=== PATIENT | female | born 1945 | race Caucasian/White ===

== ENCOUNTER 2022-12-15 09:05 | Day surgery (SDC) | payer MEDICARE, SELFPAY ==
[2022-12-15] VITALS (11 sets, daily range): BP systolic 130–159; BP diastolic 45–85; PULSE 55–73; RESP 16–20; TEMP 36.1; O2SAT 94–100; BMI 36.1
--- NOTE | 2022-12-15 07:03 | IR_ITS ---
APPROVED REPORT Patient Location: Outpatient [facility] Helper: QING Kennedy RT (R) PROCEDURES Left heart catheterization Left ventriculogram Selective coronary angiogram INDICATION High risk abnormal Myoview, Progressive angina pectoris Informed consent was obtained prior to the procedure. COMPLICATIONS None Estimated Blood Loss: Less than 10 mls TECHNIQUE One percent lidocaine used to anesthetize the right anterior aspect of the wrist. The right radial artery was accessed via the Seldinger technique. A 6 Czech sheath was placed in the right radial artery. 150 mg magnesium sulfate, 800 mcg of nitroglycerin, 1mg Lidocaine and 5000 U Heparin were given through the arterial sheath. The papa catheter was also used to perform left heart catheterization, left ventriculogram and selective coronary angiogram. At the end of the procedure the sheath was removed good hemostasis was achieved using Traclet band, patient was transferred to the postop holding area in stable condition. ANGIOGRAPHIC RESULTS The left main artery Normal The left anterior descending artery Normal The circumflex artery Normal The right coronary artery Normal The [place] ventriculogram reveals Hyperdynamic 75% The left ventricular end-diastolic pressure Severe to critically elevated at 45 mmHg IMPRESSION Normal coronary arteries Hyperdynamic ventricle consistent with hypertensive heart disease accompanied by severe diastolic dysfunction Severe to critically elevated LVEDP also consistent with severe to critical diastolic dysfunction PLAN 1. Discontinue hydrochlorothiazide 2. Start Lasix 80 mg p.o. daily with plans to uptitrate as necessary 3. Chemistry panel this Sunday and then follow-up in cardiology clinic late morning early afternoon December 18 4. Patient will likely benefit from CardioMEMS given her severe diastolic dysfunction and severe renal dysfunction. This will be addressed as an outpatient 5. Referral to nephrology Electronically signed by : Griffin Chun MD 12/15/2022 13:14:45
[2022-12-15 09:50] LABS: Basophils # 0.1 K/mm3 (0-0.2); Basophils % 0.7 % (0.1-2.0); Eosinophils # 0.2 K/mm3 (0.0-0.4); Eosinophils % 3.7 % (0.1-12.0); Hematocrit 38.5 % (37.0-47.0); Hemoglobin 11.4 g/dL (12.2-16.2); Lymphocytes % 31.7 % (10-50); Mean Corpuscular HGB Conc 29.6 g/dL (31.8-35.4); Mean Corpuscular Hemoglobin 30.6 pg (27.0-31.2); Mean Corpuscular Volume 103.4 fl (81-99); Mean Platelet Volume 8.1 fl (7.4-10.4); Monocytes # 0.4 K/mm3 (0.1-1.0); Neutrophils # 3.6 K/mm3 (1.8-7.8); Neutrophils % 56.9 % (37.0-80.0); Platelet Count 283 K/mm3 (142-424); Red Blood Count 3.72 M/mm3 (4.20-5.40); Red Cell Distribution Width 14.3 % (11.5-17.5); White Blood Count 6.3 K/mm3 (4.8-10.8)
[2022-12-15 09:52] LABS: Chloride 106 mmol/L (98-107); Sodium 140 mmol/L (136-145)
[2022-12-15 09:55] LABS: Blood Urea Nitrogen 36 mg/dl (7-17); Calcium 8.3 mg/dl (8.4-10.2); Carbon Dioxide 27 mmol/L (22.0-30.0); Creatinine Clearance Estimated 40 mL/min (50-200); Estimated Glomerular Filt Rate 24 ml/min (>60); GFR (African American) 29 ML/MIN (>60); Glucose 83 mg/dl (74-100)
--- NOTE | 2022-12-15 15:55 | SUR.PHASEII ---
patient reports nausea is resolved
== END 2022-12-15 15:55 | disposition home or self-care (01) ==
PROVIDERS: PCP Family Medicine; Visit Provider Internal Medicine
DX: I11.9 Hypertensive heart disease without heart failure (principal); R94.31 Abnormal electrocardiogram [ECG] [EKG]; R94.39 Abnormal result of other cardiovascular function study; I25.118 Atherosclerotic heart disease of native coronary artery with other forms of angina pectoris; Z79.899 Other long term (current) drug therapy; R06.02 Shortness of breath
CPT/HCPCS: 80048; 85025; 93458; 99152; C1725; C1769; J1644; J2405; Q9967

== ENCOUNTER → 2022-12-18 09:14 | Outpatient (CLI) | payer MEDICARE, SELFPAY ==
[2022-12-18 11:00] LABS: Anion Gap 14.5 mEq/L (5-15); Blood Urea Nitrogen 45 mg/dl (7-17); Calcium 7.8 mg/dl (8.4-10.2); Carbon Dioxide 23 mmol/L (22.0-30.0); Chloride 101 mmol/L (98-107); Estimated Glomerular Filt Rate 23 ml/min (>60); GFR (African American) 28 ML/MIN (>60); Glucose 108 mg/dl (74-100); Potassium 4.5 mmoL/L (3.5-5.1); Sodium 134 mmol/L (136-145)
[2022-12-18 13:13] LABS: Iron 45 ug/dL (37-170)
[2022-12-18 13:22] LABS: Total Iron Binding Capacity 437 ug/dL (265-497)
[2022-12-18 13:49] LABS: Ferritin 8.58 ng/ml (11.1-264)
[2022-12-18 14:32] LABS: Vitamin B12 211 pg/mL (239-931)
[2022-12-18 14:34] LABS: Folate 6.64 ng/mL
== END ==
PROVIDERS: PCP Family Medicine; Visit Provider Internal Medicine
DX: I10 Essential (primary) hypertension (principal); I20.8 Other forms of angina pectoris; R71.8 Other abnormality of red blood cells; R94.31 Abnormal electrocardiogram [ECG] [EKG]; R94.39 Abnormal result of other cardiovascular function study; D75.89 Other specified diseases of blood and blood-forming organs
CPT/HCPCS: 36415; 80048; 82607; 82728; 82746; 83540; 83550

== ENCOUNTER → 2022-12-26 09:41 | Outpatient (CLI) | payer MEDICARE, SELFPAY ==
[2022-12-26 10:06] LABS: Basophils # 0.1 K/mm3 (0-0.2); Basophils % 0.7 % (0.1-2.0); Eosinophils # 0.2 K/mm3 (0.0-0.4); Eosinophils % 2.4 % (0.1-12.0); Hematocrit 37.9 % (37.0-47.0); Hemoglobin 11.7 g/dL (12.2-16.2); Lymphocytes % 23.2 % (10-50); Mean Corpuscular HGB Conc 30.9 g/dL (31.8-35.4); Mean Corpuscular Hemoglobin 30.5 pg (27.0-31.2); Mean Corpuscular Volume 98.7 fl (81-99); Mean Platelet Volume 8.7 fl (7.4-10.4); Monocytes # 0.6 K/mm3 (0.1-1.0); Monocytes % 6.9 % (1.7-9.3); Neutrophils # 5.6 K/mm3 (1.8-7.8); Neutrophils % 66.7 % (37.0-80.0); Platelet Count 300 K/mm3 (142-424); Red Blood Count 3.84 M/mm3 (4.20-5.40); Red Cell Distribution Width 14.2 % (11.5-17.5); White Blood Count 8.4 K/mm3 (4.8-10.8)
[2022-12-26 10:24] LABS: Alanine Aminotransferase 15 U/L (12-78); Alkaline Phosphatase 106 U/L (38-126); Anion Gap 12.2 mEq/L (5-15); Aspartate Amino Transferase 28 U/L (14-36); Bilirubin,Indirect 0.4 mg/dL (0.0-0.9); Bilirubin,Total 0.4 mg/dl (0.2-1.3); Bilirubin,Unconjugated 0.4 mg/dL (0.0-1.1); Blood Urea Nitrogen 61 mg/dl (7-17); Calcium 7.6 mg/dl (8.4-10.2); Carbon Dioxide 36 mmol/L (22.0-30.0); Chloride 90 mmol/L (98-107); Chol/HDL Ratio 2.4 (1-3.5); Cholesterol 166 mg/dl (140-200); Estimated Glomerular Filt Rate 18 ml/min (>60); GFR (African American) 22 ML/MIN (>60); Glucose 100 mg/dl (74-100); HDL Cholesterol 70 mg/dl (40-60); Magnesium 1.8 mg/dl (1.6-2.3); Potassium 3.2 mmoL/L (3.5-5.1); Sodium 135 mmol/L (136-145); Total Protein,Serum 6.6 g/dl (6.3-8.2); Triglycerides 173 mg/dl (30-150); VLDL Cholesterol 35 mg/dL (0-40)
[2022-12-26 10:33] LABS: NT Pro Brain Natriuretic Pep. 667 pg/mL (0-450)
[2022-12-26 10:34] LABS: Direct LDL Cholesterol 58.62 mg/dL (100-129)
[2022-12-26 10:42] LABS: Free T4 (Free Thyroxine) 0.92 ng/dl (0.78-2.19)
[2022-12-26 10:54] LABS: Thyroid Stimulating Hormone 4.76 uIU/mL (0.465-4.68)
== END ==
PROVIDERS: PCP Family Medicine; Visit Provider Internal Medicine
DX: D75.89 Other specified diseases of blood and blood-forming organs (principal); I20.8 Other forms of angina pectoris; I50.30 Unspecified diastolic (congestive) heart failure; R71.8 Other abnormality of red blood cells; R94.31 Abnormal electrocardiogram [ECG] [EKG]; R94.39 Abnormal result of other cardiovascular function study; I11.0 Hypertensive heart disease with heart failure
CPT/HCPCS: 36415; 80048; 80061; 80076; 83735; 83880; 84439; 84443; 85025

== ENCOUNTER → 2023-01-16 10:34 | Outpatient (CLI) | payer MEDICARE, SELFPAY ==
[2023-01-16 12:09] LABS: Anion Gap 16.9 mEq/L (5-15); Blood Urea Nitrogen 52 mg/dl (7-17); Carbon Dioxide 27 mmol/L (22.0-30.0); Chloride 96 mmol/L (98-107); Estimated Glomerular Filt Rate 24 ml/min (>60); GFR (African American) 29 ML/MIN (>60); Glucose 135 mg/dl (74-100); Potassium 3.9 mmoL/L (3.5-5.1); Sodium 136 mmol/L (136-145)
== END ==
PROVIDERS: PCP Family Medicine; Visit Provider Internal Medicine
DX: N18.9 Chronic kidney disease, unspecified (principal)
CPT/HCPCS: 36415; 80048

== ENCOUNTER 2025-06-23 09:49 | Outpatient (CLI) | payer MEDICARE, SELFPAY ==
--- OUTSIDE RECORDS SUMMARY | 2025-05-09 20:41 | XMS_ITS | Encounter Summary ---
Author Organization [facility] ([place], [place], [place], [place]) Address [address] [place] [address] Care Team Providers Care Machine Wood Sander Name Role Phone Deo Byrne MD Primary Care Provider [phone] Jacob Celeste MD Unavailable Reason for Visit * Reason Comments Chest Pain Shortness of Breath * Auth/Cert (Routine) Specialty Diagnoses / Procedures Referred By Contac t Referred To Contact Diagnoses Shortness of breath Sinus tachycardia Chest pain Elevated liver enzymes Positive D dimer Abnormal kidney function Hypotension, unspecified hypotension type [facility] [address] [place] [address] Phone: tel: fax: [facility] [address] [facility] [address] [place] [address] Phone: tel: fax: Referral ID Status Reason Start Date Expiration Date Visits Re quested Visits Authorized [id number] 1 1 Encounter Details Date Type Department Care Team (Late st Contact Info) Description 05/09/2025 8:41 PM EDT - 05/13/2025 4:35 PM EDT Hospital Encounter [facility] [facility] [address] [place] [address] Xiang Cordova MD [address] [place] [address] Ulises Ruelas PA-C [address] [facility] [address] [place] [address] Kurtis Conteh DO [address] [id number] Martin Snyder MD [address] [id number] Callum Blanton MD [address] [phone] Shortness of breath (Primary Dx); Sinus tachycardia; Hypotension, unspecified hypotension type; Positive D dimer; Abnormal kidney function; Elevated liver enzymes Discharge Disposition: Home or Self Care Social History Tobacco Use Types Packs/Day Years Used Date Smoking Tobacco: Never Smokeless Tobacco: Never Alcohol Use Standard Drinks/Week Comments Yes 2 (1 standard drink = 0.6 oz pur e alcohol) Utilities Answer Date Recorded In the past 12 months, has t he electric, gas, oil, or water company threatened to shut off services in your home? No 05/10/2025 Interpersonal Safety Answer Date Record ed How often does anyone, mook small family and friends, physically hurt you? Never 05/10/2025 How often does anyone, mook small family and friends, insult or talk down to you? Never 05/10/2025 How often does anyone, mook small family and friends, threaten you with harm? Never 05/10/2025 How often does anyone, mook small family and friends, scream or curse at you? Never 05/10/2025 Housing Stability Answer Date Recorded What is your living situation today? I have a [facility] place to live 05/10/[address] you li ve. Do you have problems with any of the following? None of the above 05/10/2025 Food Insecurity Answer Date Recorded Within the past 12 months, y ou worried that your food would run out before you got money to buy more. Never true 05/10/2025 Within the past 12 months, t he food you bought just didn't last and you didn't have money to get more. Never true 05/10/2025 Transportation Needs Answer Date Record ed In the past 12 months, has l ack of reliable transportation kept you from medical appointments, meetings, work or from getting things needed for daily living? No 05/10/2025 Financial Resource Strain Answer Date R ecorded How hard is it for you to pa y for the very basics like food, housing, medical care, and heating? Would you say it is: Not hard at all 05/10/2025 Employment Answer Date Recorded Do you want help finding or keeping work or a job? I do not need or want help 05/10/2025 Family and Community Support Answer Zenon e Recorded If for any reason you need h elp with day-to-day activities such as bathing, preparing meals, shopping, managing finances, etc., do you get the help you need? I don't need any help 05/10/2025 Feeling Lonely or Isolated 0 05/10 Educational Attainment Answer Date Paul rded Do you speak a language other than [place] at [facility]? No 05/10/2025 Do you want help with school or training? For example, starting or completing job training or getting a high school diploma, GED or equivalent. No 05/10/2025 Physical Activity Answer Date Recorded Number of minutes of exercise per week 0 05/10/2025 Self Management Answer Date Recorded Because of a physical, menta l, or emotional condition, do you have serious difficulty concentrating, remembering, or making decisions? (5 years or older) No 05/10/2025 Because of a physical, menta l, or emotional condition, do you have difficulty doing errands alone such as visiting a doctor's office or shopping? (15 years or older) No 05/10/2025 Substance Use Answer Date Recorded How many times in the past y ear have you used prescription drugs for non-medical reasons? Patient declines to answer 05/10/2025 How many times in the past y ear have you used illegal drugs? Never 05/10/2025 Mental Health Answer Date Recorded Calculation of above two rows 0 Comments No Sex and Gender Information Value Date Recorded Sex Assigned at Not on file Legal Sex Female 4:41 PM CDT Gender Identity Not on file Sexual Orientation Not on file documented as of this encounter Last Filed Vital Signs Vital Sign Reading Time Taken Comments Blood Pressure 121/61 05/13/2025 4:00 PM EDT Pulse 73 05/13/2025 4:00 PM EDT Temperature 36.4 C (97.5 F) 05/13/2025 4:00 PM EDT Respiratory Rate 18 05/13/2025 3:57 PM EDT Oxygen Saturation 95% 05/13/2025 4:00 PM EDT Inhaled Oxygen Concentration - - Weight 102.1 kg (225 lb) 05/09/2025 8:45 PM EDT Height 172.7 cm (5' 8 ) 05/09/2025 8:45 PM EDT Body Mass Index 34.21 05/09/2025 8:45 PM EDT documented in this encounter Discharge Summaries * Callum Blanton MD - 05/13/2025 10:26 AM EDT Images from the original note were not included. Patient Name: Elissa Kent : 1945 Date of Admission: 05/09/2025 Date of Discharge: 05/13/2025 Primary Care Physician: Deo Byrne MD Consultations: Treatment Team: Consulting Physician: Trey Cartwright MD Discharge Diagnoses: Acute e coli bacteremia Chest pain, resolved Bilateral renal cysts, new diagnosis HPI forwarded from H&P: Elissa Kent is a 79 y.o. female with a history of chronic kidney disease stage IV with GFR 15-29, GERD, hypertension, history of diastolic heart failure who presents to [facility] in [place], [place] for further evaluation and management of chest pain and shortness of breath. Patient presented to the ED with complaints of chest pain and shortness of breath for 2 days. She states over the past 2 to 3 months she has been having this intermittent recurrent chest pain that she feltlike was worse earlier this week and, returned but during examination she is not currently having chest pain. States that she was having some mild shortness of breath although daughter at bedside state that you can hear her breathing sitting on the recliner across the room. She does follow with outpatient and has been worked up with this for some point in time. ED provider did order a D-dimer, but due to kidney function was unable to complete a CTA. On my examination patient does complain of some right calf tenderness to palpation, but no pain at rest. Reportedly patient was requiring2 L oxygen supplementation on baseline nausea and requirement. Although in the room during examination I did take oxygen off patient to monitor myself during conversation patient on room air did not drop more than 93% spo2. Significant lab work showed D-dimer 1.40, proBNP 1896. Sepsis creatinine 2.48, alkaline phosphatase 161, ALT 81, AST 74. Hospital Course: Acute e coli Bacteremia -unclear source -ua normal -ct abd/pel without iv contrast 05/12/25: no acute inflammatory process. Multiple bilateral renal masses -renal us 05/12/25: renal cortical thinning increased echogenicity consistent with medical renal disease bilaterally. Multiple bilateral renal cysts -Merrem was given and changed to Rocephin. She will need a 10 day course of rocephin 2g daily last day 05/22/25 via peripheral iv set up in outpatient infusion clinic; Weekly cbc cmp; f/u with ID on Sunday Multiple bilateral renal cysts -will need to f/u with urology int he outpatient setting Chest pain, resolved Elevated d-dimer and probnp -doppler venous us b/l LE 05/11/25: no dvt -vq scan 05/11/25: low probability for PE -transthoracic echo 05/11/25: lvef 55%, moderate lvh -Cardiology saw the patient and recommended against inpatient workup; she will f/u with her bed bug exterminator in a month CKD Hypokalemia -k was replaced Obesity hypothyroidism Studies Performed: Ultrasound renal limited [[id number]] Collected: 05/12/25 1548 Order Status: Completed Updated: 05/12/25 6536 Narrative: RENAL ULTRASOUND HISTORY: Abnormal CT with renal masses PROCEDURE: Sonographic images of the kidneys were obtained in both longitudinal and transverse orientations. FINDINGS: Limited images of the liver parenchyma demonstrate normal echogenicity. The right kidney measures 11.3 x 6 x 4.2 cm. The right renal volume is 149 mL. There is increased cortical echogenicity. There is significant renal cortical thinning. There are multiple right renal cysts. The largest is in the midpole measuring 1.8 cm. No solid masses identified. Multiple smaller cysts are identified. The left kidney measures 10.8 x 6.3 x 4.2 cm. The left renal volume is 150 mL. There is mild increased echogenicity. There is moderate renal cortical thinning. There is a dominant cyst measuring 3.4 x 2.1 x 2.5 cm. This lies in the midpole. Impression: 1. Renal cortical thinning increased echogenicity consistent with medical renal disease bilaterally. 2. No hydronephrosis. 3. Multiple bilateral renal cysts as above. No solid masses are seen. Images reviewed, interpreted, dictated and electronically signed by Pio Angel MD Voice residence supervisor technology ([employer]) is used for the dictation of this note and sound-alike words might be erroneously placed despite reviewing this note for accuracy. Errors in dictation may reflect use of voice recognition software and not all errors in residence supervisor may have been detected prior to signing. US renal complete [[id number]] Order Status: Canceled CT ABDOMEN/PELVIS WITHOUT IV CONTRAST Standard Protocol [[id number]] Collected: 05/12/25524 Order Status: Completed Updated: 05/12/25535 Narrative: CT SCAN OF THE ABDOMEN AND PELVIS WITHOUT CONTRAST HISTORY: Sepsis. PROCEDURE: Axial CT images were obtained from the lung bases to the pubic symphysis without IV contrast administration. Oral contrast was given. Coronal and sagittal reformatted images were also obtained and reviewed. This study was performed with techniques to keep radiation doses as low as reasonably achievable, (ALARA). Individualized dose reduction techniques using automated exposure control or adjustment of mA and/or kV according to the patient size were employed. COMPARISON: None. FINDINGS: LOWER CHEST: The heart is normal in size. There is mild atelectasis or scarring in the lung bases. ABDOMEN/PELVIS: Liver, gallbladder and bile ducts: A less than 1 cm low-attenuation mass is seen in the right hepatic lobe that cannot be accurately characterized without contrast but may represent a small cyst. Postoperative changes are seen from cholecystectomy. No significant biliary ductal dilatation. Adrenal glands: The adrenal glands are morphologically unremarkable without suspicious lesion. Kidneys, ureters and urinary bladder: No renal stone is identified. There is no hydronephrosis. Multiple bilateral renal masses are seen which cannot be accurately characterized without contrast. Several of the masses do not appear to be simple cysts. There is no evidence of ureteral stone. No focal abnormality is seen of the urinary bladder. Spleen: The spleen is normal in size. Pancreas: The pancreas is unremarkable. 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 There is evidence of bowel obstruction. The appendix is not well visualized. Scattered diverticula are seen in the sigmoid colon. There is moderate retained stool throughout the colon. Lymph nodes: No pathologically enlarged abdominal or pelvic lymph nodes are present. Vessels: The abdominal aorta is normal in caliber. Peritoneum: No free intraperitoneal fluid or pneumoperitoneum. Pelvic viscera: Postoperative changes from hysterectomy. Body wall: No acute findings. A small umbilical hernia is seen containing fat only. Bones: No acute fracture. Postoperative changes are seen from fusion from L4 to S1. Degenerative changes are seen throughout the thoracolumbar spine. Impression: No acute inflammatory process identified. Postoperative changes in the abdomen and pelvis. Multiple bilateral renal masses which cannot be accurately characterized without contrast. These could be further evaluated with renal mass protocol CT or MRI. Images reviewed, interpreted, and dictated by Trey Bailey MD US DOPPLER VENOUS LEGS BILATERAL [[id number]] Collected: 05/11/25 1453 Order Status: Completed Updated: 05/12/25 1255 Narrative: Vascular Lower Extremities DVT Study Procedure Demographics Patient Name DONTE MONTEJO Age 79 Patient Number [id number] Gender Female Race Unknown Ethnicity Corporate ID [id number] Height 68 Date of 1945 Weight 225 Accession Number [id number] BSA 2.15 m^2 Room Number 415 BMI 34.21 kg/m^2 Referring BIPIN ZACARIAS Interpreting JUSTINA MEMBRENO DO Physician Physician Battery Tester And Repairer MEGHAN RAMIREZ RVT Procedure Type of Study: Veins: Venous Duplex, Venous Duplex Legs, Lower Extremities DVT Study, US DOPPLER VENOUS LEGS BILATERAL. Impressions Summary INDICATION: (R09.89) OTHER SPECIFIED SYMPTOMS AND SIGNS INVOLVING THE CIRCULATORY AND RESPIRATORY SYSTEM. INDICATION: Shortness of Breath (R06.02) ############################### BILATERAL: No evidence of deep venous thrombosis (DVT) or superficial venous thrombosis. ############################### Patient Status:Inpatient . Study Location:Portable. Technical Quality:Technically difficult study due to patient's positioning. Velocities are measured in cm/s ; Diameters are measured in mm Right Lower Extremities DVT Study Measurements Right 2D Measurements + + + + + !Location !Visualized !Compressibility !Thrombosis ! + + + + + !GSV Thigh !Yes !Yes !None ! + + + + + !Common Femoral !Yes !Yes !None ! + + + + + !Deep Femoral !Yes !Yes !None ! + + + + + !Prox Femoral !Yes !Yes !None ! + + + + + !Mid Femoral !Yes !Yes !None ! + + + + + !Dist Femoral !Yes !Yes !None ! + + + + + !Popliteal !Yes !Yes !None ! + + + + + !PTV !Yes !Yes !None ! + + + + + !Peroneal !Yes !Yes !None ! + + + + + Right Doppler Measurements + + +------+ + !Location !Signal !Reflux!Reflux (sec) ! + + +------+ + !Common Femoral !Spontaneous Phasic ! ! ! + + +------+ + !Prox Femoral !Spontaneous Phasic ! ! ! + + +------+ + !Deep Femoral !Spontaneous Phasic ! ! ! + + +------+ + !Popliteal !Spontaneous Phasic ! ! ! + + +------+ + Left Lower Extremities DVT Study Measurements Left 2D Measurements + + + + + !Location !Visualized !Compressibility !Thrombosis ! + + + + + !GSV Thigh !Yes !Yes !None ! + + + + + !Common Femoral !Yes !Yes !None ! + + + + + !Deep Femoral !Yes !Yes !None ! + + + + + !Prox Femoral !Yes !Yes !None ! + + + + + !Mid Femoral !Yes !Yes !None ! + + + + + !Dist Femoral !Yes !Yes !None ! + + + + + !Popliteal !Yes !Yes !None ! + + + + + !PTV !Yes !Yes !None ! + + + + + !Peroneal !Yes !Yes !None ! + + + + + Left Doppler Measurements + + +------+ + !Location !Signal !Reflux!Reflux (sec) ! + + +------+ + !Common Femoral !Spontaneous Phasic ! ! ! + + +------+ + !Prox Femoral !Spontaneous Phasic ! ! ! + + +------+ + !Deep Femoral !Spontaneous Phasic ! ! ! + + +------+ + !Popliteal !Spontaneous Phasic ! ! ! + + +------+ + Findings Right Findings No evidence of a deep venous thrombosis (DVT). No evidence of a superficial venous thrombosis. Normal response to augmentation in the supine position. Hard to visualize peroneal veins , but no dilation noted. Left Findings No evidence of a deep venous thrombosis (DVT). No evidence of a superficial venous thrombosis. Normal response to augmentation in the supine position. Signature XR chest AP portable [[id number]] Collected: 05/11/251927 Order Status: Completed Updated: 05/11/251932 Narrative: PORTABLE CHEST HISTORY: Shortness of breath. COMPARISON: 05/09/2025. FINDINGS: A single portable radiograph of the chest was performed. A spinal stimulator seen in the midthoracic spine. The heart is normal in size. The lungs are hypoaerated. The patient is kyphotic and rotated. Impression: Underinflation with no acute cardiopulmonary process. Images reviewed, interpreted, dictated and electronically signed by Pio Angel MD Voice residence supervisor technology ([employer]) is used for the dictation of this note and sound-alike words might be erroneously placed despite reviewing this note for accuracy. Errors in dictation may reflect use of voice recognition software and not all errors in residence supervisor may have been detected prior to signing. NM lung perfusion scan [[id number]] Collected: 05/11/25 1502 Order Status: Completed Updated: 05/11/25 1513 Narrative: NUCLEAR MEDICINE LUNG PERFUSION SCAN HISTORY: Shortness of breath. PROCEDURE: The patient was injected with 5.5 mCi of Tc 99m MAA. Images over the lungs were obtained in multiple projections. FINDINGS: Overall, perfusion is superior to ventilation . There is a questionable segmental defect within the anterior right upper lobe which is not definitely seen on all images. This may represent a single segmental defect, based on criteria this remains low probability. Impression: Low probability for PE . Images reviewed, interpreted, and dictated by Dr. Pio Angel. Transcribed by Kun Rivera PA-C. NM lung scan (V/Q) [[id number]] Order Status: Canceled CT chest for pulmonary embolus [[id number]] Order Status: Canceled XR chest 1 view portable / bedside [[id number]] Collected: 05/10/25816 Order Status: Completed Updated: 05/10/25903 Narrative: Name: ELISSA KENT : 1945 CHEST SINGLE VIEW HISTORY: Chest pain. Shortness of breath. FINDINGS: Lungs are underinflated. Cardiac silhouette measures at the upper limits of normal in size. Mild chronic changes are seen at the lung bases. Stimulator leads are identified in the lower thoracic spine. Impression: 1. Underinflation with chronic changes at the lung bases. Procedure Component Value Units Date/Time Blood Culture [[id number]] (Abnormal) Collected: 05/09/252239 Order Status: Completed Specimen: Blood Updated: 05/12/25 1004 Result Escherichia coli Abnormal Comment: Refer to previous culture of - [id number] Gram Stain Result Aerobic bottle gram stain gram negative rods Panic Narrative: Positive Blood culture. Note cultures and clinical presentation before starting antibiotics Blood culture identification by PCR was performed on a previous accession. See accession: [id number] In 1 of 2 blood culture bottles drawn Blood Culture [[id number]] (Abnormal) Collected: 05/09/252239 Order Status: Completed Specimen: Blood Updated: 05/12/25 1003 Result Escherichia coli Abnormal Gram Stain Result Aerobic bottle gram stain gram negative rods Panic Narrative: Positive Blood culture. Note cultures and clinical presentation before starting antibiotics In 1 of 2 blood culture bottles drawn Blood Culture Panel([employer]) [[id number]] (Abnormal) Collected: 05/09/252239 Order Status: Completed Specimen: Blood Updated: 05/10/25 1624 CTX-M Not detected IMP Not detected KPC Not detected MCR-1 Not detected MEC A/C Non Applicable MEC A/C and MREJ Non Applicable NDM Not detected OXA-48-LIKE Not detected VAN A/B Non Applicable VIM Not detected ENTEROCOCCUS FAECALIS Not detected ENTEROCOCCUS FAECIUM Not detected LISTERIA MONOCYTOGENES Not detected STAPHYLOCOCCUS Not detected STAPHYLOCOCCUS AUREUS Not detected STAPHYLOCOCCUS EPIDERMIDIS Not detected STAPHYLOCOCCUS LUGDENENSIS Not detected STREPTOCOCCUS Not detected STREPTOCOCCUS AGALACTIAE (GROUP B) Not detected STREPTOCOCCUS PNEUMONIAE Not detected STREPTOCOCCUS PYOGENES (GROUP A) Not detected ACINETOBACTER CALCOACETICUS-BAUMANNII COMPLEX Not detected BACTEROIDES FRAGILIS Not detected ENTEROBACTERIACEAE Detected Panic Comment: Enterobacterales represents a large order of gram negative bacteria, not a single organism ENTEROBACTER CLOACAE COMPLEX Not detected ESCHERICHIA COLI Detected Panic KLEBSIELLA AEROGENES Not detected KLEBSIELLA OXYTOCA Not detected KLEBSIELLA PNEUMONIAE GROUP Not detected PROTEUS Not detected SALMONELLA SPECIES Not detected SERRATIA MARCESCENS Not detected HAEMOPHILUS INFLUENZAE Not detected NEISSERIA MENINGITIDIS Not detected PSEUDOMONAS AERUGINOSA Not detected STENOTROPHOMONAS MALTOPHILIA Not detected KELLY ALBICANS Not detected KELLY AURIS Not detected KELLY GLABRATA Not detected KELLY KRUSEI Not detected KELLY PARAPSILOSIS Not detected KELLY TROPICALIS Not detected CRYPTOCOCCUS NEOFORMANS/GATTII Not detected Narrative: NOTE: Antimicrobial resistance can occur via multiple mechanisms. A Not Detected result for antimicrobial resistance gene(s) does not indicate antimicrobial susceptibility. Subculturing is required for species identification and susceptibility testing of isolates. COVID ANTIGEN [[id number]] (Normal) Collected: 05/09/252125 Order Status: Completed Specimen: Nasal Swab Updated: 05/09/252156 SARS COVID ANTIGEN Negative Procedures Performed: none Discharge Medications: Your medication list START taking these medications Instructions Comments Quantity Refills cefTRIAXone (ROCEPHIN) 2 g in NS 50 mL CHRISTIAN IVPB Infuse 2 g into a venous catheter daily for 9 days. 0 Saccharomyces boulardii 250 mg capsule Commonly known as: FLORASTOR Take 1 capsule (250 mg total) by mouth 2 (two) times daily for 10 days. 20 capsule 0 CONTINUE taking these medications Instructions Comments Quantity Refills cholecalciferol (vitamin D3) 2,000 unit Tab Take 1 tablet (2,000 Units total) by mouth daily. 0 FLUoxetine 20 MG tablet Commonly known as: PROzac Take 3 tablets (60 mg total) by mouth daily. 0 furosemide 80 MG tablet Commonly known as: LASIX Take 1 tablet (80 mg total) by mouth 2 (two) times daily. This prescription was filled on 09/11/2024. Any refills authorized will be placed on file. 180 tablet 2 gabapentin 600 MG tablet Commonly known as: NEURONTIN Take 1 tablet (600 mg total) by mouth 3 (three) times daily. 0 levothyroxine 75 MCG tablet Commonly known as: SYNTHROID Take 1 tablet (75 mcg total) by mouth daily. 0 LORazepam 0.5 MG tablet Commonly known as: ATIVAN Take 1 tablet (0.5 mg total) by mouth every night as needed. 0 metoprolol succinate 50 MG 24 hr tablet Commonly known as: TOPROL-XL Take 1&1/2 tablets (75 mg total) by mouth daily. 45 tablet 11 omeprazole 20 MG capsule Commonly known as: PriLOSEC Take 1 capsule (20 mg total) by mouth daily. 0 oxyCODONE-acetaminophen 7.5-325 mg per tablet Commonly known as: PERCOCET Take 1 tablet by mouth 2 (two) times daily Look-alike/Sound-alike medication. Max Daily Amount:2 tablets 0 potassium chloride 20 mEq CR tablet Commonly known as: KLOR-CON Take 1 tablet (20 mEq total) by mouth daily. This prescription was filled on 03/18/2025. Any refills authorized will be placed on file. 90 tablet 3 PreviDent 5000 Booster Plus 1.1 % Pste Generic drug: fluoride (sodium) Apply to teeth. 0 Where to Get Your Medications These medications were sent to [facility] at [address] [facility] [address], [facility] [address] Saccharomyces boulardii 250 mg capsule Information about where to get these medications is not yet available Ask your nurse or doctor about these medications cefTRIAXone (ROCEPHIN) 2 g in NS 50 mL CHRISTIAN IVPB Physical Exam General appearance: no acute distress HEENT: normocephalic and atraumatic. EOMI. No scleral icterus. Neck: symmetrical, trachea midline Lungs: clear to auscultation bilaterally, symmetric chest rise Heart: s1 and s2 normal, no murmur, gallop or rub GI: soft and nontender Musculoskeletal: no myoclonus, normal range of motion Skin: warm and dry Neurologic: alert and oriented Discharge Instructions Discharge Diet: regular Discharge Activity: as tolerated Discharge Follow UP: Contact information for follow-up Deo Byrne MD Specialty: Family Medicine Relationship: PCP - [address] [id number] Next Steps: Follow up in 1 week(s) Ulisses Barriga MD Specialty: Infectious Disease, Infectious Diseases [facility] [address] [facility] [address] Next Steps: Follow up in 5 day(s) Jacob Celeste MD Specialty: Cardiology, Interventional Cardiology [address] [facility] [address] [place] [address] Next Steps: Follow up Time Spent: 40 minutes Electronically signed by Callum Blanton MD, 05/13/25, 10:26 AM EDT documented in this encounter Discharge Instructions * Attachments The following attachments cannot be sent through Care Everywhere. * Pleurodynia (Cymraes) * Sinus Tachycardia (Cymraes) documented in this encounter Medications at Time of Discharge cholecalciferol, vitamin D3, 2,000 unit Tab Take 1 tablet (2,000 Units total) by mouth daily. 10/27/2022 fluoride, sodium, (PreviDent 5000 Booster Plus) 1.1 % pste Apply to teeth. FLUoxetine (PROzac) 20 MG tablet Take 3 tablets (60 mg total) by mouth daily. gabapentin (NEURONTIN) 600 MG tablet Take 1 tablet (600 mg total) by mouth 3 (three) times daily. 01/02/2023 levothyroxine (SYNTHROID, LEVOTHROID) 75 MCG tablet Take 1 tablet (75 mcg total) by mouth daily. 10/27/2022 LORazepam (ATIVAN) 0.5 MG tablet Take 1 tablet (0.5 mg total) by mouth every night as needed. 01/05/2023 metoprolol succinate (TOPROL-XL) 50 MG 24 hr tablet Take 1&1/2 tablets (75 mg total) by mouth daily. 45 tablet 11 12/30/2024 omeprazole (PriLOSEC) 20 MG capsule Take 1 capsule (20 mg total) by mouth daily. oxyCODONE-acetam inophen (PERCOCET) 7.5-325 mg per tablet Take 1 tablet by mouth 2 (two) times daily Look-alike/S ound-alike medication. potassium chloride (KLOR-CON) 20 mEq CR tablet Take 1 tablet (20 mEq total) by mouth daily. 90 tablet 3 03/19/2025 cefTRIAXone (ROCEPHIN) 2 g in NS 50 mL CHRISTIAN IVPB Infuse 2 g into a venous catheter daily for 9 days. 05/13/2025 05/22/2025 Saccharomyces boulardii (FLORASTOR) 250 mg capsule Take 1 capsule (250 mg total) by mouth 2 (two) times daily for 10 days. 20 capsule 05/13/2025 05/23/2025 furosemide (LASIX) 80 MG tablet Take 1 tablet (80 mg total) by mouth 2 (two) times daily. 180 tablet 2 09/12/2024 06/11/2025 documented as of this encounter Progress Notes * Fannie Molina RN - 05/13/2025 3:42 PM EDT 05/13/25 1541 Final Discharge Plan PCP referral provided? No Community Referral Discussed with Patient? Yes Patient appealing discharge? No Does the patient have the ability to fill and receive their discharge medications? Yes Patient returning to prior living situation? No (home with outpt IV ABx) Support Systems Spouse/significant other;Family members Agency Type Outpatient Therapies (PT, OT, WIRE PULLER, Infusion, Wounds) Outpatient Therapies (PT, OT, WIRE PULLER, infusion, Wounds) Name and Number [facility] infusion dept Transportation Provider family Date of bankruptcy assistant 05/13/25 Care Coordination Final Discharge Plan Final Discharge Plan PCP referral provided? (P) No Community Referral Discussed with patient: (P) Yes Patient Appealing Discharge: (P) No Does the patient have ability to fill and recive their discharge medications? (P) Yes Patient returning to prior living situation: (P) No (home with outpt IV ABx) Support Systems: (P) Spouse/significant other, Family members Discharge Disposition: Services Arranged for Discharge: Contact information for follow-up Deo Byrne MD Specialty: Family Medicine Relationship: PCP - General [address] [place] [id number] Next Steps: Go in 1 week(s) Instructions: PCP follow up 05/20/25 @2:00pm Ulisses Barriga MD Specialty: Infectious Disease, Infectious Diseases [address] [facility] [address] [place] [id number] Next Steps: Go in 5 day(s) Instructions: ID follow up Per the office they have spoke with you and given you your appt Jacob Celeste MD Specialty: Cardiology, Interventional Cardiology [address] [facility] [address] [place] [address] Next Steps: Go in 1 month(s) Instructions: Cardiology follow up 06/11/25 @11:45am Trey Cartwright MD Specialty: Urology [address] [address] Next Steps: Go in 1 month(s) Instructions: Urology follow up 06/10/25 @10:45am for bilateral renal cysts [address] [place] [address] p# [phone] Infusion dept- [phone] Next Steps: Go to Instructions: Appointment scheduled for 05/14/25-05/22/25. Arrive at 9:30 AM for registration. Appointment is at 10:00 AM on all days except 05/19/25- It will be at 1:00 PM with registration at 12:30 PM. IV Antibiotic by peripheral IV or butterfly; Ceftriaxone 2 gm IV daily with end date 05/22/25. Labs every Sunday- CBC/CMP while on antibiotics. Will have to go to Emergency room for Antibiotics on the weekend- preferably between 8:00 AM- 11:00 AM. Transporation Provider: (P) family Transporation Contact Name: Transportation Provider Phone: Date of bankruptcy assistant: (P) 05/13/25 Time of bankruptcy assistant: Fannie Molina RN * Fannie Molina RN - 05/13/2025 3:35 PM EDT Discharge Plan Progress Note CM received call from [facility]- Appointment scheduled for 05/14/25-05/22/25. Arrive at 9:30 AM for registration. Appointment is at 10:00 AM on all days except 05/19/25- It will be at 1:00 PM with registration at 12:30 PM. Will have to go to ER on Weekend between [phone]. CM placed on follow up provider list. Cm updated nursing. Fannie Molina RN * Fannie Molina RN - 05/13/2025 2:39 PM EDT Discharge Plan Progress Note Cm [facility] dept. Received referral. Will have to review before can make appointment. May not be able to get pt in for tomorrow. Cm waiting to hear back. Fannie Molina RN * Fannie Molina RN - 05/13/2025 12:51 PM EDT 05/13/25 1250 Home Environment Type of Residence Private residence (one level home with 1 step to Front door) Living Arrangements Spouse/significant other Support Systems Spouse/significant other;Children Accessibilty Issues None Patient returning to prior living situation? Yes Adherence Patient has moderate rate of compliance with treatment. Motivation Patient has moderate desire for learning/change. Affect Behavior Appropriate Prior/Regular Transportation Family Needs Assistance with Transportation No ADL Assessment Current Sensory Deficits None Patient's Vision Adequate to Safely Complete Daily Activities 1 Patient's Judgement Adequate to Safely Complete Daily Activities 1 Dressing Independent Current Home Care Services None Assistive Devices Cane;Walker;Wheelchair Transition Needs Home or Post Acute Services Home/self care;Other (Comment) (Outpt infusion clinic) Type of Home/Self Residential with family care Does the patient have the ability to fill and receive their discharge medications? Yes Discharge Plan Discussed The discharge plan was discussed with patient. Discharge Plan Outcome Patient/family commercial representative agrees with the discharge plan Discharge Barriers None Type of Assistive Devices Needed for Discharge None Patient Discharge Goal Home;Other (Comment) (outpt infusion clinic) Mandated Reporting Not applicable Care Coordination Initial Assessment Home Environment Type of Residence: (P) Private residence (one level home with 1 step to Front door) Living Arrangements: (P) Spouse/significant other Support System: (P) Spouse/significant other, Children Home Caregiver: Accessibility Issues: (P) None Current Agency Name & Number: Patient returning to prior living situation? (P) Yes Compliance: (P) Patient has moderate rate of compliance with treatment. Motivation: (P) Patient has moderate desire for learning/change. Affect/Behavior: (P) Appropriate Prior/Regular Transportation: (P) Family Current Transportation Agency Information: Needs assistance with transportation:(P) No ADL Screen Current Sensory Deficits: (P) None Patient's Vision Adequate to Safely complete ADLs:(P) Yes Patient's Judgement Adequate to safely completed ADLs: (P) Yes Dressing: (P) Independent Current Home Care Services: Current Home Care Services: (P) None Assistive Devices(P) Yes Patient's Judgement Adequate to Safely Complete Daily Activities: (P) Yes Dressing: (P) Independent Current Lines, Tubes: Special/Community Services: Transition Needs Expected Discharge Date: 05/13/2025 Home or Post Acute Services Needed: (P) Home/self care, Other (Comment) (Outpt infusion clinic) Does the patient have the ability to fill and receive their discharge medications: (P) Yes Discharge plan discussed: (P) The discharge plan was discussed with patient. Discharge Barriers: (P) None Type of Assistive Devices Needed for Discharge: (P) None Patient Discharge Goal: (P) Home, Other (Comment) (outpt infusion clinic) Mandated Reporting: (P) Not applicable PT/OT/WIRE PULLER Recommendations PT Recommendations: OT Recommendations: WIRE PULLER Recommendations: CM spoke to patient. Has a PCP and can afford meds. Independent with ADL's. Discussed need for IV Abx. Requests [facility] for IV Abx via PIV and labs. Choice letter given. Family at bedside. Requesting Copy of ID order.Cm instructed [facility] Confirmed with Rach Sigala RN. .Patient/family provided with [facility] approved choice list and Patient choice letter along with Qualitydata link to access Medicare.gov Care Compare website to review potential post-acute providers. Choice provided to patient/family, and patient preferences received and referral(s) submitted to requested providers. Referral(s) submitted to: referral to [facility] p# [phone]- left , f# [phone]. Aw acceptance and appointment time. Fannie Molina RN * Ulisses Barriga MD - 05/13/2025 9:06 AM EDT Images from the original note were not included. [facility] Patient Name: Elissa Kent : 1945 Evaluating Physician: Ulisses Barriga MD Chief Complaint: nausea/dry heaves, SOB and chest pain Reason for Consultation: E Coli bacteremia History of present illness: Patient is a 79 y.o. female with history of CKD 4, GERD and prior esophageal dilation, intermittentchest pain for months with acute complaints of chest pain/dyspnea for several days at time of admission on May 09. Admission concern for angina compounding chronic diastolic heart failure with elevated D- dimer and cardiology/medicine team workup ongoing. She had noted nausea and dry heaves at admission, subsequent blood culture positivity for E. coli by PCR. Urinalysis negative with no acute urinary tract complaints. She denied any hematochezia melena or hematemesis. Benign, liver transaminases is abnormal and prior history of cholecystectomy 05/11 CT abdomen with no acute inflammatory process per radiology. They mention bilateral renal masses which cannot be accurately characterized without contrast Per radiologist 05/13/25 room air; blood cultures with E. Coli and both sets; denies any new focal symptomatology.No headache photophobia or neck stiffness. Denies cough or hemoptysis. Dyspnea better and on room air. No abdominal pain at present with no vomiting with dry heaves today. No diarrhea. No dysuria hematuria or pyuria and no rash. Does not have a chronic line and no other recent procedures; esophageal dilation approximately 1 month prior Review of Systems 05/13/25 Constitutional-- No chills or sweats. Appetite diminished with fatigue. Heent-- No new vision, hearing or throat complaints. No epistaxis or oral sores. Denies odynophagiaor dysphagia. No headache, photophobia or neck stiffness. CV-- No chest pain, palpitation or syncope Resp-- No SOB, cough, or hemoptysis GI-see above -- No dysuria, hematuria, or flank pain. Denies hesitancy, urgency or flank pain. Lymph- no swollen lymph nodes in neck, axilla or groin. Heme- No active bruising or bleeding MS-- no swelling or pain in the bones or joints of arms or legs. No new back pain. Neuro-- No acute focal weakness or numbness in the arms or legs. Skin-- No rashes, lesions, ulcers. No skin breakdown Past Medical History: Diagnosis Date Angina of effort (HCC) CKD (chronic kidney disease) Diastolic heart failure (HCC) Edema HTN (hypertension) Hypokalemia Past Surgical History: Procedure Laterality Date LUMBAR NERVE STIMLATOR INSERTION REPLACEMENT TOTAL KNEE Social History Socioeconomic History Marital status: Spouse name: Not on file Number of children: Not on file Years of education: Not on file Highest education level: Not on file Occupational History Not on file Tobacco Use Smoking status: Never Smokeless tobacco: Never Vaping Use Vaping status: Never Used Substance and Sexual Activity Alcohol use: Yes Alcohol/week: 2.0 - 3.0 standard drinks of alcohol Types: 2 - 3 Drinks containing 0.5 oz of alcohol per week Drug use: Never Sexual activity: Not on file Other Topics Concern Not on file Social History Narrative Not on file Social Drivers of Health Financial Resource Strain: Low Risk (05/10/2025) Financial Resource Strain Struggle to pay for basics: Not hard at all Food Insecurity: No Food Insecurity (05/10/2025) Food Insecurity Food run out past 12 months: Never true Food did not last past 12 months: Never true Transportation: No Transportation Needs (05/10/2025) Transportation Needs Transportation unreliable past 12 months: No Physical Activity: Inactive (05/10/2025) Physical Activity Minutes of exercise per week: 0 Social Connections: Unknown (05/10/2025) Family and Community Support Help with Day to Day Activities: I don't need any help Feeling Lonely or Isolated: 0 No family history on file. No Known Allergies @Scheduled Meds: enoxaparin 40 mg subcutaneous Q24H famotidine 20 mg oral BID 20 mg at 05/12/252106 fLUoxetine 20 mg oral Daily 20 mg at 05/12/25 0834 furosemide 80 mg oral BID 80 mg at 05/12/25 1503 gabapentin 600 mg oral TID 600 mg at 05/12/252106 guaiFENesin 600 mg oral BID 600 mg at 05/12/252106 levothyroxine 75 mcg oral QAM (0600) 75 mcg at 05/13/25 0557 meropenem 500 mg intravenous Q8H IVPB Stopped at 05/13/25 0340 metoprolol succinate 75 mg oral Daily 75 mg at 05/12/25 0834 pantoprazole 40 mg oral Daily 40 mg at 05/12/25 0835 Saccharomyces boulardii 250 mg oral BID 250 mg at 05/12/252106 Continuous Infusions: Current Facility-Administered Medications Medication Dose Route Frequency Provider Last Rate Last Admin acetaminophen (TYLENOL) tablet 1,000 mg 1,000 mg oral Q6H PRN Ulises Ruelas PA-C 1,000 mg at 05/11/25 0759 enoxaparin (LOVENOX) syringe 40 mg 40 mg subcutaneous Q24H Callum Blanton MD famotidine (PEPCID) tablet 20 mg 20 mg oral BID Martin Snyder MD 20 mg at 05/12/252106 fLUoxetine (PROzac) capsule 20 mg 20 mg oral Daily Ulises Reulas PA-C 20 mg at 05/12/25 0834 furosemide (LASIX) tablet 80 mg 80 mg oral BID Ulises Ruelas PA-C 80 mg at 05/12/25 150 gabapentin (NEURONTIN) tablet 600 mg 600 mg oral TID Ulises Ruelas PA-C 600 mg at 05/12/252106 guaiFENesin (mucINEX) 12 hr tablet 600 mg 600 mg oral BID Martin Snyder MD 600 mg at 05/12/252106 hydrALAZINE (APRESOLINE) injection 10 mg 10 mg intravenous Q6H PRN Ulises Ruelas PA-C levothyroxine (SYNTHROID) tablet 75 mcg 75 mcg oral QAM (0600) Ulises Ruelas PA-C 75 mcg at 05/13/25 0557 magnesium sulfate IVPB 2 g in sterile water 50 mL (premix) 2 g intravenous Daily PRN Ulises Ruelas PA-C magnesium sulfate IVPB 2 g in sterile water 50 mL (premix) 2 g intravenous BID PRN Ulises Ruelas PA-C melatonin tablet 3 mg 3 mg oral Every Night PRN Ulises Ruelas PA-C meropenem (MERREM) 500 mg in sodium chloride 0.9 % (NS) 50 mL CHRISTIAN IVPB 500 mg intravenous Q8H Ulises Ruelas PA-C IVPB Stopped at 05/13/25 0340 metoprolol succinate (TOPROL-XL) 24 hr tablet 75 mg 75 mg oral Daily Ulises Ruelas PA-C 75 mg at 05/12/25 0834 morphine injection 2 mg 2 mg intravenous Q6H PRN Ulises Ruelas PA-C 2 mg at 05/12/252106 naloxone (NARCAN) injection 0.2 mg 0.2 mg intravenous Q2 Min PRN Ulises Ruelas PA-C ondansetron (ZOFRAN-ODT) disintegrating tablet 4 mg 4 mg oral Q8H PRN Ulises Ruelas PA-C Or ondansetron (ZOFRAN) injection 4 mg 4 mg intravenous Q8H PRN Ulises Ruelas PA-C oxyCODONE (ROXICODONE) immediate release tablet 7.5 mg 7.5 mg oral Q6H PRN Ulises Ruelas PA-C 7.5mg at 05/12/25 0324 pantoprazole (PROTONIX) EC tablet 40 mg 40 mg oral Daily Ulises Ruelas PA-C 40 mg at 05/12/25 0835 potassium chloride (KLOR-CON) ER tablet 40 mEq 40 mEq oral 4x Daily PRN Ulises Ruelas PA-C 40 mEqat 05/12/25 0841 potassium chloride IVPB 10 mEq in 100 mL sterile water (premix) 10 mEq intravenous Q1H PRN Ulises Ruelas PA-C Saccharomyces boulardii (FLORASTOR) capsule 250 mg 250 mg oral BID Martin Snyder MD 250 mg at 05/12/252106 sodium chloride flush 10 mL 10 mL intravenous PRN Jyoti Montana PA-C traZODone (DESYREL) tablet 50 mg 50 mg oral Every Night PRN Ulises Ruelas PA-C 50 mg at 05/11/252121 PRN Meds:.@MEDSPRN@ Physical Exam: Vital Signs Vitals: 05/12/25 1931 05/12/25199905/13/25 0038 05/13/25 0352 BP: 110/48 119/57 94/46 Pulse: 77 70 74 Resp: 18 18 18 Temp: 98.2 ??F (36.8 ??C) 98.2 ??F (36.8 ??C) 98.3 ??F (36.8 ??C) TempSrc: Oral Oral Oral SpO2: 94% 98% 97% 96% Weight: Height: GENERAL: Awake and alert, in no acute distress. HEENT: Normocephalic, atraumatic. No conjunctival injection. No icterus. Oropharynx clear without evidence of thrush or exudate. NECK: Supple without nuchal rigidity. No mass. LYMPH: No cervical, axillary or inguinal lymphadenopathy. HEART: RRR; No murmur. LUNGS: Clear to auscultation bilaterally without wheezing, rales, rhonchi. Normal respiratory effort. Nonlabored. ABDOMEN: Soft, nontender, nondistended. Positive bowel sounds. No rebound or guarding. EXT: No cyanosis, clubbing or edema. : Without Gamboa catheter. MSK: FROM without joint effusions noted arms/legs. SKIN: Warm and dry without cutaneous eruptions on Inspection/palpation. NEURO: Oriented to PPT. No focal deficits on motor/sensory exam at arms/legs. PSYCHIATRIC: Normal insight and judgement. Cooperative with PE Laboratory Data Lab Results Component Value Date WBC 4.7 05/13/2025 HGB 9.9 (L) 05/13/2025 HCT 33.0 (L) 05/13/2025 MCV 97 (H) 05/13/2025 PLT 183 05/13/2025 Lab Results Component Value Date GLUCOSE 88 05/13/2025 CALCIUM 8.5 05/13/2025 NA 142 05/13/2025 K 3.6 05/13/2025 CO2 29 05/13/2025 CL 103 05/13/2025 BUN 37.5 (H) 05/13/2025 CREATININE 1.90 (H) 05/13/2025 Estimated Creatinine Clearance: 31 mL/min (A) (by C-G formula based on SCr of 1.9 mg/dL (H)). Lab Results Component Value Date ALT 38 (H) 05/11/2025 AST 27 05/11/2025 ALKPHOS 113 05/11/2025 BILITOT 0.2 05/11/2025 No results found for: CRP No results found for: SEDRATE Microbiology: Microbiology Results (last 7 days) Procedure Component Value Units Date/Time Blood Culture [[id number]] (Abnormal) Collected: 05/09/252239 Order Status: Completed Specimen: Blood Updated: 05/12/25 1004 Result Escherichia coli Comment: Refer to previous culture of - [id number] Gram Stain Result Aerobic bottle gram stain gram negative rods Narrative: Positive Blood culture. Note cultures and clinical presentation before starting antibiotics Blood culture identification by PCR was performed on a previous accession. See accession: [id number] In 1 of 2 blood culture bottles drawn Blood Culture [[id number]] (Abnormal) (Susceptibility) Collected: 05/09/252239 Order Status: Completed Specimen: Blood Updated: 05/12/25 1003 Result Escherichia coli Gram Stain Result Aerobic bottle gram stain gram negative rods Narrative: Positive Blood culture. Note cultures and clinical presentation before starting antibiotics In 1 of 2 blood culture bottles drawn Blood Culture Panel([employer]) [[id number]] (Abnormal) Collected: 05/09/252239 Order Status: Completed Specimen: Blood Updated: 05/10/25 1624 CTX-M Not detected IMP Not detected KPC Not detected MCR-1 Not detected MEC A/C Non Applicable MEC A/C and MREJ Non Applicable NDM Not detected [id number]-48-[id number] Not detected VAN A/B Non Applicable VIM Not detected ENTEROCOCCUS FAECALIS Not detected ENTEROCOCCUS FAECIUM Not detected LISTERIA MONOCYTOGENES Not detected STAPHYLOCOCCUS Not detected STAPHYLOCOCCUS AUREUS Not detected STAPHYLOCOCCUS EPIDERMIDIS Not detected STAPHYLOCOCCUS LUGDENENSIS Not detected STREPTOCOCCUS Not detected STREPTOCOCCUS AGALACTIAE (GROUP B) Not detected STREPTOCOCCUS PNEUMONIAE Not detected STREPTOCOCCUS PYOGENES (GROUP A) Not detected ACINETOBACTER CALCOACETICUS-BAUMANNII COMPLEX Not detected BACTEROIDES FRAGILIS Not detected ENTEROBACTERIACEAE Detected Comment: Enterobacterales represents a large order of gram negative bacteria, not a single organism ENTEROBACTER CLOACAE COMPLEX Not detected ESCHERICHIA COLI Detected KLEBSIELLA AEROGENES Not detected KLEBSIELLA OXYTOCA Not detected KLEBSIELLA PNEUMONIAE GROUP Not detected PROTEUS Not detected SALMONELLA SPECIES Not detected SERRATIA MARCESCENS Not detected HAEMOPHILUS INFLUENZAE Not detected NEISSERIA MENINGITIDIS Not detected PSEUDOMONAS AERUGINOSA Not detected STENOTROPHOMONAS MALTOPHILIA Not detected KELLY ALBICANS Not detected KELLY AURIS Not detected KELLY GLABRATA Not detected KELLY KRUSEI Not detected KELLY PARAPSILOSIS Not detected KELLY TROPICALIS Not detected CRYPTOCOCCUS NEOFORMANS/GATTII Not detected Narrative: NOTE: Antimicrobial resistance can occur via multiple mechanisms. A Not Detected result for antimicrobial resistance gene(s) does not indicate antimicrobial susceptibility. Subculturing is required for species identification and susceptibility testing of isolates. COVID ANTIGEN [[id number]] (Normal) Collected: 05/09/252125 Order Status: Completed Specimen: Nasal Swab Updated: 05/09/252156 SARS COVID ANTIGEN Negative Narrative: The BD Veritor System for Rapid Detection of SARS-CoV-2 does not differentiate between SARS-CoV [id number].The BD Veritor System for Rapid Detection of SARS-CoV-2 is only for in vitro diagnostic use under the Food and Drug Administration's Emergency Use Authorization. This product has not been FDA cleared or approved. Results should be correlated with the clinical history, epidemiological data, and other data available to the clinician evaluating the patient. SARS-CoV-2 viral antigens are generally detectable in anterior nasal swab specimens during the acute phase of infection. Positive results indicate the presence of viral antigens, but clinical correlation with patient history and other diagnostic information is necessary to determine infection status. Negative results are presumptive, do not rule out SARS-CoV-2 infection, and should not be used as the sole basis for treatment or patient management decisions, including infection control measures such as isolating from others and wearing masks. Serial testing should be performed in individuals with negative results at least twice over three days (with 48 hours between tests) for symptomatic individuals. Confirmation with a molecular assay may be necessary if there is a high likelihood of SARS-CoV-2 infection. Radiology: Radiology Results (last 3 days) Procedure Component Value Units Date/Time Ultrasound renal limited [[id number]] Collected: 05/12/25 1548 Order Status: Completed Updated: 05/12/25 1740 Narrative: RENAL ULTRASOUND HISTORY: Abnormal CT with renal masses PROCEDURE: Sonographic images of the kidneys were obtained in both longitudinal and transverse orientations. FINDINGS: Limited images of the liver parenchyma demonstrate normal echogenicity. The right kidney measures 11.3 x 6 x 4.2 cm. The right renal volume is 149 mL. There is increased cortical echogenicity. There is significant renal cortical thinning. There are multiple right renal cysts. The largest is in the midpole measuring 1.8 cm. No solid masses identified. Multiple smaller cysts are identified. The left kidney measures 10.8 x 6.3 x 4.2 cm. The left renal volume is 150 mL. There is mild increased echogenicity. There is moderate renal cortical thinning. There is a dominant cyst measuring 3.4 x 2.1 x 2.5 cm. This lies in the midpole. Impression: 1. Renal cortical thinning increased echogenicity consistent with medical renal disease bilaterally. 2. No hydronephrosis. 3. Multiple bilateral renal cysts as above. No solid masses are seen. Images reviewed, interpreted, dictated and electronically signed by Pio Angel MD Voice residence supervisor technology ([employer]) is used for the dictation of this note and sound-alike words might be erroneously placed despite reviewing this note for accuracy. Errors in dictation may reflect use of voice recognition software and not all errors in residence supervisor may have been detected prior to signing. US DOPPLER VENOUS LEGS BILATERAL [[id number]] Collected: 05/11/25 1453 Order Status: Completed Updated: 05/12/25 1255 Narrative: Vascular Lower Extremities DVT Study Procedure Demographics Patient Name DONTE MONTEJO Age 79 Patient Number [id number] Gender Female Race Unknown Ethnicity [place] ID [id number] Height 68 Date of 1945 Weight 225 Accession Number [id number] BSA 2.15 m^2 Room Number 415 BMI 34.21 kg/m^2 Referring BIPIN ZACARIAS Interpreting JUSTINA MEMBRENO DO Physician Physician Battery Tester And Repairer MEGHAN RAMIREZ RVT Procedure Type of Study: Veins: Venous Duplex, Venous Duplex Legs, Lower Extremities DVT Study, US DOPPLER VENOUS LEGS BILATERAL. Impressions Summary INDICATION: (R09.89) OTHER SPECIFIED SYMPTOMS AND SIGNS INVOLVING THE CIRCULATORY AND RESPIRATORY SYSTEM. INDICATION: Shortness of Breath (R06.02) ############################### BILATERAL: No evidence of deep venous thrombosis (DVT) or superficial venous thrombosis. ############################### Patient Status:Inpatient . Study Location:Portable. Technical Quality:Technically difficult study due to patient's positioning. Velocities are measured in cm/s ; Diameters are measured in mm Right Lower Extremities DVT Study Measurements Right 2D Measurements + + + + + !Location !Visualized !Compressibility !Thrombosis ! + + + + + !GSV Thigh !Yes !Yes !None ! + + + + + !Common Femoral !Yes !Yes !None ! + + + + + !Deep Femoral !Yes !Yes !None ! + + + + + !Prox Femoral !Yes !Yes !None ! + + + + + !Mid Femoral !Yes !Yes !None ! + + + + + !Dist Femoral !Yes !Yes !None ! + + + + + !Popliteal !Yes !Yes !None ! + + + + + !PTV !Yes !Yes !None ! + + + + + !Peroneal !Yes !Yes !None ! + + + + + Right Doppler Measurements + + +------+ + !Location !Signal !Reflux!Reflux (sec) ! + + +------+ + !Common Femoral !Spontaneous Phasic ! ! ! + + +------+ + !Prox Femoral !Spontaneous Phasic ! ! ! + + +------+ + !Deep Femoral !Spontaneous Phasic ! ! ! + + +------+ + !Popliteal !Spontaneous Phasic ! ! ! + + +------+ + Left Lower Extremities DVT Study Measurements Left 2D Measurements + + + + + !Location !Visualized !Compressibility !Thrombosis ! + + + + + !GSV Thigh !Yes !Yes !None ! + + + + + !Common Femoral !Yes !Yes !None ! + + + + + !Deep Femoral !Yes !Yes !None ! + + + + + !Prox Femoral !Yes !Yes !None ! + + + + + !Mid Femoral !Yes !Yes !None ! + + + + + !Dist Femoral !Yes !Yes !None ! + + + + + !Popliteal !Yes !Yes !None ! + + + + + !PTV !Yes !Yes !None ! + + + + + !Peroneal !Yes !Yes !None ! + + + + + Left Doppler Measurements + + +------+ + !Location !Signal !Reflux!Reflux (sec) ! + + +------+ + !Common Femoral !Spontaneous Phasic ! ! ! + + +------+ + !Prox Femoral !Spontaneous Phasic ! ! ! + + +------+ + !Deep Femoral !Spontaneous Phasic ! ! ! + + +------+ + !Popliteal !Spontaneous Phasic ! ! ! + + +------+ + Findings Right Findings No evidence of a deep venous thrombosis (DVT). No evidence of a superficial venous thrombosis. Normal response to augmentation in the supine position. Hard to visualize peroneal veins , but no dilation noted. Left Findings No evidence of a deep venous thrombosis (DVT). No evidence of a superficial venous thrombosis. Normal response to augmentation in the supine position. Signature CT ABDOMEN/PELVIS WITHOUT IV CONTRAST Standard Protocol [[id number]] Collected: 05/12/25524 Order Status: Completed Updated: 05/12/25535 Narrative: CT SCAN OF THE ABDOMEN AND PELVIS WITHOUT CONTRAST HISTORY: Sepsis. PROCEDURE: Axial CT images were obtained from the lung bases to the pubic symphysis without IV contrast administration. Oral contrast was given. Coronal and sagittal reformatted images were also obtained and reviewed. This study was performed with techniques to keep radiation doses as low as reasonably achievable, (ALARA). Individualized dose reduction techniques using automated exposure control or adjustment of mA and/or kV according to the patient size were employed. COMPARISON: None. FINDINGS: LOWER CHEST: The heart is normal in size. There is mild atelectasis or scarring in the lung bases. ABDOMEN/PELVIS: Liver, gallbladder and bile ducts: A less than 1 cm low-attenuation mass is seen in the right hepatic lobe that cannot be accurately characterized without contrast but may represent a small cyst. Postoperative changes are seen from cholecystectomy. No significant biliary ductal dilatation. Adrenal glands: The adrenal glands are morphologically unremarkable without suspicious lesion. Kidneys, ureters and urinary bladder: No renal stone is identified. There is no hydronephrosis. Multiple bilateral renal masses are seen which cannot be accurately characterized without contrast. Several of the masses do not appear to be simple cysts. There is no evidence of ureteral stone. No focal abnormality is seen of the urinary bladder. Spleen: The spleen is normal in size. Pancreas: The pancreas is unremarkable. 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 There is evidence of bowel obstruction. The appendix is not well visualized. Scattered diverticula are seen in the sigmoid colon. There is moderate retained stool throughout the colon. Lymph nodes: No pathologically enlarged abdominal or pelvic lymph nodes are present. Vessels: The abdominal aorta is normal in caliber. Peritoneum: No free intraperitoneal fluid or pneumoperitoneum. Pelvic viscera: Postoperative changes from hysterectomy. Body wall: No acute findings. A small umbilical hernia is seen containing fat only. Bones: No acute fracture. Postoperative changes are seen from fusion from L4 to S1. Degenerative changes are seen throughout the thoracolumbar spine. Impression: No acute inflammatory process identified. Postoperative changes in the abdomen and pelvis. Multiple bilateral renal masses which cannot be accurately characterized without contrast. These could be further evaluated with renal mass protocol CT or MRI. Images reviewed, interpreted, and dictated by Trey Bailey MD XR chest AP portable [[id number]] Collected: 05/11/25 192 Order Status: Completed Updated: 05/11/251932 Narrative: PORTABLE CHEST HISTORY: Shortness of breath. COMPARISON: 05/09/2025. FINDINGS: A single portable radiograph of the chest was performed. A spinal stimulator seen in the midthoracic spine. The heart is normal in size. The lungs are hypoaerated. The patient is kyphotic and rotated. Impression: Underinflation with no acute cardiopulmonary process. Images reviewed, interpreted, dictated and electronically signed by Pio Angel MD Voice residence supervisor technology ([employer]) is used for the dictation of this note and sound-alike words might be erroneously placed despite reviewing this note for accuracy. Errors in dictation may reflect use of voice recognition software and not all errors in residence supervisor may have been detected prior to signing. NM lung perfusion scan [[id number]] Collected: 05/11/25 1502 Order Status: Completed Updated: 05/11/25 151 Narrative: NUCLEAR MEDICINE LUNG PERFUSION SCAN HISTORY: Shortness of breath. PROCEDURE: The patient was injected with 5.5 mCi of Tc 99m MAA. Images over the lungs were obtained in multiple projections. FINDINGS: Overall, perfusion is superior to ventilation . There is a questionable segmental defect within the anterior right upper lobe which is not definitely seen on all images. This may represent a single segmental defect, based on criteria this remains low probability. Impression: Low probability for PE . Images reviewed, interpreted, and dictated by Dr. Pio Angel. Transcribed by Kun Rivera PA-C. Impression: Acute E. coli bacteremia , in the setting of acute illness including nausea/dry heaves, chest pain and respiratory complaints. Urinalysis negative with no urinary tract complaints arguing against urinary tract source. Primary concern would be for GI tract source at present . CT scan as above without acute inflammatory focus. Had mildly abnormal liver transaminases, subsequently trending better. Chest exam nonfocal with no pneumonia by exam. No skin/soft tissue source. She denies chronic line Acute nausea/dry heaves at admission with possible for intra-abdominal source of bacteremia. CT abdomen/pelvis with oral contrast on May 11 as above, no acute intra-abdominal inflammatory process per radiologist Abnormal liver transaminases with upper GI tract symptoms at admission. Prior history of cholecystectomy. Acute chest pain syndrome with intermittent/chronic complaints and prior reports of chronic diastolic heart failure with preserved ejection fraction further compounded by dyspnea and upper GI tract complaints. D-dimer elevated, BNP elevated and cardiology/medicine team workup ongoing CKD 4 per admission notes Abnormal CT scan with description of bilateral multiple renal masses Per radiologist but they were unable to characterize accurately without contrast. Further workup as per urology/medicine teams PLAN: --IV rocephin IV daily x 10 days (abx started 05/09 per pharmacy), arrange at her local hospital where daughter works; f/u with me sunday --urology has seen --check/review labs cultures and scans --Partial history per nursing staff --Discussed with microbiology --Discussed with pharmacy/multidisciplinary team/nursing regarding complex set of issues, importance of antimicrobial stewardship etc. --Highly complex set of issues with high risk for further serious morbidity and other serious sequela --Monitor IV and IV antibiotic with risk for systemic complication and potential drug interactions Disposition-- awaiting clinical improvement Anticipated antibiotic plan--rocephin as above This visit included the following complex service elements: Complex medical decision-making associated with antimicrobial prescribing. Communicated with the clinical microbiology lab. Ulisses Barriga MD 05/13/2025 * Callum Blanton MD - 05/12/2025 4:49 PM EDT HOSPITALIST PROGRESS NOTE Patient: Elissa Kent Interval History / Subjective Patient seen and evaluated No acute events overnight Vitals and labs for past 24 hours reviewed Objective BP 99/51 Pulse 73 Temp 98.7 ??F (37.1 ??C) (Oral) Resp 18 Ht 1.727 m (5' 8 ) Wt 102.1 kg (225 lb) SpO2 98% BMI 34.21 kg/m?? Physical exam: General appearance: no acute distress HEENT: normocephalic and atraumatic. Neck: symmetrical, trachea midline Lungs: clear to auscultation bilaterally, symmetric chest rise Heart: s1 and s2 normal, no murmur, gallop or rub GI: soft and nontender Musculoskeletal: no myoclonus, no obvious deformity Skin: warm and dry Neurologic: alert and oriented Assessment and Plan Acute e coli Bacteremia -unclear source -ua normal -ct abd/pel without iv contrast 05/12/25: no acute inflammatory process. Multiple bilateral renal masses -renal us 05/12/25: renal cortical thinning increased echogenicity consistent with medical renal disease bilaterally. Multiple bilateral renal cysts -Merrem per ID Chest pain, resolved Elevated d-dimer and probnp -doppler venous us b/l LE 05/11/25: no dvt -vq scan 05/11/25: low probability for PE -transthoracic echo 05/11/25: lvef 55%, moderate lvh -cardiology is following -change full dose lovenox to prophylactic dose Andrew on ckd hypokalemia Obesity hypothyroidism Diet: Orders Placed This Encounter Procedures Heart Healthy Diet DVT ppx: lovenox Code Status: Full Code MDM: CBC and BMP reviewed AM labs ordered: CBC BMP Discussed with RN High risk and medically complex patient with several medical issues. Discharge Planning: Barriers to discharge: medical improvement, final antibiotic plan Expected (tentative) discharge in 1 days Expected discharge disposition (home, SNF/Rehab, etc): home Additional discharge needs or delays: Signed: Callum Blanton MD [facility] Hospitalist * Ulisses Barriga MD - 05/12/2025 10:35 AM EDT Images from the original note were not included. [facility] Patient Name: Elissa Kent : 1945 Evaluating Physician: Ulisses Barriga MD Chief Complaint: nausea/dry heaves, SOB and chest pain Reason for Consultation: E Coli bacteremia History of present illness: Patient is a 79 y.o. female with history of CKD 4, GERD and prior esophageal dilation, intermittentchest pain for months with acute complaints of chest pain/dyspnea for several days at time of admission on May 09. Admission concern for angina compounding chronic diastolic heart failure with elevated D- dimer and cardiology/medicine team workup ongoing. She had noted nausea and dry heaves at admission, subsequent blood culture positivity for E. coli by PCR. Urinalysis negative with no acute urinary tract complaints. She denied any hematochezia melena or hematemesis. Benign, liver transaminases is abnormal and prior history of cholecystectomy 05/11 CT abdomen with no acute inflammatory process per radiology. They mention bilateral renal masses which cannot be accurately characterized without contrast Per radiologist 05/12/25 NC O2; blood cultures with E. Coli and both sets; denies any new focal symptomatology.No headache photophobia or neck stiffness. Denies cough or hemoptysis. Dyspnea better and on room air. No abdominal pain at present with no vomiting with dry heaves today. No diarrhea. No dysuria hematuria or pyuria and no rash. Does not have a chronic line and no other recent procedures; esophageal dilation approximately 1 month prior Review of Systems 05/12/25 Constitutional-- No chills or sweats. Appetite diminished with fatigue. Heent-- No new vision, hearing or throat complaints. No epistaxis or oral sores. Denies odynophagiaor dysphagia. No headache, photophobia or neck stiffness. CV-- No chest pain, palpitation or syncope Resp-- No SOB, cough, or hemoptysis GI-see above -- No dysuria, hematuria, or flank pain. Denies hesitancy, urgency or flank pain. Lymph- no swollen lymph nodes in neck, axilla or groin. Heme- No active bruising or bleeding MS-- no swelling or pain in the bones or joints of arms or legs. No new back pain. Neuro-- No acute focal weakness or numbness in the arms or legs. Skin-- No rashes, lesions, ulcers. No skin breakdown Past Medical History: Diagnosis Date Angina of effort (HCC) CKD (chronic kidney disease) Diastolic heart failure (HCC) Edema HTN (hypertension) Hypokalemia Past Surgical History: Procedure Laterality Date LUMBAR NERVE STIMLATOR INSERTION REPLACEMENT TOTAL KNEE Social History Socioeconomic History Marital status: Spouse name: Not on file Number of children: Not on file Years of education: Not on file Highest education level: Not on file Occupational History Not on file Tobacco Use Smoking status: Never Smokeless tobacco: Never Vaping Use Vaping status: Never Used Substance and Sexual Activity Alcohol use: Yes Alcohol/week: 2.0 - 3.0 standard drinks of alcohol Types: 2 - 3 Drinks containing 0.5 oz of alcohol per week Drug use: Never Sexual activity: Not on file Other Topics Concern Not on file Social History Narrative Not on file Social Drivers of Health Financial Resource Strain: Low Risk (05/10/2025) Financial Resource Strain Struggle to pay for basics: Not hard at all Food Insecurity: No Food Insecurity (05/10/2025) Food Insecurity Food run out past 12 months: Never true Food did not last past 12 months: Never true Transportation: No Transportation Needs (05/10/2025) Transportation Needs Transportation unreliable past 12 months: No Physical Activity: Inactive (05/10/2025) Physical Activity Minutes of exercise per week: 0 Social Connections: Unknown (05/10/2025) Family and Community Support Help with Day to Day Activities: I don't need any help Feeling Lonely or Isolated: 0 No family history on file. No Known Allergies @Scheduled Meds: enoxaparin 1 mg/kg subcutaneous Q24H 100 mg at 05/11/25 1536 famotidine 20 mg oral BID 20 mg at 05/12/25 0834 fLUoxetine 20 mg oral Daily 20 mg at 05/12/25 0834 furosemide 80 mg oral BID 80 mg at 05/12/25 0834 gabapentin 600 mg oral TID 600 mg at 05/12/25 0834 guaiFENesin 600 mg oral BID 600 mg at 05/12/25 0834 levothyroxine 75 mcg oral QAM (00) 75 mcg at 05/12/25 0613 meropenem 500 mg intravenous Q8H 500 mg at 05/12/25 0842 metoprolol succinate 75 mg oral Daily 75 mg at 05/12/25 0834 pantoprazole 40 mg oral Daily 40 mg at 05/12/25 0835 Saccharomyces boulardii 250 mg oral BID 250 mg at 05/12/25 0834 Continuous Infusions: Current Facility-Administered Medications Medication Dose Route Frequency Provider Last Rate Last Admin acetaminophen (TYLENOL) tablet 1,000 mg 1,000 mg oral Q6H PRN Ulises Ruelas PA-C 1,000 mg at 05/11/25 0759 enoxaparin (LOVENOX) syringe 100 mg 1 mg/kg subcutaneous Q24H Martin Snyder MD 100 mg at 05/11/25 1536 famotidine (PEPCID) tablet 20 mg 20 mg oral BID Martin Snyder MD 20 mg at 05/12/25 0834 fLUoxetine (PROzac) capsule 20 mg 20 mg oral Daily Ulises Ruelas PA-C 20 mg at 05/12/25 0834 furosemide (LASIX) tablet 80 mg 80 mg oral BID Ulises Ruelas PA-C 80 mg at 05/12/25 0834 gabapentin (NEURONTIN) tablet 600 mg 600 mg oral TID Ulises Ruelas PA-C 600 mg at 05/12/25 0834 guaiFENesin (mucINEX) 12 hr tablet 600 mg 600 mg oral BID Matrin Snyder MD 600 mg at 05/12/25 0834 hydrALAZINE (APRESOLINE) injection 10 mg 10 mg intravenous Q6H PRN Ulises Ruelas PA-C levothyroxine (SYNTHROID) tablet 75 mcg 75 mcg oral QAM (0600) Ulises Ruelas PA-C 75 mcg at 05/12/25 0613 magnesium sulfate IVPB 2 g in sterile water 50 mL (premix) 2 g intravenous Daily PRN Ulises Ruelas PA-C magnesium sulfate IVPB 2 g in sterile water 50 mL (premix) 2 g intravenous BID PRN Ulises Ruelas PA-C melatonin tablet 3 mg 3 mg oral Every Night PRN Ulises Ruelas PA-C meropenem (MERREM) 500 mg in sodium chloride 0.9 % (NS) 50 mL CHRISTIAN IVPB 500 mg intravenous Q8H Ulises Ruelas PA-C 16.7 mL/hr at 05/12/25 0842 500 mg at 05/12/25 0842 metoprolol succinate (TOPROL-XL) 24 hr tablet 75 mg 75 mg oral Daily Ulises Ruelas PA-C 75 mg at 05/12/25 0834 morphine injection 2 mg 2 mg intravenous Q6H PRN Ulises Ruelas PA-C 2 mg at 05/12/25 0830 naloxone (NARCAN) injection 0.2 mg 0.2 mg intravenous Q2 Min PRN Ulises Ruelas PA-C ondansetron (ZOFRAN-ODT) disintegrating tablet 4 mg 4 mg oral Q8H PRN Ulises Ruelas PA-C Or ondansetron (ZOFRAN) injection 4 mg 4 mg intravenous Q8H PRN Ulises Ruelas PA-C oxyCODONE (ROXICODONE) immediate release tablet 7.5 mg 7.5 mg oral Q6H PRN Ulises Ruelas PA-C 7.5mg at 05/12/25 0324 pantoprazole (PROTONIX) EC tablet 40 mg 40 mg oral Daily Ulises Ruelas PA-C 40 mg at 05/12/25 0835 potassium chloride (KLOR-CON) ER tablet 40 mEq 40 mEq oral 4x Daily PRN Ulises Ruelas PA-C 40 mEqat 05/12/25 0841 potassium chloride IVPB 10 mEq in 100 mL sterile water (premix) 10 mEq intravenous Q1H PRN Ulises Ruelas PA-C Saccharomyces boulardii (FLORASTOR) capsule 250 mg 250 mg oral BID Martin Snyder MD 250 mg at 05/12/25 0834 sodium chloride flush 10 mL 10 mL intravenous PRN Jyoti Montana PA-C traZODone (DESYREL) tablet 50 mg 50 mg oral Every Night PRN Ulises Ruelas PA-C 50 mg at 05/11/25 2122 PRN Meds:.@MEDSPRN@ Physical Exam: Vital Signs Vitals: 05/11/25 2357 05/12/25 0405 05/12/25 0826 05/12/25 0842 BP: 97/58 108/56 133/68 Pulse: 70 72 72 Resp: 18 Temp: 97.8 ??F (36.6 ??C) 97.9 ??F (36.6 ??C) 97.7 ??F (36.5 ??C) TempSrc: Oral Oral Oral SpO2: 97% 94% Weight: Height: GENERAL: Awake and alert, in no acute distress. HEENT: Normocephalic, atraumatic. PERRL. EOMI. No conjunctival injection. No icterus. Oropharynx clear without evidence of thrush or exudate. NECK: Supple without nuchal rigidity. No mass. LYMPH: No cervical, axillary or inguinal lymphadenopathy. HEART: RRR; No murmur. LUNGS: Clear to auscultation bilaterally without wheezing, rales, rhonchi. Normal respiratory effort. Nonlabored. ABDOMEN: Soft, nontender, nondistended. Positive bowel sounds. No rebound or guarding. EXT: No cyanosis, clubbing or edema. : Without Gamb[place] catheter. MSK: FROM without joint effusions noted arms/legs. SKIN: Warm and dry without cutaneous eruptions on Inspection/palpation. NEURO: Oriented to PPT. No focal deficits on motor/sensory exam at arms/legs. PSYCHIATRIC: Normal insight and judgement. Cooperative with PE Laboratory Data Lab Results Component Value Date WBC 5.0 05/12/2025 HGB 9.5 (L) 05/12/2025 HCT 30.8 (L) 05/12/2025 MCV 96 (H) 05/12/2025 PLT 177 05/12/2025 Lab Results Component Value Date GLUCOSE 80 (L) 05/12/2025 CALCIUM 8.2 (L) 05/12/2025 NA 142 05/12/2025 K 3.2 (L) 05/12/2025 CO2 28 05/12/2025 CL 104 05/12/2025 BUN 42.0 (H) 05/12/2025 CREATININE 1.80 (H) 05/12/2025 Estimated Creatinine Clearance: 32.7 mL/min (A) (by C-G formula based on SCr of 1.8 mg/dL (H)). Lab Results Component Value Date ALT 38 (H) 05/11/2025 AST 27 05/11/2025 ALKPHOS 113 05/11/2025 BILITOT 0.2 05/11/2025 No results found for: CRP No results found for: SEDRATE Microbiology: Microbiology Results (last 7 days) Procedure Component Value Units Date/Time Blood Culture [[id number]] (Abnormal) Collected: 05/09/25 2240 Order Status: Completed Specimen: Blood Updated: 05/12/25 1004 Result Escherichia coli Comment: Refer to previous culture of - [id number] Gram Stain Result Aerobic bottle gram stain gram negative rods Narrative: Positive Blood culture. Note cultures and clinical presentation before starting antibiotics Blood culture identification by PCR was performed on a previous accession. See accession: [id number] In 1 of 2 blood culture bottles drawn Blood Culture [[id number]] (Abnormal) (Susceptibility) Collected: 05/09/252239 Order Status: Completed Specimen: Blood Updated: 05/12/25 1003 Result Escherichia coli Gram Stain Result Aerobic bottle gram stain gram negative rods Narrative: Positive Blood culture. Note cultures and clinical presentation before starting antibiotics In 1 of 2 blood culture bottles drawn Blood Culture Panel([employer]) [[id number]] (Abnormal) Collected: 05/09/252239 Order Status: Completed Specimen: Blood Updated: 05/10/25 1624 CTX-M Not detected IMP Not detected KPC Not detected MCR-1 Not detected MEC A/C Non Applicable MEC A/C and MREJ Non Applicable NDM Not detected [id number] Not detected VAN A/B Non Applicable VIM Not detected ENTEROCOCCUS FAECALIS Not detected ENTEROCOCCUS FAECIUM Not detected LISTERIA MONOCYTOGENES Not detected STAPHYLOCOCCUS Not detected STAPHYLOCOCCUS AUREUS Not detected STAPHYLOCOCCUS EPIDERMIDIS Not detected STAPHYLOCOCCUS LUGDENENSIS Not detected STREPTOCOCCUS Not detected STREPTOCOCCUS AGALACTIAE (GROUP B) Not detected STREPTOCOCCUS PNEUMONIAE Not detected STREPTOCOCCUS PYOGENES (GROUP A) Not detected ACINETOBACTER CALCOACETICUS-BAUMANNII COMPLEX Not detected BACTEROIDES FRAGILIS Not detected ENTEROBACTERIACEAE Detected Comment: Enterobacterales represents a large order of gram negative bacteria, not a single organism ENTEROBACTER CLOACAE COMPLEX Not detected ESCHERICHIA COLI Detected KLEBSIELLA AEROGENES Not detected KLEBSIELLA OXYTOCA Not detected KLEBSIELLA PNEUMONIAE GROUP Not detected PROTEUS Not detected SALMONELLA SPECIES Not detected SERRATIA MARCESCENS Not detected HAEMOPHILUS INFLUENZAE Not detected NEISSERIA MENINGITIDIS Not detected PSEUDOMONAS AERUGINOSA Not detected STENOTROPHOMONAS MALTOPHILIA Not detected KELLY ALBICANS Not detected KELLY AURIS Not detected KELLY GLABRATA Not detected KELLY KRUSEI Not detected KELLY PARAPSILOSIS Not detected KELLY TROPICALIS Not detected CRYPTOCOCCUS NEOFORMANS/GATTII Not detected Narrative: NOTE: Antimicrobial resistance can occur via multiple mechanisms. A Not Detected result for antimicrobial resistance gene(s) does not indicate antimicrobial susceptibility. Subculturing is required for species identification and susceptibility testing of isolates. COVID ANTIGEN [[id number]] (Normal) Collected: 05/09/252125 Order Status: Completed Specimen: Nasal Swab Updated: 05/09/252156 SARS COVID ANTIGEN Negative Narrative: The [employer] System for Rapid Detection of SARS-CoV-2 does not differentiate between SARS-CoV [id number].The [place] [employer] System for Rapid Detection of SARS-CoV-2 is only for in vitro diagnostic use under the Food and Drug Administration's Emergency Use Authorization. This product has not been FDA cleared or approved. Results should be correlated with the clinical history, epidemiological data, and other data available to the clinician evaluating the patient. SARS-CoV-2 viral antigens are generally detectable in anterior nasal swab specimens during the acute phase of infection. Positive results indicate the presence of viral antigens, but clinical correlation with patient history and other diagnostic information is necessary to determine infection status. Negative results are presumptive, do not rule out SARS-CoV-2 infection, and should not be used as the sole basis for treatment or patient management decisions, including infection control measures such as isolating from others and wearing masks. Serial testing should be performed in individuals with negative results at least twice over three days (with 48 hours between tests) for symptomatic individuals. Confirmation with a molecular assay may be necessary if there is a high likelihood of SARS-CoV-2 infection. Radiology: Radiology Results (last 3 days) Procedure Component Value Units Date/Time CT ABDOMEN/PELVIS WITHOUT IV CONTRAST Standard Protocol [[id number]] Collected: 05/12/25524 Order Status: Completed Updated: 05/12/25535 Narrative: CT SCAN OF THE ABDOMEN AND PELVIS WITHOUT CONTRAST HISTORY: Sepsis. PROCEDURE: Axial CT images were obtained from the lung bases to the pubic symphysis without IV contrast administration. Oral contrast was given. Coronal and sagittal reformatted images were also obtained and reviewed. This study was performed with techniques to keep radiation doses as low as reasonably achievable, (ALARA). Individualized dose reduction techniques using automated exposure control or adjustment of mA and/or kV according to the patient size were employed. COMPARISON: None. FINDINGS: LOWER CHEST: The heart is normal in size. There is mild atelectasis or scarring in the lung bases. ABDOMEN/PELVIS: Liver, gallbladder and bile ducts: A less than 1 cm low-attenuation mass is seen in the right hepatic lobe that cannot be accurately characterized without contrast but may represent a small cyst. Postoperative changes are seen from cholecystectomy. No significant biliary ductal dilatation. Adrenal glands: The adrenal glands are morphologically unremarkable without suspicious lesion. Kidneys, ureters and urinary bladder: No renal stone is identified. There is no hydronephrosis. Multiple bilateral renal masses are seen which cannot be accurately characterized without contrast. Several of the masses do not appear to be simple cysts. There is no evidence of ureteral stone. No focal abnormality is seen of the urinary bladder. Spleen: The spleen is normal in size. Pancreas: The pancreas is unremarkable. 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 There is evidence of bowel obstruction. The appendix is not well visualized. Scattered diverticula are seen in the sigmoid colon. There is moderate retained stool throughout the colon. Lymph nodes: No pathologically enlarged abdominal or pelvic lymph nodes are present. Vessels: The abdominal aorta is normal in caliber. Peritoneum: No free intraperitoneal fluid or pneumoperitoneum. Pelvic viscera: Postoperative changes from hysterectomy. Body wall: No acute findings. A small umbilical hernia is seen containing fat only. Bones: No acute fracture. Postoperative changes are seen from fusion from L4 to S1. Degenerative changes are seen throughout the thoracolumbar spine. Impression: No acute inflammatory process identified. Postoperative changes in the abdomen and pelvis. Multiple bilateral renal masses which cannot be accurately characterized without contrast. These could be further evaluated with renal mass protocol CT or MRI. Images reviewed, interpreted, and dictated by Trey Bailey MD XR chest AP portable [[id number]] Collected: 05/11/25 192 Order Status: Completed Updated: 05/11/25 193 Narrative: PORTABLE CHEST HISTORY: Shortness of breath. COMPARISON: 05/09/2025. FINDINGS: A single portable radiograph of the chest was performed. A spinal stimulator seen in the midthoracic spine. The heart is normal in size. The lungs are hypoaerated. The patient is kyphotic and rotated. Impression: Underinflation with no acute cardiopulmonary process. Images reviewed, interpreted, dictated and electronically signed by Pio Angel MD Voice residence supervisor technology (Inbox[employer]vere) is used for the dictation of this note and sound-alike words might be erroneously placed despite reviewing this note for accuracy. Errors in dictation may reflect use of voice recognition software and not all errors in residence supervisor may have been detected prior to signing. US DOPPLER VENOUS LEGS BILATERAL [[id number]] Resulted: 05/11/25 1643 Order Status: Sent Updated: 05/11/25 1715 NM lung perfusion scan [[id number]] Collected: 05/11/25 1502 Order Status: Completed Updated: 05/11/25 1513 Narrative: NUCLEAR MEDICINE LUNG PERFUSION SCAN HISTORY: Shortness of breath. PROCEDURE: The patient was injected with 5.5 mCi of Tc 99m MAA. Images over the lungs were obtained in multiple projections. FINDINGS: Overall, perfusion is superior to ventilation . There is a questionable segmental defect within the anterior right upper lobe which is not definitely seen on all images. This may represent a single segmental defect, based on criteria this remains low probability. Impression: Low probability for PE . Images reviewed, interpreted, and dictated by Dr. Pio Angel. Transcribed by Kun Rivera PA-C. XR chest 1 view portable / bedside [[id number]] Collected: 05/10/25 08 Order Status: Completed Updated: 05/10/25903 Narrative: Name: ELISSA KENT : 1945 CHEST SINGLE VIEW HISTORY: Chest pain. Shortness of breath. FINDINGS: Lungs are underinflated. Cardiac silhouette measures at the upper limits of normal in size. Mild chronic changes are seen at the lung bases. Stimulator leads are identified in the lower thoracic spine. Impression: 1. Underinflation with chronic changes at the lung bases. Images reviewed, interpreted, and dictated by Lisandro Zapata MD Impression: Acute E. coli bacteremia by PCR, in the setting of acute illness including nausea/dry heaves, chestpain and respiratory complaints. Urinalysis negative with no urinary tract complaints arguing against urinary tract source. Primary concern would be for GI tract source at present . CT scan as above.Had mildly abnormal liver transaminases, subsequently trending better. Chest exam nonfocal with no pneumonia by exam. No skin/soft tissue source. She denies chronic line Acute nausea/dry heaves at admission with possible for intra-abdominal source of bacteremia. CT abdomen/pelvis with oral contrast on May 11 as above, no acute intra-abdominal inflammatory process per radiologist Abnormal liver transaminases with upper GI tract symptoms at admission. Prior history of cholecystectomy. Acute chest pain syndrome with intermittent/chronic complaints and prior reports of chronic diastolic heart failure with preserved ejection fraction further compounded by dyspnea and upper GI tract complaints. D-dimer elevated, BNP elevated and cardiology/medicine team workup ongoing CKD 4 per admission notes Abnormal CT scan with description of bilateral multiple renal masses Per radiologist but they are unable to characterize accurately without contrast. Further workup and subspecialty consultation as per medicine team PLAN: --IV Merrem --?urology input -v- further imaging regarding renal abnormalities on CT scan -v- both or other --check/review labs cultures and scans --Partial history per nursing staff --Discussed with microbiology --Discussed with multidisciplinary team/nursing regarding complex set of issues, importance of antimicrobial stewardship etc. --Highly complex set of issues with high risk for further serious morbidity and other serious sequela --Monitor IV and IV antibiotic with risk for systemic complication and potential drug interactions Disposition-- awaiting clinical improvement Anticipated antibiotic plan-- to be determined depending on clinical course/study results and response to therapy This visit included the following complex service elements: Complex medical decision-making associated with antimicrobial prescribing. Communicated with the clinical microbiology lab. Ulisses Barriga MD 05/12/2025 * Justina Membreno, DO - 05/12/2025 9:34 AM EDT CARDIOLOGY PROGRESS NOTE Name Elissa Kent, 1945, 79 y.o., female Primary Cardiology: Dr Celeste PCP: Deo Byrne MD Admit Date 05/09/2025 Patient Location [address] [place] [address] Subjective: No acute overnight events Inpatient Medications Current Facility-Administered Medications Medication Dose Route Frequency Provider Last Rate Last Admin acetaminophen (TYLENOL) tablet 1,000 mg 1,000 mg oral Q6H PRN Ulises Ruelas PA-C 1,000 mg at 05/11/25 0759 enoxaparin (LOVENOX) syringe 100 mg 1 mg/kg subcutaneous Q24H Martin Snyder MD 100 mg at 05/11/25 1536 famotidine (PEPCID) tablet 20 mg 20 mg oral BID Martin Snyder MD 20 mg at 05/12/25 0834 fLUoxetine (PROzac) capsule 20 mg 20 mg oral Daily Ulises Ruelas PA-C 20 mg at 05/12/25 0834 furosemide (LASIX) tablet 80 mg 80 mg oral BID Ulises Ruelas PA-C 80 mg at 05/12/25 0834 gabapentin (NEURONTIN) tablet 600 mg 600 mg oral TID Ulises Ruelas PA-C 600 mg at 05/12/25 0834 guaiFENesin (mucINEX) 12 hr tablet 600 mg 600 mg oral BID Martin Snyder MD 600 mg at 05/12/25 0834 hydrALAZINE (APRESOLINE) injection 10 mg 10 mg intravenous Q6H PRN Ulises Ruelas PA-C levothyroxine (SYNTHROID) tablet 75 mcg 75 mcg oral QAM (0600) Ulises Ruelas PA-C 75 mcg at 05/12/25 0613 magnesium sulfate IVPB 2 g in sterile water 50 mL (premix) 2 g intravenous Daily PRN Ulises Ruelas PA-C magnesium sulfate IVPB 2 g in sterile water 50 mL (premix) 2 g intravenous BID PRN Ulises Ruelas PA-C melatonin tablet 3 mg 3 mg oral Every Night PRN Ulises Ruelas PA-C meropenem (MERREM) 500 mg in sodium chloride 0.9 % (NS) 50 mL CHRISTIAN IVPB 500 mg intravenous Q8H Ulises Ruelas PA-C 16.7 mL/hr at 05/12/25 0842 500 mg at 05/12/25 0842 metoprolol succinate (TOPROL-XL) 24 hr tablet 75 mg 75 mg oral Daily Ulises Ruelas PA-C 75 mg at 05/12/25 0834 morphine injection 2 mg 2 mg intravenous Q6H PRN Ulises Ruelas PA-C 2 mg at 05/12/25 0830 naloxone (NARCAN) injection 0.2 mg 0.2 mg intravenous Q2 Min PRN Ulises Ruelas PA-C ondansetron (ZOFRAN-ODT) disintegrating tablet 4 mg 4 mg oral Q8H PRN Ulises Ruelas PA-C Or ondansetron (ZOFRAN) injection 4 mg 4 mg intravenous Q8H PRN Ulises Ruelas PA-C oxyCODONE (ROXICODONE) immediate release tablet 7.5 mg 7.5 mg oral Q6H PRN Ulises Ruelas PA-C 7.5mg at 05/12/25 0324 pantoprazole (PROTONIX) EC tablet 40 mg 40 mg oral Daily Ulises Ruelas PA-C 40 mg at 05/12/25 0835 potassium chloride (KLOR-CON) ER tablet 40 mEq 40 mEq oral 4x Daily PRN Ulises Ruelas PA-C 40 mEqat 05/12/25 0841 potassium chloride IVPB 10 mEq in 100 mL sterile water (premix) 10 mEq intravenous Q1H PRN Ulises Ruelas PA-C Saccharomyces boulardii (FLORASTOR) capsule 250 mg 250 mg oral BID Martin Snyder MD 250 mg at 05/12/25 0834 sodium chloride flush 10 mL 10 mL intravenous PRN Jyoti Montana PA-C traZODone (DESYREL) tablet 50 mg 50 mg oral Every Night PRN Ulises Ruelas PA-C 50 mg at 05/11/252 Allergies Patient has no known allergies. Objective Vital ranges lat 24 hours Temp: [97.7 ??F (36.5 ??C)-99.1 ??F (37.3 ??C)] 97.7 ??F (36.5 ??C) Pulse: [50-74] 72 Resp: [18] 18 BP: (97-133)/(55-69) 133/68 Intake and Output 24 hours: Intake/Output Summary (Last 24 hours) at 05/12/2025 0934 Last data filed at 05/12/2025 0800 Gross per 24 hour Intake 220 ml Output -- Net 220 ml Net I&O this admission: Net IO Since Admission: 1,830 mL [05/12/25 0934] Physical Exam General: Alert and oriented, No acute distress. Eye: Pupils are equal, round and reactive to light, Vision unchanged. HENT: Normocephalic, Oral mucosa is moist. Neck: Supple, Non-tender, No carotid bruit, No jugular venous distention. Respiratory: Lungs are clear to auscultation, Respirations are non-labored, Symmetrical chest wall expansion. Cardiovascular: Normal rate, Regular rhythm, No murmur, Good pulses equal in all extremities. Gastrointestinal: Soft, Non-distended, Normal bowel sounds. Musculoskeletal: Normal range of motion, Normal strength. Integumentary: Warm, Dry, [place]. Neurologic: Alert, Oriented. Psychiatric: Cooperative, Appropriate mood & affect. Labs: WBC Date Value Ref Range Status 05/12/2025 5.0 4.0 - 10.0 K/??L Final Hemoglobin Date Value Ref Range Status 05/12/2025 9.5 (L) 11.2 - 15.7 GM/DL Final Platelets Date Value Ref Range Status 05/12/2025 177 140 - 375 K/CU MM Final Creatinine Date Value Ref Range Status 05/12/2025 1.80 (H) 0.57 - 1.11 mg/dL Final 05/11/2025 1.92 (H) 0.57 - 1.11 mg/dL Final BUN Date Value Ref Range Status 05/12/2025 42.0 (H) 9.8 - 20.1 mg/dL Final 05/11/2025 45.3 (H) 9.8 - 20.1 mg/dL Final Potassium Date Value Ref Range Status 05/12/2025 3.2 (L) 3.4 - 5.1 meq/L Final Sodium Date Value Ref Range Status 05/12/2025 142 136 - 145 meq/L Final Magnesium Date Value Ref Range Status 05/12/2025 1.9 1.6 - 2.6 mg/dL Final No results found for: CKTOTAL , CKMB , CKMBINDEX No results found for: BNP Imaging: Echo Results (last 7 days) No results found for the last 168 hours. 05/11/2025 ECHO Normal sized left ventricle. Moderate left ventricular hypertrophy. Increased velocitites noted through LVOT. Visually estimated ejection fraction 55% +/- 5%. Normal left ventricular systolic function. Normal left ventricular diastolic function. No hemodynamically significant valvular heart disease. Assessment and Plan Problem List: Principal Problem: Chest pain IMPRESSION: Chest pressure with associated shortness of air. Elevated D-dimer Normal coronary arteries per left heart catheterization 2022 Acute E.coli bacteremia- ID following Positive blood cultures 05/11 for Enterobacter and E. coli History of heart failure with preserved ejection fraction 05/11/2025 ECHO EF 55%, valves ok Chronic kidney disease stage IV Bilateral renal mass versus cyst Renal US pending per urology Hypertension Dyslipidemia Obesity PLAN: 05/12/25 Patient seen and examined. Feels quite well. Echo reviewed. LV function is normal. At this point there does not appear to be any evidence of ACS at play. Patient had heart catheterization done very recently which was unremarkable. I will think she requires any further inpatient cardiac evaluation. She is agreeable to said plan of care. Will continue with current therapy. She will see Dr. Celeste in afew weeks. Will sign off. 05/11/2025 Patient feels well. Echo is still pending. VQ scan and venous duplex are also pending. Patient is noted to have bacteremia. Overall high threshold for any kind of invasive coronary angiogram. Will follow for now. 05/10/25 Overall clinical syndrome notable. Shortness of breath. Very atypical chest pain. Patient has a known history of normal coronaries from 2022. Renal insufficiency notable. No evidence of ACS at play. Will need to review echo. Will consider nuclear stress test. Overall high threshold for repeat angiography due to renal insufficiency. Agree with gentle diuresis. Low threshold to involve nephrology. Will follow accordingly. * Martin Snyder MD - 05/11/2025 10:55 AM EDT HOSPITALIST PROGRESS NOTE Patient: Elissa Kent Date: 05/11/2025 Subjective Date of Service: 05/11/2025 Patient seen and examined at bedside this AM. No chest pain or palpitations No acute events overnight. Denies nausea and vomiting, no fever or chills. Discussed with her daughter at the bedside. Objective Vitals: Temp: [97.7 ??F (36.5 ??C)-97.9 ??F (36.6 ??C)] 97.8 ??F (36.6 ??C) Pulse: [71-105] 76 Resp: [18] 18 BP: (101-124)/(43-66) 120/66 Intake/Output: Intake/Output Summary (Last 24 hours) at 05/11/2025 1055 Last data filed at 05/11/2025 0737 Gross per 24 hour Intake 460 ml Output -- Net 460 ml Physical exam: General: Alert and oriented, no acute distress Neurologic: Awake, alert, no apparent focal deficits Eye: normal conjunctiva HENT: Normocephalic, atraumatic Neck: no JVD Lungs: symmetrical chest rise, non-labored respiration Heart: Normal rate, regular rhythm Abdomen: nondistended Musculoskeletal: Normal range of motion and strength, no tenderness or swelling Skin: Skin is warm, dry, no rashes or lesions Psychiatric: Cooperative, appropriate mood and affect Labs: Results for orders placed or performed during the hospital encounter of 05/09/25 (from the past 24 hours) Urinalysis, Reflex Microscopic and Culture If Indicated Status: Abnormal Collection Time: 05/11/25 1:39 AM Result Value Ref Range Color, UA Colorless Clarity, UA Clear Clear Specific [place], UA 1.010 1.005 - 1.030 pH, UA 5.5 (L) 6.0 - 8.0 Leukocytes, UA Negative Negative Nitrite, UA Negative Negative Protein, UA Negative Negative Glucose, UA Normal Normal Ketones, UA Negative Negative Bilirubin, UA Negative Negative Blood, UA Negative Negative Urobilinogen, UA Normal Normal Specimen Source Urine, Clean Catch Radiology: Radiology Results (last 3 days) Procedure Component Value Units Date/Time XR chest 1 view portable / bedside [[id number]] Collected: 05/10/25816 Order Status: Completed Updated: 05/10/25903 Narrative: Name: ELISSA KENT : 1945 CHEST SINGLE VIEW HISTORY: Chest pain. Shortness of breath. FINDINGS: Lungs are underinflated. Cardiac silhouette measures at the upper limits of normal in size. Mild chronic changes are seen at the lung bases. Stimulator leads are identified in the lower thoracic spine. Impression: 1. Underinflation with chronic changes at the lung bases. Images reviewed, interpreted, and dictated by Lisandro Zapata MD Medications: Scheduled Meds: fLUoxetine 20 mg oral Daily 20 mg at 05/11/25 0738 furosemide 80 mg oral BID 80 mg at 05/11/25 0739 gabapentin 600 mg oral TID 600 mg at 05/11/25 0739 guaiFENesin 600 mg oral BID 600 mg at 05/11/25 1014 levothyroxine 75 mcg oral QAM (0600) 75 mcg at 05/11/25 0551 meropenem 500 mg intravenous Q8H IVPB Stopped at 05/11/25 1016 metoprolol succinate 75 mg oral Daily 75 mg at 05/11/25 0738 pantoprazole 40 mg oral Daily 40 mg at 05/11/25 0738 Continuous Infusions: Current Facility-Administered Medications Medication Dose Route Frequency Provider Last Rate Last Admin acetaminophen (TYLENOL) tablet 1,000 mg 1,000 mg oral Q6H PRN Ulises Ruelas PA-C 1,000 mg at 05/11/25 0759 fLUoxetine (PROzac) capsule 20 mg 20 mg oral Daily Ulises Ruelas PA-C 20 mg at 05/11/25 0738 furosemide (LASIX) tablet 80 mg 80 mg oral BID Ulises Ruelas PA-C 80 mg at 05/11/25 0739 gabapentin (NEURONTIN) tablet 600 mg 600 mg oral TID Ulises Ruelas PA-C 600 mg at 05/11/25 0739 guaiFENesin (mucINEX) 12 hr tablet 600 mg 600 mg oral BID Martin Snyder MD 600 mg at 05/11/25 1014 hydrALAZINE (APRESOLINE) injection 10 mg 10 mg intravenous Q6H PRN Ulises Ruelas PA-C levothyroxine (SYNTHROID) tablet 75 mcg 75 mcg oral QAM (0600) Ulises Ruelas PA-C 75 mcg at 05/11/25 0551 magnesium sulfate IVPB 2 g in sterile water 50 mL (premix) 2 g intravenous Daily PRN Ulises Ruelas PA-C magnesium sulfate IVPB 2 g in sterile water 50 mL (premix) 2 g intravenous BID PRN Ulises Ruelas PA-C melatonin tablet 3 mg 3 mg oral Every Night PRN Ulises Ruelas PA-C meropenem (MERREM) 500 mg in sodium chloride 0.9 % (NS) 50 mL CHRISTIAN IVPB 500 mg intravenous Q8H Ulises Ruelas PA-C IVPB Stopped at 05/11/25 1016 metoprolol succinate (TOPROL-XL) 24 hr tablet 75 mg 75 mg oral Daily Ulises Ruelas PA-C 75 mg at 05/11/25 0738 morphine injection 2 mg 2 mg intravenous Q6H PRN Ulises Ruelas PA-C 2 mg at 05/11/25 0612 naloxone (NARCAN) injection 0.2 mg 0.2 mg intravenous Q2 Min PRN Ulises Ruelas PA-C ondansetron (ZOFRAN-ODT) disintegrating tablet 4 mg 4 mg oral Q8H PRN Ulises Ruelas PA-C Or ondansetron (ZOFRAN) injection 4 mg 4 mg intravenous Q8H PRN Ulises Ruelas PA-C oxyCODONE (ROXICODONE) immediate release tablet 7.5 mg 7.5 mg oral Q6H PRN Ulises Ruelas PA-C 7.5mg at 05/11/25 0129 pantoprazole (PROTONIX) EC tablet 40 mg 40 mg oral Daily Ulises Ruelas PA-C 40 mg at 05/11/25 0738 potassium chloride (KLOR-CON) ER tablet 40 mEq 40 mEq oral 4x Daily PRN Ulises Ruelas PA-C potassium chloride IVPB 10 mEq in 100 mL sterile water (premix) 10 mEq intravenous Q1H PRN Ulises Ruelas PA-C sodium chloride flush 10 mL 10 mL intravenous PRN Jyoti Montana PA-C traZODone (DESYREL) tablet 50 mg 50 mg oral Every Night PRN Ulises Ruelas PA-C PRN Meds: @MEDSPRN@ Assessment and Plan #Angina of effort #Chronic diastolic heart failure with preserved ejection fraction, not in acute exacerbation #Shortness of breath -Patient sees Dr. Celeste outpatient. Patient has been having similar issues it seems for the past few months. States chest pain is intermittent, and has been stronger this week and on Sunday she thought she should go to the ER, but it came back today. Currently not having chest pain on evaluation in the ER. - D-dimer elevated 1.40, proBNP 1896 on admission -Unable to perform CTA angio due to impaired renal function - VQ scan pending -Continue full dose Lovenox. Pharmacy to dose - Continue metoprolol 25 mg daily, Lasix 80 mg daily - Continuous telemetry monitoring - Oxygen supplementation as needed to maintain 94% SpO2. - Lower extremities Doppler ultrasound pending rule out DVT. -Cardiology consulted Bacteremia. No fever or chills no tachycardia or leukocytosis. Cultures consistent with GNR True pathogen versus contamination. Follow-up blood cultures. Continue broad-spectrum IV antibiotics. Add a probiotic ID consult # Acute on chronic renal failure - Creatinine 2.48---> 2.0 - Monitor renal function - Avoid nephrotoxic drugs if able - Renal dosing of drugs when able-suspect D-dimer elevation due to chronic kidney disease. #Obesity BMI 34.21 - Clinically consulted care. GI and DVT prophylaxis Diet: Orders Placed This Encounter Procedures Heart Healthy Diet Code Status: Current Code Status Full code Discharge Planning: Worsening chest pain and worsening congestive heart failure. Rule out pulmonary embolism. Now with bacteremia. Discharge date unable to determine Signed: Martin Snyder MD 05/11/2025, 10:55 AM * Justina Membreno DO - 05/11/2025 9:34 AM EDT CARDIOLOGY PROGRESS NOTE Name Elissa KentGEORGE 1945, 79 y.o., female Primary Cardiology: Dr Celeste PCP: Deo Byrne MD Admit Date 05/09/2025 Patient Location [facility]- Subjective: No acute overnight events Inpatient Medications Current Facility-Administered Medications Medication Dose Route Frequency Provider Last Rate Last Admin acetaminophen (TYLENOL) tablet 1,000 mg 1,000 mg oral Q6H PRN Ulises Ruelas PA-C 1,000 mg at 05/11/25 0759 fLUoxetine (PROzac) capsule 20 mg 20 mg oral Daily Ulises Ruelas PA-C 20 mg at 05/11/25 0738 furosemide (LASIX) tablet 80 mg 80 mg oral BID Ulises Ruelas PA-C 80 mg at 05/11/25 0739 gabapentin (NEURONTIN) tablet 600 mg 600 mg oral TID Ulises Ruelas PA-C 600 mg at 05/11/25 0739 guaiFENesin (mucINEX) 12 hr tablet 600 mg 600 mg oral BID Martin Snyder MD hydrALAZINE (APRESOLINE) injection 10 mg 10 mg intravenous Q6H PRN Ulises Ruelas PA-C levothyroxine (SYNTHROID) tablet 75 mcg 75 mcg oral QAM (0600) Ulises Ruelas PA-C 75 mcg at 05/11/25 0551 magnesium sulfate IVPB 2 g in sterile water 50 mL (premix) 2 g intravenous Daily PRN Ulises Ruelas PA-C magnesium sulfate IVPB 2 g in sterile water 50 mL (premix) 2 g intravenous BID PRN Ulises uRelas PA-C melatonin tablet 3 mg 3 mg oral Every Night PRN Ulises Ruelas PA-C meropenem (MERREM) 500 mg in sodium chloride 0.9 % (NS) 50 mL CHRISTIAN IVPB 500 mg intravenous Q8H Ulises Ruelas PA-C 16.7 mL/hr at 05/11/25 0737 500 mg at 05/11/25 0737 metoprolol succinate (TOPROL-XL) 24 hr tablet 75 mg 75 mg oral Daily Ulises Ruelas PA-C 75 mg at 05/11/25 0738 morphine injection 2 mg 2 mg intravenous Q6H PRN Ulises Ruelas PA-C 2 mg at 05/11/25 0612 naloxone (NARCAN) injection 0.2 mg 0.2 mg intravenous Q2 Min PRN Ulises Ruelas PA-C ondansetron (ZOFRAN-ODT) disintegrating tablet 4 mg 4 mg oral Q8H PRN Ulises Ruelas PA-C Or ondansetron (ZOFRAN) injection 4 mg 4 mg intravenous Q8H PRN Ulises Ruelas PA-C oxyCODONE (ROXICODONE) immediate release tablet 7.5 mg 7.5 mg oral Q6H PRN Ulises Ruelas PA-C 7.5mg at 05/11/25 0129 pantoprazole (PROTONIX) EC tablet 40 mg 40 mg oral Daily Ulises Ruelas PA-C 40 mg at 05/11/25 0738 potassium chloride (KLOR-CON) ER tablet 40 mEq 40 mEq oral 4x Daily PRN Ulises Ruelas PA-C potassium chloride IVPB 10 mEq in 100 mL sterile water (premix) 10 mEq intravenous Q1H PRN Ulises Ruelas PA-C sodium chloride flush 10 mL 10 mL intravenous PRN Jyoti Montana PA-C traZODone (DESYREL) tablet 50 mg 50 mg oral Every Night PRN Ulises Ruelas PA-C Allergies Patient has no known allergies. Objective Vital ranges lat 24 hours Temp: [97.7 ??F (36.5 ??C)-97.9 ??F (36.6 ??C)] 97.8 ??F (36.6 ??C) Pulse: [71-105] 76 Resp: [18] 18 BP: (101-131)/(41-66) 120/66 Intake and Output 24 hours: Intake/Output Summary (Last 24 hours) at 05/11/2025 09 Last data filed at 05/10/2025 1300 Gross per 24 hour Intake 220 ml Output -- Net 220 ml Net I&O this admission: Net IO Since Admission: 1,370 mL [05/11/25 0934] Physical Exam General: Alert and oriented, No acute distress. Eye: Pupils are equal, round and reactive to light, Vision unchanged. HENT: Normocephalic, Oral mucosa is moist. Neck: Supple, Non-tender, No carotid bruit, No jugular venous distention. Respiratory: Lungs are clear to auscultation, Respirations are non-labored, Symmetrical chest wall expansion. Cardiovascular: Normal rate, Regular rhythm, No murmur, Good pulses equal in all extremities. Gastrointestinal: Soft, Non-distended, Normal bowel sounds. Musculoskeletal: Normal range of motion, Normal strength. Integumentary: Warm, Dry, [place]. Neurologic: Alert, Oriented. Psychiatric: Cooperative, Appropriate mood & affect. Labs: WBC Date Value Ref Range Status 05/09/2025 7.6 4.0 - 10.0 K/??L Final Hemoglobin Date Value Ref Range Status 05/09/2025 11.2 11.2 - 15.7 GM/DL Final Platelets Date Value Ref Range Status 05/09/2025 166 140 - 375 K/CU MM Final Creatinine Date Value Ref Range Status 05/10/2025 2.05 (H) 0.57 - 1.11 mg/dL Final 05/09/2025 2.48 (H) 0.57 - 1.11 mg/dL Final BUN Date Value Ref Range Status 05/10/2025 52.6 (H) 9.8 - 20.1 mg/dL Final 05/09/2025 63.3 (H) 9.8 - 20.1 mg/dL Final Potassium Date Value Ref Range Status 05/10/2025 3.5 3.4 - 5.1 meq/L Final Sodium Date Value Ref Range Status 05/10/2025 137 136 - 145 meq/L Final Magnesium Date Value Ref Range Status 05/09/2025 1.9 1.6 - 2.6 mg/dL Final No results found for: CKTOTAL , CKMB , CKMBINDEX No results found for: BNP Imaging: Echo Results (last 7 days) No results found for the last 168 hours. Assessment and Plan Problem List: Principal Problem: Chest pain IMPRESSION: Chest pressure with associated shortness of air. Elevated D-dimer Normal coronary arteries per left heart catheterization 2022 ? Bacteremia- possible contaminant Positive blood cultures 05/11 for Enterobacter and E. coli History of heart failure with preserved ejection fraction Chronic kidney disease stage IV Hypertension Dyslipidemia Obesity PLAN: 05/11/25 Patient feels well. Echo is still pending. VQ scan and venous duplex are also pending. Patient is noted to have bacteremia. Overall high threshold for any kind of invasive coronary angiogram. Will follow for now. 05/10/25 Overall clinical syndrome notable. Shortness of breath. Very atypical chest pain. Patient has a known history of normal coronaries from 2022. Renal insufficiency notable. No evidence of ACS at play. Will need to review echo. Will consider nuclear stress test. Overall high threshold for repeat angiography due to renal insufficiency. Agree with gentle diuresis. Low threshold to involve nephrology. Will follow accordingly. documented in this encounter H&P Notes * Ulises Ruelas PA-C - 05/10/2025 1:12 AM EDT [facility] Patient Name: Elissa Kent : 1945 Date: 05/10/2025 PCP: Deo Byrne MD Date of Admission: 05/09/2025 Chief Complaint: Chief Complaint Patient presents with Chest Pain Shortness of Breath History of Present Illness Elissa Kent is a 79 y.o. female with a history of chronic kidney disease stage IV with GFR 15-29, GERD, hypertension, history of diastolic heart failure who presents to [facility] in [place], [place] for further evaluation and management of chest pain and shortness of breath. Patient presented to the ED with complaints of chest pain and shortness of breath for 2 days. She states over the past 2 to 3 months she has been having this intermittent recurrent chest pain that she feltlike was worse earlier this week and, returned but during examination she is not currently having chest pain. States that she was having some mild shortness of breath although daughter at bedside state that you can hear her breathing sitting on the recliner across the room. She does follow with outpatient and has been worked up with this for some point in time. ED provider did order a D-dimer, but due to kidney function was unable to complete a CTA. On my examination patient does complain of some right calf tenderness to palpation, but no pain at rest. Reportedly patient was requiring2 L oxygen supplementation on baseline nausea and requirement. Although in the room during examination I did take oxygen off patient to monitor myself during conversation patient on room air did not drop more than 93% spo2. Significant lab work showed D-dimer 1.40, proBNP 1896. Sepsis creatinine 2.48, alkaline phosphatase 161, ALT 81, AST 74. Past Medical History: Past Medical History: Diagnosis Date Angina of effort (HCC) CKD (chronic kidney disease) Diastolic heart failure (HCC) Edema HTN (hypertension) Hypokalemia Past Surgical History: Past Surgical History: Procedure Laterality Date LUMBAR NERVE STIMLATOR INSERTION REPLACEMENT TOTAL KNEE Social History: Social History Tobacco Use Smoking status: Never Smokeless tobacco: Never Vaping Use Vaping status: Never Used Substance Use Topics Alcohol use: Yes Alcohol/week: 2.0 - 3.0 standard drinks of alcohol Types: 2 - 3 Drinks containing 0.5 oz of alcohol per week Drug use: Never Family History: No family history on file. Documented Allergies: No Known Allergies Documented CALENDER FEEDER Medications: (Not in a hospital admission) Review of Systems A 14 point review of systems was obtained and is negative unless otherwise stated in the HPI. Available past medical, social and family history reviewed. Objective Vitals: Temp: [97.8 ??F (36.6 ??C)] 97.8 ??F (36.6 ??C) Pulse: [100-130] 100 Resp: [22-38] 26 BP: (85-123)/(31-75) 108/41 Intake/Output: Intake/Output Summary (Last 24 hours) at 05/10/2025 0112 Last data filed at 05/10/2025 0007 Gross per 24 hour Intake 1150 ml Output -- Net 1150 ml Physical Exam Vitals reviewed. Constitutional: Appearance: She is obese. HENT: Head: Normocephalic and atraumatic. Eyes: Extraocular Movements: Extraocular movements intact. Conjunctiva/sclera: Conjunctivae normal. Pupils: Pupils are equal, round, and reactive to light. Cardiovascular: Rate and Rhythm: Regular rhythm. Tachycardia present. Pulmonary: Effort: Pulmonary effort is normal. No respiratory distress. Breath sounds: Normal breath sounds. Abdominal: General: Bowel sounds are normal. Tenderness: There is no abdominal tenderness. Musculoskeletal: Cervical back: Normal range of motion. Comments: Right calf TTP. Neurological: Mental Status: She is alert. Psychiatric: Mood and Affect: Mood normal. Behavior: Behavior normal. Recent Labs: Results for orders placed or performed during the hospital encounter of 05/09/25 (from the past 24 hours) ECG 12 lead Status: None (In process) Collection Time: 05/09/25 8:47 PM Result Value Ref Range VENTRICULAR RATE EKG/MIN 117 BPM ATRIAL RATE (MCT) 117 BPM QRS-INTERVAL (MSEC) 79 ms QT Interval 313 ms QTC Interval 437 ms R AXIS (MCT) 56 degrees T Wave [place] 140 degrees [place]ul Diagnosis Undetermined rhythm Possible Inferior infarct , age undetermined Abnormal ECG No previous ECGs available CBC with Auto Diff Status: Abnormal Collection Time: 05/09/25 9:09 PM Result Value Ref Range WBC 7.6 4.0 - 10.0 K/??L RBC 3.77 (L) 3.93 - 5.22 M/??L Hemoglobin 11.2 11.2 - 15.7 GM/DL Hematocrit 36.5 34.1 - 44.9 % MCV 97 (H) 79 - 95 fL MCH 29.7 25.6 - 32.2 pg MCHC 30.7 (L) 32.2 - 35.5 GM/DL RDW 14.6 (H) 11.7 - 14.4 % Platelets 166 140 - 375 K/CU MM MPV 10.9 9.4 - 12.3 fL % Neutros 81 (H) 34 - 71 % % Lymphs 13 (L) 19 - 52 % % Monos 5 5 - 13 % % Eos 1 1 - 6 % % Baso 0 0 - 1 % NRBC Absolute <0.01 0 - 0.012 K/ul # Neutros 6.16 (H) 1.56 - 6.13 K/??L # Lymphs 1.02 (L) 1.18 - 3.74 K/??L # Monos 0.37 0.24 - 0.86 K/??L # Eos 0.04 0.04 - 0.36 K/??L # Baso <0.03 0.01 - 0.08 K/ L Immature Granulocytes-Relative 0.40 0.01 - 0.43 % # IG 0.03 0.00 - 0.03 K/uL Comprehensive metabolic panel Status: Abnormal Collection Time: 05/09/25 9:09 PM Result Value Ref Range Sodium 136 136 - 145 meq/L Potassium 4.4 3.4 - 5.1 meq/L Chloride 97 (L) 98 - 112 meq/L CO2 23 22 - 29 meq/L Calcium 8.7 8.4 - 10.2 mg/dL Glucose 99 82 - 115 mg/dL BUN 63.3 (H) 9.8 - 20.1 mg/dL Creatinine 2.48 (H) 0.57 - 1.11 mg/dL BUN/Creatinine 26 (H) 8 - 20 eGFR (mL/min/1.73m2) 20 (L) >=60 mL/min/1.73m2 Albumin 2.8 (L) 3.5 - 5.0 g/dL Alkaline Phosphatase 161 (H) 40 - 150 U/L ALT 81 (H) <=34 U/L AST 74 (H) 11 - 34 U/L Total Bilirubin 0.5 0.2 - 1.2 mg/dL Protein, Total 7.2 6.4 - 8.3 g/dL Globulin 4.4 (H) 2.5 - 4.1 g/dL Anion Gap 20 (H) 4 - 12 A/G Ratio 0.6 (L) 0.7 - 1.9 Osmolality Calc 290.1 mOsm/kg Magnesium Status: Normal Collection Time: 05/09/25 9:09 PM Result Value Ref Range Magnesium 1.9 1.6 - 2.6 mg/dL PROBNP Status: Abnormal Collection Time: 05/09/25 9:09 PM Result Value Ref Range ProBNP (pg/mL) 1,896 (H) 16 - 956 pg/mL High Sensitivity Troponin I Status: Normal Collection Time: 05/09/25 9:09 PM Result Value Ref Range Troponin I High Sensitivity (pg/mL) 6.2 <=14 pg/mL TSH Status: Normal Collection Time: 05/09/25 9:09 PM Result Value Ref Range TSH 0.948 0.350 - 4.940 uIU/mL D-dimer Status: Abnormal Collection Time: 05/09/25 9:09 PM Result Value Ref Range D-Dimer, Quant 1.40 (H) 0.19 - 0.58 MG/L FEU Lactic Acid with reflex (SJ) Status: Abnormal Collection Time: 05/09/25 9:26 PM Result Value Ref Range Lactic Acid Level (mmol/L) 2.2 (HH) 0.5 - 2.2 mmol/L COVID ANTIGEN Status: Normal Collection Time: 05/09/25 9:26 PM Specimen: Nasal Swab Result Value Ref Range SARS COVID ANTIGEN Negative Negative, Invalid Lactic acid (SJ) Status: Normal Collection Time: 05/09/25 11:18 PM Result Value Ref Range Lactic Acid Level (mmol/L) 1.0 0.5 - 2.2 mmol/L Microbiology Results (last 7 days) Procedure Component Value Units Date/Time Blood Culture [[id number]] Collected: 05/09/252239 Order Status: Resulted Specimen: Blood Updated: 05/09/252243 Blood Culture [[id number]] Collected: 05/09/252239 Order Status: Resulted Specimen: Blood Updated: 05/09/252243 COVID ANTIGEN [[id number]] (Normal) Collected: 05/09/252125 Order Status: Completed Specimen: Nasal Swab Updated: 05/09/252156 SARS COVID ANTIGEN Negative Narrative: The BD Veritor System for Rapid Detection of SARS-CoV-2 does not differentiate between SARS-CoV [id number].The BD Veritor System for Rapid Detection of SARS-CoV-2 is only for in vitro diagnostic use under the Food and Drug Administration's Emergency Use Authorization. This product has not been FDA cleared or approved. Results should be correlated with the clinical history, epidemiological data, and other data available to the clinician evaluating the patient. SARS-CoV-2 viral antigens are generally detectable in anterior nasal swab specimens during the acute phase of infection. Positive results indicate the presence of viral antigens, but clinical correlation with patient history and other diagnostic information is necessary to determine infection status. Negative results are presumptive, do not rule out SARS-CoV-2 infection, and should not be used as the sole basis for treatment or patient management decisions, including infection control measures such as isolating from others and wearing masks. Serial testing should be performed in individuals with negative results at least twice over three days (with 48 hours between tests) for symptomatic individuals. Confirmation with a molecular assay may be necessary if there is a high likelihood of SARS-CoV-2 infection. Radiology: Radiology Results (last 3 days) Procedure Component Value Units Date/Time XR chest 1 view portable / bedside [[id number]] Resulted: 05/09/252118 Order Status: Sent Updated: 05/09/252119 All Documented Medications: Scheduled Meds: cefTRIAXone 2 g intravenous Q24H Stopped at 05/09/252256 doxycycline 100 mg intravenous Q12H Stopped at 05/10/256 Continuous Infusions: Current Facility-Administered Medications Medication Dose Route Frequency Provider Last Rate Last Admin cefTRIAXone (ROCEPHIN) 2 g in sodium chloride 0.9 % (NS) 50 mL CHRISTIAN IVPB 2 g intravenous Q24H Wilfrido Montana PA-C Stopped at 05/09/252256 doxycycline (VIBRAMYCIN) 100 mg in sodium chloride 0.9 % (NS) CHRISTIAN IVPB 100 mg intravenous Q12H Jyoti Montana PA-C Stopped at 05/10/256 sodium chloride flush 10 mL 10 mL intravenous PRN Jyoti Montana PA-C Current Outpatient Medications Medication Sig Dispense Refill cholecalciferol, vitamin D3, 2,000 unit Tab Take 1 tablet (2,000 Units total) by mouth daily. furosemide (LASIX) 80 MG tablet Take 1 tablet (80 mg total) by mouth 2 (two) times daily. 180 tablet 2 gabapentin (NEURONTIN) 600 MG tablet Take 1 tablet (600 mg total) by mouth 3 (three) times daily. HYDROcodone-acetaminophen (NORCO 7.5-325) 7.5-325 mg per tablet Take 1 tablet by mouth 2 (two) times daily. levothyroxine (SYNTHROID, LEVOTHROID) 75 MCG tablet Take 1 tablet (75 mcg total) by mouth daily. LORazepam (ATIVAN) 0.5 MG tablet Take 1 tablet (0.5 mg total) by mouth every night as needed. metoprolol succinate (TOPROL-XL) 50 MG 24 hr tablet Take 1&1/2 tablets (75 mg total) by mouth daily. 45 tablet 11 potassium chloride (KLOR-CON) 20 mEq CR tablet Take 1 tablet (20 mEq total) by mouth daily. 90 tablet 3 Assessment and Plan #Angina of effort #Chronic diastolic heart failure with preserved ejection fraction, not in acute exacerbation #Shortness of breath -Patient sees Dr. Celeste outpatient. Patient has been having similar issues it seems for the past few months. States chest pain is intermittent, and has been stronger this week and on Sunday she thought she should go to the ER, but it came back today. Currently not having chest pain on evaluation in the ER. - D-dimer elevated 1.40, proBNP 1896 -Consult cardiology, appreciate assistance - Ordered VQ scan - Continue metoprolol 25 mg daily, Lasix 80 mg daily - Continuous telemetry monitoring - Oxygen supplementation as needed to maintain 94% SpO2. - AM labs ordered CBC, BMP #Chronic kidney disease - Creatinine 2.48, GFR 20 at baseline. - Monitor renal function - Avoid nephrotoxic drugs if able - Renal dosing of drugs when able-suspect D-dimer elevation due to chronic kidney disease. #Obesity BMI 34.21 - Clinically consulted care. -Laboratory work and pertinent imaging results independently reviewed as noted in HPI. -Continue to monitor electrolytes with AM metabolic panel and replete as appropriate. -Monitor WBC count to assess for developing / worsening infection and hemoglobin with AM CBC. -Intermittent BP and pulse oximetry monitoring per unit parameters. -Continue appropriate home medications for chronic problems as ordered below. -After reviewing this patient's presentation, labs, imaging, and medical record and discussion withsupervising physician, we have to decided to admit them. They will require inpatient admission requiring >48hrs for work up and stabilization of their condition. - High complexity of medical decision. -Evaluated 05/09/2025, 1:12 AM Ulises Tipton, have personally reviewed pertinent laboratory, EKG, and imaging results, as wellas documentation in the patient's EMR and discussed with supervising physician as necessary. Laboratory and imaging orders per the above plan have been reviewed and addressed, please see orders below. Home medications have been reviewed and restarted if appropriate. Patient's case, assessment, and plan have been discussed on this date with ED provider. Nutrition: Orders Placed This Encounter No orders of the following type(s) were placed in this encounter: Diet. GI prophylaxis: Protonix VTE prophylaxis: SCDs AM orders including labs/radiology/procedures placed. Code Status: Current Code Status No Active Code Status Order Disposition: Admit Prognosis: TBD Signed: Ulises Ruelas PA-C 05/09/2025, 1:12 AM Voice residence supervisor technology (Smart[employer]) is used for dictation of this note and sound-alike words might be erroneously placed despite reviewing the note for accuracy. Errors in dictation mayreflect use of voice recognition software and not all errors in residence supervisor may have been detected prior to signing. Active Orders Lab Urinalysis, Reflex Microscopic and Culture If Indicated - Cath Frequency: STAT Number of Occurrences: 1 Occurrences Nursing Continuous Pulse Oximetry - Nursing Frequency: Until Discontinued Number of Occurrences: Until Specified Measure blood pressure Frequency: Q1H Number of Occurrences: Until Specified Telemetry monitoring Frequency: Until Discontinued Number of Occurrences: 12 Hours Respiratory Care Oxygen Therapy -Nasal Cannula Frequency: Continuous Number of Occurrences: Until Specified Admission Admit to inpatient Frequency: Once Number of Occurrences: 1 Occurrences Medications cefTRIAXone (ROCEPHIN) 2 g in sodium chloride 0.9 % (NS) 50 mL CHRISTIAN IVPB Frequency: Q24H Dose: 2 g Route: intravenous doxycycline (VIBRAMYCIN) 100 mg in sodium chloride 0.9 % (NS) CHRISTIAN IVPB Frequency: Q12H Dose: 100 mg Route: intravenous sodium chloride flush 10 mL Frequency: PRN Dose: 10 mL Route: intravenous Cosigned by Kurtis Conteh DO at 05/10/2025 6:44 AM EDT Associated attestation - Kurtis Conteh DO - 05/10/2025 5:44 AM CDT Patient admitted with chest pain which has been occurring frequently follows with Dr. Celeste as an outpatient. Patient noted to have elevated d-dimer can't have CTA Chest due to GFR 20 at baseline so VQscan ordered as well as lower extremity ultrasound. Cardiology has been consulted for chest pain. Troponin was normal and no significant EKG findings besides sinus tachycardia. Agree with rest of plan as documented. Kurtis Conteh D.O. 05/10/2025 6:44 documented in this encounter Consult Notes * Trey Cartwright MD - 05/12/2025 11:42 AM EDTAssociated Order(s): FS_MODEL_IP IP CONSULT TO UROLOGY Urology Consult Note Reason for Consult: Bilateral renal mass Chief Complaint: Chief Complaint Patient presents with Chest Pain Shortness of Breath History of Present Illness: Briefly, Elissa eKnt is a 79 y.o. female, admitted on: 05/09/2025 8:41 PM. She was admitted 2 days ago with chest pain. She has known CKD stage IV. CT unenhanced revealed bilateral renal masses that cannot be clarified well. She is undergoing cardiac evaluation currently. She does have significant comorbid disease. She denies significant previous urologic history. Past Medical History: Past Medical History: Diagnosis Date Angina of effort (HCC) CKD (chronic kidney disease) Diastolic heart failure (HCC) Edema HTN (hypertension) Hypokalemia Past Surgical History: Past Surgical History: Procedure Laterality Date LUMBAR NERVE STIMLATOR INSERTION REPLACEMENT TOTAL KNEE Allergies: No Known Allergies Medications: Prior to Admission Medications: Medications Prior to Admission Medication Sig Dispense Refill Last Dose/Taking cholecalciferol, vitamin D3, 2,000 unit Tab Take 1 tablet (2,000 Units total) by mouth daily. fluoride, sodium, (PreviDent 5000 Booster Plus) 1.1 % pste Apply to teeth. furosemide (LASIX) 80 MG tablet Take 1 tablet (80 mg total) by mouth 2 (two) times daily. 180 tablet 2 05/08/2025 gabapentin (NEURONTIN) 600 MG tablet Take 1 tablet (600 mg total) by mouth 3 (three) times daily. 05/08/2025 levothyroxine (SYNTHROID, LEVOTHROID) 75 MCG tablet Take 1 tablet (75 mcg total) by mouth daily. 05/08/2025 Morning LORazepam (ATIVAN) 0.5 MG tablet Take 1 tablet (0.5 mg total) by mouth every night as needed. 05/08/2025 Bedtime metoprolol succinate (TOPROL-XL) 50 MG 24 hr tablet Take 1&1/2 tablets (75 mg total) by mouth daily. 45 tablet 11 05/08/2025 omeprazole (PriLOSEC) 20 MG capsule Take 1 capsule (20 mg total) by mouth daily. oxyCODONE-acetaminophen (PERCOCET) 7.5-325 mg per tablet Take 1 tablet by mouth 2 (two) times dailyLook-alike/Sound-alike medication. Max Daily Amount: 2 tablets potassium chloride (KLOR-CON) 20 mEq CR tablet Take 1 tablet (20 mEq total) by mouth daily. 90 tablet 3 05/08/2025 Morning Scheduled Medications: enoxaparin 1 mg/kg subcutaneous Q24H 100 mg at 05/11/25 1536 famotidine 20 mg oral BID 20 mg at 05/12/25 0834 fLUoxetine 20 mg oral Daily 20 mg at 05/12/25 0834 furosemide 80 mg oral BID 80 mg at 05/12/25 0834 gabapentin 600 mg oral TID 600 mg at 05/12/25 0834 guaiFENesin 600 mg oral BID 600 mg at 05/12/25 0834 levothyroxine 75 mcg oral QAM (0600) 75 mcg at 05/12/25 0613 meropenem 500 mg intravenous Q8H 500 mg at 05/12/25 0842 metoprolol succinate 75 mg oral Daily 75 mg at 05/12/25 0834 pantoprazole 40 mg oral Daily 40 mg at 05/12/25 0835 Saccharomyces boulardii 250 mg oral BID 250 mg at 05/12/25 0834 Current Infusions: Current Facility-Administered Medications Medication Dose Route Frequency Provider Last Rate Last Admin acetaminophen (TYLENOL) tablet 1,000 mg 1,000 mg oral Q6H PRN Ulises Ruelas PA-C 1,000 mg at 05/11/25 0759 enoxaparin (LOVENOX) syringe 100 mg 1 mg/kg subcutaneous Q24H Martin Snyder MD 100 mg at 05/11/25 1536 famotidine (PEPCID) tablet 20 mg 20 mg oral BID Martin Snyder MD 20 mg at 05/12/25 0834 fLUoxetine (PROzac) capsule 20 mg 20 mg oral Daily Ulises Ruelas PA-C 20 mg at 05/12/25 0834 furosemide (LASIX) tablet 80 mg 80 mg oral BID Ulises Ruelas PA-C 80 mg at 05/12/25 0834 gabapentin (NEURONTIN) tablet 600 mg 600 mg oral TID Ulises Ruelas PA-C 600 mg at 05/12/25 0834 guaiFENesin (mucINEX) 12 hr tablet 600 mg 600 mg oral BID Martin Snyder MD 600 mg at 05/12/25 0834 hydrALAZINE (APRESOLINE) injection 10 mg 10 mg intravenous Q6H PRN Ulises Ruelas PA-C levothyroxine (SYNTHROID) tablet 75 mcg 75 mcg oral QAM (0600) Ulises Ruelas PA-C 75 mcg at 05/12/25 0613 magnesium sulfate IVPB 2 g in sterile water 50 mL (premix) 2 g intravenous Daily PRN Ulises Ruelas PA-C magnesium sulfate IVPB 2 g in sterile water 50 mL (premix) 2 g intravenous BID PRN Ulises Ruelas PA-C melatonin tablet 3 mg 3 mg oral Every Night PRN Ulises Ruelas PA-C meropenem (MERREM) 500 mg in sodium chloride 0.9 % (NS) 50 mL CHRISTIAN IVPB 500 mg intravenous Q8H Ulises Ruelas PA-C 16.7 mL/hr at 05/12/25 0842 500 mg at 05/12/25 0842 metoprolol succinate (TOPROL-XL) 24 hr tablet 75 mg 75 mg oral Daily Ulises Ruelas PA-C 75 mg at 05/12/25 0834 morphine injection 2 mg 2 mg intravenous Q6H PRN Ulises Ruelas PA-C 2 mg at 05/12/25 0830 naloxone (NARCAN) injection 0.2 mg 0.2 mg intravenous Q2 Min PRN Ulises Ruelas PA-C ondansetron (ZOFRAN-ODT) disintegrating tablet 4 mg 4 mg oral Q8H PRN Ulises Ruelas PA-C Or ondansetron (ZOFRAN) injection 4 mg 4 mg intravenous Q8H PRN Ulises Ruelas PA-C oxyCODONE (ROXICODONE) immediate release tablet 7.5 mg 7.5 mg oral Q6H PRN Ulises Ruelas PA-C 7.5mg at 05/12/25 0324 pantoprazole (PROTONIX) EC tablet 40 mg 40 mg oral Daily Ulises Ruelas PA-C 40 mg at 05/12/25 0835 potassium chloride (KLOR-CON) ER tablet 40 mEq 40 mEq oral 4x Daily PRN Ulises Ruelas PA-C 40 mEqat 05/12/25 0841 potassium chloride IVPB 10 mEq in 100 mL sterile water (premix) 10 mEq intravenous Q1H PRN Ulises Ruelas PA-C Saccharomyces boulardii (FLORASTOR) capsule 250 mg 250 mg oral BID Martin Snyder MD 250 mg at 05/12/25 0834 sodium chloride flush 10 mL 10 mL intravenous PRN Jyoti Montana PA-C traZODone (DESYREL) tablet 50 mg 50 mg oral Every Night PRN Ulises Ruelas PA-C 50 mg at 05/11/252 Social History: Social History Socioeconomic History Marital status: Spouse name: Not on file Number of children: Not on file Years of education: Not on file Highest education level: Not on file Occupational History Not on file Tobacco Use Smoking status: Never Smokeless tobacco: Never Vaping Use Vaping status: Never Used Substance and Sexual Activity Alcohol use: Yes Alcohol/week: 2.0 - 3.0 standard drinks of alcohol Types: 2 - 3 Drinks containing 0.5 oz of alcohol per week Drug use: Never Sexual activity: Not on file Other Topics Concern Not on file Social History Narrative Not on file Social Drivers of Health Financial Resource Strain: Low Risk (05/10/2025) Financial Resource Strain Struggle to pay for basics: Not hard at all Food Insecurity: No Food Insecurity (05/10/2025) Food Insecurity Food run out past 12 months: Never true Food did not last past 12 months: Never true Transportation: No Transportation Needs (05/10/2025) Transportation Needs Transportation unreliable past 12 months: No Physical Activity: Inactive (05/10/2025) Physical Activity Minutes of exercise per week: 0 Social Connections: Unknown (05/10/2025) Family and Community Support Help with Day to Day Activities: I don't need any help Feeling Lonely or Isolated: 0 Living Arrangements: Family members Type of Residence: Private residence Family History: No family history on file. Review of Systems: .Constitutional-negative Cardiac-negative other than recent angina prompting admission Pulmonary-negative Neuro-negative GI-negative -negative Physical Exam: . Healthy appearing robust female in no distress Neck is supple without adenopathy Chest clear Abdomen flat soft nontender without masses No CVA tenderness Extremities full range of motion Neuro nonfocal Vitals: Hemodynamic parameters reviewed for last 24 hours. Blood pressure 133/68, pulse 72, temperature 97.7 ??F (36.5 ??C), resp. rate 18, height 1.727 m (5'8 ), weight 102.1 kg (225 lb), SpO2 94%. Assessment: Plan: - Bilateral renal mass versus cyst - Acute on chronic renal failure, CKD stage IV - Bacteremia - Chest pain with history of CHF Plan/rec/discussion-acutely ill patient with significant comorbid disease. Incidental discovery of rounded potentially just renal cyst type lesions. Unable to clarify with enhanced CT imaging. Saeed bacon renal ultrasound Signed: Trey Cartwright MD 05/12/2025 11:42 AM * Ulisses Barriga MD - 05/11/2025 12:55 PM EDTAssociated Order(s): FS_MODEL_IP IP CONSULT TO INFECTIOUS DISEASES Images from the original note were not included. [facility] Patient Name: Elissa Kent : 1945 Date of Consult: 05/11/2025 Admission Date: 05/09/2025 Requesting Provider: Dr Snyder Evaluating Physician: Ulisses Barriga MD Chief Complaint: nausea/dry heaves, SOB and chest pain Reason for Consultation: E Coli bacteremia History of present illness: Patient is a 79 y.o. female with history of CKD 4, GERD and prior esophageal dilation, intermittentchest pain for months with acute complaints of chest pain/dyspnea for several days at time of admission on May 09. Admission concern for angina compounding chronic diastolic heart failure with elevated D- dimer and cardiology/medicine team workup ongoing. She had noted nausea and dry heaves at admission, subsequent blood culture positivity for E. coli by PCR. Urinalysis negative with no acute urinary tract complaints. She denied any hematochezia melena or hematemesis. Benign, liver transaminases is abnormal and prior history of cholecystectomy No headache photophobia or neck stiffness. Denies cough or hemoptysis. Dyspnea better and on room air. No abdominal pain at present with no vomiting with dry heaves today. No diarrhea. No dysuria hematuria or pyuria and no rash. Does not have a chronic line and no other recent procedures; esophageal dilation approximately 1 month prior No raw or undercooked food. No unpasteurized milk or milk products. No animal insect or arthropod exposure. No tick bites. No sheet/goat/cattle/livestock exposure.No outdoor camping or hunting exposure. No travel exposure. No ill exposure. No history of TB or TB exposure. Denies a history of MRSA/VRE and no history of C. difficile or ESBL/KPC/CRE organisms. Review of Systems Constitutional-- No chills or sweats. Appetite diminished with fatigue. Heent-- No new vision, hearing or throat complaints. No epistaxis or oral sores. Denies odynophagiaor dysphagia. No headache, photophobia or neck stiffness. CV-- No chest pain, palpitation or syncope Resp-- No SOB, cough, or hemoptysis GI-see above -- No dysuria, hematuria, or flank pain. Denies hesitancy, urgency or flank pain. Lymph- no swollen lymph nodes in neck, axilla or groin. Heme- No active bruising or bleeding MS-- no swelling or pain in the bones or joints of arms or legs. No new back pain. Neuro-- No acute focal weakness or numbness in the arms or legs. Skin-- No rashes, lesions, ulcers. No skin breakdown Past Medical History: Diagnosis Date Angina of effort (HCC) CKD (chronic kidney disease) Diastolic heart failure (HCC) Edema HTN (hypertension) Hypokalemia Past Surgical History: Procedure Laterality Date LUMBAR NERVE STIMLATOR INSERTION REPLACEMENT TOTAL KNEE Social History Socioeconomic History Marital status: Spouse name: Not on file Number of children: Not on file Years of education: Not on file Highest education level: Not on file Occupational History Not on file Tobacco Use Smoking status: Never Smokeless tobacco: Never Vaping Use Vaping status: Never Used Substance and Sexual Activity Alcohol use: Yes Alcohol/week: 2.0 - 3.0 standard drinks of alcohol Types: 2 - 3 Drinks containing 0.5 oz of alcohol per week Drug use: Never Sexual activity: Not on file Other Topics Concern Not on file Social History Narrative Not on file Social Drivers of Health Financial Resource Strain: Low Risk (05/10/2025) Financial Resource Strain Struggle to pay for basics: Not hard at all Food Insecurity: No Food Insecurity (05/10/2025) Food Insecurity Food run out past 12 months: Never true Food did not last past 12 months: Never true Transportation: No Transportation Needs (05/10/2025) Transportation Needs Transportation unreliable past 12 months: No Physical Activity: Inactive (05/10/2025) Physical Activity Minutes of exercise per week: 0 Social Connections: Unknown (05/10/2025) Family and Community Support Help with Day to Day Activities: I don't need any help Feeling Lonely or Isolated: 0 No family history on file. No Known Allergies @Scheduled Meds: enoxaparin 1 mg/kg subcutaneous Q24H famotidine 20 mg oral BID fLUoxetine 20 mg oral Daily 20 mg at 05/11/25 0738 furosemide 80 mg oral BID 80 mg at 05/11/25 0739 gabapentin 600 mg oral TID 600 mg at 05/11/25 0739 guaiFENesin 600 mg oral BID 600 mg at 05/11/25 1014 levothyroxine 75 mcg oral QAM (0600) 75 mcg at 05/11/25 0551 meropenem 500 mg intravenous Q8H IVPB Stopped at 05/11/25 1016 metoprolol succinate 75 mg oral Daily 75 mg at 05/11/25 0738 pantoprazole 40 mg oral Daily 40 mg at 05/11/25 0738 Saccharomyces boulardii 250 mg oral BID Continuous Infusions: Current Facility-Administered Medications Medication Dose Route Frequency Provider Last Rate Last Admin acetaminophen (TYLENOL) tablet 1,000 mg 1,000 mg oral Q6H PRN Ulises Ruelas PA-C 1,000 mg at 05/11/25 0759 enoxaparin (LOVENOX) syringe 100 mg 1 mg/kg subcutaneous Q24H Martin Snyder MD famotidine (PEPCID) tablet 20 mg 20 mg oral BID Martin Snyder MD fLUoxetine (PROzac) capsule 20 mg 20 mg oral Daily Ulises Ruelas PA-C 20 mg at 05/11/25 0738 furosemide (LASIX) tablet 80 mg 80 mg oral BID Ulises Ruelas PA-C 80 mg at 05/11/25 0739 gabapentin (NEURONTIN) tablet 600 mg 600 mg oral TID Ulises Ruelas PA-C 600 mg at 05/11/25 0739 guaiFENesin (mucINEX) 12 hr tablet 600 mg 600 mg oral BID Martin Snyder MD 600 mg at 05/11/25 1014 hydrALAZINE (APRESOLINE) injection 10 mg 10 mg intravenous Q6H PRN Ulises Ruelas PA-C levothyroxine (SYNTHROID) tablet 75 mcg 75 mcg oral QAM (0600) Ulises Ruelas PA-C 75 mcg at 05/11/25 0551 magnesium sulfate IVPB 2 g in sterile water 50 mL (premix) 2 g intravenous Daily PRN Ulises Ruelas PA-C magnesium sulfate IVPB 2 g in sterile water 50 mL (premix) 2 g intravenous BID PRN Ulises Ruelas PA-C melatonin tablet 3 mg 3 mg oral Every Night PRN Ulises Ruelas PA-C meropenem (MERREM) 500 mg in sodium chloride 0.9 % (NS) 50 mL CHRISTIAN IVPB 500 mg intravenous Q8H Ulises Ruelas PA-C IVPB Stopped at 05/11/25 1016 metoprolol succinate (TOPROL-XL) 24 hr tablet 75 mg 75 mg oral Daily Ulises Ruelas PA-C 75 mg at 05/11/25 0738 morphine injection 2 mg 2 mg intravenous Q6H PRN Ulises Ruelas PA-C 2 mg at 05/11/25 0612 naloxone (NARCAN) injection 0.2 mg 0.2 mg intravenous Q2 Min PRN Ulises Ruelas PA-C ondansetron (ZOFRAN-ODT) disintegrating tablet 4 mg 4 mg oral Q8H PRN Ulises Ruelas PA-C Or ondansetron (ZOFRAN) injection 4 mg 4 mg intravenous Q8H PRN Ulises Ruelas PA-C oxyCODONE (ROXICODONE) immediate release tablet 7.5 mg 7.5 mg oral Q6H PRN Ulises Ruelas PA-C 7.5mg at 05/11/25 0129 pantoprazole (PROTONIX) EC tablet 40 mg 40 mg oral Daily Ulises Ruelas PA-C 40 mg at 05/11/25 0738 potassium chloride (KLOR-CON) ER tablet 40 mEq 40 mEq oral 4x Daily PRN Ulises Ruelas PA-C potassium chloride IVPB 10 mEq in 100 mL sterile water (premix) 10 mEq intravenous Q1H PRN Ulises Ruelas PA-C Saccharomyces boulardii (FLORASTOR) capsule 250 mg 250 mg oral BID Martin Snyder MD sodium chloride flush 10 mL 10 mL intravenous PRN Jyoti Montana PA-C traZODone (DESYREL) tablet 50 mg 50 mg oral Every Night PRN Ulises Ruelas PA-C PRN Meds:.@MEDSPRN@ Physical Exam: Vital Signs Vitals: 05/11/25 0735 05/11/25 0800 05/11/25 1105 05/11/25 1130 BP: 120/66 116/61 Pulse: 76 74 Resp: 18 Temp: 97.8 ??F (36.6 ??C) 99.1 ??F (37.3 ??C) TempSrc: Oral Axillary SpO2: 97% 97% Weight: Height: GENERAL: Awake and alert, in no acute distress. HEENT: Normocephalic, atraumatic. PERRL. EOMI. No conjunctival injection. No icterus. Oropharynx clear without evidence of thrush or exudate. NECK: Supple without nuchal rigidity. No mass. LYMPH: No cervical, axillary or inguinal lymphadenopathy. HEART: RRR; No murmur. LUNGS: Clear to auscultation bilaterally without wheezing, rales, rhonchi. Normal respiratory effort. Nonlabored. ABDOMEN: Soft, nontender, nondistended. Positive bowel sounds. No rebound or guarding. EXT: No cyanosis, clubbing or edema. : Without [place] catheter. MSK: FROM without joint effusions noted arms/legs. SKIN: Warm and dry without cutaneous eruptions on Inspection/palpation. NEURO: Oriented to PPT. No focal deficits on motor/sensory exam at arms/legs. PSYCHIATRIC: Normal insight and judgement. Cooperative with PE Laboratory Data Lab Results Component Value Date WBC 5.3 05/11/2025 HGB 9.8 (L) 05/11/2025 HCT 32.5 (L) 05/11/2025 MCV 97 (H) 05/11/2025 PLT 164 05/11/2025 Lab Results Component Value Date GLUCOSE 95 05/11/2025 CALCIUM 8.4 05/11/2025 NA 140 05/11/2025 K 3.0 (L) 05/11/2025 CO2 27 05/11/2025 CL 103 05/11/2025 BUN 45.3 (H) 05/11/2025 CREATININE 1.92 (H) 05/11/2025 Estimated Creatinine Clearance: 30.7 mL/min (A) (by C-G formula based on SCr of 1.92 mg/dL (H)). Lab Results Component Value Date ALT 38 (H) 05/11/2025 AST 27 05/11/2025 ALKPHOS 113 05/11/2025 BILITOT 0.2 05/11/2025 No results found for: CRP No results found for: SEDRATE Microbiology: Microbiology Results (last 7 days) Procedure Component Value Units Date/Time Blood Culture [[id number]] (Abnormal) Collected: 05/09/252239 Order Status: Completed Specimen: Blood Updated: 05/11/25 1042 Result Escherichia coli Gram Stain Result Aerobic bottle gram stain gram negative rods Narrative: Positive Blood culture. Note cultures and clinical presentation before starting antibiotics In 1 of 2 blood culture bottles drawn Blood Culture [[id number]] (Abnormal) Collected: 05/09/252239 Order Status: Completed Specimen: Blood Updated: 05/11/25 0638 Result Gram negative rods Gram Stain Result Aerobic bottle gram stain gram negative rods Narrative: Positive Blood culture. Note cultures and clinical presentation before starting antibiotics Blood culture identification by PCR was performed on a previous accession. See accession: [id number] In 1 of 2 blood culture bottles drawn Blood Culture Panel([facility]) [[id number]] (Abnormal) Collected: 05/09/25 2240 Order Status: Completed Specimen: Blood Updated: 05/10/25 1624 CTX-M Not detected IMP Not detected KPC Not detected MCR-1 Not detected MEC A/C Non Applicable MEC A/C and MREJ Non Applicable NDM Not detected [id number] Not detected VAN A/B Non Applicable VIM Not detected ENTEROCOCCUS FAECALIS Not detected ENTEROCOCCUS FAECIUM Not detected LISTERIA MONOCYTOGENES Not detected STAPHYLOCOCCUS Not detected STAPHYLOCOCCUS AUREUS Not detected STAPHYLOCOCCUS EPIDERMIDIS Not detected STAPHYLOCOCCUS LUGDENENSIS Not detected STREPTOCOCCUS Not detected STREPTOCOCCUS AGALACTIAE (GROUP B) Not detected STREPTOCOCCUS PNEUMONIAE Not detected STREPTOCOCCUS PYOGENES (GROUP A) Not detected ACINETOBACTER CALCOACETICUS-BAUMANNII COMPLEX Not detected BACTEROIDES FRAGILIS Not detected ENTEROBACTERIACEAE Detected Comment: Enterobacterales represents a large order of gram negative bacteria, not a single organism ENTEROBACTER CLOACAE COMPLEX Not detected ESCHERICHIA COLI Detected KLEBSIELLA AEROGENES Not detected KLEBSIELLA OXYTOCA Not detected KLEBSIELLA PNEUMONIAE GROUP Not detected PROTEUS Not detected SALMONELLA SPECIES Not detected SERRATIA MARCESCENS Not detected HAEMOPHILUS INFLUENZAE Not detected NEISSERIA MENINGITIDIS Not detected PSEUDOMONAS AERUGINOSA Not detected STENOTROPHOMONAS MALTOPHILIA Not detected KELLY ALBICANS Not detected KELLY AURIS Not detected KELLY GLABRATA Not detected KELLY KRUSEI Not detected KELLY PARAPSILOSIS Not detected KELLY TROPICALIS Not detected CRYPTOCOCCUS NEOFORMANS/GATTII Not detected Narrative: NOTE: Antimicrobial resistance can occur via multiple mechanisms. A Not Detected result for antimicrobial resistance gene(s) does not indicate antimicrobial susceptibility. Subculturing is required for species identification and susceptibility testing of isolates. COVID ANTIGEN [[id number]] (Normal) Collected: 05/09/252125 Order Status: Completed Specimen: Nasal Swab Updated: 05/09/252156 SARS COVID ANTIGEN Negative Narrative: The BD Veritor System for Rapid Detection of SARS-CoV-2 does not differentiate between SARS-CoV [id number].The BD Veritor System for Rapid Detection of SARS-CoV-2 is only for in vitro diagnostic use under the Food and Drug Administration's Emergency Use Authorization. This product has not been FDA cleared or approved. Results should be correlated with the clinical history, epidemiological data, and other data available to the clinician evaluating the patient. SARS-CoV-2 viral antigens are generally detectable in anterior nasal swab specimens during the acute phase of infection. Positive results indicate the presence of viral antigens, but clinical correlation with patient history and other diagnostic information is necessary to determine infection status. Negative results are presumptive, do not rule out SARS-CoV-2 infection, and should not be used as the sole basis for treatment or patient management decisions, including infection control measures such as isolating from others and wearing masks. Serial testing should be performed in individuals with negative results at least twice over three days (with 48 hours between tests) for symptomatic individuals. Confirmation with a molecular assay may be necessary if there is a high likelihood of SARS-CoV-2 infection. Radiology: Radiology Results (last 3 days) Procedure Component Value Units Date/Time XR chest AP portable [[id number]] Resulted: 05/11/25 1241 Order Status: Sent Updated: 05/11/25 1241 NM lung perfusion scan [[id number]] Resulted: 05/11/25 1235 Order Status: No result Updated: 05/11/25 1235 XR chest 1 view portable / bedside [[id number]] Collected: 05/10/25 0817 Order Status: Completed Updated: 05/10/25 0904 Narrative: Name: ELISSA KENT : 1945 CHEST SINGLE VIEW HISTORY: Chest pain. Shortness of breath. FINDINGS: Lungs are underinflated. Cardiac silhouette measures at the upper limits of normal in size. Mild chronic changes are seen at the lung bases. Stimulator leads are identified in the lower thoracic spine. Impression: 1. Underinflation with chronic changes at the lung bases. Images reviewed, interpreted, and dictated by Lisandro Zapata MD Impression: Acute E. coli bacteremia by PCR, in the setting of acute illness including nausea/dry heaves, chestpain and respiratory complaints. Urinalysis negative with no urinary tract complaints arguing against urinary tract source. Primary concern would be for GI tract source at present with workup ongoing. Check CT scan to exclude occult focus. Had mildly abnormal liver transaminases with potential for hepatobiliary source. Chest exam nonfocal with no pneumonia by exam. No skin/soft tissue source. Shedenies chronic line Acute nausea/dry heaves at admission with possible for intra-abdominal source of bacteremia. CT abdomen/pelvis with oral contrast anticipated to rule out occult focus. Abnormal liver transaminases with upper GI tract symptoms at admission. Prior history of cholecystectomy. CT abdomen to rule out occult focus; liver tests trending better Acute chest pain syndrome with intermittent/chronic complaints and prior reports of chronic diastolic heart failure with preserved ejection fraction further compounded by dyspnea and upper GI tract complaints. D-dimer elevated, BNP elevated and cardiology/medicine team workup ongoing CKD 4 per admission notes PLAN: --IV Merrem --check/review labs cultures and scans --Partial history per nursing staff --Discussed with microbiology --Discussed with multidisciplinary team/nursing regarding complex set of issues, importance of antimicrobial stewardship etc. --Highly complex set of issues with high risk for further serious morbidity and other serious sequela --Monitor IV and IV antibiotic with risk for systemic complication and potential drug interactions Disposition-- awaiting clinical improvement Anticipated antibiotic plan-- to be determined depending on clinical course/study results and response to therapy This visit included the following complex service elements: Complex medical decision-making associated with antimicrobial prescribing. Communicated with the clinical microbiology lab. Ulisses Barriga MD 05/11/2025 * Justina Membreno DO - 05/10/2025 8:27 AM EDTAssociated Order(s): FS_MODEL_IP IP CONSULT TO CARDIOLOGY [facility] - Consult Note Basic Information: Name Elissa Kent, 1945, 79 y.o., female Primary Load Dispatcher Local: Jacob Celeste MD PCP: Deo Byrne MD Admit Date 05/09/2025 Patient Location [phone] Chief Complaint/Consult reason: Chest pressure and shortness of air History of Present Illness: Elsisa Kent is an exceptionally pleasant 79-year-old female with a known history of heart failure with preserved ejection fraction, obesity, chronic kidney disease stage IV, hypertension, dyslipidemia, and no flow obstructive coronary disease per left heart catheterization [address] [facility] for evaluation for chest discomfort and shortness of air. She was foundto have an elevated D-dimer and was admitted for evaluation. Cardiology has been asked to see and assist in management of care today. At time of assessment she is chest pain-free. She tells me she isfeeling somewhat better. Review of Sytems: Complete 10 point ROS Normal or Non-contributory except complaints described in HPI or other sections of this note. Health Status: Allergies Patient has no known allergies. Home Medications: Prior to Admission medications Medication Sig Start Date End Date Taking? Authorizing Provider cholecalciferol, vitamin D3, 2,000 unit Tab Take 1 tablet (2,000 Units total) by mouth daily. 10/27/22 Historical Provider, furosemide (LASIX) 80 MG tablet Take 1 tablet (80 mg total) by mouth 2 (two) times daily. 09/12/24 Jacob Celeste MD gabapentin (NEURONTIN) 600 MG tablet Take 1 tablet (600 mg total) by mouth 3 (three) times daily. 01/02/23 Historical Provider, HYDROcodone-acetaminophen (NORCO 7.5-325) 7.5-325 mg per tablet Take 1 tablet by mouth 2 (two) times daily. 01/08/23 Historical Provider, levothyroxine (SYNTHROID, LEVOTHROID) 75 MCG tablet Take 1 tablet (75 mcg total) by mouth daily. 10/27/22 Historical Provider, LORazepam (ATIVAN) 0.5 MG tablet Take 1 tablet (0.5 mg total) by mouth every night as needed. 01/05/23 Historical Provider, metoprolol succinate (TOPROL-XL) 50 MG 24 hr tablet Take 1&1/2 tablets (75 mg total) by mouth daily. 12/30/24 Jacob Celeste MD potassium chloride (KLOR-CON) 20 mEq CR tablet Take 1 tablet (20 mEq total) by mouth daily. 03/19/25Jacob Celeste MD Past Medical History: Pt has a past medical history of Angina of effort (HCC), CKD (chronic kidney disease), Diastolic heart failure (HCC), Edema, HTN (hypertension), and Hypokalemia. Surgical History: Pt has a past surgical history that includes Replacement total knee and Lumbar nerve stimlator insertion. Tobacco History Pt reports that she has never smoked. She has never used smokeless tobacco. Alcohol History Pt reports current alcohol use of about 2.0 - 3.0 standard drinks of alcohol per week. Drug Use History Pt reports no history of drug use. Family History family history is not on file. OBJECTIVE Vital ranges lat 24 hours Temp: [97.8 ??F (36.6 ??C)-98.6 ??F (37 ??C)] 98.6 ??F (37 ??C) Pulse: [93-130] 93 Resp: [18-38] 19 BP: (85-123)/(31-75) 122/57 Intake and Output 24 hours: Intake/Output Summary (Last 24 hours) at 05/10/2025826 Last data filed at 05/10/2025 0007 Gross per 24 hour Intake 1150 ml Output -- Net 1150 ml Net I&O this admission: Net IO Since Admission: 1,150 mL [05/10/25826] Physical Exam General: Alert and oriented, No acute distress. Eye: Pupils are equal, round and reactive to light, Vision unchanged. HENT: Normocephalic, Oral mucosa is moist. Neck: Supple, Non-tender, No carotid bruit, No jugular venous distention. Respiratory: Lungs are clear to auscultation, Respirations are non-labored, Symmetrical chest wall expansion. Cardiovascular: Normal rate, Regular rhythm, No murmur, Good pulses equal in all extremities. Gastrointestinal: Soft, Non-distended, Normal bowel sounds. Musculoskeletal: Normal range of motion, Normal strength. Integumentary: Warm, Dry, [place]. Neurologic: Alert, Oriented. Psychiatric: Cooperative, Appropriate mood & affect. Inpatient Medications Current Facility-Administered Medications Medication Dose Route Frequency Provider Last Rate Last Admin acetaminophen (TYLENOL) tablet 1,000 mg 1,000 mg oral Q6H PRN Ulises Ruelas PA-C fLUoxetine (PROzac) capsule 20 mg 20 mg oral Daily Ulises Ruelas PA-C furosemide (LASIX) tablet 80 mg 80 mg oral BID Ulises Ruelas PA-C gabapentin (NEURONTIN) tablet 600 mg 600 mg oral TID Ulises Ruelas PA-C hydrALAZINE (APRESOLINE) injection 10 mg 10 mg intravenous Q6H PRN Ulises Ruelas PA-C levothyroxine (SYNTHROID) tablet 75 mcg 75 mcg oral QAM (0600) Ulises Ruelas PA-C 75 mcg at 05/10/25 0615 magnesium sulfate IVPB 2 g in sterile water 50 mL (premix) 2 g intravenous Daily PRN Ulises Ruelas PA-C magnesium sulfate IVPB 2 g in sterile water 50 mL (premix) 2 g intravenous BID PRN Ulises Ruelas PA-C melatonin tablet 3 mg 3 mg oral Every Night PRN Ulises Ruelas PA-C metoprolol succinate (TOPROL-XL) 24 hr tablet 75 mg 75 mg oral Daily Ulises Ruelas PA-C morphine injection 2 mg 2 mg intravenous Q6H PRN Ulises Ruelas PA-C naloxone (NARCAN) injection 0.2 mg 0.2 mg intravenous Q2 Min PRN Ulises Ruelas PA-C ondansetron (ZOFRAN-ODT) disintegrating tablet 4 mg 4 mg oral Q8H PRN Ulises Ruelas PA-C Or ondansetron (ZOFRAN) injection 4 mg 4 mg intravenous Q8H PRN Ulises Ruelas PA-C oxyCODONE (ROXICODONE) immediate release tablet 7.5 mg 7.5 mg oral Q6H PRN Ulises Ruelas PA-C 7.5mg at 05/10/25 0153 pantoprazole (PROTONIX) EC tablet 40 mg 40 mg oral Daily Ulises Ruelas PA-C potassium chloride (KLOR-CON) ER tablet 40 mEq 40 mEq oral 4x Daily PRN Ulises Ruelas PA-C potassium chloride IVPB 10 mEq in 100 mL sterile water (premix) 10 mEq intravenous Q1H PRN Ulises Ruelas PA-C sodium chloride flush 10 mL 10 mL intravenous PRN Jyoti Montana PA-C traZODone (DESYREL) tablet 50 mg 50 mg oral Every Night PRN Ulises Ruelas PA-C Results Review: Labs: WBC Date Value Ref Range Status 05/09/2025 7.6 4.0 - 10.0 K/??L Final Hemoglobin Date Value Ref Range Status 05/09/2025 11.2 11.2 - 15.7 GM/DL Final Platelets Date Value Ref Range Status 05/09/2025 166 140 - 375 K/CU MM Final Creatinine Date Value Ref Range Status 05/10/2025 2.05 (H) 0.57 - 1.11 mg/dL Final 05/09/2025 2.48 (H) 0.57 - 1.11 mg/dL Final BUN Date Value Ref Range Status 05/10/2025 52.6 (H) 9.8 - 20.1 mg/dL Final 05/09/2025 63.3 (H) 9.8 - 20.1 mg/dL Final Potassium Date Value Ref Range Status 05/10/2025 3.5 3.4 - 5.1 meq/L Final 05/09/2025 4.4 3.4 - 5.1 meq/L Final Sodium Date Value Ref Range Status 05/10/2025 137 136 - 145 meq/L Final 05/09/2025 136 136 - 145 meq/L Final Magnesium Date Value Ref Range Status 05/09/2025 1.9 1.6 - 2.6 mg/dL Final AST Date Value Ref Range Status 05/09/2025 74 (H) 11 - 34 U/L Final Comment: AST2 reagent used for testing does not contain P5P supplementation and therefore may miss AST elevations in patients with B6 deficiency. This population may be as high as 10% in the [place], with risk factors including malabsorption, drug interactions, and alcoholic hepatitis. ALT Date Value Ref Range Status 05/09/2025 81 (H) <=34 U/L Final Comment: ALT2 reagent used for testing does not contain P5P supplementation and therefore may miss ALT elevations in patients with B6 deficiency. This population may be as high as 10% in the [place], with risk factors including malabsorption, drug interactions, and alcoholic hepatitis. Alkaline Phosphatase Date Value Ref Range Status 05/09/2025 161 (H) 40 - 150 U/L Final TSH Date Value Ref Range Status 05/09/2025 0.948 0.350 - 4.940 uIU/mL Final Imaging: NM AMYLOIDOSIS PLANAR WITH SPECT TECHNETIUM PYROPHOSPHATE SCAN FOR CARDIAC AMYLOIDOSIS PROCEDURE Standard technetium pyrophosphate scan protocol to compare cardiac and contralateral lung uptake. 27.5 mCi of technetium pyrophosphate was administered. Imaging was performed at 1 and 3 hours and the heart and contralateral lung uptakes were compared. FINDINGS The heart/contralateral lung ratio was 1.2 at 1 hour and 1.1 at 3 hours. IMPRESSION Normal cardiac and lung technetium pyrophosphate uptake ratio not suggestive of ATTR cardiac amyloidosis. Problem list: Principal Problem: Chest pain Impression and Plan: IMPRESSION: Chest pressure with associated shortness of air. Elevated D-dimer Normal coronary arteries per left heart catheterization 2022 History of heart failure with preserved ejection fraction Chronic kidney disease stage IV Hypertension Dyslipidemia Obesity PLAN: Overall clinical syndrome notable. Shortness of breath. Very atypical chest pain. Patient has a known history of normal coronaries from 2022. Renal insufficiency notable. No evidence of ACS at play. Will need to review echo. Will consider nuclear stress test. Overall high threshold for repeat angiography due to renal insufficiency. Agree with gentle diuresis. Low threshold to involve nephrology. Will follow accordingly. documented in this encounter ED Notes * Dequan Villalta RN - 05/10/2025 12:12 AM EDT Lab called for cultures Dequan Villalta RN 05/10/25 0012 * Jyoti Montana PA-C - 05/09/2025 8:55 PM EDT Subjective Chief Complaint: Chest Pain and Shortness of Breath Chest Pain Associated symptoms: cough, nausea, shortness of breath and vomiting Associated symptoms: no abdominal pain and no fever Shortness of Breath Associated symptoms: chest pain, cough and vomiting Associated symptoms: no abdominal pain and no fever Patient is a 79-year-old female with past medical history of CHF, CKD, HTN who presents to the emergency department via EMS for evaluation of chest pain and shortness of breath x 2 days. Patient states that she has had intermittent chest pain for quite some time and follows with Dr. Celeste for cardiology. She states that her chest pain has worsened within the last couple of days and is located in the center of her chest. She states that it radiates under both breasts and is radiating to her jaw. She is unable to describe her chest pain. She denies any history of AR. She states her shortness of breath is worse on exertion. She does report productive cough, states she is coughing up phlegm thatis yellow to green in color. She does report some nausea and vomiting 2 days ago as well, states that this has resolved. Patient has reported low blood sugars throughout last couple days, EMS reportsglucose of 90 on arrival. Patient was given a dose of aspirin prior to arrival as well. She denies any fever, abdominal pain, lower extremity swelling. Patient History Past Medical History: Diagnosis Date Angina of effort (HCC) CKD (chronic kidney disease) Diastolic heart failure (HCC) Edema HTN (hypertension) Hypokalemia Past Surgical History: Procedure Laterality Date LUMBAR NERVE STIMLATOR INSERTION REPLACEMENT TOTAL KNEE No family history on file. Social History Tobacco Use Smoking status: Never Smokeless tobacco: Never Substance Use Topics Alcohol use: Yes Alcohol/week: 2.0 - 3.0 standard drinks of alcohol Types: 2 - 3 Drinks containing 0.5 oz of alcohol per week I reviewed the HPI, ROS and PFSH documentation recorded by others in the medical record and supplemented my note as needed. Review of Systems Review of Systems Constitutional: Negative for fever. Respiratory: Positive for cough and shortness of breath. Cardiovascular: Positive for chest pain. Negative for leg swelling. Gastrointestinal: Positive for nausea and vomiting. Negative for abdominal pain. Genitourinary: Negative. Musculoskeletal: Negative. Neurological: Negative. Physical Exam ED Triage Vitals [05/09/252044] Encounter Vitals Group BP 122/75 Systolic BP Percentile Diastolic BP Percentile Pulse 130 Resp 22 Temp 97.8 ??F (36.6 ??C) Temp src Oral SpO2 98 % Weight 102.1 kg (225 lb) Height 1.727 m (5' 8 ) Head Circumference Peak Flow Pain Score Five Pain Loc Pain Education Exclude from Growth Chart Physical Exam Constitutional: General: She is not in acute distress. Appearance: She is ill-appearing. Comments: Tremors noted. Cardiovascular: Rate and Rhythm: Regular rhythm. Tachycardia present. Pulmonary: Effort: Tachypnea present. No respiratory distress. Breath sounds: Normal breath sounds. Chest: Chest wall: No tenderness. Abdominal: Palpations: Abdomen is soft. Tenderness: There is no abdominal tenderness. Musculoskeletal: General: Normal range of motion. Right lower leg: No edema. Left lower leg: No edema. Skin: General: Skin is warm and dry. Neurological: General: No focal deficit present. Mental Status: She is alert. Psychiatric: Mood and Affect: Mood normal. Behavior: Behavior normal. Neurological Exam Mental Status Alert. Ortho Exam ED Course & MDM Medications sodium chloride flush 10 mL (has no administration in time range) cefTRIAXone (ROCEPHIN) 2 g in sodium chloride 0.9 % (NS) 50 mL CHRISTIAN IVPB (0 g intravenous Stopped 05/09/252256) doxycycline (VIBRAMYCIN) 100 mg in sodium chloride 0.9 % (NS) CHRISTIAN IVPB (0 mg intravenous Stopped 05/10/256) sodium chloride 0.9% (NS) bolus (0 mLs intravenous Stopped 05/09/252124) sodium chloride 0.9% (NS) bolus (0 mLs intravenous Stopped 05/09/252311) enoxaparin (LOVENOX) syringe 100 mg (100 mg subcutaneous Given 05/09/252322) Results for orders placed or performed during the hospital encounter of 05/09/25 COVID ANTIGEN Specimen: Nasal Swab Result Value Ref Range SARS COVID ANTIGEN Negative Negative, Invalid CBC with Auto Diff Result Value Ref Range WBC 7.6 4.0 - 10.0 K/??L RBC 3.77 (L) 3.93 - 5.22 M/??L Hemoglobin 11.2 11.2 - 15.7 GM/DL Hematocrit 36.5 34.1 - 44.9 % MCV 97 (H) 79 - 95 fL MCH 29.7 25.6 - 32.2 pg MCHC 30.7 (L) 32.2 - 35.5 GM/DL RDW 14.6 (H) 11.7 - 14.4 % Platelets 166 140 - 375 K/CU MM MPV 10.9 9.4 - 12.3 fL % Neutros 81 (H) 34 - 71 % % Lymphs 13 (L) 19 - 52 % % Monos 5 5 - 13 % % Eos 1 1 - 6 % % Baso 0 0 - 1 % NRBC Absolute <0.01 0 - 0.012 K/ul # Neutros 6.16 (H) 1.56 - 6.13 K/??L # Lymphs 1.02 (L) 1.18 - 3.74 K/??L # Monos 0.37 0.24 - 0.86 K/??L # Eos 0.04 0.04 - 0.36 K/??L # Baso <0.03 0.01 - 0.08 K/ L Immature Granulocytes-Relative 0.40 0.01 - 0.43 % # IG 0.03 0.00 - 0.03 K/uL Comprehensive metabolic panel Result Value Ref Range Sodium 136 136 - 145 meq/L Potassium 4.4 3.4 - 5.1 meq/L Chloride 97 (L) 98 - 112 meq/L CO2 23 22 - 29 meq/L Calcium 8.7 8.4 - 10.2 mg/dL Glucose 99 82 - 115 mg/dL BUN 63.3 (H) 9.8 - 20.1 mg/dL Creatinine 2.48 (H) 0.57 - 1.11 mg/dL BUN/Creatinine 26 (H) 8 - 20 eGFR (mL/min/1.73m2) 20 (L) >=60 mL/min/1.73m2 Albumin 2.8 (L) 3.5 - 5.0 g/dL Alkaline Phosphatase 161 (H) 40 - 150 U/L ALT 81 (H) <=34 U/L AST 74 (H) 11 - 34 U/L Total Bilirubin 0.5 0.2 - 1.2 mg/dL Protein, Total 7.2 6.4 - 8.3 g/dL Globulin 4.4 (H) 2.5 - 4.1 g/dL Anion Gap 20 (H) 4 - 12 A/G Ratio 0.6 (L) 0.7 - 1.9 Osmolality Calc 290.1 mOsm/kg Magnesium Result Value Ref Range Magnesium 1.9 1.6 - 2.6 mg/dL PROBNP Result Value Ref Range ProBNP (pg/mL) 1,896 (H) 16 - 956 pg/mL High Sensitivity Troponin I Result Value Ref Range Troponin I High Sensitivity (pg/mL) 6.2 <=14 pg/mL TSH Result Value Ref Range TSH 0.948 0.350 - 4.940 uIU/mL D-dimer Result Value Ref Range D-Dimer, Quant 1.40 (H) 0.19 - 0.58 MG/L FEU Lactic Acid with reflex (SJ) Result Value Ref Range Lactic Acid Level (mmol/L) 2.2 (HH) 0.5 - 2.2 mmol/L Lactic acid (SJ) Result Value Ref Range Lactic Acid Level (mmol/L) 1.0 0.5 - 2.2 mmol/L ECG 12 lead Result Value Ref Range VENTRICULAR RATE EKG/MIN 117 BPM ATRIAL RATE (MCT) 117 BPM QRS-INTERVAL (MSEC) 79 ms QT Interval 313 ms QTC Interval 437 ms R AXIS (MCT) 56 degrees T Wave [place] 140 degrees Jamul Diagnosis Undetermined rhythm Possible Inferior infarct , age undetermined Abnormal ECG No previous ECGs available XR chest 1 view portable / bedside (Results Pending) ED Course as of 05/10/25 0024 Sat May 09, 20252100 Dr. Cordova: I saw the patient [id number]. I performed a substantive portion of the MDM. EKG interpreted me is limited due to artifact, questionable A-fib without acute ST changes [BC] 2313 Patient and family updated on results. [RS] [address] Cordova. Will give the patient another 500 mL of IV fluid and then discuss possible vasopressors. [RS] ED Course User Index [BC] Xiang Cordova MD [RS] Jyoti Montana, PAAlvaro Procedures Medical Decision Making 79-year-old female complaining of chest pain and shortness of breath x 2 days. Patient also reportsproductive cough and N/V PMHx: CHF, CKD, HTN DDx including but not limited to: CHF exacerbation, arrhythmia, ACS, pneumonia BP 108/41 Pulse 100 Temp 97.8 ??F (36.6 ??C) (Oral) Resp 26 Ht 1.727 m (5' 8 ) Wt 102.1 kg (225 lb) SpO2 94% BMI 34.21 kg/m?? On exam, patient is in no acute distress. She is ill-appearing and tremors are noted. She is tachycardic, regular rhythm. She is also tachypneic, no coarse breath sounds. Abdomen is soft and nontender. No lower extremity edema. Remainder physical exam is unremarkable. Patient did meet SIRS criteria due to tachycardia and tachypnea. Patient given IV fluids and empiric antibiotics in the ED. Blood cultures pending. CBC: No leukocytosis or anemia CMP: BUN and creatinine elevated. GFR 20. Patient has stage IV CKD, appears to be baseline. Liver enzymes mildly elevated, no comparison available. Magnesium within normal limits Lactic acid: 2.2, repeat WNL D-dimer: Elevated at 1.4. Unable to proceed with chest CT at this time due to EGFR of 20. Troponin within normal limits proBNP elevated at almost 1,900 TSH within normal limits COVID-negative UA pending EKG: Questionable A-fib versus artifact. No STEMI. CXR: Wet read by Dr. Cordova shows vascular congestion, no infiltrate. Pending formal reading by radiologist. Case discussed with Dr. Cordova. Patient is ill-appearing and is persistently tachypneic and tachycardic. We originally thought that the patient may be in A- fib, however we now believe that she is in sinus tachycardia and there was artifact on the EKG. She is also now hypotensive, despite receiving 1L of fluids. SBP has been stable, however DBP has been low. Would like to avoid giving the patient any more fluids, as she has CKD. Discussed possibility of starting vasopressors. Patient also given dose of Lovenox in the ED to treat possible PE, as we are unable to confirm with CT scan at this time. Discussed ordering a VQ scan, however I was unable to get in contact with house regarding this.Hospitalist contacted regarding admission. Dr. Conteh has agreed to meet the patient and assume care. Patient and family are in agreement with this plan. Amount and/or Complexity of Data Reviewed Labs: ordered. Decision-making details documented in ED Course. Radiology: ordered and independent interpretation performed. Decision-making details documented in ED Course. ECG/medicine tests: ordered and independent interpretation performed. Decision- making details documented in ED Course. Risk Prescription drug management. Decision regarding hospitalization. Assessment & Plan Clinical Impression Diagnosis Comment Added By Time Added Shortness of breath Jyoti Montana PA-C 05/09/2025 11:50 PM Sinus tachycardia Jyoti Montana PA-C 05/09/2025 11:50 PM Hypotension, unspecified hypotension type Jyoti Montana PA-C 05/09/2025 11:50 PM Positive D dimer Jyoti Montana PA-C 05/09/2025 11:51 PM Abnormal kidney function Jyoti Montana PA-C 05/10/2025 12:24 AM Elevated liver enzymes Jyoti Montana PA-C 05/10/2025 12:24 AM Disposition Admit [3] - 05/09/2025 11:52 PM New Prescriptions No medications on file Electronically Signed By Jyoti Montana PA-C 05/10/25 0024 Cosigned by Xiang Cordova MD at 05/10/2025 12:55 AM EDT Associated attestation - Xiang Cordova MD - 05/09/2025 11:55 PM CDT This visit was performed by both the physician and an APC. I personally evaluated and examined thepatient. I performed all aspects of the MDM as documented. . * Dequan Villalta RN - 05/09/2025 8:44 PM EDT Pt arrived with c/o chest pain, shortness of breath, and hypoglycemia for 4 days. Blood sugar was 90 on arrival. * Maryellen Alves Octavio - 05/09/2025 8:41 PM EDT Bed: ED22 Expected date: Expected time: Means of arrival: Comments: Shayna Alves Octavio 05/09/252040 documented in this encounter Miscellaneous Notes * Documentation Clarification - Callum Blanton MD - 05/13/2025 4:35 PM EDT CLINICAL DOCUMENTATION CLARIFICATION FORM: Dear Provider: Callum Blanton MD Date / Time: 05/15/2025 1:35 PM Please exercise your independent, professional judgment in responding to the clarification form. Clinical indicators are provided on the bottom of this form for your review Please check appropriate box(es): [x] Sepsis [] Bacteremia without sepsis [] Other diagnosis: (please enter/write your response) [] Unable to determine For continuity of documentation, please document conditions throughout progress notes and dischargesummary. Thank You. To be completed by CDI/Coding staff for Provider review: Date and Time of Admission: Infection Diagnosis: Specify:05/10/2025 and 0 Specify: Bacteremia Heart Rate/Tachycardia (>90 bpm) Respiratory rate >20/min WBC count (>12,000/mm^4 or <4000/mm^3 or 70% neuts, 10% bands) Fever or Hypothermia (<96.8 F/36 C or > 100.4 F/38C) ED Clinical Indicators: Results and Date and Time HR: 130 -As per Flowsheet RR: 22 -As per Flowsheet WBC: 7.6 -As per Lab results Temp: 97.8 -As per Flowsheet Post Admit Indicators: Results and Date and Time HR: 50-130 -As per Flowsheet RR: 18-38 -As per Flowsheet WBC: 4.7 - 7.6 -As per Lab results Temp: 97.5 - 99.1 -As per Flowsheet Present Clinical Indicators - Signs / Symptoms / Labs Results and Date, Time Location in Medical Record [x] Patient is ill-appearing and is persistently tachypneic and tachycardic -As per ED notes on 05/09 by Xiang Cordova MD [x] She is also now hypotensive, despite receiving 1L of fluids -As per ED notes on 05/09 by Xiang Cordova MD [x] Patient presented to the ED with complaints of chest pain and shortness of breath for 2 days -As per H&P on 05/10 by Kurtis Conteh DO [x] True pathogen versus contamination -As per Progress notes on 05/11 by Martin Snyder MD [x] Acute E. coli bacteremia by PCR -As per ID consult on 05/11 by Ulisses Barriga MD [x] Unclear source -As per Progress notes on 05/12 by Callum Blanton MD [x] Sepsis -As per Discharge summary on 05/13 by Callum Blanton MD [x] Andrew on ckd -As per Progress notes on 05/12 by Callum Blanton MD Present Risk Factors Results and Location in Medical Record [x] Advanced age - 79 years -As per H&P on 05/10 by Kurtis Conteh DO Present Treatments Results and Location in Medical Record [x] IV sodium chloride 0.9% (NS) bolus 500 ml -As per MAR report on 05/09 [x] CefTRIAXone (ROCEPHIN) 2 g in sodium chloride 0.9 % (NS) 50 mL CHRISTIAN IVPB -As per MAR report on 05/09 [x] Doxycycline (VIBRAMYCIN) 100 mg in sodium chloride 0.9 % (NS) CHRISTIAN IVPB -As per NOV report on 05/09 to 05/10 [x] Meropenem (MERREM) 500 mg in sodium chloride 0.9 % (NS) 50 mL CHRISTIAN IVPB -As per NOV report on 05/11 to 05/13 [x] ID consult -As per ID consult on 05/11 by Ulisses Barriga MD CDS/Iron Handler Signature: Aston Binghamliss Lee Mail:[email or web address] Date/Time: 05/15/2025 1:35 PM This is a permanent part of the Medical Record 2023 [facility] Reviewed/Updated: 03/2025 * Plan of Care - Brooke Nolen RN - 05/13/2025 12:23 PM EDT Problem: Knowledge Deficit Goal: Patient/family/caregiver demonstrates understanding of disease process, treatment plan, medications, and discharge instructions Description: Complete learning assessment and assess knowledge base. Outcome: Adequate for Discharge Problem: Anxiety Goal: Anxiety is at manageable level Description: Assess and monitor patient's anxiety level. Monitor for signs and symptoms of anxiety both physical and emotional (heart palpitations, chest pain, shortness of breath, headaches, nausea,feeling jumpy, restlessness, irritable, apprehensive). Collaborate with interdisciplinary team and initiate plan and interventions as ordered. Outcome: Adequate for Discharge Problem: Hemodynamic Status Goal: Patient's vitals signs are stable Description: Assess and monitor patient's heart rate, rhythm, respiratory rate, peripheral pulses, capillary refill, color, body temperature, intake and output, labs and physical activity tolerance. Observe for signs of chest pain (note location, duration, severity, radiation and associated symptoms such as diaphoresis, nausea, indigestion). Monitor for signs and symptoms of heart failure (eg. shortness of breath, edema of feet/ankles/legs, rapid irregular heart rate, coughing, wheezing, white/pink blood tinged sputum, sudden weight gain, chest pain). Collaborate with interdisciplinary team and initiate plan and interventions as ordered. Outcome: Adequate for Discharge Problem: Activity Intolerance/Impaired Mobility Goal: Mobility/activity is maintained at optimum level for patient Description: Assess and monitor patient barriers to mobility and need for assistive/adaptive devices. Assess patient's emotional response to limitations. Collaborate with interdisciplinary team and initiate plans and interventions as ordered. Outcome: Adequate for Discharge Problem: Nutrition Goal: Nutritional status is improving Description: Monitor and assess patient for malnutrition (ex- brittle hair, bruises, dry skin, paleskin and conjunctiva, muscle wasting, smooth red tongue, and disorientation). Collaborate with interdisciplinary team and initiate plan and interventions as ordered. Monitor patient's weight and dietary intake as ordered or per policy. Utilize nutrition screening tool and intervene per policy. Determine patient's food preferences and provide high-protein, high- caloric foods as appropriate. Outcome: Adequate for Discharge Problem: CV: Dysrhythmia Goal: Patient achieves/maintains stable cardiac rhythm Outcome: Adequate for Discharge Problem: Inadequate Tissue Perfusion - Arterial Goal: Tissue perfusion is adequate - arterial Description: Assess and monitor skin color and temperature, skin integrity, pulses, capillary refill, edema, pain in extremities, and labs. Assess patients feelings of being cold and apply more clothing/blankets as needed to maintain vasodilation. Collaborate with interdisciplinary team and initiate plans and interventions as needed. Outcome: Adequate for Discharge Problem: Inadequate Tissue Perfusion - Venous Goal: Tissue perfusion is adequate - venous Description: Assess and monitor skin color and temperature, skin integrity, pulses, capillary refill, edema, pain in extremities, Homans' sign, labs (D- dimer), and diagnostic tests (ultrasound, CT scan, VQ scan). Monitor for signs and symptoms of deep vein thrombosis (swelling of calf/thigh, redness, pain, tenderness). Monitor for signs and symptoms of pulmonary embolism (dyspnea, tachypnea, tachycardia). Collaborate with interdisciplinary team and initiate plans and interventions as needed. Outcome: Adequate for Discharge Problem: Inadequate Gas Exchange Goal: Nutritional status is improving Description: Monitor and assess patient for malnutrition (ex- brittle hair, bruises, dry skin, paleskin and conjunctiva, muscle wasting, smooth red tongue, and disorientation). Collaborate with interdisciplinary team and initiate plan and interventions as ordered. Monitor patient's weight and dietary intake as ordered or per policy. Utilize nutrition screening tool and intervene per policy. Determine patient's food preferences and provide high-protein, high- caloric foods as appropriate. Outcome: Adequate for Discharge Goal: Patient is adequately oxygenated and ventilation is improved Description: Assess and monitor vital signs, oxygen saturation, respiratory status to include rate,depth, effort, and lung sounds, mental status, cyanosis, and labs (ABG's).Provide supplemental oxygen as ordered/needed. Provide ventilatory support as needed. Monitor effects of medications that maysedate the patient. Collaborate with respiratory therapy to administer medications and treatments. Outcome: Adequate for Discharge Problem: Potential for Falls Goal: Patient will remain free of falls Description: Assess and monitor vitals signs, neurological status including level of consciousness and orientation. Reassess fall risk per hospital policy.Ensure arm band on, uncluttered walking paths in room, adequate room lighting, call light and overbed table within reach, bed in low position, wheels locked, side rails up per policy, and non-skid footwear provided. Outcome: Adequate for Discharge Problem: Pain Goal: Patient's pain/discomfort is manageable Description: Assess and monitor patient's pain using appropriate pain scale. Collaborate with interdisciplinary team and initiate plan and interventions as ordered. Re-assess patient's pain level after pain management intervention. Outcome: Adequate for Discharge Problem: Safety Goal: Patient will be injury free during hospitalization Description: Assess and monitor vitals signs, neurological status including level of consciousness and orientation. Assess patient's risk for falls and implement fall prevention plan of care and interventions per hospital policy. Ensure arm band on, uncluttered walking paths in room, adequate room lighting, call light and overbed table within reach, bed in low position, wheels locked, side rails up per policy, and non-skid footwear provided. Outcome: Adequate for Discharge Problem: Potential for Developing a Blood Clot Goal: Tissue perfusion is adequate - venous Description: Assess and monitor skin color and temperature, skin integrity, pulses, capillary refill, edema, pain in extremities, Homans' sign, labs (D- dimer), and diagnostic tests (ultrasound, CT scan, VQ scan). Monitor for signs and symptoms of deep vein thrombosis (swelling of calf/thigh, redness, pain, tenderness). Monitor for signs and symptoms of pulmonary embolism (dyspnea, tachypnea, tachycardia). Collaborate with interdisciplinary team and initiate plans and interventions as needed Outcome: Adequate for Discharge Problem: Daily Care Goal: Daily care needs are met Description: Assess and monitor ability to perform self care and identify potential discharge needs. Outcome: Adequate for Discharge Problem: Potential for Infection Goal: Remains infection free Description: Assess and monitor vital signs, skin (color, moisture, integrity, turgor), respiratorystatus, urinary and gastrointestinal status, and labs (WBC, cultures). Administer antibiotics and antipyretics as ordered. Ensure aseptic care of all intravenous lines, invasive tubes/drains and wounds. Monitor for signs and symptoms of infection (redness, warmth, discharge, increased body temperature). Wash hands properly before and after each patient care activity. Follow isolation guidelines per hospital protocol/policy. Collaborate with interdisciplinary team and initiate plan and interventions as ordered. Outcome: Adequate for Discharge Problem: Psychosocial Needs Goal: Demonstrates ability to cope with hospitalization/illness Description: Assess and monitor patients ability to cope with his/her illness. Outcome: Adequate for Discharge Goal: Collaborate with patient/family/caregiver to identify patient specific goals for this hospitalization Outcome: Adequate for Discharge Problem: Inadequate Coping Goal: Demonstrates ability to cope effectively Description: Patient is able to verbalize feelings related to emotional state. Outcome: Adequate for Discharge Goal: Verbalizes adaptive coping mechanisms Description: Able to verbalize adaptive coping mechanisms such as physical activity, distraction, and deep breathing exercises. Outcome: Adequate for Discharge Goal: Verbalizes personal strengths Description: Spend time with the patient using empathy and active listening skills. Outcome: Adequate for Discharge Problem: Progressive Mobility Goal: BMAT Level 1 - With full mechanical lifting assistance: Outcome: Adequate for Discharge Goal: BMAT Level 2 - With 2-person and/or mechanical lifting assistance: Outcome: Adequate for Discharge Goal: BMAT Level 3 - With 1 to 2-person and/or mechanical lifting assistance: Outcome: Adequate for Discharge Goal: BMAT Level 4 - With 1-person assistance or mobility aid as needed (walker, cane, crutches): Outcome: Adequate for Discharge Problem: Discharge Barriers Goal: Patient's discharge needs are met Description: Collaborate with interdisciplinary team and initiate plans and interventions as needed. Outcome: Adequate for Discharge * Plan of Care - Yoselyn Nova RN - 05/12/2025 10:56 PM EDT Problem: Knowledge Deficit Goal: Patient/family/caregiver demonstrates understanding of disease process, treatment plan, medications, and discharge instructions Description: Complete learning assessment and assess knowledge base. 05/12/20252255 by Yoselyn Nova RN Outcome: Progressing 05/12/20252254 by Yoselyn Nova RN Outcome: Progressing Problem: Anxiety Goal: Anxiety is at manageable level Description: Assess and monitor patient's anxiety level. Monitor for signs and symptoms of anxiety both physical and emotional (heart palpitations, chest pain, shortness of breath, headaches, nausea,feeling jumpy, restlessness, irritable, apprehensive). Collaborate with interdisciplinary team and initiate plan and interventions as ordered. 05/12/20252255 by Yoselyn Nova RN Outcome: Progressing 05/12/20252254 by Yoselyn Nova RN Outcome: Progressing Problem: Hemodynamic Status Goal: Patient's vitals signs are stable Description: Assess and monitor patient's heart rate, rhythm, respiratory rate, peripheral pulses, capillary refill, color, body temperature, intake and output, labs and physical activity tolerance. Observe for signs of chest pain (note location, duration, severity, radiation and associated symptoms such as diaphoresis, nausea, indigestion). Monitor for signs and symptoms of heart failure (eg. shortness of breath, edema of feet/ankles/legs, rapid irregular heart rate, coughing, wheezing, white/pink blood tinged sputum, sudden weight gain, chest pain). Collaborate with interdisciplinary team and initiate plan and interventions as ordered. 05/12/20252255 by Yoselyn Nova RN Outcome: Progressing 05/12/20252254 by Yoselyn Nova RN Outcome: Progressing Problem: Activity Intolerance/Impaired Mobility Goal: Mobility/activity is maintained at optimum level for patient Description: Assess and monitor patient barriers to mobility and need for assistive/adaptive devices. Assess patient's emotional response to limitations. Collaborate with interdisciplinary team and initiate plans and interventions as ordered. 05/12/20252255 by Yoselyn Nova RN Outcome: Progressing 05/12/20252254 by Yoselyn Nova RN Outcome: Progressing Problem: Nutrition Goal: Nutritional status is improving Description: Monitor and assess patient for malnutrition (ex- brittle hair, bruises, dry skin, paleskin and conjunctiva, muscle wasting, smooth red tongue, and disorientation). Collaborate with interdisciplinary team and initiate plan and interventions as ordered. Monitor patient's weight and dietary intake as ordered or per policy. Utilize nutrition screening tool and intervene per policy. Determine patient's food preferences and provide high-protein, high- caloric foods as appropriate. 05/12/20252255 by Yoselyn Nova RN Outcome: Progressing 05/12/20252254 by Yoselyn Nova RN Outcome: Progressing Problem: CV: Dysrhythmia Goal: Patient achieves/maintains stable cardiac rhythm 05/12/20252255 by Yoselyn Nova RN Outcome: Progressing 05/12/20252254 by Yoselyn Nova RN Outcome: Progressing Problem: Inadequate Tissue Perfusion - Arterial Goal: Tissue perfusion is adequate - arterial Description: Assess and monitor skin color and temperature, skin integrity, pulses, capillary refill, edema, pain in extremities, and labs. Assess patients feelings of being cold and apply more clothing/blankets as needed to maintain vasodilation. Collaborate with interdisciplinary team and initiate plans and interventions as needed. 05/12/20252255 by Yoselyn Nova RN Outcome: Progressing 05/12/20252254 by Yoselyn Nova RN Outcome: Progressing Problem: Inadequate Tissue Perfusion - Venous Goal: Tissue perfusion is adequate - venous Description: Assess and monitor skin color and temperature, skin integrity, pulses, capillary refill, edema, pain in extremities, Homans' sign, labs (D- dimer), and diagnostic tests (ultrasound, CT scan, VQ scan). Monitor for signs and symptoms of deep vein thrombosis (swelling of calf/thigh, redness, pain, tenderness). Monitor for signs and symptoms of pulmonary embolism (dyspnea, tachypnea, tachycardia). Collaborate with interdisciplinary team and initiate plans and interventions as needed. 05/12/20252255 by Yoselyn Nova RN Outcome: Progressing 05/12/20252254 by Yoselyn Nova RN Outcome: Progressing Problem: Inadequate Gas Exchange Goal: Nutritional status is improving Description: Monitor and assess patient for malnutrition (ex- brittle hair, bruises, dry skin, paleskin and conjunctiva, muscle wasting, smooth red tongue, and disorientation). Collaborate with interdisciplinary team and initiate plan and interventions as ordered. Monitor patient's weight and dietary intake as ordered or per policy. Utilize nutrition screening tool and intervene per policy. Determine patient's food preferences and provide high-protein, high- caloric foods as appropriate. 05/12/20252255 by Yoselyn Nova RN Outcome: Progressing 05/12/20252254 by Yoselyn Nova RN Outcome: Progressing Goal: Patient is adequately oxygenated and ventilation is improved Description: Assess and monitor vital signs, oxygen saturation, respiratory status to include rate,depth, effort, and lung sounds, mental status, cyanosis, and labs (ABG's).Provide supplemental oxygen as ordered/needed. Provide ventilatory support as needed. Monitor effects of medications that maysedate the patient. Collaborate with respiratory therapy to administer medications and treatments. 05/12/20252255 by Yoselyn Nova RN Outcome: Progressing 05/12/20252254 by Yoselyn Nova RN Outcome: Progressing Problem: Potential for Falls Goal: Patient will remain free of falls Description: Assess and monitor vitals signs, neurological status including level of consciousness and orientation. Reassess fall risk per hospital policy.Ensure arm band on, uncluttered walking paths in room, adequate room lighting, call light and overbed table within reach, bed in low position, wheels locked, side rails up per policy, and non-skid footwear provided. 05/12/20252255 by Yoselyn Nova RN Outcome: Progressing 05/12/20252254 by Yoselyn Nova RN Outcome: Progressing Problem: Pain Goal: Patient's pain/discomfort is manageable Description: Assess and monitor patient's pain using appropriate pain scale. Collaborate with interdisciplinary team and initiate plan and interventions as ordered. Re-assess patient's pain level after pain management intervention. 05/12/20252255 by Yoselyn Nova RN Outcome: Progressing 05/12/20252254 by Yoselyn Nova RN Outcome: Progressing Intervention: Asssess pain level utilizing 0-10 scale Recent Flowsheet Documentation Taken 05/12/20252136 by Yoselyn Nova RN Pain Score: Five Taken 05/12/20252106 by Yoselyn Nova RN Pain Score: Seven Problem: Safety Goal: Patient will be injury free during hospitalization Description: Assess and monitor vitals signs, neurological status including level of consciousness and orientation. Assess patient's risk for falls and implement fall prevention plan of care and interventions per hospital policy. Ensure arm band on, uncluttered walking paths in room, adequate room lighting, call light and overbed table within reach, bed in low position, wheels locked, side rails up per policy, and non-skid footwear provided. 05/12/20252255 by Yoselyn Nova RN Outcome: Progressing 05/12/20252254 by Yoselyn Nova RN Outcome: Progressing Intervention: Assess patient's risk for falls and implement fall prevention plan of care per policy Recent Flowsheet Documentation Taken 05/12/20251999 by Yoselyn Nova RN History of Fallin Secondary Diagnosis: 15 Ambulatory Aids: 0 Intravenous Therapy/Intravenous Access: 20 Gait/Transferrin Mental Status: 0 Score: 70 Intervention: Provide and maintain safe environment Recent Flowsheet Documentation Taken 05/12/20252199 by Yoselyn Nova RN Side Rails/Bed Safety: 3/ Taken 05/12/20251999 by Yoselyn Nova RN Side Rails/Bed Safety: 11/11 Intervention: Ensure appropriate safety devices are available at the bedside Recent Flowsheet Documentation Taken 05/12/20252199 by Yoselyn Nova RN Safety Equipment at Bedside: O2 Regulator Taken 05/12/20251999 by Yoselyn Nova RN Safety Equipment at Bedside: O2 Regulator Problem: Potential for Developing a Blood Clot Goal: Tissue perfusion is adequate - venous Description: Assess and monitor skin color and temperature, skin integrity, pulses, capillary refill, edema, pain in extremities, Homans' sign, labs (D- dimer), and diagnostic tests (ultrasound, CT scan, VQ scan). Monitor for signs and symptoms of deep vein thrombosis (swelling of calf/thigh, redness, pain, tenderness). Monitor for signs and symptoms of pulmonary embolism (dyspnea, tachypnea, tachycardia). Collaborate with interdisciplinary team and initiate plans and interventions as needed 05/12/20252255 by Yoselyn Nova RN Outcome: Progressing 05/12/20252254 by Yoselyn Nova RN Outcome: Progressing Problem: Daily Care Goal: Daily care needs are met Description: Assess and monitor ability to perform self care and identify potential discharge needs. 05/12/20252255 by Yoselyn Nova RN Outcome: Progressing 05/12/20252254 by Yoselyn Nova RN Outcome: Progressing Intervention: Assess skin integrity/risk for skin breakdown and implement skin integrity plan of care and interventions per policy Recent Flowsheet Documentation Taken 05/12/20251999 by Yoselyn Nova RN Sensory Perceptions: 4 Moisture: 3 Activity: 3 Mobility: 3 Nutrition: 3 Friction and Shear: 3 Bishop Scale Score: 19 Integumentary (WDL): X Problem: Potential for Infection Goal: Remains infection free Description: Assess and monitor vital signs, skin (color, moisture, integrity, turgor), respiratorystatus, urinary and gastrointestinal status, and labs (WBC, cultures). Administer antibiotics and antipyretics as ordered. Ensure aseptic care of all intravenous lines, invasive tubes/drains and wounds. Monitor for signs and symptoms of infection (redness, warmth, discharge, increased body temperature). Wash hands properly before and after each patient care activity. Follow isolation guidelines per hospital protocol/policy. Collaborate with interdisciplinary team and initiate plan and interventions as ordered. 05/12/20252255 by Yoselyn Nova RN Outcome: Progressing 05/12/20252254 by Yoselyn Nova RN Outcome: Progressing Problem: Psychosocial Needs Goal: Demonstrates ability to cope with hospitalization/illness Description: Assess and monitor patients ability to cope with his/her illness. 05/12/20252255 by Yoselyn Nova RN Outcome: Progressing 05/12/20252254 by Yoselyn Nova RN Outcome: Progressing Goal: Collaborate with patient/family/caregiver to identify patient specific goals for this hospitalization 05/12/20252255 by Yoselyn Nova RN Outcome: Progressing 05/12/20252254 by Yoselyn Nova RN Outcome: Progressing Problem: Inadequate Coping Goal: Demonstrates ability to cope effectively Description: Patient is able to verbalize feelings related to emotional state. 05/12/20252255 by Yoselyn Nova RN Outcome: Progressing 05/12/20252254 by Yoselyn Nova RN Outcome: Progressing Goal: Verbalizes adaptive coping mechanisms Description: Able to verbalize adaptive coping mechanisms such as physical activity, distraction, and deep breathing exercises. 05/12/20252255 by Yoselyn Nova RN Outcome: Progressing 05/12/20252254 by Yoselyn Nova RN Outcome: Progressing Goal: Verbalizes personal strengths Description: Spend time with the patient using empathy and active listening skills. 05/12/20252255 by Yoselyn Nova RN Outcome: Progressing 05/12/20252254 by Yoselyn Nova RN Outcome: Progressing Problem: Progressive Mobility Goal: BMAT Level 1 - With full mechanical lifting assistance: 05/12/20252255 by Yoselyn Nova RN Outcome: Progressing 05/12/20252254 by Yoselyn Nova RN Outcome: Progressing Goal: BMAT Level 2 - With 2-person and/or mechanical lifting assistance: 05/12/20252255 by Yoselyn Nova RN Outcome: Progressing 05/12/20252254 by Yoselyn Nova RN Outcome: Progressing Goal: BMAT Level 3 - With 1 to 2-person and/or mechanical lifting assistance: 05/12/20252255 by Yoselyn Nova RN Outcome: Progressing 05/12/20252254 by Yoselyn Nova RN Outcome: Progressing Goal: BMAT Level 4 - With 1-person assistance or mobility aid as needed (walker, cane, crutches): 05/12/20252255 by Yoselyn Nova RN Outcome: Progressing 05/12/20252254 by Yoselyn Nova RN Outcome: Progressing Problem: Discharge Barriers Goal: Patient's discharge needs are met Description: Collaborate with interdisciplinary team and initiate plans and interventions as needed. 05/12/20252255 by Yoselyn Nova RN Outcome: Progressing 05/12/20252254 by Yoselyn Nova RN Outcome: Progressing Problem: Knowledge Deficit Goal: Patient/family/caregiver demonstrates understanding of disease process, treatment plan, medications, and discharge instructions Description: Complete learning assessment and assess knowledge base. 05/12/20252255 by Yoselyn Nova RN Outcome: Progressing 05/12/20252254 by Yoselyn Nova RN Outcome: Progressing Problem: Anxiety Goal: Anxiety is at manageable level Description: Assess and monitor patient's anxiety level. Monitor for signs and symptoms of anxiety both physical and emotional (heart palpitations, chest pain, shortness of breath, headaches, nausea,feeling jumpy, restlessness, irritable, apprehensive). Collaborate with interdisciplinary team and initiate plan and interventions as ordered. 05/12/20252255 by Yoselyn Nova RN Outcome: Progressing 05/12/20252254 by Yoselyn Nova RN Outcome: Progressing Problem: Hemodynamic Status Goal: Patient's vitals signs are stable Description: Assess and monitor patient's heart rate, rhythm, respiratory rate, peripheral pulses, capillary refill, color, body temperature, intake and output, labs and physical activity tolerance. Observe for signs of chest pain (note location, duration, severity, radiation and associated symptoms such as diaphoresis, nausea, indigestion). Monitor for signs and symptoms of heart failure (eg. shortness of breath, edema of feet/ankles/legs, rapid irregular heart rate, coughing, wheezing, white/pink blood tinged sputum, sudden weight gain, chest pain). Collaborate with interdisciplinary team and initiate plan and interventions as ordered. 05/12/20252255 by Yoselyn Nova RN Outcome: Progressing 05/12/20252254 by Yoselyn Nova RN Outcome: Progressing Problem: Activity Intolerance/Impaired Mobility Goal: Mobility/activity is maintained at optimum level for patient Description: Assess and monitor patient barriers to mobility and need for assistive/adaptive devices. Assess patient's emotional response to limitations. Collaborate with interdisciplinary team and initiate plans and interventions as ordered. 05/12/20252255 by Yoselyn Nova RN Outcome: Progressing 05/12/20252254 by Yoselyn Nova RN Outcome: Progressing Problem: Nutrition Goal: Nutritional status is improving Description: Monitor and assess patient for malnutrition (ex- brittle hair, bruises, dry skin, paleskin and conjunctiva, muscle wasting, smooth red tongue, and disorientation). Collaborate with interdisciplinary team and initiate plan and interventions as ordered. Monitor patient's weight and dietary intake as ordered or per policy. Utilize nutrition screening tool and intervene per policy. Determine patient's food preferences and provide high-protein, high- caloric foods as appropriate. 05/12/20252255 by Yoselyn Nova RN Outcome: Progressing 05/12/20252254 by Yoselyn Nova RN Outcome: Progressing Problem: CV: Dysrhythmia Goal: Patient achieves/maintains stable cardiac rhythm 05/12/20252255 by Yoselyn Nova RN Outcome: Progressing 05/12/20252254 by Yoselyn Nova RN Outcome: Progressing Problem: Inadequate Tissue Perfusion - Arterial Goal: Tissue perfusion is adequate - arterial Description: Assess and monitor skin color and temperature, skin integrity, pulses, capillary refill, edema, pain in extremities, and labs. Assess patients feelings of being cold and apply more clothing/blankets as needed to maintain vasodilation. Collaborate with interdisciplinary team and initiate plans and interventions as needed. 05/12/20252255 by Yoselyn Nova RN Outcome: Progressing 05/12/20252254 by Yoselyn Nova RN Outcome: Progressing Problem: Inadequate Tissue Perfusion - Venous Goal: Tissue perfusion is adequate - venous Description: Assess and monitor skin color and temperature, skin integrity, pulses, capillary refill, edema, pain in extremities, Homans' sign, labs (D- dimer), and diagnostic tests (ultrasound, CT scan, VQ scan). Monitor for signs and symptoms of deep vein thrombosis (swelling of calf/thigh, redness, pain, tenderness). Monitor for signs and symptoms of pulmonary embolism (dyspnea, tachypnea, tachycardia). Collaborate with interdisciplinary team and initiate plans and interventions as needed. 05/12/20252255 by Yoselyn Nova RN Outcome: Progressing 05/12/20252254 by Yoselyn Nova RN Outcome: Progressing Problem: Inadequate Gas Exchange Goal: Nutritional status is improving Description: Monitor and assess patient for malnutrition (ex- brittle hair, bruises, dry skin, paleskin and conjunctiva, muscle wasting, smooth red tongue, and disorientation). Collaborate with interdisciplinary team and initiate plan and interventions as ordered. Monitor patient's weight and dietary intake as ordered or per policy. Utilize nutrition screening tool and intervene per policy. Determine patient's food preferences and provide high-protein, high- caloric foods as appropriate. 05/12/20252255 by oYselyn Nova RN Outcome: Progressing 05/12/20252254 by Yoselyn Nova RN Outcome: Progressing Goal: Patient is adequately oxygenated and ventilation is improved Description: Assess and monitor vital signs, oxygen saturation, respiratory status to include rate,depth, effort, and lung sounds, mental status, cyanosis, and labs (ABG's).Provide supplemental oxygen as ordered/needed. Provide ventilatory support as needed. Monitor effects of medications that maysedate the patient. Collaborate with respiratory therapy to administer medications and treatments. 05/12/20252255 by Yoselyn Nova RN Outcome: Progressing 05/12/20252254 by Yoselyn Nova RN Outcome: Progressing Problem: Potential for Falls Goal: Patient will remain free of falls Description: Assess and monitor vitals signs, neurological status including level of consciousness and orientation. Reassess fall risk per hospital policy.Ensure arm band on, uncluttered walking paths in room, adequate room lighting, call light and overbed table within reach, bed in low position, wheels locked, side rails up per policy, and non-skid footwear provided. 05/12/20252255 by Yoselyn Nova RN Outcome: Progressing 05/12/20252254 by Yoselyn Nova RN Outcome: Progressing Problem: Pain Goal: Patient's pain/discomfort is manageable Description: Assess and monitor patient's pain using appropriate pain scale. Collaborate with interdisciplinary team and initiate plan and interventions as ordered. Re-assess patient's pain level after pain management intervention. 05/12/20252255 by Yoselyn Nova RN Outcome: Progressing 05/12/20252254 by Yoselyn Nova RN Outcome: Progressing Problem: Safety Goal: Patient will be injury free during hospitalization Description: Assess and monitor vitals signs, neurological status including level of consciousness and orientation. Assess patient's risk for falls and implement fall prevention plan of care and interventions per hospital policy. Ensure arm band on, uncluttered walking paths in room, adequate room lighting, call light and overbed table within reach, bed in low position, wheels locked, side rails up per policy, and non-skid footwear provided. 05/12/20252255 by Yoselyn Nova RN Outcome: Progressing 05/12/20252254 by Yoselyn Nova RN Outcome: Progressing Problem: Potential for Developing a Blood Clot Goal: Tissue perfusion is adequate - venous Description: Assess and monitor skin color and temperature, skin integrity, pulses, capillary refill, edema, pain in extremities, Homans' sign, labs (D- dimer), and diagnostic tests (ultrasound, CT scan, VQ scan). Monitor for signs and symptoms of deep vein thrombosis (swelling of calf/thigh, redness, pain, tenderness). Monitor for signs and symptoms of pulmonary embolism (dyspnea, tachypnea, tachycardia). Collaborate with interdisciplinary team and initiate plans and interventions as needed 05/12/20252255 by Yoselyn Nova RN Outcome: Progressing 05/12/20252254 by Yoselyn Nova RN Outcome: Progressing Problem: Daily Care Goal: Daily care needs are met Description: Assess and monitor ability to perform self care and identify potential discharge needs. 05/12/20252255 by Yoselyn Nova RN Outcome: Progressing 05/12/20252254 by Yoselyn Nova RN Outcome: Progressing Problem: Potential for Infection Goal: Remains infection free Description: Assess and monitor vital signs, skin (color, moisture, integrity, turgor), respiratorystatus, urinary and gastrointestinal status, and labs (WBC, cultures). Administer antibiotics and antipyretics as ordered. Ensure aseptic care of all intravenous lines, invasive tubes/drains and wounds. Monitor for signs and symptoms of infection (redness, warmth, discharge, increased body temperature). Wash hands properly before and after each patient care activity. Follow isolation guidelines per hospital protocol/policy. Collaborate with interdisciplinary team and initiate plan and interventions as ordered. 05/12/20252255 by Yoselyn Nova RN Outcome: Progressing 05/12/20252254 by Yoselyn Nova RN Outcome: Progressing Problem: Psychosocial Needs Goal: Demonstrates ability to cope with hospitalization/illness Description: Assess and monitor patients ability to cope with his/her illness. 05/12/20252255 by Yoselyn Nova RN Outcome: Progressing 05/12/20252254 by Yoselyn Nova RN Outcome: Progressing Goal: Collaborate with patient/family/caregiver to identify patient specific goals for this hospitalization 05/12/20252255 by Yoselyn Nova RN Outcome: Progressing 05/12/20252254 by Yoselyn Nova RN Outcome: Progressing Problem: Inadequate Coping Goal: Demonstrates ability to cope effectively Description: Patient is able to verbalize feelings related to emotional state. 05/12/20252255 by Yoselyn Nova RN Outcome: Progressing 05/12/20252254 by Yoselyn Nova RN Outcome: Progressing Goal: Verbalizes adaptive coping mechanisms Description: Able to verbalize adaptive coping mechanisms such as physical activity, distraction, and deep breathing exercises. 05/12/20252255 by Yoselyn Nova RN Outcome: Progressing 05/12/20252254 by Yoselyn Nova RN Outcome: Progressing Goal: Verbalizes personal strengths Description: Spend time with the patient using empathy and active listening skills. 05/12/20252255 by Yoselyn Nova RN Outcome: Progressing 05/12/20252254 by Yoselyn Nova RN Outcome: Progressing Problem: Progressive Mobility Goal: BMAT Level 1 - With full mechanical lifting assistance: 05/12/20252255 by Yoselyn Nova RN Outcome: Progressing 05/12/20252254 by Yoselyn Nova RN Outcome: Progressing Goal: BMAT Level 2 - With 2-person and/or mechanical lifting assistance: 05/12/20252255 by Yoselyn Nova RN Outcome: Progressing 05/12/20252254 by Yoselyn Nova RN Outcome: Progressing Goal: BMAT Level 3 - With 1 to 2-person and/or mechanical lifting assistance: 05/12/20252255 by Yoeslyn Nova RN Outcome: Progressing 05/12/20252254 by Yoselyn Nova RN Outcome: Progressing Goal: BMAT Level 4 - With 1-person assistance or mobility aid as needed (walker, cane, crutches): 05/12/20252255 by Yoselyn Nova RN Outcome: Progressing 05/12/20252254 by Yoselyn Nova RN Outcome: Progressing Problem: Discharge Barriers Goal: Patient's discharge needs are met Description: Collaborate with interdisciplinary team and initiate plans and interventions as needed. 05/12/20252255 by Yoselyn Nova RN Outcome: Progressing 05/12/20252254 by Yoselyn Nova RN Outcome: Progressing * Plan of Care - Juwan Paige RN - 05/12/2025 8:44 AM EDT Problem: Knowledge Deficit Goal: Patient/family/caregiver demonstrates understanding of disease process, treatment plan, medications, and discharge instructions Description: Complete learning assessment and assess knowledge base. Outcome: Progressing Problem: Anxiety Goal: Anxiety is at manageable level Description: Assess and monitor patient's anxiety level. Monitor for signs and symptoms of anxiety both physical and emotional (heart palpitations, chest pain, shortness of breath, headaches, nausea,feeling jumpy, restlessness, irritable, apprehensive). Collaborate with interdisciplinary team and initiate plan and interventions as ordered. Outcome: Progressing Problem: Hemodynamic Status Goal: Patient's vitals signs are stable Description: Assess and monitor patient's heart rate, rhythm, respiratory rate, peripheral pulses, capillary refill, color, body temperature, intake and output, labs and physical activity tolerance. Observe for signs of chest pain (note location, duration, severity, radiation and associated symptoms such as diaphoresis, nausea, indigestion). Monitor for signs and symptoms of heart failure (eg. shortness of breath, edema of feet/ankles/legs, rapid irregular heart rate, coughing, wheezing, white/pink blood tinged sputum, sudden weight gain, chest pain). Collaborate with interdisciplinary team and initiate plan and interventions as ordered. Outcome: Progressing Problem: Activity Intolerance/Impaired Mobility Goal: Mobility/activity is maintained at optimum level for patient Description: Assess and monitor patient barriers to mobility and need for assistive/adaptive devices. Assess patient's emotional response to limitations. Collaborate with interdisciplinary team and initiate plans and interventions as ordered. Outcome: Progressing Problem: Nutrition Goal: Nutritional status is improving Description: Monitor and assess patient for malnutrition (ex- brittle hair, bruises, dry skin, paleskin and conjunctiva, muscle wasting, smooth red tongue, and disorientation). Collaborate with interdisciplinary team and initiate plan and interventions as ordered. Monitor patient's weight and dietary intake as ordered or per policy. Utilize nutrition screening tool and intervene per policy. Determine patient's food preferences and provide high-protein, high- caloric foods as appropriate. Outcome: Progressing Problem: CV: Dysrhythmia Goal: Patient achieves/maintains stable cardiac rhythm Outcome: Progressing Problem: Inadequate Tissue Perfusion - Arterial Goal: Tissue perfusion is adequate - arterial Description: Assess and monitor skin color and temperature, skin integrity, pulses, capillary refill, edema, pain in extremities, and labs. Assess patients feelings of being cold and apply more clothing/blankets as needed to maintain vasodilation. Collaborate with interdisciplinary team and initiate plans and interventions as needed. Outcome: Progressing Problem: Inadequate Tissue Perfusion - Venous Goal: Tissue perfusion is adequate - venous Description: Assess and monitor skin color and temperature, skin integrity, pulses, capillary refill, edema, pain in extremities, Homans' sign, labs (D- dimer), and diagnostic tests (ultrasound, CT scan, VQ scan). Monitor for signs and symptoms of deep vein thrombosis (swelling of calf/thigh, redness, pain, tenderness). Monitor for signs and symptoms of pulmonary embolism (dyspnea, tachypnea, tachycardia). Collaborate with interdisciplinary team and initiate plans and interventions as needed. Outcome: Progressing Problem: Inadequate Gas Exchange Goal: Nutritional status is improving Description: Monitor and assess patient for malnutrition (ex- brittle hair, bruises, dry skin, paleskin and conjunctiva, muscle wasting, smooth red tongue, and disorientation). Collaborate with interdisciplinary team and initiate plan and interventions as ordered. Monitor patient's weight and dietary intake as ordered or per policy. Utilize nutrition screening tool and intervene per policy. Determine patient's food preferences and provide high-protein, high- caloric foods as appropriate. Outcome: Progressing Goal: Patient is adequately oxygenated and ventilation is improved Description: Assess and monitor vital signs, oxygen saturation, respiratory status to include rate,depth, effort, and lung sounds, mental status, cyanosis, and labs (ABG's).Provide supplemental oxygen as ordered/needed. Provide ventilatory support as needed. Monitor effects of medications that maysedate the patient. Collaborate with respiratory therapy to administer medications and treatments. Outcome: Progressing Problem: Potential for Falls Goal: Patient will remain free of falls Description: Assess and monitor vitals signs, neurological status including level of consciousness and orientation. Reassess fall risk per hospital policy.Ensure arm band on, uncluttered walking paths in room, adequate room lighting, call light and overbed table within reach, bed in low position, wheels locked, side rails up per policy, and non-skid footwear provided. Outcome: Progressing * Plan of Care - David Browne RN - 05/11/2025 10:09 PM EDT Problem: Knowledge Deficit Goal: Patient/family/caregiver demonstrates understanding of disease process, treatment plan, medications, and discharge instructions Description: Complete learning assessment and assess knowledge base. Outcome: Progressing Problem: Anxiety Goal: Anxiety is at manageable level Description: Assess and monitor patient's anxiety level. Monitor for signs and symptoms of anxiety both physical and emotional (heart palpitations, chest pain, shortness of breath, headaches, nausea,feeling jumpy, restlessness, irritable, apprehensive). Collaborate with interdisciplinary team and initiate plan and interventions as ordered. Outcome: Progressing Problem: Hemodynamic Status Goal: Patient's vitals signs are stable Description: Assess and monitor patient's heart rate, rhythm, respiratory rate, peripheral pulses, capillary refill, color, body temperature, intake and output, labs and physical activity tolerance. Observe for signs of chest pain (note location, duration, severity, radiation and associated symptoms such as diaphoresis, nausea, indigestion). Monitor for signs and symptoms of heart failure (eg. shortness of breath, edema of feet/ankles/legs, rapid irregular heart rate, coughing, wheezing, white/pink blood tinged sputum, sudden weight gain, chest pain). Collaborate with interdisciplinary team and initiate plan and interventions as ordered. Outcome: Progressing Problem: Activity Intolerance/Impaired Mobility Goal: Mobility/activity is maintained at optimum level for patient Description: Assess and monitor patient barriers to mobility and need for assistive/adaptive devices. Assess patient's emotional response to limitations. Collaborate with interdisciplinary team and initiate plans and interventions as ordered. Outcome: Progressing Problem: Nutrition Goal: Nutritional status is improving Description: Monitor and assess patient for malnutrition (ex- brittle hair, bruises, dry skin, paleskin and conjunctiva, muscle wasting, smooth red tongue, and disorientation). Collaborate with interdisciplinary team and initiate plan and interventions as ordered. Monitor patient's weight and dietary intake as ordered or per policy. Utilize nutrition screening tool and intervene per policy. Determine patient's food preferences and provide high-protein, high- caloric foods as appropriate. Outcome: Progressing Problem: CV: Dysrhythmia Goal: Patient achieves/maintains stable cardiac rhythm Outcome: Progressing Problem: Inadequate Tissue Perfusion - Arterial Goal: Tissue perfusion is adequate - arterial Description: Assess and monitor skin color and temperature, skin integrity, pulses, capillary refill, edema, pain in extremities, and labs. Assess patients feelings of being cold and apply more clothing/blankets as needed to maintain vasodilation. Collaborate with interdisciplinary team and initiate plans and interventions as needed. Outcome: Progressing Problem: Inadequate Tissue Perfusion - Venous Goal: Tissue perfusion is adequate - venous Description: Assess and monitor skin color and temperature, skin integrity, pulses, capillary refill, edema, pain in extremities, Homans' sign, labs (D- dimer), and diagnostic tests (ultrasound, CT scan, VQ scan). Monitor for signs and symptoms of deep vein thrombosis (swelling of calf/thigh, redness, pain, tenderness). Monitor for signs and symptoms of pulmonary embolism (dyspnea, tachypnea, tachycardia). Collaborate with interdisciplinary team and initiate plans and interventions as needed. Outcome: Progressing Problem: Inadequate Gas Exchange Goal: Nutritional status is improving Description: Monitor and assess patient for malnutrition (ex- brittle hair, bruises, dry skin, paleskin and conjunctiva, muscle wasting, smooth red tongue, and disorientation). Collaborate with interdisciplinary team and initiate plan and interventions as ordered. Monitor patient's weight and dietary intake as ordered or per policy. Utilize nutrition screening tool and intervene per policy. Determine patient's food preferences and provide high-protein, high- caloric foods as appropriate. Outcome: Progressing Goal: Patient is adequately oxygenated and ventilation is improved Description: Assess and monitor vital signs, oxygen saturation, respiratory status to include rate,depth, effort, and lung sounds, mental status, cyanosis, and labs (ABG's).Provide supplemental oxygen as ordered/needed. Provide ventilatory support as needed. Monitor effects of medications that maysedate the patient. Collaborate with respiratory therapy to administer medications and treatments. Outcome: Progressing Problem: Potential for Falls Goal: Patient will remain free of falls Description: Assess and monitor vitals signs, neurological status including level of consciousness and orientation. Reassess fall risk per hospital policy.Ensure arm band on, uncluttered walking paths in room, adequate room lighting, call light and overbed table within reach, bed in low position, wheels locked, side rails up per policy, and non-skid footwear provided. Outcome: Progressing * Plan of Care - Juwan Paige RN - 05/11/2025 10:49 AM EDT Problem: Knowledge Deficit Goal: Patient/family/caregiver demonstrates understanding of disease process, treatment plan, medications, and discharge instructions Description: Complete learning assessment and assess knowledge base. Outcome: Progressing Problem: Anxiety Goal: Anxiety is at manageable level Description: Assess and monitor patient's anxiety level. Monitor for signs and symptoms of anxiety both physical and emotional (heart palpitations, chest pain, shortness of breath, headaches, nausea,feeling jumpy, restlessness, irritable, apprehensive). Collaborate with interdisciplinary team and initiate plan and interventions as ordered. Outcome: Progressing Problem: Hemodynamic Status Goal: Patient's vitals signs are stable Description: Assess and monitor patient's heart rate, rhythm, respiratory rate, peripheral pulses, capillary refill, color, body temperature, intake and output, labs and physical activity tolerance. Observe for signs of chest pain (note location, duration, severity, radiation and associated symptoms such as diaphoresis, nausea, indigestion). Monitor for signs and symptoms of heart failure (eg. shortness of breath, edema of feet/ankles/legs, rapid irregular heart rate, coughing, wheezing, white/pink blood tinged sputum, sudden weight gain, chest pain). Collaborate with interdisciplinary team and initiate plan and interventions as ordered. Outcome: Progressing Problem: Activity Intolerance/Impaired Mobility Goal: Mobility/activity is maintained at optimum level for patient Description: Assess and monitor patient barriers to mobility and need for assistive/adaptive devices. Assess patient's emotional response to limitations. Collaborate with interdisciplinary team and initiate plans and interventions as ordered. Outcome: Progressing Problem: Nutrition Goal: Nutritional status is improving Description: Monitor and assess patient for malnutrition (ex- brittle hair, bruises, dry skin, paleskin and conjunctiva, muscle wasting, smooth red tongue, and disorientation). Collaborate with interdisciplinary team and initiate plan and interventions as ordered. Monitor patient's weight and dietary intake as ordered or per policy. Utilize nutrition screening tool and intervene per policy. Determine patient's food preferences and provide high-protein, high- caloric foods as appropriate. Outcome: Progressing Problem: CV: Dysrhythmia Goal: Patient achieves/maintains stable cardiac rhythm Outcome: Progressing Problem: Inadequate Tissue Perfusion - Arterial Goal: Tissue perfusion is adequate - arterial Description: Assess and monitor skin color and temperature, skin integrity, pulses, capillary refill, edema, pain in extremities, and labs. Assess patients feelings of being cold and apply more clothing/blankets as needed to maintain vasodilation. Collaborate with interdisciplinary team and initiate plans and interventions as needed. Outcome: Progressing Problem: Inadequate Tissue Perfusion - Venous Goal: Tissue perfusion is adequate - venous Description: Assess and monitor skin color and temperature, skin integrity, pulses, capillary refill, edema, pain in extremities, Homans' sign, labs (D- dimer), and diagnostic tests (ultrasound, CT scan, VQ scan). Monitor for signs and symptoms of deep vein thrombosis (swelling of calf/thigh, redness, pain, tenderness). Monitor for signs and symptoms of pulmonary embolism (dyspnea, tachypnea, tachycardia). Collaborate with interdisciplinary team and initiate plans and interventions as needed. Outcome: Progressing Problem: Inadequate Gas Exchange Goal: Nutritional status is improving Description: Monitor and assess patient for malnutrition (ex- brittle hair, bruises, dry skin, paleskin and conjunctiva, muscle wasting, smooth red tongue, and disorientation). Collaborate with interdisciplinary team and initiate plan and interventions as ordered. Monitor patient's weight and dietary intake as ordered or per policy. Utilize nutrition screening tool and intervene per policy. Determine patient's food preferences and provide high-protein, high- caloric foods as appropriate. Outcome: Progressing Goal: Patient is adequately oxygenated and ventilation is improved Description: Assess and monitor vital signs, oxygen saturation, respiratory status to include rate,depth, effort, and lung sounds, mental status, cyanosis, and labs (ABG's).Provide supplemental oxygen as ordered/needed. Provide ventilatory support as needed. Monitor effects of medications that maysedate the patient. Collaborate with respiratory therapy to administer medications and treatments. Outcome: Progressing Problem: Potential for Falls Goal: Patient will remain free of falls Description: Assess and monitor vitals signs, neurological status including level of consciousness and orientation. Reassess fall risk per hospital policy.Ensure arm band on, uncluttered walking paths in room, adequate room lighting, call light and overbed table within reach, bed in low position, wheels locked, side rails up per policy, and non-skid footwear provided. Outcome: Progressing * Plan of Care - Elba Valdivia RN - 05/11/2025 3:45 AM EDT Problem: Knowledge Deficit Goal: Patient/family/caregiver demonstrates understanding of disease process, treatment plan, medications, and discharge instructions Description: Complete learning assessment and assess knowledge base. Outcome: Progressing Problem: Anxiety Goal: Anxiety is at manageable level Description: Assess and monitor patient's anxiety level. Monitor for signs and symptoms of anxiety both physical and emotional (heart palpitations, chest pain, shortness of breath, headaches, nausea,feeling jumpy, restlessness, irritable, apprehensive). Collaborate with interdisciplinary team and initiate plan and interventions as ordered. Outcome: Progressing Problem: Hemodynamic Status Goal: Patient's vitals signs are stable Description: Assess and monitor patient's heart rate, rhythm, respiratory rate, peripheral pulses, capillary refill, color, body temperature, intake and output, labs and physical activity tolerance. Observe for signs of chest pain (note location, duration, severity, radiation and associated symptoms such as diaphoresis, nausea, indigestion). Monitor for signs and symptoms of heart failure (eg. shortness of breath, edema of feet/ankles/legs, rapid irregular heart rate, coughing, wheezing, white/pink blood tinged sputum, sudden weight gain, chest pain). Collaborate with interdisciplinary team and initiate plan and interventions as ordered. Outcome: Progressing Problem: Activity Intolerance/Impaired Mobility Goal: Mobility/activity is maintained at optimum level for patient Description: Assess and monitor patient barriers to mobility and need for assistive/adaptive devices. Assess patient's emotional response to limitations. Collaborate with interdisciplinary team and initiate plans and interventions as ordered. Outcome: Progressing Problem: Nutrition Goal: Nutritional status is improving Description: Monitor and assess patient for malnutrition (ex- brittle hair, bruises, dry skin, paleskin and conjunctiva, muscle wasting, smooth red tongue, and disorientation). Collaborate with interdisciplinary team and initiate plan and interventions as ordered. Monitor patient's weight and dietary intake as ordered or per policy. Utilize nutrition screening tool and intervene per policy. Determine patient's food preferences and provide high-protein, high- caloric foods as appropriate. Outcome: Progressing Problem: CV: Dysrhythmia Goal: Patient achieves/maintains stable cardiac rhythm Outcome: Progressing Problem: Inadequate Tissue Perfusion - Arterial Goal: Tissue perfusion is adequate - arterial Description: Assess and monitor skin color and temperature, skin integrity, pulses, capillary refill, edema, pain in extremities, and labs. Assess patients feelings of being cold and apply more clothing/blankets as needed to maintain vasodilation. Collaborate with interdisciplinary team and initiate plans and interventions as needed. Outcome: Progressing Problem: Inadequate Tissue Perfusion - Venous Goal: Tissue perfusion is adequate - venous Description: Assess and monitor skin color and temperature, skin integrity, pulses, capillary refill, edema, pain in extremities, Homans' sign, labs (D- dimer), and diagnostic tests (ultrasound, CT scan, VQ scan). Monitor for signs and symptoms of deep vein thrombosis (swelling of calf/thigh, redness, pain, tenderness). Monitor for signs and symptoms of pulmonary embolism (dyspnea, tachypnea, tachycardia). Collaborate with interdisciplinary team and initiate plans and interventions as needed. Outcome: Progressing Problem: Inadequate Gas Exchange Goal: Nutritional status is improving Description: Monitor and assess patient for malnutrition (ex- brittle hair, bruises, dry skin, paleskin and conjunctiva, muscle wasting, smooth red tongue, and disorientation). Collaborate with interdisciplinary team and initiate plan and interventions as ordered. Monitor patient's weight and dietary intake as ordered or per policy. Utilize nutrition screening tool and intervene per policy. Determine patient's food preferences and provide high-protein, high- caloric foods as appropriate. Outcome: Progressing Goal: Patient is adequately oxygenated and ventilation is improved Description: Assess and monitor vital signs, oxygen saturation, respiratory status to include rate,depth, effort, and lung sounds, mental status, cyanosis, and labs (ABG's).Provide supplemental oxygen as ordered/needed. Provide ventilatory support as needed. Monitor effects of medications that maysedate the patient. Collaborate with respiratory therapy to administer medications and treatments. Outcome: Progressing Problem: Potential for Falls Goal: Patient will remain free of falls Description: Assess and monitor vitals signs, neurological status including level of consciousness and orientation. Reassess fall risk per hospital policy.Ensure arm band on, uncluttered walking paths in room, adequate room lighting, call light and overbed table within reach, bed in low position, wheels locked, side rails up per policy, and non-skid footwear provided. Outcome: Progressing * Plan of Care - Juwan Paige RN - 05/10/2025 1:05 PM EDT Problem: Knowledge Deficit Goal: Patient/family/caregiver demonstrates understanding of disease process, treatment plan, medications, and discharge instructions Description: Complete learning assessment and assess knowledge base. Outcome: Progressing Problem: Anxiety Goal: Anxiety is at manageable level Description: Assess and monitor patient's anxiety level. Monitor for signs and symptoms of anxiety both physical and emotional (heart palpitations, chest pain, shortness of breath, headaches, nausea,feeling jumpy, restlessness, irritable, apprehensive). Collaborate with interdisciplinary team and initiate plan and interventions as ordered. Outcome: Progressing Problem: Hemodynamic Status Goal: Patient's vitals signs are stable Description: Assess and monitor patient's heart rate, rhythm, respiratory rate, peripheral pulses, capillary refill, color, body temperature, intake and output, labs and physical activity tolerance. Observe for signs of chest pain (note location, duration, severity, radiation and associated symptoms such as diaphoresis, nausea, indigestion). Monitor for signs and symptoms of heart failure (eg. shortness of breath, edema of feet/ankles/legs, rapid irregular heart rate, coughing, wheezing, white/pink blood tinged sputum, sudden weight gain, chest pain). Collaborate with interdisciplinary team and initiate plan and interventions as ordered. Outcome: Progressing Problem: Activity Intolerance/Impaired Mobility Goal: Mobility/activity is maintained at optimum level for patient Description: Assess and monitor patient barriers to mobility and need for assistive/adaptive devices. Assess patient's emotional response to limitations. Collaborate with interdisciplinary team and initiate plans and interventions as ordered. Outcome: Progressing Problem: Nutrition Goal: Nutritional status is improving Description: Monitor and assess patient for malnutrition (ex- brittle hair, bruises, dry skin, paleskin and conjunctiva, muscle wasting, smooth red tongue, and disorientation). Collaborate with interdisciplinary team and initiate plan and interventions as ordered. Monitor patient's weight and dietary intake as ordered or per policy. Utilize nutrition screening tool and intervene per policy. Determine patient's food preferences and provide high-protein, high- caloric foods as appropriate. Outcome: Progressing Problem: CV: Dysrhythmia Goal: Patient achieves/maintains stable cardiac rhythm Outcome: Progressing Problem: Inadequate Tissue Perfusion - Arterial Goal: Tissue perfusion is adequate - arterial Description: Assess and monitor skin color and temperature, skin integrity, pulses, capillary refill, edema, pain in extremities, and labs. Assess patients feelings of being cold and apply more clothing/blankets as needed to maintain vasodilation. Collaborate with interdisciplinary team and initiate plans and interventions as needed. Outcome: Progressing Problem: Inadequate Tissue Perfusion - Venous Goal: Tissue perfusion is adequate - venous Description: Assess and monitor skin color and temperature, skin integrity, pulses, capillary refill, edema, pain in extremities, Homans' sign, labs (D- dimer), and diagnostic tests (ultrasound, CT scan, VQ scan). Monitor for signs and symptoms of deep vein thrombosis (swelling of calf/thigh, redness, pain, tenderness). Monitor for signs and symptoms of pulmonary embolism (dyspnea, tachypnea, tachycardia). Collaborate with interdisciplinary team and initiate plans and interventions as needed. Outcome: Progressing Problem: Inadequate Gas Exchange Goal: Nutritional status is improving Description: Monitor and assess patient for malnutrition (ex- brittle hair, bruises, dry skin, paleskin and conjunctiva, muscle wasting, smooth red tongue, and disorientation). Collaborate with interdisciplinary team and initiate plan and interventions as ordered. Monitor patient's weight and dietary intake as ordered or per policy. Utilize nutrition screening tool and intervene per policy. Determine patient's food preferences and provide high-protein, high- caloric foods as appropriate. Outcome: Progressing Goal: Patient is adequately oxygenated and ventilation is improved Description: Assess and monitor vital signs, oxygen saturation, respiratory status to include rate,depth, effort, and lung sounds, mental status, cyanosis, and labs (ABG's).Provide supplemental oxygen as ordered/needed. Provide ventilatory support as needed. Monitor effects of medications that maysedate the patient. Collaborate with respiratory therapy to administer medications and treatments. Outcome: Progressing Problem: Potential for Falls Goal: Patient will remain free of falls Description: Assess and monitor vitals signs, neurological status including level of consciousness and orientation. Reassess fall risk per hospital policy.Ensure arm band on, uncluttered walking paths in room, adequate room lighting, call light and overbed table within reach, bed in low position, wheels locked, side rails up per policy, and non-skid footwear provided. Outcome: Progressing * Plan of Care - Arcadio Nolen RN - 05/10/2025 5:12 AM EDT Problem: Activity Intolerance/Impaired Mobility Goal: Mobility/activity is maintained at optimum level for patient Description: Assess and monitor patient barriers to mobility and need for assistive/adaptive devices. Assess patient's emotional response to limitations. Collaborate with interdisciplinary team and initiate plans and interventions as ordered. Outcome: Progressing Problem: Inadequate Tissue Perfusion - Arterial Goal: Tissue perfusion is adequate - arterial Description: Assess and monitor skin color and temperature, skin integrity, pulses, capillary refill, edema, pain in extremities, and labs. Assess patients feelings of being cold and apply more clothing/blankets as needed to maintain vasodilation. Collaborate with interdisciplinary team and initiate plans and interventions as needed. Outcome: Progressing Problem: Inadequate Gas Exchange Goal: Patient is adequately oxygenated and ventilation is improved Description: Assess and monitor vital signs, oxygen saturation, respiratory status to include rate,depth, effort, and lung sounds, mental status, cyanosis, and labs (ABG's).Provide supplemental oxygen as ordered/needed. Provide ventilatory support as needed. Monitor effects of medications that maysedate the patient. Collaborate with respiratory therapy to administer medications and treatments. Outcome: Progressing documented in this encounter Plan of Treatment Upcoming Encounters Date Type Department Care Team (Late st Contact Info) Description 08/11/2025 12:30 PM EST Office Visit [facility] Cardiology [address] [place] [address] Jacob Celeste MD [address] [facility] [address] [place] [address] documented as of this encounter Procedures Procedure Name Priority Date/Time Associated Diagnosis Comments CBC W/ AUTO DIFF Routine 05/13/2025 3:17 AM EDT BASIC METABOLIC PANEL Routine 05/13/2025 3:17 AM EDT US RENAL LIMITED Routine 05/12/2025 2:09 PM EDT CBC W/ AUTO DIFF Routine 05/12/2025 5:57 AM EDT MANUAL DIFFERENTIAL Routine 05/12/2025 5 :57 AM EDT MAGNESIUM Routine 05/12/2025 5:57 AM EDT BASIC METABOLIC PANEL Routine 05/12/2025 5:[address] ABDOMEN/PELVIS WITHOUT IV CONTRAST Routine 05/11/2025 8:14 PM EDT US DOPPLER VENOUS LEGS BILATERAL Routine 05/11/2025 5:15 PM EDT XR CHEST AP PORTABLE Routine 05/11/2025 2:16 PM EDT NM LUNG PERFUSION SCAN Routine 12:57 PM EDT ECHO COMPLETE (DOPPLER / COLOR) WO CONTRAST Routine 05/11/2025 10:29 AM EDT CBC W/ AUTO DIFF Routine 05/11/2025 10:0 4 AM EDT MANUAL DIFFERENTIAL Routine 05/11/2025 1 0:04 AM EDT MAGNESIUM Routine 05/11/2025 10:04 AM EDT HEPATIC FUNCTION PANEL Routine 10:04 AM EDT BASIC METABOLIC PANEL Routine 05/11/2025 10:04 AM EDT URINALYSIS, REFLEX MICROSCOPIC AND CULTURE IF INDICATED STAT 05/11/2025 1:39 AM EDT BASIC METABOLIC PANEL Routine 05/10/2025 6:26 AM EDT FS_MODEL_IP_ECG 12-LEAD STAT 05/09/20 11:45 PM EDT LACTIC ACID (SJ - BKR) STAT 11:18 PM EDT BLOOD CULTURE IDENTIFICATION PANEL Routine 05/09/2025 10:40 PM EDT BLOOD CULTURE STAT 05/09/2025 10:40 PM EDT BLOOD CULTURE STAT 05/09/2025 10:40 PM EDT COVID ANTIGEN STAT 05/09/2025 9:26 PM EDT LACTIC ACID WITH REFLEX STAT 05/09/20 9:26 PM EDT XR CHEST 1 VIEW PORTABLE / BEDSIDE STAT 05/09/2025 9:20 PM EDT CBC W/ AUTO DIFF STAT 05/09/2025 9:09 PM EDT HIGH SENSITIVITY TROPONIN I STAT 05/09/2025 9:09 PM EDT PROBNP STAT 05/09/2025 9:09 PM EDT D-DIMER STAT 05/09/2025 9:09 PM EDT TSH STAT 05/09/2025 9:09 PM EDT MAGNESIUM STAT 05/09/2025 9:09 PM EDT COMPREHENSIVE METABOLIC PANEL STAT 05/09/2025 9:09 PM EDT FS_MODEL_IP_ECG 12-LEAD STAT 05/09/20 8:47 PM EDT EKG-SCANNED 05/09/2025 EKG-SCANNED 05/09/2025 documented in this encounter Results * (ABNORMAL) CBC with automated diff (05/13/2025 3:17 AM EDT) [facility] WBC 4.7 4.0 - 10.0 K/ L 05/13/2025 3:58 AM EDT [facility] RBC 3.40(L) 3.93 - 5.22 M/ L 05/13/2025 3:58 AM EDT [facility] Hemoglobin 9.9(L) 11.2 - 15.7 GM/DL 05/13/2025 3:58 AM EDT [facility] Hematocrit 33.0(L) 34.1 - 44.9 % 05/13/2025 3:58 AM EDT [facility] MCV 97(H) 79 - 95 fL 05/13/2025 3:58 AM EDT [facility] MCH 29.1 25.6 - 32.2 pg 05/13/2025 3:58 AM EDT [facility] MCHC 30.0(L) 32.2 - 35.5 GM/DL 05/13/2025 3:58 AM EDT [facility] RDW 14.2 11.7 - 14.4 % 05/13/2025 3:58 AM EDT [facility] Platelets 183 140 - 375 K/CU MM 05/13/2025 3:58 AM EDT [facility] MPV 10.6 9.4 - 12.3 fL 05/13/2025 3:58 AM EDT [facility] % Neutros 47 34 - 71 % 05/13/2025 3:58 AM EDT [facility] % Lymphs 33 19 - 52 % 05/13/2025 3:58 AM EDT [facility] % Monos 15(H) 5 - 13 % 05/13/2025 3:58 AM EDT [facility] % Eos 4 1 - 6 % 05/13/2025 3:58 AM EDT [facility] % Baso 1 0 - 1 % 05/13/2025 3:58 AM EDT [facility] NRBC Absolute <0.01 0 - 0.012 K/ul 05/13/2025 3:58 AM EDT [facility] # Neutros 2.19 1.56 - 6.13 K/ L 05/13/2025 3:58 AM EDT [facility] # Lymphs 1.54 1.18 - 3.74 K/ L 05/13/2025 3:58 AM EDT [facility] # Monos 0.68 0.24 - 0.86 K/ L 05/13/2025 3:58 AM EDT [facility] # Eos 0.19 0.04 - 0.36 K/ L 05/13/2025 3:58 AM EDT [facility] # Baso 0.04 0.01 - 0.08 K/ L 05/13/2025 3:58 AM EDT [facility] Immature Granulocytes-Re lative 0.40 0.01 - 0.43 % 05/13/2025 3:58 AM EDT [facility] # IG <0.03 0.00 - 0.03 K/uL 05/13/2025 3:58 AM EDT [facility] Blood Venipuncture / Unknown 05/13/2025 3:17 AM EDT 05/13/2025 3:51 AM EDT Narrative [facility] - 05/13/2025 3:58 AM EDT When CBC w/ Auto Diff is ordered the lab will add a Manual Differential as a quality check at no additional charge if: Lymphocytes greater than seventy five percent with normal or increased WBC Monocytes greater than Fifteen percent Basophil greater than four percent Bands >10% or several immature myeloids are seen on scan Blast? Flag noted Atypical Lymph flag noted us Callum Blanton MD LAB BLOOD ORDERABLES Final Resul t [facility] [address] [phone] * (ABNORMAL) Basic Metabolic Panel (05/13/2025 3:17 AM EDT) Sodium 142 136 - 145 meq/L 05/13/2025 4:26 AM EDT [facility] Potassium 3.6 3.4 - 5.1 meq/L 05/13/2025 4:26 AM EDT [facility] CO2 29 22 - 29 meq/L 05/13/2025 4:26 AM EDT [facility] Chloride 103 98 - 112 meq/L 05/13/2025 4:26 AM EDT [facility] Glucose 88 82 - 115 mg/dL 05/13/2025 4:26 AM EDT [facility] BUN 37.5(H) 9.8 - 20.1 mg/dL 05/13/2025 4:26 AM EDT [facility] Creatinine 1.90(H) 0.57 - 1.11 mg/dL 05/13/2025 4:26 AM EDT [facility] BUN/Creatinine 20 8 - 20 05/13/2025 4:26 AM EDT [facility] Calcium 8.5 8.4 - 10.2 mg/dL 05/13/2025 [facility] [place] Anion Gap 14(H) 4 - 12 05/13/2025 4:[facility] [place] eGFR (mL/min/1.73m2) 27(L) >=60 mL/min/1.7 3m2 05/13/2025 4:26 AM EDT [facility] Comment:ESTIMATED GFR IS NOT ACCURATE CREATININE CLEARANCE IN PREDICTING GLOMERULAR FILTRATION RATE. ESTIMATED GFR IS NOT APPLICABLE FOR DIALYSIS PATIENTS. Osmolality Calc 291.4 mOsm/kg 4:26 AM EDT [facility] Blood Venipuncture / Unknown 05/13/2025 3:17 AM EDT 05/13/2025 3:53 AM EDT us Callum Blanton MD LAB BLOOD ORDERABLES Final Resul t [facility] [address] [phone] * Ultrasound renal limited (05/12/2025 2:09 PM EDT) Anatomical Region Laterality Modality Abdomen, Kidney Ultrasound 05/12/2025 3:48 PM EDT Impressions 05/12/2025 5:38 PM EDT 1. Renal cortical thinning increased echogenicity consistent with medical renal disease bilaterally. 2. No hydronephrosis. 3. Multiple bilateral renal cysts as above. No solid masses are seen. Images reviewed, interpreted, dictated and electronically signed by Pio Angel MD Voice residence supervisor technology (Power [employer]) is used for the dictation of this note and sound-alike words might be erroneously placed despite reviewing this note for accuracy. Errors in dictation may reflect use of voice recognition software and not all errors in residence supervisor may have been detected prior to signing. Narrative 05/12/2025 5:38 PM EDT RENAL ULTRASOUND HISTORY: Abnormal CT with renal masses PROCEDURE: Sonographic images of the kidneys were obtained in both longitudinal and transverse orientations. FINDINGS: Limited images of the liver parenchyma demonstrate normal echogenicity. The right kidney measures 11.3 x 6 x 4.2 cm. The right renal volume is 149 mL. There is increased cortical echogenicity. There is significant renal cortical thinning. There are multiple right renal cysts. The largest is in the midpole measuring 1.8 cm. No solid masses identified. Multiple smaller cysts are identified. The left kidney measures 10.8 x 6.3 x 4.2 cm. The left renal volume is 150 mL. There is mild increased echogenicity. There is moderate renal cortical thinning. There is a dominant cyst measuring 3.4 x 2.1 x 2.5 cm. This lies in the midpole. Procedure Note Pio Angel MD - 05/12/2025 RENAL ULTRASOUND HISTORY: Abnormal CT with renal masses PROCEDURE: Sonographic images of the kidneys were obtained in both longitudinal and transverse orientations. FINDINGS: Limited images of the liver parenchyma demonstrate normal echogenicity. The right kidney measures 11.3 x 6 x 4.2 cm. The right renal volume is 149 mL. There is increased cortical echogenicity. There is significant renal cortical thinning. There are multiple right renal cysts. The largest is in the midpole measuring 1.8 cm. No solid masses identified. Multiple smaller cysts are identified. The left kidney measures 10.8 x 6.3 x 4.2 cm. The left renal volume is 150 mL. There is mild increased echogenicity. There is moderate renal cortical thinning. There is a dominant cyst measuring 3.4 x 2.1 x 2.5 cm. This lies in the midpole. IMPRESSION: 1. Renal cortical thinning increased echogenicity consistent with medical renal disease bilaterally. 2. No hydronephrosis. 3. Multiple bilateral renal cysts as above. No solid masses are seen. Images reviewed, interpreted, dictated and electronically signed by Pio Angel MD Voice residence supervisor technology (Power Scribe) is used for the dictation of this note and sound-alike words might be erroneously placed despite reviewing this note for accuracy. Errors in dictation may reflect use of voice recognition software and not all errors in residence supervisor may have been detected prior to signing. Trey Cartwright MD [facility] [place] ORDERABLES Final Result * (ABNORMAL) Manual Differential (05/12/2025 5:57 AM EDT) Total Counted 100 05/12/2025 9:36 AM EDT [facility] % Neutros (manual) 70(H) 50 - 65 % 05/12/2025 9:36 AM EDT [facility] % Lymphs (manual) 11(L) 24 - 44 % 05/12/2025 9:36 AM EDT [facility] Comment:27% appear to be aty pical/reactive lymphs % Monos (manual) 14(H) 4 - 5 % 05/12/2025 9:36 AM EDT [facility] % Eos (manual) 5(H) 0 - 3 % 05/12/2025 9:36 AM EDT [facility] RBC Morphology abnormal(A) Normal 9:36 AM EDT [facility] Platelet Estimate Adequate Adequate 05/12/2025 9:36 AM EDT [facility] Hypochromia 1+ 05/12/2025 9:36 AM EDT [facility] ANC# 3.50 K/ L 05/12/2025 9:36 AM EDT [facility] Blood Venipuncture / Unknown 05/12/2025 5:57 AM EDT 05/12/2025 6:59 AM EDT Martin Snyder MD LAB BLOOD ORDERABLES Final Resu lt Performing Organization Address [facility]/ZIP Co de Phone Number [facility] [address] [phone] * Magnesium (05/12/2025 5:57 AM EDT) Magnesium 1.9 1.6 - 2.6 mg/dL 05/12/2025 7:25 AM EDT [facility] Blood Venipuncture / Unknown 05/12/2025 5:57 AM EDT 05/12/2025 6:59 AM EDT Martin Snyder MD LAB BLOOD ORDERABLES Final Resu lt [facility] [address] [phone] * (ABNORMAL) CBC with automated diff (05/12/2025 5:57 AM EDT) WBC 5.0 4.0 - 10.0 K/ L 05/12/2025 7:43 AM EDT [facility] RBC 3.20(L) 3.93 - 5.22 M/ L 05/12/2025 7:43 AM EDT [facility] Hemoglobin 9.5(L) 11.2 - 15.7 GM/DL 05/12/2025 7:43 AM EDT [facility] Hematocrit 30.8(L) 34.1 - 44.9 % 05/12/2025 7:43 AM EDT [facility] MCV 96(H) 79 - 95 fL 05/12/2025 7:43 AM EDT [facility] MCH 29.7 25.6 - 32.2 pg 05/12/2025 7:43 AM EDT [facility] MCHC 30.8(L) 32.2 - 35.5 GM/DL 05/12/2025 7:43 AM EDT [facility] RDW 14.2 11.7 - 14.4 % 05/12/2025 7:43 AM EDT [facility] Platelets 177 140 - 375 K/CU MM 05/12/2025 7:43 AM EDT [facility] MPV 11.2 9.4 - 12.3 fL 05/12/2025 7:43 AM EDT [facility] NRBC Absolute <0.01 0 - 0.012 K/ul 05/12/2025 7:43 AM EDT [facility] Blood Venipuncture / Unknown 05/12/2025 5:57 AM EDT 05/12/2025 6:59 AM EDT [facility] - 05/12/2025 7:43 AM EDT When CBC w/ Auto Diff is ordered the lab will add a Manual Differential as a quality check at no additional charge if: Lymphocytes greater than seventy five percent with normal or increased WBC Monocytes greater than Fifteen percent Basophil greater than four percent Bands >10% or several immature myeloids are seen on scan Blast? Flag noted Atypical Lymph flag noted us Martin Snyder MD LAB BLOOD ORDERABLES Final Resu lt [facility] [address] [phone] * (ABNORMAL) Basic Metabolic Panel (05/12/2025 5:57 AM EDT) Sodium 142 136 - 145 meq/L 05/12/2025 7:25 AM EDT [facility] Potassium 3.2(L) 3.4 - 5.1 meq/L 05/12/2025 7:25 AM EDT [facility] CO2 28 22 - 29 meq/L 05/12/2025 [facility] [place] Chloride 104 98 - 112 meq/L 05/12/2025 7:25 AM EDT [facility] Glucose 80(L) 82 - 115 mg/dL 05/12/2025 7:25 AM T [facility] BUN 42.0(H) 9.8 - 20.1 mg/dL 05/12/2025 7:25 AM [facility] Creatinine 1.80(H) 0.57 - 1.11 mg/dL 05/12/2025 7:25 AM [facility] BUN/Creatinine 23(H) 8 - 20 05/12/2025 7:25 AM EDT [facility] Calcium 8.2(L) 8.4 - 10.2 mg/dL 05/12/2025 7:25 AM [facility] Anion Gap 13(H) 4 - 12 05/12/2025 7:25 AM [facility] eGFR (mL/min/1.73m2) 29(L) >=60 mL/min/1.7 3m2 05/12/2025 7:25 AM [facility] Comment:ESTIMATED GFR IS NOT ACCURATE CREATININE CLEARANCE IN PREDICTING GLOMERULAR FILTRATION RATE. ESTIMATED GFR IS NOT APPLICABLE FOR DIALYSIS PATIENTS. Osmolality Calc 292.6 mOsm/kg 7:25 AM T [facility] Blood Venipuncture / Unknown 05/12/2025 5:57 AM EDT 05/12/2025 6:59 AM EDT us Martin Snyder MD LAB BLOOD ORDERABLES Final Resu lt [facility] [address] [phone] * CT ABDOMEN/PELVIS WITHOUT IV CONTRAST Standard Protocol (05/11/2025 8:14 PM EDT) Anatomical Region Laterality Modality Abdomen, Pelvis Computed Tomogra phy (CT) 05/12/2025 5:25 AM EDT Impressions 05/12/2025 5:34 AM EDT No acute inflammatory process identified. Postoperative changes in the abdomen and pelvis. Multiple bilateral renal masses which cannot be accurately characterized without contrast. These could be further evaluated with renal mass protocol CT or MRI. Images reviewed, interpreted, and dictated by Trey Bailey MD Narrative 05/12/2025 5:[address] SCAN OF THE ABDOMEN AND PELVIS WITHOUT CONTRAST HISTORY: Sepsis. PROCEDURE: Axial CT images were obtained from the lung bases to the pubic symphysis without IV contrast administration. Oral contrast was given. Coronal and sagittal reformatted images were also obtained and reviewed. This study was performed with techniques to keep radiation doses as low as reasonably achievable, (ALARA). Individualized dose reduction techniques using automated exposure control or adjustment of mA and/or kV according to the patient size were employed. COMPARISON: None. FINDINGS: LOWER CHEST: The heart is normal in size. There is mild atelectasis or scarring in the lung bases. ABDOMEN/PELVIS: Liver, gallbladder and bile ducts: A less than 1 cm low-attenuation mass is seen in the right hepatic lobe that cannot be accurately characterized without contrast but may represent a small cyst. Postoperative changes are seen from cholecystectomy. No significant biliary ductal dilatation. Adrenal glands: The adrenal glands are morphologically unremarkable without suspicious lesion. Kidneys, ureters and urinary bladder: No renal stone is identified. There is no hydronephrosis. Multiple bilateral renal masses are seen which cannot be accurately characterized without contrast. Several of the masses do not appear to be simple cysts. There is no evidence of ureteral stone. No focal abnormality is seen of the urinary bladder. Spleen: The spleen is normal in size. Pancreas: The pancreas is unremarkable. 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 There is evidence of bowel obstruction. The appendix is not well visualized. Scattered diverticula are seen in the sigmoid colon. There is moderate retained stool throughout the colon. Lymph nodes: No pathologically enlarged abdominal or pelvic lymph nodes are present. Vessels: The abdominal aorta is normal in caliber. Peritoneum: No free intraperitoneal fluid or pneumoperitoneum. Pelvic viscera: Postoperative changes from hysterectomy. Body wall: No acute findings. A small umbilical hernia is seen containing fat only. Bones: No acute fracture. Postoperative changes are seen from fusion from L4 to S1. Degenerative changes are seen throughout the thoracolumbar spine. Procedure Note Trey Bailey MD - 05/12/2025 CT SCAN OF THE ABDOMEN AND PELVIS WITHOUT CONTRAST HISTORY: Sepsis. PROCEDURE: Axial CT images were obtained from the lung bases to the pubic symphysis without IV contrast administration. Oral contrast was given. Coronal and sagittal reformatted images were also obtained and reviewed. This study was performed with techniques to keep radiation doses as low as reasonably achievable, (ALARA). Individualized dose reduction techniques using automated exposure control or adjustment of mA and/or kV according to the patient size were employed. COMPARISON: None. FINDINGS: LOWER CHEST: The heart is normal in size. There is mild atelectasis or scarring in the lung bases. ABDOMEN/PELVIS: Liver, gallbladder and bile ducts: A less than 1 cm low-attenuation mass is seen in the right hepatic lobe that cannot be accurately characterized without contrast but may represent a small cyst. Postoperative changes are seen from cholecystectomy. No significant biliary ductal dilatation. Adrenal glands: The adrenal glands are morphologically unremarkable without suspicious lesion. Kidneys, ureters and urinary bladder: No renal stone is identified. There is no hydronephrosis. Multiple bilateral renal masses are seen which cannot be accurately characterized without contrast. Several of the masses do not appear to be simple cysts. There is no evidence of ureteral stone. No focal abnormality is seen of the urinary bladder. Spleen: The spleen is normal in size. Pancreas: The pancreas is unremarkable. 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 There is evidence of bowel obstruction. The appendix is not well visualized. Scattered diverticula are seen in the sigmoid colon. There is moderate retained stool throughout the colon. Lymph nodes: No pathologically enlarged abdominal or pelvic lymph nodes are present. Vessels: The abdominal aorta is normal in caliber. Peritoneum: No free intraperitoneal fluid or pneumoperitoneum. Pelvic viscera: Postoperative changes from hysterectomy. Body wall: No acute findings. A small umbilical hernia is seen containing fat only. Bones: No acute fracture. Postoperative changes are seen from fusion from L4 to S1. Degenerative changes are seen throughout the thoracolumbar spine. IMPRESSION: No acute inflammatory process identified. Postoperative changes in the abdomen and pelvis. Multiple bilateral renal masses which cannot be accurately characterized without contrast. These could be further evaluated with renal mass protocol CT or MRI. Images reviewed, interpreted, and dictated by Trey Bailey MD us Ulisses Barriga MD IMG CT ORDERABLES Final Resul t * US DOPPLER VENOUS LEGS BILATERAL (05/11/2025 5:15 PM EDT) Anatomical Region Laterality Modality Lower Extremity Vascular Ultraso und 05/11/2025 2:53 PM EDT Narrative 05/12/2025 12:55 PM EDT Vascular Lower Extremities DVT Study Procedure Demographics Patient Name DONTE MONTEJO Age 79 Patient Number [id number] Gender Female Race Unknown Ethnicity Corporate ID [id number] Height 68 Date of 1945 Weight 225 Accession Number [id number] BSA 2.15 m^2 Room Number 415 BMI 34.21 kg/m^2 Referring BIPIN ZACARIAS Interpreting JUSTINA MEMBRENO DO Physician Physician Battery Tester And Repairer MEGHAN RAMIREZ, T Procedure Type of Study: Veins: Venous Duplex, Venous Duplex Legs, Lower Extremities DVT Study, US DOPPLER VENOUS LEGS BILATERAL. Impressions Summary INDICATION: (R09.89) OTHER SPECIFIED SYMPTOMS AND SIGNS INVOLVING THE CIRCULATORY AND RESPIRATORY SYSTEM. INDICATION: Shortness of Breath (R06.02) ############################### BILATERAL: No evidence of deep venous thrombosis (DVT) or superficial venous thrombosis. ############################### Patient Status:Inpatient . Study Location:Portable. Technical Quality:Technically difficult study due to patient's positioning. Velocities are measured in cm/s ; Diameters are measured in mm Right Lower Extremities DVT Study Measurements Right 2D Measurements + + + + + !Location !Visualized !Compressibility !Thrombosis ! + + + + + !GSV Thigh !Yes !Yes !None ! + + + + + !Common Femoral !Yes !Yes !None ! + + + + + !Deep Femoral !Yes !Yes !None ! + + + + + !Prox Femoral !Yes !Yes !None ! + + + + + !Mid Femoral !Yes !Yes !None ! + + + + + !Dist Femoral !Yes !Yes !None ! + + + + + !Popliteal !Yes !Yes !None ! + + + + + !PTV !Yes !Yes !None ! + + + + + !Peroneal !Yes !Yes !None ! + + + + + Right Doppler Measurements + + +------+ + !Location !Signal !Reflux!Reflux (sec) ! + + +------+ + !Common Femoral !Spontaneous Phasic ! ! ! + + +------+ + !Prox Femoral !Spontaneous Phasic ! ! ! + + +------+ + !Deep Femoral !Spontaneous Phasic ! ! ! + + +------+ + !Popliteal !Spontaneous Phasic ! ! ! + + +------+ + Left Lower Extremities DVT Study Measurements Left 2D Measurements + + + + + !Location !Visualized !Compressibility !Thrombosis ! + + + + + !GSV Thigh !Yes !Yes !None ! + + + + + !Common Femoral !Yes !Yes !None ! + + + + + !Deep Femoral !Yes !Yes !None ! + + + + + !Prox Femoral !Yes !Yes !None ! + + + + + !Mid Femoral !Yes !Yes !None ! + + + + + !Dist Femoral !Yes !Yes !None ! + + + + + !Popliteal !Yes !Yes !None ! + + + + + !PTV !Yes !Yes !None ! + + + + + !Peroneal !Yes !Yes !None ! + + + + + Left Doppler Measurements + + +------+ + !Location !Signal !Reflux!Reflux (sec) ! + + +------+ + !Common Femoral !Spontaneous Phasic ! ! ! + + +------+ + !Prox Femoral !Spontaneous Phasic ! ! ! + + +------+ + !Deep Femoral !Spontaneous Phasic ! ! ! + + +------+ + !Popliteal !Spontaneous Phasic ! ! ! + + +------+ + Findings Right Findings No evidence of a deep venous thrombosis (DVT). No evidence of a superficial venous thrombosis. Normal response to augmentation in the supine position. Hard to visualize peroneal veins , but no dilation noted. Left Findings No evidence of a deep venous thrombosis (DVT). No evidence of a superficial venous thrombosis. Normal response to augmentation in the supine position. Signature Procedure Note Justina Membreno DO - 05/12/2025 Vascular Lower Extremities DVT Study Procedure Demographics Patient Name DONTE MONTEJO Age 79 Patient Number [id number] Gender Female Race Unknown Ethnicity Corporate ID [id number] Height 68 Date of 1945 Weight 225 Accession Number [id number] BSA 2.15 m^2 Room Number 415 BMI 34.21kg/m^2 Referring BIPIN ZACARIAS Interpreting JUSTINA BRUNER Physician Physician Battery Tester And Repairer MEGHAN RAMIREZ RVT Procedure Type of Study: Veins: Venous Duplex, Venous Duplex Legs, Lower Extremities DVT Study,US DOPPLER VENOUS LEGS BILATERAL. Impressions Summary INDICATION: (R09.89) OTHER SPECIFIED SYMPTOMS AND SIGNS INVOLVING THE CIRCULATORY AND RESPIRATORY SYSTEM. INDICATION: Shortness of Breath (R06.02) ############################### BILATERAL: No evidence of deep venous thrombosis (DVT) or superficial venous thrombosis. ############################### Patient Status:Inpatient . Study Location:Portable. Technical Quality:Technically difficult study due to patient'spositioning. Velocities are measured in cm/s ; Diameters are measured in mm Right Lower Extremities DVT Study Measurements Right 2D Measurements + + + + + !Location !Visualized !Compressibility !Thrombosis! + + + + + !GSV Thigh !Yes !Yes !None! + + + + + !Common Femoral !Yes !Yes !None! + + + + + !Deep Femoral !Yes !Yes !None! + + + + + !Prox Femoral !Yes !Yes !None! + + + + + !Mid Femoral !Yes !Yes !None! + + + + + !Dist Femoral !Yes !Yes !None! + + + + + !Popliteal !Yes !Yes !None! + + + + + !PTV !Yes !Yes !None! + + + + + !Peroneal !Yes !Yes !None! + + + + + Right Doppler Measurements + + +------+ + !Location !Signal !Reflux!Reflux (sec)! + + +------+ + !Common Femoral !Spontaneous Phasic ! !! + + +------+ + !Prox Femoral !Spontaneous Phasic ! !! + + +------+ + !Deep Femoral !Spontaneous Phasic ! !! + + +------+ + !Popliteal !Spontaneous Phasic ! !! + + +------+ + Left Lower Extremities DVT Study Measurements Left 2D Measurements + + + + + !Location !Visualized !Compressibility !Thrombosis! + + + + + !GSV Thigh !Yes !Yes !None! + + + + + !Common Femoral !Yes !Yes !None! + + + + + !Deep Femoral !Yes !Yes !None! + + + + + !Prox Femoral !Yes !Yes !None! + + + + + !Mid Femoral !Yes !Yes !None! + + + + + !Dist Femoral !Yes !Yes !None! + + + + + !Popliteal !Yes !Yes !None! + + + + + !PTV !Yes !Yes !None! + + + + + !Peroneal !Yes !Yes !None! + + + + + Left Doppler Measurements + + +------+ + !Location !Signal !Reflux!Reflux (sec)! + + +------+ + !Common Femoral !Spontaneous Phasic ! !! + + +------+ + !Prox Femoral !Spontaneous Phasic ! !! + + +------+ + !Deep Femoral !Spontaneous Phasic ! !! + + +------+ + !Popliteal !Spontaneous Phasic ! !! + + +------+ + Findings Right Findings No evidence of a deep venous thrombosis (DVT). No evidence of a superficial venous thrombosis. Normal response to augmentation in the supine position. Hard to visualize peroneal veins , but no dilation noted. Left Findings No evidence of a deep venous thrombosis (DVT). No evidence of a superficial venous thrombosis. Normal response to augmentation in the supine position. Signature Ulises Ruelas PA-C CV VASCULAR ORDERABLES Final Result * XR chest AP portable (05/11/2025 2:16 PM EDT) Anatomical Region Laterality Modality Chest X-Ray 05/11/2025 7:28 PM EDT Impressions 05/11/2025 7:31 PM EDT Underinflation with no acute cardiopulmonary process. Images reviewed, interpreted, dictated and electronically signed by Pio Angel MD Voice residence supervisor technology (Power Scribe) is used for the dictation of this note and sound-alike words might be erroneously placed despite reviewing this note for accuracy. Errors in dictation may reflect use of voice recognition software and not all errors in residence supervisor may have been detected prior to signing. Narrative 05/11/2025 7:31 PM EDT PORTABLE CHEST HISTORY: Shortness of breath. COMPARISON: 05/09/2025. FINDINGS: A single portable radiograph of the chest was performed. A spinal stimulator seen in the midthoracic spine. The heart is normal in size. The lungs are hypoaerated. The patient is kyphotic and rotated. Procedure Note Pio Angel MD - 05/11/2025 PORTABLE CHEST HISTORY: Shortness of breath. COMPARISON: 05/09/2025. FINDINGS: A single portable radiograph of the chest was performed. A spinal stimulator seen in the midthoracic spine. The heart is normal in size. The lungs are hypoaerated. The patient is kyphotic and rotated. IMPRESSION: Underinflation with no acute cardiopulmonary process. Images reviewed, interpreted, dictated and electronically signed by Pio Angel MD Voice residence supervisor technology (Power Scribe) is used for the dictation of this note and sound-alike words might be erroneously placed despite reviewing this note for accuracy. Errors in dictation may reflect use of voice recognition software and not all errors in residence supervisor may have been detected prior to signing. Pio Angel MD IMG DIAGNOSTIC IMAGING ORDERABL ES Final Result * NM lung perfusion scan (05/11/2025 12:57 PM EDT) Anatomical Region Laterality Modality Chest, Lung Nuclear Medicine 05/11/2025 3:02 PM EDT Impressions 05/11/2025 3:11 PM EDT Low probability for PE . Images reviewed, interpreted, and dictated by Dr. Pio Angel. Transcribed by Kun Rivera PA-C. Narrative 05/11/2025 3:11 PM EDT NUCLEAR MEDICINE LUNG PERFUSION SCAN HISTORY: Shortness of breath. PROCEDURE: The patient was injected with 5.5 mCi of Tc 99m MAA. Images over the lungs were obtained in multiple projections. FINDINGS: Overall, perfusion is superior to ventilation . There is a questionable segmental defect within the anterior right upper lobe which is not definitely seen on all images. This may represent a single segmental defect, based on criteria this remains low probability. Procedure Note Pio Angel MD - 05/11/2025 NUCLEAR MEDICINE LUNG PERFUSION SCAN HISTORY: Shortness of breath. PROCEDURE: The patient was injected with 5.5 mCi of Tc 99m MAA. Images over the lungs were obtained in multiple projections. FINDINGS: Overall, perfusion is superior to ventilation . There is a questionable segmental defect within the anterior right upper lobe which is not definitely seen on all images. This may represent a single segmental defect, based on criteria this remains low probability. IMPRESSION: Low probability for PE . Images reviewed, interpreted, and dictated by Dr. Pio Angel. Transcribed by Kun Rivera PA-C. Ulises Ruelas PA-C IM NM ORDERABLES Final Resu lt * ECHO COMPLETE (DOPPLER / COLOR) WO CONTRAST (05/11/2025 10:29 AM EDT) Anatomical Region Laterality Modality Heart Vascular Ultraso und 05/11/2025 9:52 AM EDT Narrative 05/11/2025 12:10 PM EDT TRANSTHORACIC ECHOCARDIOGRAPHY REPORT Demographics Patient Name: DONTE MONTEJO : 1945 Age: 79 year(s) Corporate ID Number: [id number] Gender Female Battery Tester And Repairer: Angelica EGAN Height: 68 inches Referring Physician: ARACELI TURNER Weight: 225 pounds Interpreting Physician: JUSTINA MEMBREON DO BMI: 34.21 kg/m^2 Date of Service: 05/11/2025 Blood Pressure: 111/59 mmHg Room Number: 415 Type of Study: TTE procedure: ECHO COMPLETE (DOPPLER / COLOR) W OR WO CONTRAST. Patient Status: Routine IP Study Location: [facility] Quality: Adequate visualization History/Tech Notes: Indication: shortness of breath R06.02 Impression: ######################################## Normal sized left ventricle. Moderate left ventricular hypertrophy. Increased velocitites noted through LVOT. Visually estimated ejection fraction 55% +/- 5%. Normal left ventricular systolic function. Normal left ventricular diastolic function. No hemodynamically significant valvular heart disease. ######################################## Measurements Summary: LVEDd: 4.52 cm LVESd: 2.62 cm IVSEd: 1.35 cm AO Root:2.75 cm LVPWd: 0.96 cm Contractility Score Normal Left Ventricular contractility was noted. LV regional wall motion: (0-Not visualized 1-Normal 2-Hypokinesis 3-Akinesis 4-Dyskinesis 5-Aneurysm) Left Ventricle Peak E-wave: 0.74 m/s Peak A-wave: 0.73 m/s E/A ratio: 1.02 Volume irmwhujhj00.2 ml Volume .08 ml LVOT diameter: 2.05 cm Normal sized left ventricle. Moderate left ventricular hypertrophy. Increased velocitites noted through LVOT. Visually estimated ejection fraction 55% +/- 5%. Unable to measure systolic strain due to poorly visualized wall segments. Normal left ventricular systolic function. Normal left ventricular diastolic function. No left ventricular masses or thrombi. Right Ventricle Diastolic dimension: 3.04 cm Normal sized right ventricle. Normal TAPSE c/w normal right ventricular function Left Atrium LA area: 19.98 cm^2 LA volume:61.05 ml LA dimension: 3.47 cm LA/Aorta: 1.26 Normal sized left atrium. Normal left atrial volume index 28.40 ml/m^2. Intact atrial septum. No atrial mass or thrombus. Right Atrium Normal sized right atrium. Intact atrial septum. No atrial mass or thrombus. Mitral Valve Deceleration time: 235.42 msec Structurally normal mitral valve. Mitral valve annulus calcification. Mild (1+) mitral regurgitation. No mitral stenosis. No masses or vegetations seen. Aortic Valve LVOT VTI: 26.41 cm Aortic valve is not well visualized. No aortic regurgitation. No aortic stenosis. No masses or vegetations seen. Tricuspid Valve Estimated RAP: 3 mmHg Structurally normal tricuspid valve. No tricuspid regurgitation. No tricuspid stenosis. No masses or vegetations seen. Pulmonic Valve Acceleration time: 85.63 msec Structurally normal pulmonic valve. Abnormal pulmonary acceleration time. No pulmonic regurgitation. No pulmonic stenosis. No masses or vegetations seen. Great Vessels Aorta Aortic Root: 2.75 cm LVOT Diameter: 2.05 cm Visualized thoracic aorta is normal. Normal aortic root. No evidence of dissection. IVC is not well visualized. Pericardium / Pleura No pericardial effusion. Procedure Note Justina Membreno DO - 05/11/2025 TRANSTHORACIC ECHOCARDIOGRAPHY REPORT Demographics Patient Name: DONTE MONTEJO : 1945 Age: 79 year(s) Corporate ID Number: [id number] Gender Female Battery Tester And Repairer: Angelica EGAN Height: 68 inches Referring Physician: ARACELI TURNER Weight: 225 pounds Interpreting Physician: JUSTINA MEMBRENO DO BMI: 34.21kg/m^2 Date of Service: 05/11/2025 Blood Pressure: 111/59 mmHg Room Number: 415 Type of Study: TTE procedure: ECHO COMPLETE (DOPPLER / COLOR) W OR WO CONTRAST. Patient Status: Routine [facility] Quality: Adequate visualization History/Tech Notes: Indication: shortness of breath R06.02 Impression: ######################################## Normal sized left ventricle. Moderate left ventricular hypertrophy. Increased velocitites noted through LVOT. Visually estimated ejection fraction 55% +/- 5%. Normal left ventricular systolic function. Normal left ventricular diastolic function. No hemodynamically significant valvular heart disease. ######################################## Measurements Summary: LVEDd: 4.52 cm LVESd: 2.62 cm IVSEd: 1.35 cm AO Root:2.75 cm LVPWd: 0.96 cm Contractility Score Normal Left Ventricular contractility was noted. LV regional wall motion: (0-Not visualized 1-Normal 2-Hypokinesis 3-Akinesis 4-Dyskinesis 5-Aneurysm) Left Ventricle Peak E-wave: 0.74 m/s Peak A-wave: 0.73 m/s E/A ratio: 1.02 Volume uxynrfslb45.2 ml Volume ykvtnbtr74.08 ml LVOT diameter: 2.05 cm Normal sized left ventricle. Moderate left ventricular hypertrophy. Increased velocitites notedthrough LVOT. Visually estimated ejection fraction 55% +/- 5%. Unable to measure systolic strain due to poorly visualized wallsegments. Normal left ventricular systolic function. Normal left ventricular diastolic function. No left ventricular masses or thrombi. Right Ventricle Diastolic dimension: 3.04 cm Normal sized right ventricle. Normal TAPSE c/w normal right ventricular function Left Atrium LA area: 19.98 cm^2 LA volume:61.05 ml LA dimension: 3.47 cm LA/Aorta: 1.26 Normal sized left atrium. Normal left atrial volume index 28.40 ml/m^2. Intact atrial septum. No atrial mass or thrombus. Right Atrium Normal sized right atrium. Intact atrial septum. No atrial mass or thrombus. Mitral Valve Deceleration time: 235.42 msec Structurally normal mitral valve. Mitral valve annulus calcification. Mild (1+) mitral regurgitation. No mitral stenosis. No masses or vegetations seen. Aortic Valve LVOT VTI: 26.41 cm Aortic valve is not well visualized. No aortic regurgitation. No aortic stenosis. No masses or vegetations seen. Tricuspid Valve Estimated RAP: 3 mmHg Structurally normal tricuspid valve. No tricuspid regurgitation. No tricuspid stenosis. No masses or vegetations seen. Pulmonic Valve Acceleration time: 85.63 msec Structurally normal pulmonic valve. Abnormal pulmonary acceleration time. No pulmonic regurgitation. No pulmonic stenosis. No masses or vegetations seen. Great Vessels Aorta Aortic Root: 2.75 cm LVOT Diameter: 2.05 cm Visualized thoracic aorta is normal. Normal aortic root. No evidence of dissection. IVC is not well visualized. Pericardium / Pleura No pericardial effusion. Arcaeli Turner APRN CV ECHO ORDERABLES Final R esult * (ABNORMAL) Manual Differential (05/11/2025 10:04 AM EDT) Total Counted 99 05/11/2025 1:59 PM EDT [facility] % Neutros (manual) 80(H) 50 - 65 % 05/11/2025 1:59 PM EDT [facility] % Bands (manual) 2 % 05/11/2025 1:59 PM EDT [facility] % Lymphs (manual) 11(L) 24 - 44 % 05/11/2025 1:59 PM EDT [facility] Comment:55% appear to be aty pical/reactive lymphs % Monos (manual) 6(H) 4 - 5 % 05/11/2025 1:59 PM EDT [facility] % Baso (manual) 1 0 - 1 % 1:59 PM EDT [facility] RBC Morphology abnormal(A) Normal 1:59 PM EDT [facility] Platelet Estimate Adequate Adequate 05/11/2025 1:59 PM EDT [facility] Hypochromia 1+ 05/11/2025 1:59 PM EDT [facility] ANC# 4.34 K/ L 05/11/2025 1:59 PM EDT [facility] Blood Venipuncture / Unknown 05/11/2025 10:04 AM EDT 05/11/2025 10:58 AM EDT Martin Snyder MD LAB BLOOD ORDERABLES Final Resu lt Performing Organization Address City/[facility]/ZIP Co de Phone Number [facility] [address] [phone] * Magnesium (05/11/2025 10:04 AM EDT) Magnesium 1.8 1.6 - 2.6 mg/dL 05/11/2025 11:23 AM EDT [facility] Blood Venipuncture / Unknown 05/11/2025 10:04 AM EDT 05/11/2025 10:58 AM EDT Martin Snyder MD LAB BLOOD ORDERABLES Final Resu lt [facility] [address] [phone] * (ABNORMAL) Hepatic function panel (05/11/2025 10:04 AM EDT) Protein, Total 5.8(L) 6.4 - 8.3 g/dL 05/11/2025 11:26 AM EDT [facility] Albumin 2.1(L) 3.5 - 5.0 g/dL 05/11/2025 11:26 AM EDT [facility] Total Bilirubin 0.2 0.2 - 1.2 mg/dL 05/11/2025 11:26 AM EDT [facility] Bilirubin, Direct 0.1 0.0 - 0.5 mg/dL 05/11/2025 11:26 AM EDT [facility] Alkaline Phosphatase 113 40 - 150 U/L 05/11/2025 11:26 AM EDT [facility] Globulin 3.7 2.5 - 4.1 g/dL 05/11/2025 [facility] [place] A/G Ratio 0.6(L) 0.7 - 1.9 05/11/2025 11:26 AM EDT [facility] AST 27 11 - 34 U/L 05/11/2025 11:26 AM EDT [facility] Comment: AST2 reagent used for testing does not contain P5P supplementation and therefore may miss AST elevations in patients with B6 deficiency. This population may be as high as 10% in the [place], with risk factors including malabsorption, drug interactions, and alcoholic hepatitis. ALT 38(H) <=34 U/L 05/11/2025 11:26 AM EDT [facility] Comment: ALT2 reagent used for testing does not contain P5P supplementation and therefore may miss ALT elevations in patients with B6 deficiency. This population may be as high as 10% in the [place], with risk factors including malabsorption, drug interactions, and alcoholic hepatitis. Blood Venipuncture / Unknown 05/11/2025 10:04 AM EDT 05/11/2025 10:58 AM EDT us Martin Snyder MD LAB BLOOD ORDERABLES Final Resu lt [facility] [address] [place], [place] [address] [phone] * (ABNORMAL) CBC with automated diff (05/11/2025 10:04 AM EDT) WBC 5.3 4.0 - 10.0 K/ L 05/11/2025 11:21 AM EDT [facility] RBC 3.36(L) 3.93 - 5.22 M/ L 05/11/2025 11:21 AM EDT [facility] Hemoglobin 9.8(L) 11.2 - 15.7 GM/DL 05/11/2025 11:21 AM EDT [facility] Hematocrit 32.5(L) 34.1 - 44.9 % 05/11/2025 11:21 AM EDT [facility] MCV 97(H) 79 - 95 fL 05/11/2025 11:21 AM EDT [facility] MCH 29.2 25.6 - 32.2 pg 05/11/2025 11:21 AM EDT [facility] MCHC 30.2(L) 32.2 - 35.5 GM/DL 05/11/2025 11:21 AM T [facility] RDW 14.4 11.7 - 14.4 % 05/11/2025 11:21 AM T [facility] Platelets 164 140 - 375 K/CU MM 05/11/2025 11:21 AM [facility] MPV 11.3 9.4 - 12.3 fL 05/11/2025 11:21 AM [facility] NRBC Absolute <0.01 0 - 0.012 K/ul 05/11/2025 11:21 AM [facility] Blood Venipuncture / Unknown 05/11/2025 10:04 AM EDT 05/11/2025 10:58 AM EDT Narrative [facility] - 05/11/2025 11:21 AM EDT When CBC w/ Auto Diff is ordered the lab will add a Manual Differential as a quality check at no additional charge if: Lymphocytes greater than seventy five percent with normal or increased WBC Monocytes greater than Fifteen percent Basophil greater than four percent Bands >10% or several immature myeloids are seen on scan Blast? Flag noted Atypical Lymph flag noted us Martin Snyder MD LAB BLOOD ORDERABLES Final Resu lt [facility] [address] [place] [address], [facility] [phone] * (ABNORMAL) Basic Metabolic Panel (05/11/2025 10:04 AM EDT) Sodium 140 136 - 145 meq/L 05/11/2025 11:23 AM EDT [facility] Potassium 3.0(L) 3.4 - 5.1 meq/L 05/11/2025 11:23 AM EDT [facility] [facility] CO2 27 22 - 29 meq/L 05/11/2025 11:23 AM EDT [facility] Chloride 103 98 - 112 meq/L 05/11/2025 11:23 AM EDT [facility] Glucose 95 82 - 115 mg/dL 05/11/2025 11:23 AM EDT [facility] BUN 45.3(H) 9.8 - 20.1 mg/dL 05/11/2025 11:23 AM EDT [facility] Creatinine 1.92(H) 0.57 - 1.11 mg/dL 05/11/2025 11:23 AM EDT [facility] BUN/Creatinine 24(H) 8 - 20 05/11/2025 11:23 AM EDT [facility] Calcium 8.4 8.4 - 10.2 mg/dL 05/11/2025 11:23 AM EDT [facility] Anion Gap 13(H) 4 - 12 05/11/2025 11:23 AM EDT [facility] eGFR (mL/min/1.73m2) 27(L) >=60 mL/min/1.7 3m2 05/11/2025 11:23 AM EDT [facility] Comment:ESTIMATED GFR IS NOT ACCURATE CREATININE CLEARANCE IN PREDICTING GLOMERULAR FILTRATION RATE. ESTIMATED GFR IS NOT APPLICABLE FOR DIALYSIS PATIENTS. Osmolality Calc 290.9 mOsm/kg 11:23 AM T [facility] Blood Venipuncture / Unknown 05/11/2025 10:04 AM EDT 05/11/2025 10:58 AM EDT us Martin Snyder MD LAB BLOOD ORDERABLES Final Resu lt [facility] [address] [phone] * (ABNORMAL) Urinalysis, Reflex Microscopic and Culture If Indicated (05/11/2025 1:39 AM EDT) Color, UA Colorless 05/11/2025 1:57 AM EDT [facility] Clarity, UA Clear Clear 05/11/2025 1:57 AM EDT [facility] Specific [place], UA 1.010 1.005 - 1.030 05/11/2025 1:57 AM EDT [facility] pH, UA 5.5(L) 6.0 - 8.0 05/11/2025 1:57 AM EDT [facility] Leukocytes, UA Negative Negative 05/11/2025 1:57 AM EDT [facility] Nitrite, UA Negative Negative 05/11/2025 1:57 AM EDT [facility] Protein, UA Negative Negative 05/11/2025 1:57 AM EDT [facility] Glucose, UA Normal Normal 05/11/2025 1:57 AM EDT [facility] Ketones, UA Negative Negative 05/11/2025 1:57 AM EDT [facility] Bilirubin, UA Negative Negative 05/11/2025 1:57 AM EDT [facility] Blood, UA Negative Negative 05/11/2025 1:57 AM EDT [facility] Urobilinogen, UA Normal Normal 05/11/2025 1:57 AM EDT [facility] Specimen Source Urine, Clean Catch 05/11/2025 1:57 AM EDT [facility] Urine URINE SPECIMEN COLLECTION, CLEAN CATCH / Unknown 05/11/2025 1:39 AM EDT 05/11/2025 1:39 AM EDT us Ulises Ruelas PA-C URINE ORDERABLES Final Resul t Performing Organization Address [facility]/ZIP Co de Phone Number [facility] [address] [phone] * (ABNORMAL) Basic Metabolic Panel (05/10/2025 6:26 AM EDT) Sodium 137 136 - 145 meq/L 05/10/2025 7:04 AM EDT [facility] Potassium 3.5 3.4 - 5.1 meq/L 05/10/2025 7:04 AM EDT [facility] CO2 25 22 - 29 meq/L 05/10/2025 7:04 AM EDT [facility] Chloride 102 98 - 112 meq/L 05/10/[facility]25 [facility] [place] Glucose 104 82 - 115 mg/dL 05/10/2025 7:04 AM [facility] BUN 52.6(H) 9.8 - 20.1 mg/dL 05/10/2025 7:04 AM [facility] Creatinine 2.05(H) 0.57 - 1.11 mg/dL 05/10/2025 7:04 AM [facility] BUN/Creatinine 26(H) 8 - 20 05/10/2025 7:04 AM [facility] Calcium 8.3(L) 8.4 - 10.2 mg/dL 05/10/2025 7:04 AM [facility] Anion Gap 14(H) 4 - 12 05/10/2025 7:04 AM [facility] eGFR (mL/min/1.73m2) 25(L) >=60 mL/min/1.7 3m2 05/10/2025 7:04 AM [facility] Comment:ESTIMATED GFR IS NOT ACCURATE CREATININE CLEARANCE IN PREDICTING GLOMERULAR FILTRATION RATE. ESTIMATED GFR IS NOT APPLICABLE FOR DIALYSIS PATIENTS. Osmolality Calc 288.4 mOsm/kg 7:04 AM [facility] Blood Venipuncture / Unknown 05/10/2025 6:26 AM EDT 05/10/2025 6:35 AM EDT us Ulises Ruelas PA-C LAB BLOOD ORDERABLES Final R esult [facility] [address] [phone] * ECG 12 lead (05/09/2025 11:45 PM EDT) [facility] VENTRICULAR RATE EKG/MIN 102 BPM GE MUSE ATRIAL RATE (MCT) 102 BPM GE MUSE QRS-INTERVAL (MSEC) 92 ms GE MUSE QT Interval 367 ms GE MUSE QTC Interval 478 ms GE MUSE R AXIS (MCT) 57 degrees GE MUSE T Wave [place] 57 degrees GE MUSE Jamul Diagnosis Undetermined rhythm Nonspecific T wave abnormality Abnormal ECG When compared with ECG of 09-MAY-2025 20:47, Current undetermined rhythm precludes rhythm comparison, needs review Nonspecific T wave abnormality no longer evident in Inferior leads Confirmed by Gregory SANDERSON, JERAMIE ([id number]) on 05/10/2025 2:36:24 PM GE MUSE 05/09/2025 11:4 5 PM EDT 05/10/2025 2:36 PM EDT Jyoti VALIENTE-C ECG ORDERABLES Final Result Performing Organization Address [facility] de Phone Number GE MUSE * Lactic acid (SJ) (05/09/2025 11:18 PM EDT) [facility] Lactic Acid Level (mmol/L) 1.0 0.5 - 2.2 mmol/L 05/09/2025 11:43 PM EDT [facility] Blood Venipuncture / Unknown 05/09/2025 11:18 PM EDT 05/09/2025 11:23 PM EDT Jyoti VALIENTE-C LAB BLOOD ORDERABLES Final R esult Performing Organization Address [facility] Co de Phone Number [facility] [address] [phone] * (ABNORMAL) Blood Culture Panel(BioFire) (05/09/2025 10:40 PM EDT) [facility] CTX-M Not detected Not detected 05/10/2025 4:24 PM EDT [facility] IMP Not detected Not detected 05/10/2025 4:24 PM EDT [facility] KPC Not detected Not detected 05/10/2025 4:24 PM EDT [facility] MCR-1 Not detected Not detected 05/10/2025 4:24 PM EDT [facility] MEC A/C Non Applicable Not detected 05/10/2025 4:24 PM EDT [facility] MEC A/C and MREJ Non Applicable Not detected 05/10/2025 4:24 PM EDT [facility] NDM Not detected Not detected 05/10/2025 4:24 PM EDT [facility] [id number] Not detected Not Detected 05/10/2025 4:24 PM EDT [facility] VAN A/B Non Applicable Not detected 05/10/2025 4:24 PM EDT [facility] VIM Not detected Not detected 05/10/2025 4:24 PM EDT [facility] ENTEROCOCCUS FAECALIS Not detected Not detected 05/10/2025 4:24 PM EDT [facility] ENTEROCOCCUS FAECIUM Not detected Not detected 05/10/2025 4:24 PM EDT [facility] LISTERIA MONOCYTOGENES Not detected Not detected 05/10/2025 4:24 PM EDT [facility] STAPHYLOCOCCUS Not detected Not detected 05/10/2025 4:24 PM EDT [facility] STAPHYLOCOCCUS AUREUS Not detected Not detected 05/10/2025 4:24 PM EDT [facility] STAPHYLOCOCCUS EPIDERMIDIS Not detected Not detected 05/10/2025 4:24 PM EDT [facility] STAPHYLOCOCCUS LUGDENENSIS Not detected Not detected 05/10/2025 4:24 PM EDT [facility] STREPTOCOCCUS Not detected Not detected 05/10/2025 4:24 PM EDT [facility] STREPTOCOCCUS AGALACTIAE (GROUP B) Not detected Not detected 05/10/2025 4:24 PM EDT [facility] STREPTOCOCCUS PNEUMONIAE Not detected Not detected 05/10/2025 4:24 PM EDT [facility] STREPTOCOCCUS PYOGENES (GROUP A) Not detected Not detected 05/10/2025 4:24 PM EDT [facility] ACINETOBACTER CALCOACETICUS-MAGDY UNA COMPLEX Not detected Not detected 05/10/2025 4:24 PM EDT [facility] BACTEROIDES FRAGILIS Not detected Not detected 05/10/2025 4:24 PM EDT [facility] ENTEROBACTERIACEAE Detected(AA) Not detected 05/10/2025 4:24 PM EDT [facility] Comment:Enterobacterales rep resents a large order of gram negative bacteria, not a single organism ENTEROBACTER CLOACAE COMPLEX Not detected Not detected 05/10/2025 4:24 PM EDT [facility] ESCHERICHIA COLI Detected(AA) Not detected 05/10/2025 4:24 PM EDT [facility] KLEBSIELLA AEROGENES Not detected Not detected 05/10/2025 4:24 PM EDT [facility] KLEBSIELLA OXYTOCA Not detected Not detected 05/10/2025 4:24 PM EDT [facility] KLEBSIELLA PNEUMONIAE GROUP Not detected Not detected 05/10/2025 4:24 PM EDT [facility] PROTEUS Not detected Not detected 05/10/2025 4:24 PM EDT [facility] SALMONELLA SPECIES Not detected Not detected 05/10/2025 4:24 PM EDT [facility] SERRATIA MARCESCENS Not detected Not detected 05/10/2025 4:24 PM EDT [facility] HAEMOPHILUS INFLUENZAE Not detected Not detected 05/10/2025 4:24 PM EDT [facility] NEISSERIA MENINGITIDIS Not detected Not detected 05/10/2025 4:24 PM EDT [facility] PSEUDOMONAS AERUGINOSA Not detected Not detected 05/10/2025 4:24 PM EDT [facility] STENOTROPHOMONAS MALTOPHILIA Not detected Not detected 05/10/2025 4:24 PM EDT [facility] KELLY ALBICANS Not detected Not detected 05/10/2025 4:24 PM EDT [facility] KELLY AURIS Not detected Not detected 05/10/2025 4:24 PM EDT [facility] KELLY GLABRATA Not detected Not detected 05/10/2025 4:24 PM EDT [facility] KELLY KRUSEI Not detected Not detected 05/10/2025 4:24 PM EDT [facility] KELLY PARAPSILOSIS Not detected Not detected 05/10/2025 4:24 PM EDT [facility] KELLY TROPICALIS Not detected Not detected 05/10/2025 4:24 PM EDT [facility] CRYPTOCOCCUS NEOFORMANS/GATTII Not detected Not detected 05/10/2025 4:24 PM EDT [facility] Blood Venipuncture / Unknown 05/09/2025 10:40 PM EDT 05/09/2025 10:44 PM EDT [facility] - 05/10/2025 4:24 PM EDT NOTE: Antimicrobial resistance can occur via multiple mechanisms. A Not Detected result for antimicrobial resistance gene(s) does not indicate antimicrobial susceptibility. Subculturing is required for species identification and susceptibility testing of isolates. us Jyoti Montana PA-C MICROBIOLOGY - GENERAL ORDER KAJAL Final Result [facility] [address] [phone] * (ABNORMAL) Blood Culture (05/09/2025 10:40 PM EDT) Result Escherichia coli(A) 05/12/2025 10:03 AM EDT [facility] Gram Stain Result Aerobic bottle gram stain gram negative rods(AA) 05/12/2025 10:03 AM EDT [facility] Blood ENTIRE LEFT UPPER ARM / Unknown Venipuncture / Unknown 05/09/2025 10:40 PM EDT 05/09/2025 10:44 PM EDT [facility] - 05/12/2025 10:03 AM EDT Positive Blood culture. Note cultures and clinical presentation before starting antibiotics In 1 of 2 blood culture bottles drawn Organism Antibiotic Method Susceptibility Escherichia coli Amikacin <=16: Susceptible Escherichia coli Amoxicillin + Clavulanate <=8/4: Susceptible Escherichia coli Ampicillin <=8: Susceptible Escherichia coli Ampicillin + Sulbactam <=4/2: Susceptible Escherichia coli Aztreonam <=4: Susceptible Escherichia coli Cefazolin <=2: Susceptible Escherichia coli Cefepime <=2: Susceptible Escherichia coli Cefotaxime <=2: Susceptible Escherichia coli Cefoxitin <=8: Susceptible Escherichia coli Ceftazidime <=1: Susceptible Escherichia coli Ceftriaxone <=1: Susceptible Escherichia coli Cefuroxime <=4: Susceptible Escherichia coli Ciprofloxacin <=0.25: Susceptible Escherichia coli Ertapenem <=0.5: Susceptible Escherichia coli Gentamicin <=2: Susceptible Escherichia coli Imipenem <=1: Susceptible Escherichia coli Levofloxacin <=0.5: Susceptible Escherichia coli Meropenem <=1: Susceptible Escherichia coli Minocycline <=4: Susceptible Escherichia coli Moxifloxacin <=2: Susceptible Escherichia coli Piperacillin + Tazobactam <=8: Susceptible Escherichia coli Tetracycline <=4: Susceptible Escherichia coli Tigecycline <=2: Susceptible Escherichia coli Tobramycin <=2: Susceptible Escherichia coli Trimethoprim + Sulfamethoxazole <=0.5/9.5: Susceptible Jyoti VALIENTEAppBrick MICROBIOLOGY - GENERAL ORDER KAJAL Final Result Performing Organization Address [facility] Co de Phone Number [facility] [address] [phone] * (ABNORMAL) Blood Culture (05/09/2025 10:40 PM EDT) Result Escherichia coli(A) 05/12/2025 10:04 AM EDT [facility] Comment:Refer to previous cu lture of - [id number] Gram Stain Result Aerobic bottle gram stain gram negative rods(AA) 05/12/2025 10:04 AM EDT [facility] Blood ENTIRE RIGHT UPPER ARM / Unknown Venipuncture / Unknown 05/09/2025 10:40 PM EDT 05/09/2025 10:44 PM EDT Narrative [facility] - 05/12/2025 10:04 AM EDT Positive Blood culture. Note cultures and clinical presentation before starting antibiotics Blood culture identification by PCR was performed on a previous accession. See accession: [id number] In 1 of 2 blood culture bottles drawn Jyoti VALIENTEApp[employer]rick MICROBIOLOGY - GENERAL ORDER KAJAL Final Result Performing Organization Address [facility] Co de Phone Number [facility] [address] [phone] * COVID ANTIGEN (05/09/2025 9:26 PM EDT) SARS COVID ANTIGEN Negative Negative, Invalid 05/09/2025 9:57 PM EDT [facility] Nasal Swab (Nasal) 05/09/2025 9:26 PM EDT 05/09/2025 9:39 PM EDT Narrative [facility] - 05/09/2025 9:57 PM EDT The BD Veritor System for Rapid Detection of SARS-CoV-2 does not differentiate between SARS-CoV and SARS-CoV-2.The BD Veritor System for Rapid Detection of SARS-CoV-2 is only for in vitro diagnostic use under the Food and Drug Administration's Emergency Use Authorization. This product has not been FDA cleared or approved. Results should be correlated with the clinical history, epidemiological data, and other data available to the clinician evaluating the patient. SARS-CoV-2 viral antigens are generally detectable in anterior nasal swab specimens during the acute phase of infection. Positive results indicate the presence of viral antigens, but clinical correlation with patient history and other diagnostic information is necessary to determine infection status. Negative results are presumptive, do not rule out SARS-CoV-2 infection, and should not be used as the sole basis for treatment or patient management decisions, including infection control measures such as isolating from others and wearing masks. Serial testing should be performed in individuals with negative results at least twice over three days (with 48 hours between tests) for symptomatic individuals. Confirmation with a molecular assay may be necessary if there is a high likelihood of SARS-CoV-2 infection. Jyoti Montana PA-C MICROBIOLOGY - GENERAL ORDER KAJAL Final Result [facility] [address] [phone] * (ABNORMAL) Lactic Acid with reflex (SJ) (05/09/2025 9:26 PM EDT) Lactic Acid Level (mmol/L) 2.2(HH) 0.5 - 2.2 mmol/L 05/09/2025 10:32 PM EDT [facility] Blood Venipuncture / Unknown 05/09/2025 9:26 PM EDT 05/09/2025 10:09 PM EDT Jyoti Montana PA-C LAB BLOOD ORDERABLES Final R esult [facility] [address] [place] [address], [facility] [phone] * XR chest 1 view portable / bedside (05/09/2025 9:20 PM EDT) Anatomical Region Laterality Modality X-Ray 05/10/2025 8:17 AM EDT Impressions 05/10/2025 9:02 AM EDT 1. Underinflation with chronic changes at the lung bases. Images reviewed, interpreted, and dictated by Lisandro Zapata MD Narrative 05/10/2025 9:02 AM EDT Name: ELISSA KENT : 1945 CHEST SINGLE VIEW HISTORY: Chest pain. Shortness of breath. FINDINGS: Lungs are underinflated. Cardiac silhouette measures at the upper limits of normal in size. Mild chronic changes are seen at the lung bases. Stimulator leads are identified in the lower thoracic spine. Procedure Note Lisandro Zapata MD - 05/10/2025 Name: ELISSA KENT : 1945 CHEST SINGLE VIEW HISTORY: Chest pain. Shortness of breath. FINDINGS: Lungs are underinflated. Cardiac silhouette measures at the upper limits of normal in size. Mild chronic changes are seen at the lung bases. Stimulator leads are identified in the lower thoracic spine. IMPRESSION: 1. Underinflation with chronic changes at the lung bases. Images reviewed, interpreted, and dictated by Lisandro Zapata MD us Jyoti Montana PA-C IMG DIAGNOSTIC IMAGING ORDER KAJAL Final Result * (ABNORMAL) D-dimer (05/09/2025 9:09 PM EDT) D-Dimer, Quant 1.40(H) 0.19 - 0.58 MG/L FEU 05/09/2025 9:33 PM EDT [facility] Comment:Important: A D-Dimer result of less than 0.50 mg/L FEU indicates a very low probability of DVT or PE. Blood Venipuncture / Unknown 05/09/2025 9:09 PM EDT 05/09/2025 9:19 PM EDT Jyoti Montana PA-C LAB BLOOD ORDERABLES Final R esult Performing Organization Address City/[facility]/ZIP Co de Phone Number [facility] [address] [phone] * TSH (05/09/2025 9:09 PM EDT) Pathologist [facility] TSH 0.948 0.350 - 4.940 uIU/mL 05/09/2025 10:05 PM EDT [facility] Blood Venipuncture / Unknown 05/09/2025 9:09 PM EDT 05/09/2025 9:19 PM EDT Jyoti Shantell Rubén PA-C LAB BLOOD ORDERABLES Final R esult Performing Organization Address [facility] de Phone Number [facility] [address] [phone] * High Sensitivity Troponin I (05/09/2025 9:09 PM EDT) Pathologist [facility] Troponin I High Sensitivity (pg/mL) 6.2 <=14 pg/mL 05/09/2025 9:50 PM EDT [facility] Blood Venipuncture / Unknown 05/09/2025 9:09 PM EDT 05/09/2025 9:19 PM EDT Narrative [facility] - 05/09/2025 9:50 PM EDT Applicable to [facility] only. Effective December 02 the lab will begin using a new chemistry analyzer. HsTroponin methodology, reference ranges and critical values have changed. Jyoti Shantell Rubén PA-C LAB BLOOD ORDERABLES Final R esult [facility] [address] [phone] * (ABNORMAL) PROBNP (05/09/2025 9:09 PM EDT) ProBNP (pg/mL) 1,896(H) 16 - 956 pg/mL 05/09/2025 10:05 PM EDT [facility] Blood Venipuncture / Unknown 05/09/2025 9:09 PM EDT 05/09/2025 9:19 PM EDT Narrative [facility] - 05/09/2025 10:05 PM EDT As of January 29, 2025: NT-ProBNP is a new test on our [employer]erbee Immunoassay analyzer. Please review new age and gender specific reference ranges. us Jyoti VALIENTE-C LAB BLOOD ORDERABLES Final R esult Performing Organization Address [facility]/ZIP Co de Phone Number [facility] [address] [phone] * Magnesium (05/09/2025 9:09 PM EDT) [facility] Magnesium 1.9 1.6 - 2.6 mg/dL 05/09/2025 10:05 PM EDT [facility] Blood Venipuncture / Unknown 05/09/2025 9:09 PM EDT 05/09/2025 9:19 PM EDT us Jyoti VALIENTE-C LAB BLOOD ORDERABLES Final R esult [facility] [address] [phone] * (ABNORMAL) Comprehensive metabolic panel (05/09/2025 9:09 PM EDT) Sodium 136 136 - 145 meq/L 05/09/2025 10:05 PM EDT [facility] Potassium 4.4 3.4 - 5.1 meq/L 05/09/2025 10:05 PM [facility] Chloride 97(L) 98 - 112 meq/L 05/09/2025 10:05 PM [facility] CO2 23 22 - 29 meq/L 05/09/2025 10:05 PM [facility] Calcium 8.7 8.4 - 10.2 mg/dL 05/09/2025 10:05 PM [facility] Glucose 99 82 - 115 mg/dL 05/09/2025 10:05 PM [facility] BUN 63.3(H) 9.8 - 20.1 mg/dL 05/09/2025 10:05 PM [facility] Creatinine 2.48(H) 0.57 - 1.11 mg/dL 05/09/2025 10:05 PM [facility] BUN/Creatinine 26(H) 8 - 20 05/09/2025 10:05 PM [facility] eGFR (mL/min/1.73m2) 20(L) >=60 mL/min/1. 73m2 05/09/2025 10:05 PM [facility] Comment:ESTIMATED GFR IS NOT ACCURATE CREATININE CLEARANCE IN PREDICTING GLOMERULAR FILTRATION RATE. ESTIMATED GFR IS NOT APPLICABLE FOR DIALYSIS PATIENTS. Albumin 2.8(L) 3.5 - 5.0 g/dL 05/09/2025 10:05 PM [facility] Alkaline Phosphatase 161(H) 40 - 150 U/L 05/09/2025 10:05 PM [facility] ALT 81(H) <=34 U/L 05/09/2025 10:05 PM [facility] Comment: ALT2 reagent used for testing does not contain P5P supplementation and therefore may miss ALT elevations in patients with B6 deficiency. This population may be as high as 10% in the [facility], with risk factors including malabsorption, drug interactions, and alcoholic hepatitis. AST 74(H) 11 - 34 U/L 05/09/2025 10:05 PM [facility] Comment: AST2 reagent used for testing does not contain P5P supplementation and therefore may miss AST elevations in patients with B6 deficiency. This population may be as high as 10% in the [place], with risk factors including malabsorption, drug interactions, and alcoholic hepatitis. Total Bilirubin 0.5 0.2 - 1.2 mg/dL 05/09/2025 10:05 PM EDT [facility] Protein, Total 7.2 6.4 - 8.3 g/dL 05/09/2025 10:05 PM EDT [facility] Globulin 4.4(H) 2.5 - 4.1 g/dL 05/09/2025 10:05 PM EDT [facility] Anion Gap 20(H) 4 - 12 05/09/2025 10:05 PM EDT [facility] A/G Ratio 0.6(L) 0.7 - 1.9 05/09/2025 10:05 PM EDT [facility] Osmolality Calc 290.1 mOsm/kg 10:05 PM EDT [facility] Blood Venipuncture / Unknown 05/09/2025 9:09 PM EDT 05/09/2025 9:19 PM EDT us Jyoti Montana PA-C LAB BLOOD ORDERABLES Final R esult [facility] [address] [phone] * (ABNORMAL) CBC with Auto Diff (05/09/2025 9:09 PM EDT) WBC 7.6 4.0 - 10.0 K/ L 05/09/2025 9:30 PM EDT [facility] RBC 3.77(L) 3.93 - 5.22 M/ L 05/09/2025 9:30 PM EDT [facility] Hemoglobin 11.2 11.2 - 15.7 GM/DL 05/09/2025 9:30 PM EDT [facility] Hematocrit 36.5 34.1 - 44.9 % 05/09/2025 9:30 PM EDT [facility] MCV 97(H) 79 - 95 fL 05/09/2025 9:30 PM EDT [facility] MCH 29.7 25.6 - 32.2 pg 05/09/2025 9:30 PM EDT [facility] MCHC 30.7(L) 32.2 - 35.5 GM/DL 05/09/2025 9:30 PM EDT [facility] RDW 14.6(H) 11.7 - 14.4 % 05/09/2025 9:30 PM EDT [facility] Platelets 166 140 - 375 K/CU MM 05/09/2025 9:30 PM EDT [facility] MPV 10.9 9.4 - 12.3 fL 05/09/2025 9:30 PM EDT [facility] % Neutros 81(H) 34 - 71 % 05/09/2025 9:30 PM EDT [facility] % Lymphs 13(L) 19 - 52 % 05/09/2025 9:30 PM EDT [facility] % Monos 5 5 - 13 % 05/09/2025 9:30 PM EDT [facility] % Eos 1 1 - 6 % 05/09/2025 9:30 PM EDT [facility] % Baso 0 0 - 1 % 05/09/2025 9:30 PM EDT [facility] NRBC Absolute <0.01 0 - 0.012 K/ul 05/09/2025 9:30 PM EDT [facility] # Neutros 6.16(H) 1.56 - 6.13 K/ L 05/09/2025 9:30 PM EDT [facility] # Lymphs 1.02(L) 1.18 - 3.74 K/ L 05/09/2025 9:30 PM EDT [facility] # Monos 0.37 0.24 - 0.86 K/ L 05/09/2025 9:30 PM EDT [facility] # Eos 0.04 0.04 - 0.36 K/ L 05/09/2025 9:30 PM EDT [facility] # Baso <0.03 0.01 - 0.08 K/ L 05/09/2025 9:30 PM EDT [facility] Immature Granulocytes-Re lative 0.40 0.01 - 0.43 % 05/09/2025 9:30 PM EDT [facility] # IG 0.03 0.00 - 0.03 K/uL 05/09/2025 9:30 PM EDT [facility] Blood Venipuncture / Unknown 05/09/2025 9:09 PM EDT 05/09/2025 9:19 PM EDT Narrative [facility] - 05/09/2025 9:30 PM EDT When CBC w/ Auto Diff is ordered the lab will add a Manual Differential as a quality check at no additional charge if: Lymphocytes greater than seventy five percent with normal or increased WBC Monocytes greater than Fifteen percent Basophil greater than four percent Bands >10% or several immature myeloids are seen on scan Blast? Flag noted Atypical Lymph flag noted us Jyoti Montana PA-C LAB BLOOD ORDERABLES Final R esult Performing Organization Address [facility] Co de Phone Number [facility] [address] [place] [address] * ECG 12 lead (05/09/2025 8:47 PM EDT) VENTRICULAR RATE EKG/MIN 117 BPM GE MUSE ATRIAL RATE (MCT) 117 BPM GE MUSE QRS-INTERVAL (MSEC) 79 ms GE MUSE QT Interval 313 ms GE MUSE QTC Interval 437 ms GE MUSE R AXIS (MCT) 56 degrees GE MUSE T Wave [place] 140 degrees GE MUSE Jamul Diagnosis Poor data quality, interpretation may be adversely affected Undetermined rhythm Possible Inferior infarct , age undetermined Abnormal ECG No previous ECGs available Confirmed by Mau Fuentes MD (2019) on 05/10/2025 1:00:32 PM GE MUSE 05/09/2025 8:47 PM EDT 05/10/2025 1:00 PM EDT us Jyoti BELLOC ECG ORDERABLES Final Result Performing Organization Address City/[facility]/ZIP Co de Phone Number [employer] MUSE * EKG-SCANNED (05/09/2025) Narrative 05/09/2025 Ordered by an unspecified provider. us Default Scanning Provider SCAN ORDERS Final Result * EKG-SCANNED (05/09/2025) Narrative 05/09/2025 Ordered by an unspecified provider. us Default Scanning Provider SCAN ORDERS Final Result documented in this encounter Visit Diagnoses Diagnosis Chest pain- Primary Unspecified chest pain Shortness of breath Sinus tachycardia Other specified cardiac dysrhythmias Hypotension, unspecified hypotension type Positive D dimer Abnormal coagulation profile Abnormal kidney function Nonspecific abnormal results of kidney function study Elevated liver enzymes Other nonspecific abnormal serum enzyme levels documented in this encounter Admitting Diagnoses Diagnosis Chest pain Unspecified chest pain documented in this encounter Administered Medications Inactive Administered Medications - up to 3 most recent administrations Medication Order MAR Action Action Date Dose Rate Site acetaminophen (TYLENOL) tablet 1,000 mg 1,000 mg Every 6 hours PRN, oral, mild pain (1-3), headache, fever greater than or equal to 38C, Starting on 05/10/25 at 0442, 1st line analgesic Given 05/11/2025 7:59 AM EDT 1,000 mg Given 05/10/2025 6:13 PM EDT 1,000 mg Given 05/10/2025 10:02 AM EDT 1,000 mg cefTRIAXone (ROCEPHIN) 1,000 mg in lidocaine 1% IntraMUScular injection 1,000 mg Once, intraMUSCULAR, On Sun05/13/25 at 1200, For 1 dose, For intramuscular injection: Dilute 1 gm ceftriaxone vial with 2.1 mL of lidocaine 1%, final concentration = 350 mg/mL., Please choose an indication: Bacteremia Given 05/13/2025 1:15 PM EDT 1,000 mg Left Upper Outer Quadrant cefTRIAXone (ROCEPHIN) 1,000 mg in lidocaine 1% IntraMUScular injection 1,000 mg Once, intraMUSCULAR, On Sun05/13/25 at 1400, For 1 dose, To be given in addition to 1 gm dose given earlier for a total of 2 gm today (please administer at separate IM site) For intramuscular injection: Dilute 1 gm ceftriaxone vial with 2.1 mL of lidocaine 1%, final concentration = 350 mg/mL., Please choose an indication: Bacteremia Given 05/13/2025 1:36 PM EDT 1,000 mg Right Upper Outer Quadrant cefTRIAXone (ROCEPHIN) 2 g in sodium chloride 0.9 % (NS) 50 mL CHRISTIAN IVPB 2 g Every 24 hours, intravenous, at 100 mL/hr, First dose on 05/09/25 at 2115, Please choose an indication: Pneumonia IVPB Started 05/09/2025 10:46 PM EDT 2 g 100 mL/hr cefTRIAXone (ROCEPHIN) 2 g in sodium chloride 0.9 % (NS) 50 mL CHRISTIAN IVPB 2 g Every 24 hours, intravenous, at 100 mL/hr, First dose on Sun05/13/25 at 0930, Please choose an indication: Bacteremia IVPB Started 05/13/2025 10:28 AM EDT 2 g 100 mL/hr diatrizoate edu-diatrizoat sod (GASTROGRAFIN) 66-10 % solution 30 mL 30 mL Once, oral, On Sun05/11/25 at 1730, For 1 dose, Intra-op Given 05/11/2025 5:50 PM EDT 30 mLs doxycycline (VIBRAMYCIN) 100 mg in sodium chloride 0.9 % (NS) CHRISTIAN IVPB 100 mg Every 12 hours scheduled, intravenous, at 100 mL/hr, First dose on 05/09/25 at 2215, Please choose an indication: Pneumonia IVPB Started 05/09/2025 11:07 PM EDT 100 mg 100 mL/hr enoxaparin (LOVENOX) syringe 100 mg 100 mg Once (rounded from 102.1 mg = 1 mg/kg 102.1 kg), subcutaneous, On 05/09/25 at 2310, For 1 dose, Do not administer within 12 hours of epidural or lumbar puncture. Look-Alike/Sound-Edd e Alert Given 05/09/2025 11:23 PM EDT 100 mg Abdominal Tissue enoxaparin (LOVENOX) syringe 100 mg 100 mg Every 24 hours (rounded from 102.1 mg = 1 mg/kg 102.1 kg), subcutaneous, First dose on Sun05/11/25 at 1130, Do not administer within 12 hours of epidural or lumbar puncture. Look-Alike/Sound-Edd e Alert Given 05/12/2025 12:32 PM EDT 100 mg Abdominal Tissue Given 05/11/2025 3:36 PM EDT 100 mg Ab dominal Tissue enoxaparin (LOVENOX) syringe 40 mg 40 mg Every 24 hours, subcutaneous, First dose (after last modification) on Sun05/13/25 at 1130, Do not administer within 12 hours of epidural or lumbar puncture. Look-Alike/Sound-Alike Alert Given 05/13/2025 10:42 AM EDT 40 mg Abdo tom Tissue famotidine (PEPCID) tablet 20 mg 20 mg 2 times daily, oral, First dose on Sun05/11/25 at 1130, Pharmacist to renally dose if CrCl is less than 50 mL/min or on CRRT. Given 05/13/2025 10:27 AM EDT 20 mg Given 05/12/2025 9:07 PM EDT 20 mg Given 05/12/2025 8:34 AM EDT 20 mg fluconazole (DIFLUCAN) tablet 150 mg 150 mg Once, oral, On Sun05/12/25 at 2200, For 1 dose, Caution: Recommend wearing gloves during administration. DO NOT BREAK/CRUSH/CHEW. Employees who are , trying to become , or should not handle this medication. Dispose of trace medication (including packaging) in the BLACK [employer] bin. Given 05/12/2025 9:46 PM EDT 150 mg fLUoxetine (PROzac) capsule 20 mg 20 mg Daily, oral, First dose on Sun05/10/25 at 0900 Given 05/13/2025 10:21 AM EDT 20 mg Given 05/12/2025 8:34 AM EDT 20 mg Given 05/11/2025 7:38 AM EDT 20 mg furosemide (LASIX) tablet 80 mg 80 mg 2 times daily diuretic, oral, First dose on Sun05/10/25 at 0900 Given 05/13/2025 10:22 AM EDT 80 mg Given 05/12/2025 3:03 PM EDT 80 mg Given 05/12/2025 8:34 AM EDT 80 mg gabapentin (NEURONTIN) tablet 600 mg 600 mg 3 times daily, oral, First dose on Sun05/10/25 at 0900 Given 05/13/2025 2:03 PM EDT 600 mg Given 05/13/2025 10:26 AM EDT 600 mg Given 05/12/2025 9:07 PM EDT 600 mg guaiFENesin (mucINEX) 12 hr tablet 600 mg 600 mg 2 times daily, oral, First dose on Sun05/11/25 at 0900, * DO NOT CRUSH THIS DOSAGE FORM * Look-alike/Sound-alike medication Given 05/13/2025 10:22 AM EDT 600 mg Given 05/12/2025 9:07 PM EDT 600 mg Given 05/12/2025 8:34 AM EDT 600 mg hydrALAZINE (APRESOLINE) injection 10 mg 10 mg Every 6 hours PRN, intravenous, hypertension (sbp greater than 160), Starting on Sun05/10/25 at 0442, Hold if SBP < 100 mmHg, DBP < 50 mmHg, or patient is on pressor. Look-alike/Sound-alike medication levothyroxine (SYNTHROID) tablet 75 mcg 75 mcg Daily (0600), oral, First dose on Sun05/10/25 at 0600, ADMINISTER ON AN EMPTY STOMACH Given 05/13/2025 5:57 AM EDT 75 mcg Given 05/12/2025 6:13 AM EDT 75 mcg Given 05/11/2025 5:51 AM EDT 75 mcg magnesium sulfate IVPB 2 g in sterile water 50 mL (premix) at 25 mL/hr, Administer over 120 Minutes, intravenous, Daily as needed, for magnesium level 1.3 to 1.7 mg/dL, Starting on Sun05/10/25 at 0442, If magnesium is replaced per protocol order, recheck 1 hour after replacement and the next morning. magnesium sulfate IVPB 2 g in sterile water 50 mL (premix) at 25 mL/hr, Administer over 120 Minutes, intravenous, 2 times daily PRN, for magnesium level less than 1.3 mg/dL, Starting on Sun05/10/25 at 0442, Total dose of 4 g for each low magnesium result. If magnesium is replaced per protocol order, recheck 1 hour after replacement and the next morning. melatonin tablet 3 mg 3 mg Every Night PRN, oral, insomnia, Starting on Sun05/10/25 at 0442 meropenem (MERREM) 1 g in sodium chloride 0.9 % (NS) 50 mL CHRISTIAN IVPB 1 g Once, intravenous, Administer over 30 Minutes, On 05/11/25 at 0100, For 1 dose, Please choose an indication: Bacteremia IVPB Started 05/11/2025 1:02 AM EDT 1 g 100 mL/h r meropenem (MERREM) 500 mg in sodium chloride 0.9 % (NS) 50 mL CHRISTIAN IVPB 500 mg Every 8 hours scheduled, intravenous, Administer over 3 Hours, First dose on 05/11/25 at 0900, Please choose an indication: Bacteremia IVPB Started 05/13/2025 12:40 AM EDT 500 mg 16.7 mL/hr IVPB Started 05/12/2025 4:20 PM EDT 500 mg 16.7 mL/hr IVPB Started 05/12/2025 8:42 AM EDT 500 mg 16.7 mL/hr metoprolol succinate (TOPROL-XL) 24 hr tablet 75 mg 75 mg Daily, oral, First dose on 05/10/25 at 0900, Hold for systolic BP < 90 mmHg or for HR < 50 BPM Do Not Crush or Chew (Tablet may be split) Given 05/13/2025 10:23 AM EDT 75 mg Given 05/12/2025 8:34 AM EDT 75 mg Given 05/11/2025 7:38 AM EDT 75 mg morphine injection 2 mg 2 mg Every 6 hours PRN, intravenous, severe pain (7-10), Starting on 05/10/25 at 0442, 3rd line analgesic. Give only if inadequate response (less than 50% reduction in pain score) 60 minutes after administration of 2nd line agent. May give in addition to 1st + 2nd line analgesics (+ adjuvants if ordered) Given 05/12/2025 9:07 PM EDT 2 m g Given 05/12/2025 3:03 PM EDT 2 mg Given 05/12/2025 8:30 AM EDT 2 mg naloxone (NARCAN) injection 0.2 mg 0.2 mg Every 2 min PRN, intravenous, opioid reversal, respiratory depression,, Starting on 05/10/25 at 0442, Give for respiratory rate less than 10 breaths/min or if patient is difficult to arouse. Max dose = 10mg. Call provider. ondansetron (ZOFRAN) injection 4 mg 4 mg Every 8 hours PRN, intravenous, nausea, vomiting, Starting on 05/10/25 at 0442, Give IV if patient is unable to take orally. 1st line If inadequate response within 60 minutes, proceed to next-line agent for same PRN reason or contact provider if no further options ordered. For IV push, give over 2 - 5 minutes. ondansetron (ZOFRAN-ODT) disintegrating tablet 4 mg 4 mg Every 8 hours PRN, oral, nausea, vomiting, Starting on Sun05/10/25 at 0442, 1st line. If inadequate response within 60 minutes, proceed to next-line agent for same PRN reason or contact provider if no further options ordered. oxyCODONE (ROXICODONE) immediate release tablet 7.5 mg 7.5 mg Every 6 hours PRN, oral, moderate pain (4-6), Starting on Sun05/10/25 at 0140, Look-alike/Sound-alike medication Given 05/13/2025 2:01 PM EDT 7.5 mg Given 05/12/2025 3:24 AM EDT 7.5 mg Given 05/11/2025 9:22 PM EDT 7.5 mg pantoprazole (PROTONIX) EC tablet 40 mg 40 mg Daily, oral, First dose on Sun05/10/25 at 0900, * DO NOT CRUSH THIS DOSAGE FORM * Given 05/13/2025 10:24 AM EDT 40 mg Given 05/12/2025 8:35 AM EDT 40 mg Given 05/11/2025 7:38 AM EDT 40 mg potassium chloride (KLOR-CON) ER tablet 40 mEq 40 mEq 4 times daily PRN, oral, for potassium less than or EQUAL to 3.4 mmol/L, Starting on Sun05/10/25 at 0442, Do not crush KCl tablets. If potassium is replaced per protocol order, recheck potassium 2 hour after replacement and the next morning. Given 05/12/2025 8:41 AM EDT 40 m Eq potassium chloride (KLOR-CON) ER tablet 40 mEq 40 mEq Once, oral, On Sun05/12/25 at 0900, For 1 dose, Tablets may NOT be crushed or chewed. Tablets may be dispersed in 4-6 ounces of water for patients to easily swallow or giving via feeding tube with size >/= 15Fr. Given 05/12/2025 8:44 AM EDT 40 mEq potassium chloride IVPB 10 mEq in 100 mL sterile water (premix) 10 mEq Every hour PRN, intravenous, Administer over 60 Minutes, for potassium less than or equal to 3.4 mmol/L, Starting on 05/10/25 at 0442, Total Dose 40 mEq, use only if unable to administer PO. Max Rate 10mEq/hr. If potassium is replaced per protocol order, recheck 1 hour after replacement and the next morning. Saccharomyces boulardii (FLORASTOR) capsule 250 mg 250 mg 2 times daily, oral, First dose on 05/11/25 at 1130, Do not crush or open capsule. Must be swallowed whole. Given 05/13/2025 10:23 AM EDT 250 mg Given 05/12/2025 9:07 PM EDT 250 mg Given 05/12/2025 8:34 AM EDT 250 mg sodium chloride 0.9% (NS) bolus 500 mL Once, intravenous, On 05/09/25 at 2115, For 1 dose, During sepsis resuscitation, the following SEP1 bundle exclusion/modification criteria occurred: Patient will be given 500 mL of IVF instead of the 30mL/Kg due to concern for fluid overload. New Bag 05/09/2025 9:25 PM EDT 500 mLs sodium chloride 0.9% (NS) bolus 500 mL Once, intravenous, On 05/09/25 at 2305, For 1 dose, During sepsis resuscitation, the following SEP1 bundle exclusion/modification criteria occurred: Patient will be given 500 mL of IVF instead of the 30mL/Kg due to concern for fluid overload. New Bag 05/09/2025 11:12 PM EDT 500 mLs sodium chloride flush 10 mL 10 mL As needed, intravenous, line care, Line care for flush, Starting on 05/09/25 at 2054, For 30 doses Tc-99m - macro aggregated albumin (MAA) 5.5 millicurie 5.5 millicurie Once, intravenous, On 05/11/25 at 1300, For 1 dose Given 05/11/2025 12:35 PM EDT 5.5 mi llicuries traZODone (DESYREL) tablet 50 mg 50 mg Every Night PRN, oral, insomnia, Starting on 05/10/25 at 0142 Given 05/11/2025 9:22 PM EDT 50 mg documented in this encounter Active and Recently Administered Medications Times are shown in EDT. Scheduled Medication Order 05/11/2025 05/12/2025 05/13/2025 cefTRIAXone (ROCEPHIN) 1,000 mg in lidocaine 1% IntraMUScular injection (COMPLETED)(Linked Group 1) 1,000 mg Once, intraMUSCULAR, On Sun05/13/25 at 1200, For 1 dose, For intramuscular injection: Dilute 1 gm ceftriaxone vial with 2.1 mL of lidocaine 1%, final concentration = 350 mg/mL., Please choose an indication: Bacteremia 1315 (Given - Provider: Brooke Nolen RN) cefTRIAXone (ROCEPHIN) 1,000 mg in lidocaine 1% IntraMUScular injection (COMPLETED) 1,000 mg Once, intraMUSCULAR, On Sun05/13/25 at 1400, For 1 dose, To be given in addition to 1 gm dose given earlier for a total of 2 gm today (please administer at separate IM site) For intramuscular injection: Dilute 1 gm ceftriaxone vial with 2.1 mL of lidocaine 1%, final concentration = 350 mg/mL., Please choose an indication: Bacteremia 1336 (Given - Provider: Brooke Nolen RN) cefTRIAXone (ROCEPHIN) 2 g in sodium chloride 0.9 % (NS) 50 mL CHRISTIAN IVPB (CANCELED) 2 g Every 24 hours, intravenous, at 100 mL/hr, First dose on Sun05/13/25 at 0930, Please choose an indication: Bacteremia 1028 (IVPB Started - Provider: Brooke Nolen RN)1040 (IVPB Stopped - Provider: Brooke Nolen RN - Comment: iv is not working,disconnected ) diatrizoate edu-diatrizoat sod (GASTROGRAFIN) 66-10 % solution 30 mL (COMPLETED) 30 mL Once, oral, On Sun05/11/25 at 1730, For 1 dose, Intra-op 1750 (Given - Provider: Juwan Paige RN) enoxaparin (LOVENOX) syringe 100 mg (CANCELED) 100 mg Every 24 hours (rounded from 102.1 mg = 1 mg/kg 102.1 kg), subcutaneous, First dose on Sun05/11/25 at 1130, Do not administer within 12 hours of epidural or lumbar puncture. Look-Alike/Sound-Alike Alert 1536 (Given - Provider: Juwan Paige RN) 1232 (Given - Provider: Juwan Paige RN) enoxaparin (LOVENOX) syringe 40 mg 40 mg Every 24 hours, subcutaneous, First dose (after last modification) on Sun05/13/25 at 1130, Do not administer within 12 hours of epidural or lumbar puncture. Look-Alike/Sound-Alike Alert 1042 (Given - Provider: Brooke Nolen, RN) famotidine (PEPCID) tablet 20 mg 20 mg 2 times daily, oral, First dose on Sun05/11/25 at 1130, Pharmacist to renally dose if CrCl is less than 50 mL/min or on CRRT. 1541 (Given - Provider: Juwan Paige, MATT)2117 (Given - Provider: David Browne RN) 0834 (Given - Provider: Juwan Paige RN)2107 (Given - Provider: Yoselyn Nova RN) 1027 (Given - Provider: Brooke Nolen, RN) fluconazole (DIFLUCAN) tablet 150 mg (COMPLETED) 150 mg Once, oral, On Sun05/12/25 at 2200, For 1 dose, Caution: Recommend wearing gloves during administration. DO NOT BREAK/CRUSH/CHEW. Employees who are , trying to become , or should not handle this medication. Dispose of trace medication (including packaging) in the BLACK waste bin. 2145 (Given - Provider: Yoselyn Nova RN) fLUoxetine (PROzac) capsule 20 mg 20 mg Daily, oral, First dose on 05/10/25 at 0900 0738 (Given - Provider: Juwan Paige RN) 0834 (Given - Provider: Juwan Paige RN) 1021 (Given - Provider: Brooke Nolen, RN) furosemide (LASIX) tablet 80 mg 80 mg 2 times daily diuretic, oral, First dose on 05/10/25 at 0900 0739 (Given - Provider: Juwan Paige, MATT)1537 (Given - Provider: Juwan Paige RN) 0834 (Given - Provider: Juwan Paige RN)1503 (Given - Provider: Juwan Paige RN) 1022 (Given - Provider: Brooke Nolen, RN) gabapentin (NEURONTIN) tablet 600 mg 600 mg 3 times daily, oral, First dose on 05/10/25 at 0900 0739 (Given - Provider: Juwan Paige RN)1541 (Given - Provider: Juwan Paige RN)211 (Given - Provider: David Browne, RN) 0834 (Given - Provider: Juwan Paige RN)1457 (Given - Provider: Juwan Paige RN)2106 (Given - Provider: Yoselyn Nova RN) 1026 (Given - Provider: Brooke Nolen, RN)1403 (Given - Provider: Brooke Nolen RN) guaiFENesin (mucINEX) 12 hr tablet 600 mg 600 mg 2 times daily, oral, First dose on Sun05/11/25 at 0900, * DO NOT CRUSH THIS DOSAGE FORM * Look-alike/Sound-alike medication 1014 (Given - Provider: Juwan Paige RN)2116 (Given - Provider: David Browne RN) 0834 (Given - Provider: Juwan Paige RN)2106 (Given - Provider: Yoselyn Nova, RN) 1022 (Given - Provider: Brooke Nolen RN) levothyroxine (SYNTHROID) tablet 75 mcg 75 mcg Daily (0600), oral, First dose on Sun05/10/25 at 0600, ADMINISTER ON AN EMPTY STOMACH 0551 (Given - Provider: Elba Valdivia RN) 0613 (Given - Provider: David Browne, MATT) 0557 (Given - Provider: Yoselyn Nova RN) meropenem (MERREM) 1 g in sodium chloride 0.9 % (NS) 50 mL CHRISTIAN IVPB (COMPLETED) 1 g Once, intravenous, Administer over 30 Minutes, On Sun05/11/25 at 0100, For 1 dose, Please choose an indication: Bacteremia 0102 (IVPB Started - Provider: Elba Valdivia RN)0142 (IVPB Stopped - Provider: Elba Valdivia RN) meropenem (MERREM) 500 mg in sodium chloride 0.9 % (NS) 50 mL CHRISTIAN IVPB (CANCELED) 500 mg Every 8 hours scheduled, intravenous, Administer over 3 Hours, First dose on Sun05/11/25 at 0900, Please choose an indication: Bacteremia 0737 (IVPB Started - Provider: Juwan Paige RN)1016 (IVPB Stopped - Provider: Juwan Paige RN)1548 (IVPB Started - Provider: Juwan Paige RN)1821 (IVPB Stopped - Provider: Juwan Paige RN) 0103 (IVPB Started - Provider: David Browne RN)0410 (IVPB Stopped - Provider: David Browne RN)0842 (IVPB Started - Provider: Juwan Paige RN)1228 (IVPB Stopped - Provider: Juwan Paige RN)1620 (IVPB Started - Provider: Juwan Paige RN)1848 (IVPB Stopped - Provider: Juwan Paige RN) 0040 (IVPB Started - Provider: Yoselyn Nova RN)0340 (IVPB Stopped - Provider: Yoselyn Nova RN)1028 (Not Given - Provider: Brooke Nolen RN - Reason: Per MD Order) metoprolol succinate (TOPROL-XL) 24 hr tablet 75 mg 75 mg Daily, oral, First dose on Sun05/10/25 at 0900, Hold for systolic BP < 90 mmHg or for HR < 50 BPM Do Not Crush or Chew (Tablet may be split) 0738 (Given - Provider: Juwan Paige RN) 0834 (Given - Provider: Juwan Paige RN) 1023 (Given - Provider: Brooke Nolen, RN) pantoprazole (PROTONIX) EC tablet 40 mg 40 mg Daily, oral, First dose on Sun05/10/25 at 0900, * DO NOT CRUSH THIS DOSAGE FORM * 0738 (Given - Provider: Juwan Paige RN) 0835 (Given - Provider: Juwan Paige RN) 1024 (Given - Provider: Brooke Nolen RN) potassium chloride (KLOR-CON) ER tablet 40 mEq (COMPLETED) 40 mEq Once, oral, On Sun05/12/25 at 0900, For 1 dose, Tablets may NOT be crushed or chewed. Tablets may be dispersed in 4-6 ounces of water for patients to easily swallow or giving via feeding tube with size >/= 15Fr. 0844 (Given - Provider: Juwan Paige RN) Saccharomyces boulardii (FLORASTOR) capsule 250 mg 250 mg 2 times daily, oral, First dose on Sun05/11/25 at 1130, Do not crush or open capsule. Must be swallowed whole. 1540 (Given - Provider: Juwan Paige, RN)2117 (Given - Provider: David Browne, RN) 0834 (Given - Provider: Juwan Paige, MATT)2107 (Given - Provider: Yoselyn Nova, RN) 1023 (Given - Provider: Brooke Nolen, RN) Tc-99m - macro aggregated albumin (MAA) 5.5 millicurie (COMPLETED) 5.5 millicurie Once, intravenous, On 05/11/25 at 1300, For 1 dose 1235 (Given - Provider: Belén Lozada) PRN Medication Order 05/11/2025 05/12/2025 05/13/2025 acetaminophen (TYLENOL) tablet 1,000 mg 1,000 mg Every 6 hours PRN, oral, mild pain (1-3), headache, fever greater than or equal to 38C, Starting on 05/10/25 at 0442, 1st line analgesic 0759 (Given - Provider: Juwan Paige RN) hydrALAZINE (APRESOLINE) injection 10 mg 10 mg Every 6 hours PRN, intravenous, hypertension (sbp greater than 160), Starting on 05/10/25 at 0442, Hold if SBP < 100 mmHg, DBP < 50 mmHg, or patient is on pressor. Look-alike/Sound-alike medication magnesium sulfate IVPB 2 g in sterile water 50 mL (premix) at 25 mL/hr, Administer over 120 Minutes, intravenous, Daily as needed, for magnesium level 1.3 to 1.7 mg/dL, Starting on 05/10/25 at 0442, If magnesium is replaced per protocol order, recheck 1 hour after replacement and the next morning. magnesium sulfate IVPB 2 g in sterile water 50 mL (premix) at 25 mL/hr, Administer over 120 Minutes, intravenous, 2 times daily PRN, for magnesium level less than 1.3 mg/dL, Starting on 05/10/25 at 0442, Total dose of 4 g for each low magnesium result. If magnesium is replaced per protocol order, recheck 1 hour after replacement and the next morning. melatonin tablet 3 mg 3 mg Every Night PRN, oral, insomnia, Starting on 05/10/25 at 0442 morphine injection 2 mg 2 mg Every 6 hours PRN, intravenous, severe pain (7-10), Starting on 05/10/25 at 0442, 3rd line analgesic. Give only if inadequate response (less than 50% reduction in pain score) 60 minutes after administration of 2nd line agent. May give in addition to 1st + 2nd line analgesics (+ adjuvants if ordered) 0612 (Given - Provider: Elba Valdivia RN)1821 (Given - Provider: Juwan Paige RN) 0830 (Given - Provider: Juwan Paige RN)1503 (Given - Provider: Juwan Paige RN)2107 (Given - Provider: Yoselyn Nova RN) naloxone (NARCAN) injection 0.2 mg 0.2 mg Every 2 min PRN, intravenous, opioid reversal, respiratory depression,, Starting on 05/10/25 at 0442, Give for respiratory rate less than 10 breaths/min or if patient is difficult to arouse. Max dose = 10mg. Call provider. ondansetron (ZOFRAN) injection 4 mg(Linked Group 2) 4 mg Every 8 hours PRN, intravenous, nausea, vomiting, Starting on 05/10/25 at 0442, Give IV if patient is unable to take orally. 1st line If inadequate response within 60 minutes, proceed to next-line agent for same PRN reason or contact provider if no further options ordered. For IV push, give over 2 - 5 minutes. ondansetron (ZOFRAN-ODT) disintegrating tablet 4 mg(Linked Group 2) 4 mg Every 8 hours PRN, oral, nausea, vomiting, Starting on 05/10/25 at 0442, 1st line. If inadequate response within 60 minutes, proceed to next-line agent for same PRN reason or contact provider if no further options ordered. oxyCODONE (ROXICODONE) immediate release tablet 7.5 mg 7.5 mg Every 6 hours PRN, oral, moderate pain (4-6), Starting on 05/10/25 at 0140, Look-alike/Sound-alike medication 0129 (Given - Provider: Elba Valdivia RN)1535 (Given - Provider: Juwan Paige RN)2122 (Given - Provider: David Browne, MATT) 0324 (Given - Provider: David Browne, MATT) 1401 (Given - Provider: Brooke Nolen RN) potassium chloride (KLOR-CON) ER tablet 40 mEq 40 mEq 4 times daily PRN, oral, for potassium less than or EQUAL to 3.4 mmol/L, Starting on 05/10/25 at 0442, Do not crush KCl tablets. If potassium is replaced per protocol order, recheck potassium 2 hour after replacement and the next morning. 0841 (Given - Provider: Juwan Paige RN) potassium chloride IVPB 10 mEq in 100 mL sterile water (premix) 10 mEq Every hour PRN, intravenous, Administer over 60 Minutes, for potassium less than or equal to 3.4 mmol/L, Starting on 05/10/25 at 0442, Total Dose 40 mEq, use only if unable to administer PO. Max Rate 10mEq/hr. If potassium is replaced per protocol order, recheck 1 hour after replacement and the next morning. sodium chloride flush 10 mL 10 mL As needed, intravenous, line care, Line care for flush, Starting on 05/09/25 at 2054, For 30 doses traZODone (DESYREL) tablet 50 mg 50 mg Every Night PRN, oral, insomnia, Starting on 05/10/25 at 0142 2122 (Given - Provider: David Browne RN) Linked Groups Order Group 1: cefTRIAXone (ROCEPHIN) 1,000 mg in lidocaine 1% IntraMUScular injection (COMPLETED)Jump to med 1,000 mg Once, intraMUSCULAR, On Sun05/13/25 at 1200, For 1 dose, For intramuscular injection: Dilute 1 gm ceftriaxone vial with 2.1 mL of lidocaine 1%, final concentration = 350 mg/mL., Please choose an indication: Bacteremia And cefTRIAXone (ROCEPHIN) 1 g in sterile water for injection (PF) IntraMUScular injection (CANCELED) 1 g Once, intraMUSCULAR, On Sun05/13/25 at 1200, For 1 dose, Please choose an indication: Bacteremia Group 2: ondansetron (ZOFRAN-ODT) disintegrating tablet 4 mgJump to med 4 mg Every 8 hours PRN, oral, nausea, vomiting, Starting on 05/10/25 at 0442, 1st line. If inadequate response within 60 minutes, proceed to next-line agent for same PRN reason or contact provider if no further options ordered. Or ondansetron (ZOFRAN) injection 4 mgJump to med 4 mg Every 8 hours PRN, intravenous, nausea, vomiting, Starting on 05/10/25 at 0442, Give IV if patient is unable to take orally. 1st line If inadequate response within 60 minutes, proceed to next-line agent for same PRN reason or contact provider if no further options ordered. For IV push, give over 2 - 5 minutes. documented in this encounter Care Teams Machine Wood Sander Relationship Specialty Start Date End Date Deo Byrne MD [address] [place] [id number] PCP - General Family Medicine 05/09/25 Jacob Celeste MD [address] [facility] [address] [place] [address] Cardiology 01/02/24 documented as of this encounter
--- OUTSIDE RECORDS SUMMARY | 2025-05-18 14:50 | XMS_ITS ---
Author Organization [facility] Address [address] [facility] [address] [place] [address] Phone Care Team Providers Care Fraud Examiner Name Role Phone Nithya NOVOA, Ulisses Conde [phone] [ ] Conditions or Problems No information available. Medications No information available. Medications Administered No information available. Allergies, Adverse Reactions, Alerts No information available. Results Date Name Value Unit Range Flag Description Office Visit: Office Visit: 13 [facility] MEDS REVIEW Done Documenta tion of current medications (procedure) ORALTOBACUSE Never Tobacco smoking status SMOK STATUS Never smoker Toba customer account specialist smoking status Plan of Care Type Date [...] Directives Directive Description Start Date POWER OF SERVICE COORDINATOR ELDERLY FACILITY LIVING WILL ON FILE
--- OUTSIDE RECORDS SUMMARY | 2025-06-01 13:46 | XMS_ITS ---
Author Organization [facility] Address [address] [facility] [address] [place] [address] Phone Care Team Providers Care Cable Ferry Operator Name Role Phone Nithya NOVOA, Ulisses Conde [phone] [ ] Conditions or Problems No information available. Medications No information available. Medications Administered No information available. Allergies, Adverse Reactions, Alerts No information available. Results Date Name Value Unit Range Flag Description Office Visit: Office Visit: 14 MEDS REVIEW Done Documenta tion of current medications (procedure) ORALTOBACUSE Never Tobacco smoking status SMOK STATUS Never smoker Toba account support manager smoking status Plan of Care No [...]
--- OUTSIDE RECORDS SUMMARY | 2025-06-11 11:45 | XMS_ITS | Encounter Summary ---
Author Organization [employer] ([place], [place], [place], [place]) Address [address] [place] [address] Care Team Providers Care Production Sampler Name Role Phone Deo Byrne MD Primary Care Provider [phone] Jacob Celeste MD Unavailable Reason for Visit [...] Description 06/11/2025 11:45 AM EDT Office Visit [facility] Cardiology [address] [place] [phone] Jacob Celeste MD [address] [place] [address] [address] [place] [address] Shortness of breath (Primary Dx) Social History [...] Do you speak a language other than Nauruan at [facility]? No 05/10/2025 Do you want help with [...] Description 08/11/2025 12:30 PM EST Office Visit [facility] Cardiology [address] [place] [address] Jacob Celeste MD [address] [facility] [address] [place] [address] Scheduled Orders Name Type Priority Associated Diagnoses Orde r Schedule Basic Metabolic Panel Lab Routine Shortness of breath Expected: 06/25/2025 (Approximate), Expires: 09/23/2025 documented as of this encounter Procedures Procedure Name Priority Date/Time Associated Diagnosis Comments FS_MODEL_IP_ECG 12-LEAD Routine 06/11/2025 1:41 P M EDT Shortness of breath documented in this encounter Results * ECG 12 lead (06/11/2025 1:41 PM EDT) us Jacob Celeste MD ECG ORDERABLES Final Result documented in this encounter Visit Diagnoses Diagnosis Shortness of breath- Primary documented in this encounter Care Teams Production Sampler Relationship Specialty Start Date End Date Deo Byrne MD [address] [place] [address] PCP - General Family Medicine 05/09/25 Jacob Celeste MD [address] [place] [address] [address] [place] [address] Cardiology 01/02/24 documented as of this encounter
--- OUTSIDE RECORDS SUMMARY | 2025-06-23 09:55 | XMS_ITS | Encounter Summary ---
Author Organization [employer] ([place], [place], [place], [place]) Address [address] [place] [address] Care Team Providers Care Electrical And Radio Mechanic Name Role Phone Deo Byrne MD Primary Care Provider [phone] Jacob Celeste MD Unavailable Encounter Details Date Type Department Care Team (Latest Contact Info) Description 06/11/2025 Travel Social History Tobacco Use Types Packs/Day Years [...] Do you speak a language other than Georgian at [facility]? No 05/10/2025 Do you want help with [...] on file documented as of this encounter Plan of Treatment Upcoming Encounters Date Type Department Care Team (Late st Contact Info) Description 08/11/2025 12:30 PM EST Office Visit [facility] Cardiology [address] [place] [phone] [place] [address] [place] [phone] documented as of this encounter Visit Diagnoses Not on filedocumented in this encounter Care Teams Electrical And Radio Mechanic Relationship Specialty Start Date End Date Deo Byrne MD [address] [place] [address] PCP - General Family Medicine 05/09/25 [place] [address] [place] [address] Cardiology 01/02/24 documented as of this encounter
--- OUTSIDE RECORDS SUMMARY | 2025-06-23 09:55 | XMS_ITS | Encounter Summary ---
Author Organization [employer] ([place], [place], [place], [place]) Address [address] [place] [address] Care Team Providers Care Satellite Communications Engineer Name Role Phone Deo Byrne MD Primary Care Provider [phone] Jacob Celeste MD Unavailable Encounter Details Date Type Department Care Team (Latest Contact Info) Description 05/09/2025 Travel Social History Tobacco Use Types Packs/Day [...] Do you speak a language other than [place]andan at [facility]? No 05/10/2025 Do you want help [...] Description 08/11/2025 12:30 PM EST Office Visit [facility] Cardiology [address] [place] [phone] [place] [address] [place] [phone] documented as of this encounter Visit Diagnoses Not on filedocumented in this encounter Care Teams Satellite Communications Engineer Relationship Specialty Start Date End Date Deo Byrne MD [address] [place] [address] PCP - General Family Medicine 05/09/25 [place] [address] [place] [address] Cardiology 01/02/24 documented as of this encounter
--- OUTSIDE RECORDS SUMMARY | 2025-06-23 09:55 | XMS_ITS | Clinical Summary ---
Author Organization [email or web address] ([place], [place], [place], [place]) Address [address] [place] [address] Care Team Providers Care Picker / Packer Name Role Phone Deo Byrne MD Primary Care Provider Jacob Celeste MD Unavailable Allergies No known active allergies Medications cholecalciferol , vitamin D3, 2,000 unit Tab Take 1 tablet (2,000 Units total) by mouth daily. 3 Active gabapentin (NEURONTIN) 600 MG tablet Take 1 tablet (600 mg total) by mouth 3 (three) times daily. 3 Active levothyroxine (SYNTHROID, LEVOTHROID) 75 MCG tablet Take 1 tablet (75 mcg total) by mouth daily. 3 Active LORazepam (ATIVAN) 0.5 MG tablet Take 1 tablet (0.5 mg total) by mouth every night as needed. 3 Active metoprolol succinate (TOPROL-XL) 50 MG 24 hr tablet Take 1&1/2 tablets (75 mg total) by mouth daily. 45 tablet 11 5 Active potassium chloride (KLOR-CON) 20 mEq CR tablet Take 1 tablet (20 mEq total) by mouth daily. 90 tablet 3 5 Active omeprazole (PriLOSEC) 20 MG capsule Take 1 capsule (20 mg total) by mouth daily. Active oxyCODONE-aceta minophen (PERCOCET) 7.5-325 mg per tablet Take 1 tablet by mouth 2 (two) times daily Look-alike /Sound-alike medication . Active fluoride, sodium, (PreviDent 5000 Booster Plus) 1.1 % pste Apply to teeth. Active FLUoxetine (PROzac) 20 MG tablet Take 3 tablets (60 mg total) by mouth daily. Active empagliflozin (Jardiance) 10 mg tablet Take 1 tablet (10 mg total) by mouth daily. 90 tablet 3 5 Active furosemide (LASIX) 80 MG tablet Take 1 tablet daily, NEEDED, for fluid weight gain of 3 or more lbs in one day, OR for weight gain of 5 or more lbs in one week.. 40 tablet 3 5 Active furosemide (LASIX) 80 MG tablet Take 1 tablet (80 mg total) by mouth 2 (two) times daily. 180 tablet 2 5 06/11/20 25 Discontinu ed(Reorder ) Active Problems Problem Noted Date Diagnosed Date Chest pain 05/10/2025 Encounters Date Type Department Care Team Description 06/12/2025 Telephone [facility] Cardiology [address] [place] [phone] Jacob Celeste MD Medication Management 06/11/2025 11:45 AM EDT Office Visit [facility] Cardiology [address] [place] [phone] Jacob Celeste MD Shortness of breath (Primary Dx) 06/11/2025 Travel 05/09/2025 8:41 PM EDT - 05/13/2025 4:35 PM EDT Hospital Encounter [place] [address] [address] [place] [address] Xiang Cordova MD Elliott, Jayden, PA-C Brammell, Korey, DO Kredan, Tawfik, MD Han, John, MD Shortness of breath (Primary Dx); Sinus tachycardia; Hypotension, unspecified hypotension type; Positive D dimer; Abnormal kidney function; Elevated liver enzymes Discharge Disposition: Home or Self Care 05/09/2025 Travel from Last 3 Months Social History Tobacco Use Types Packs/Day Years Used Date Smoking Tobacco: Never Smokeless Tobacco: Never Tobacco Cessation:Counseling Given: Not Answered Alcohol Use Standard Drinks/Week Comments Yes 2 [...] your living situation today? I have a [facility] place to live 05/10/2025 Think about the [...] Do you speak a language other than [place]o at [facility]? No 05/10/2025 Do you want help [...] on file Sexual Orientation Not on file Last Filed Vital Signs Vital Sign Reading Time Taken Comments Blood Pressure 128/80 06/11/2025 1:33 PM EDT Pulse 68 06/11/2025 1:33 PM EDT Temperature 36.4 C (97.5 F) 05/13/2025 4:00 PM EDT Respiratory Rate 18 05/13/2025 3:57 PM EDT Oxygen Saturation 95% 05/13/2025 4:00 PM EDT Inhaled Oxygen Concentration - - Weight 99.3 kg (219 lb) 06/11/2025 1:33 PM EDT Height 167.6 cm (5' 6 ) 06/11/2025 1:33 PM EDT Body Mass Index 35.35 06/11/2025 1:33 PM EDT Plan of Treatment Upcoming Encounters Date Type Department Care Team (Late st Contact Info) Description 08/11/2025 12:30 PM EST Office Visit [facility] Cardiology [address] [phone] Jacob Celeste MD [address] [facility] [address] [place] [address] Health Maintenance Due Date Last Done Comments DXA SCAN 1945 Depression Screening (12+) 1959 Hepatitis C Screening 1965 DTAP/TDAP/TD VACCINES (1 - Tdap) 1966 Shingles Vaccine (Zoster) (1 of 2) 1997 Medicare Initial AWV G0438 06/11/2013 Pneumococcal 50+ years (2 of 2 - PCV) 07/22/202108/2020 Respiratory Syncytial Virus (RSV) Adult or (1 - 1-dose 75+ series) 2022 Falls Risk Screening 09/10/2024 COVID-19 VACCINE ( - season) 05/11/202508/2021, 10/29/2020 Influenza Vaccine (#1) 2025 07/13/2021, 2020 Tobacco Cessation Counseling and Screening (12+) 06/11/2026 06/11/2025 Procedures Procedure Name Priority Date/Time Associated Diagnosis Comments FS_MODEL_IP_ECG 12-LEAD Routine 06/11/20 1:41 PM EDT Shortness of breath CBC W/ AUTO DIFF Routine 05/13/2025 3:17 AM EDT BASIC METABOLIC PANEL Routine 05/13/2025 3:17 AM EDT US RENAL LIMITED Routine 05/12/2025 2:09 PM EDT MANUAL DIFFERENTIAL Routine 05/12/2025 5 :57 AM EDT MAGNESIUM Routine 05/12/2025 5:57 AM EDT CBC W/ AUTO DIFF Routine 05/12/2025 5:57 AM EDT BASIC METABOLIC PANEL Routine 05/12/2025 5:[address] ABDOMEN/PELVIS WITHOUT IV CONTRAST Routine 05/11/2025 8:14 PM EDT US DOPPLER VENOUS LEGS BILATERAL Routine 05/11/2025 5:15 PM EDT XR CHEST AP PORTABLE Routine 05/11/2025 2:16 PM EDT NM LUNG PERFUSION SCAN Routine 12:57 PM EDT ECHO COMPLETE (DOPPLER / COLOR) WO CONTRAST Routine 05/11/2025 10:29 AM EDT MANUAL DIFFERENTIAL Routine 05/11/2025 1 0:04 AM EDT MAGNESIUM Routine 05/11/2025 10:04 AM EDT HEPATIC FUNCTION PANEL Routine 10:04 AM EDT CBC W/ AUTO DIFF Routine 05/11/2025 10:0 4 AM EDT BASIC METABOLIC PANEL Routine 05/11/2025 [...] BLOOD CULTURE STAT 05/09/2025 10:40 PM EDT LACTIC ACID WITH REFLEX STAT 05/09/20 9:26 PM EDT COVID ANTIGEN STAT 05/09/2025 9:26 PM EDT XR CHEST 1 VIEW PORTABLE / BEDSIDE STAT 05/09/2025 9:20 PM EDT D-DIMER STAT 05/09/2025 9:09 PM EDT TSH STAT 05/09/2025 9:09 PM EDT HIGH SENSITIVITY TROPONIN I STAT 05/09/2025 9:09 PM EDT PROBNP STAT 05/09/2025 9:09 PM EDT MAGNESIUM STAT 05/09/2025 9:09 PM EDT COMPREHENSIVE METABOLIC PANEL STAT 05/09/2025 9:09 PM EDT CBC W/ AUTO DIFF STAT 05/09/2025 9:09 PM EDT FS_MODEL_IP_ECG 12-LEAD STAT 05/09/20 8:47 PM EDT EKG-SCANNED 05/09/2025 EKG-SCANNED 05/09/2025 from Last 3 Months Results * ECG 12 lead (06/11/2025 1:41 PM EDT) Only the most recent of3 resultswithin the time period is included. us Jacob Celeste MD ECG ORDERABLES Final Result * (ABNORMAL) CBC with automated diff (05/13/2025 3:17 AM EDT) Only the most recent of4 resultswithin the time period is included. WBC 4.7 4.0 - 10.0 K/ L 05/13/2025 3:58 AM EDT [facility] RBC 3.40(L) 3.93 - 5.22 M/ L 05/13/2025 3:58 AM EDT [facility] Hemoglobin 9.9(L) 11.2 - 15.7 GM/DL 05/13/2025 3:58 AM EDT [facility] Hematocrit 33.0(L) 34.1 - 44.9 % 05/13/2025 3:58 AM EDT [facility] MCV 97(H) 79 - 95 fL 05/13/2025 3:58 AM EDT [facility] MCH 29.1 25.6 - 32.2 pg 05/13/2025 3:58 AM EDT [facility] MCHC 30.0(L) 32.2 - 35.5 GM/DL 05/13/2025 3:58 AM EDT [facility] RDW 14.2 11.7 - 14.4 % 05/13/2025 3:58 AM EDT [facility] Platelets 183 140 - 375 K/CU MM 05/13/2025 3:58 AM EDT [facility] MPV 10.6 9.4 - 12.3 fL 05/13/2025 3:58 AM EDT [facility] % Neutros 47 34 - 71 % 05/13/2025 3:58 AM EDT [facility] % Lymphs 33 19 - 52 % 05/13/2025 3:58 AM EDT [facility] % Monos 15(H) 5 - 13 % 05/13/2025 3:58 AM EDT [facility] % Eos 4 1 - 6 % 05/13/2025 3:58 AM EDT [facility] % Baso 1 0 - 1 % 05/13/2025 3:58 AM EDT [facility] NRBC Absolute <0.01 0 - 0.012 K/ul 05/13/2025 3:58 AM EDT [facility] # Neutros 2.19 1.56 - 6.13 K/ L 05/13/2025 3:58 AM EDT [facility] # Lymphs 1.54 1.18 - 3.74 K/ L 05/13/2025 3:58 AM EDT [facility] # Monos 0.68 0.24 - 0.86 K/ L 05/13/2025 3:58 AM EDT [facility] # Eos 0.19 0.04 - 0.36 K/ L 05/13/2025 3:58 AM EDT [facility] # Baso 0.04 0.01 - 0.08 K/ L 05/13/2025 3:58 AM EDT [facility] Immature Granulocytes-Re lative 0.40 0.01 - 0.43 % 05/13/2025 3:58 AM EDT [facility] # IG <0.03 0.00 - 0.03 K/uL 05/13/2025 3:58 AM EDT [facility] Blood Venipuncture / Unknown 05/13/2025 3:17 AM EDT 05/13/2025 3:51 AM EDT Narrative [facility] - 05/13/2025 3:58 AM EDT [...] MD LAB BLOOD ORDERABLES Final Resul t [facility] [address] [phone] * (ABNORMAL) Basic Metabolic Panel (05/13/2025 3:17 AM EDT) Only the most recent of4 resultswithin the time period is included. Sodium 142 136 - 145 meq/L 05/13/2025 4:26 AM EDT [facility] Potassium 3.6 3.4 - 5.1 meq/L 05/13/2025 4:26 AM EDT [facility] CO2 29 22 - 29 meq/L 05/13/2025 4:26 AM EDT [facility] Chloride 103 98 - 112 meq/L 05/13/2025 4:26 AM EDT [facility] Glucose 88 82 - 115 mg/dL 05/13/2025 4:26 AM EDT [facility] BUN 37.5(H) 9.8 - 20.1 mg/dL 05/13/2025 4:26 AM EDT [facility] Creatinine 1.90(H) 0.57 - 1.11 mg/dL 05/13/2025 4:26 AM EDT [facility] BUN/Creatinine 20 8 - 20 05/13/2025 4:26 AM EDT [facility] Calcium 8.5 8.4 - 10.2 mg/dL 05/13/2025 4:26 AM EDT [facility] Anion Gap 14(H) 4 - 12 05/13/2025 4:26 AM T [facility] eGFR (mL/min/1.73m2) 27(L) >=60 mL/min/1.7 3m2 05/13/2025 4:26 AM EDT [facility] Comment:ESTIMATED GFR IS NOT ACCURATE CREATININE CLEARANCE IN PREDICTING GLOMERULAR FILTRATION RATE. ESTIMATED GFR IS NOT APPLICABLE FOR DIALYSIS PATIENTS. Osmolality Calc 291.4 mOsm/kg 4:26 AM T [facility] Blood Venipuncture / Unknown 05/13/2025 3:17 AM EDT 05/13/2025 3:53 AM EDT us Callum Blanton MD LAB BLOOD ORDERABLES Final Resul t [facility] [address] [phone] * Ultrasound renal limited (05/12/2025 2:09 PM EDT) Anatomical Region Laterality Modality Abdomen, Kidney Ultrasound 05/12/2025 3:48 PM EDT Impressions 05/12/2025 5:38 PM EDT 1. Renal cortical thinning increased echogenicity consistent with medical renal disease bilaterally. 2. No hydronephrosis. 3. Multiple bilateral renal cysts as above. No solid masses are seen. Images reviewed, interpreted, dictated and electronically signed by Pio Angel MD Voice pediatric critical care nurse technology (Power Shoptimiseibe) is used for the dictation of this note and sound-alike words might be erroneously placed despite reviewing this note for accuracy. Errors in dictation may reflect use of voice recognition software and not all errors in pediatric critical care nurse may have been detected prior to signing. [...] electronically signed by Pio Angel MD Voice pediatric critical care nurse technology (Power Scribe) is used for the dictation of this note and sound-alike words might be erroneously placed despite reviewing this note for accuracy. Errors in dictation may reflect use of voice recognition software and not all errors in pediatric critical care nurse may have been detected prior to signing. us Trey Cartwright MD IMG US ORDERABLES Final Result * (ABNORMAL) Manual Differential (05/12/2025 5:57 AM EDT) Only the most recent of2 resultswithin the time period is included. Total Counted 100 05/12/2025 9:36 AM EDT [facility] % Neutros (manual) 70(H) 50 - 65 % 05/12/2025 9:36 AM EDT [facility] % Lymphs (manual) 11(L) 24 - 44 % 05/12/2025 9:36 AM EDT [facility] Comment:27% appear to be aty pical/reactive lymphs % Monos (manual) 14(H) 4 - 5 % 05/12/2025 9:36 AM EDT [facility] % Eos (manual) 5(H) 0 - 3 % 05/12/2025 9:36 AM EDT [facility] RBC Morphology abnormal(A) Normal 9:36 AM EDT [facility] Platelet Estimate Adequate Adequate 05/12/2025 9:36 AM EDT [facility] Hypochromia 1+ 05/12/2025 9:36 AM EDT [facility] ANC# 3.50 K/ L 05/12/2025 9:36 AM EDT [facility] Blood Venipuncture / Unknown 05/12/2025 5:57 AM EDT 05/12/2025 6:59 AM EDT us Martin Snyder MD LAB BLOOD ORDERABLES Final Resu lt [facility] [address] [phone] * Magnesium (05/12/2025 5:57 AM EDT) Only the most recent of3 resultswithin the time period is included. Magnesium 1.9 1.6 - 2.6 mg/dL 05/12/2025 7:25 AM EDT [facility] Blood Venipuncture / Unknown 05/12/2025 5:57 AM EDT 05/12/2025 6:59 AM EDT us Martin Snyder MD LAB BLOOD ORDERABLES Final Resu lt [facility] [address] [phone] * CT ABDOMEN/PELVIS WITHOUT IV CONTRAST Standard [...] interpreted, and dictated by Trey Bailey MD Ulisses Barriga MD IMG CT ORDERABLES Final Resul t * US DOPPLER VENOUS LEGS BILATERAL (05/11/2025 5:15 PM EDT) Anatomical Region Laterality Modality Lower Extremity Vascular Ultraso und 05/11/2025 2:53 PM EDT Narrative 05/12/2025 12:55 PM EDT Vascular Lower Extremities DVT Study Procedure Demographics Patient Name DONTE MONTEJO Age 79 Patient Number [id number] Gender Female Race Unknown Ethnicity Corporate ID [id number] Height 68 Date of 1945 Weight 225 Accession Number [id number] BSA 2.15 m^2 Room Number 415 BMI 34.21 kg/m^2 Referring BIPIN MEMBRENO DO Physician Physician Jewel Hole Rough Opener MEGHAN RAMIREZ, FRANNYT Procedure Type of Study: Veins: Venous Duplex, [...] Name DONTE MONTEJO Age 79 Patient Number [id number] Gender Female Race Unknown Ethnicity Corporate ID [id number] Height 68 Date of 1945 Weight 225 Accession Number [id number] BSA 2.15 m^2 Room Number 415 BMI 34.21kg/m^2 Referring BIPIN ZACARIAS Interpreting JUSTINA BRUNER Physician Physician Jewel Hole Rough Opener MEGHAN RAMIREZ RVT Procedure Type of Study: [...] electronically signed by Pio Angel MD Voice pediatric critical care nurse technology (Power Scribe) is used for the dictation of this note and sound-alike words might be erroneously placed despite reviewing this note for accuracy. Errors in dictation may reflect use of voice recognition software and not all errors in pediatric critical care nurse may have been detected prior to signing. [...] electronically signed by Pio Angel MD Voice pediatric critical care nurse technology (Power Scribe) is used for the dictation of this note and sound-alike words might be erroneously placed despite reviewing this note for accuracy. Errors in dictation may reflect use of voice recognition software and not all errors in pediatric critical care nurse may have been detected prior to signing. us Pio Angel MD IMG DIAGNOSTIC IMAGING ORDERABL ES Final Result * NM lung perfusion scan (05/11/2025 12:57 PM EDT) Anatomical Region Laterality Modality Chest, Lung Nuclear Medicine 05/11/2025 3:02 PM EDT Impressions 05/11/2025 3:11 PM EDT Low probability for PE . Images reviewed, interpreted, and dictated by Dr. Pio Angel. Transcribed by Kun Rviera PA-C. Narrative 05/11/2025 3:11 PM EDT NUCLEAR [...] Pio Angel. Transcribed by Kun Rivera PA-C. us Ulises Ruelas PA-C IMG NM ORDERABLES Final Resu lt * ECHO COMPLETE (DOPPLER / COLOR) WO CONTRAST (05/11/2025 10:29 AM EDT) Anatomical Region Laterality Modality Heart Vascular Ultraso und 05/11/2025 9:52 AM EDT Narrative 05/11/2025 12:10 PM EDT TRANSTHORACIC ECHOCARDIOGRAPHY REPORT Demographics Patient Name: DONTE MONTEJO : 1945 Age: 79 year(s) Corporate ID Number: [id number] Gender Female Jewel Hole Rough Opener: Angelica EGAN Height: 68 inches Referring Physician: ARACELI TURNER Weight: 225 pounds Interpreting Physician: JUSTINA MEMBRENO DO BMI: 34.21 kg/m^2 Date of Service: 05/11/2025 Blood Pressure: 111/59 mmHg Room Number: 415 Type of Study: TTE procedure: ECHO COMPLETE (DOPPLER / COLOR) W OR WO CONTRAST. Patient Status: Routine IP Study Location: PortableTechnical Quality: Adequate visualization History/Tech Notes: Indication: shortness [...] A-wave: 0.73 m/s E/A ratio: 1.02 Volume xfbiunvox06.2 ml Volume kejombzb34.08 ml LVOT diameter: 2.05 cm Normal sized [...] 1945 Age: 79 year(s) Corporate ID Number: [id number] Gender Female Jewel Hole Rough Opener: Angelica EGAN Height: 68 inches Referring Physician: ARACELI TURNER Weight: 225 pounds Interpreting Physician: JUSTINA MEMBRENO DO BMI: 34.21kg/m^2 Date of Service: 05/11/2025 Blood Pressure: 111/59 mmHg Room Number: 415 Type of Study: TTE procedure: ECHO COMPLETE (DOPPLER / COLOR) W OR WO CONTRAST. Patient Status: Routine IP Study Location: PortableTechnical Quality: Adequate visualization History/Tech Notes: Indication: shortness [...] A-wave: 0.73 m/s E/A ratio: 1.02 Volume .2 ml Volume vzktbwab08.08 ml LVOT diameter: 2.05 cm Normal sized [...] / Pleura No pericardial effusion. Araceli Turner DIRECTOR STRATEGIC ACCOUNT MANAGEMENT CV ECHO ORDERABLES Final R esult * (ABNORMAL) Hepatic function panel (05/11/2025 10:04 AM EDT) Protein, Total 5.8(L) 6.4 - 8.3 g/dL 05/11/2025 11:26 AM [facility] Albumin 2.1(L) 3.5 - 5.0 g/dL 05/11/2025 11:26 AM [facility] Total Bilirubin 0.2 0.2 - 1.2 mg/dL 05/11/2025 11:26 AM [facility] Bilirubin, Direct 0.1 0.0 - 0.5 mg/dL 05/11/2025 11:26 AM [facility] Alkaline Phosphatase 113 40 - 150 U/L 05/11/2025 11:26 AM [facility] Globulin 3.7 2.5 - 4.1 g/dL 05/11/2025 11:26 AM [facility] A/G Ratio 0.6(L) 0.7 - 1.9 05/11/2025 11:26 AM [facility] AST 27 11 - 34 U/L 05/11/2025 11:26 AM [facility] Comment: AST2 reagent used for testing does not contain P5P supplementation and therefore may miss AST elevations in patients with B6 deficiency. This population may be as high as 10% in the [place], with risk factors including malabsorption, drug interactions, and alcoholic hepatitis. ALT 38(H) <=34 U/L 05/11/2025 11:26 AM [facility] Comment: ALT2 reagent used for [...] MD LAB BLOOD ORDERABLES Final Resu lt [facility] [address] [place] [address], [facility] [phone] * (ABNORMAL) Urinalysis, Reflex Microscopic and Culture If Indicated (05/11/2025 1:39 AM EDT) Color, UA Colorless 05/11/2025 1:57 AM EDT [facility] Clarity, UA Clear Clear 05/11/2025 1:57 AM EDT [facility] Specific [place], UA 1.010 1.005 - 1.030 05/11/2025 1:57 AM EDT [facility] pH, UA 5.5(L) 6.0 - 8.0 05/11/2025 1:57 AM EDT [facility] Leukocytes, UA Negative Negative 05/11/2025 1:57 AM EDT [facility] Nitrite, UA Negative Negative 05/11/2025 1:57 AM EDT [facility] Protein, UA Negative Negative 05/11/2025 1:57 AM EDT [facility] Glucose, UA Normal Normal 05/11/2025 1:57 AM EDT [facility] Ketones, UA Negative Negative 05/11/2025 1:57 AM EDT [facility] Bilirubin, UA Negative Negative 05/11/2025 1:57 AM EDT [facility] Blood, UA Negative Negative 05/11/2025 1:57 AM EDT [facility] Urobilinogen, UA Normal Normal 05/11/2025 1:57 AM EDT [facility] Specimen Source Urine, Clean Catch 05/11/2025 1:57 AM EDT [facility] Urine URINE SPECIMEN COLLECTION, CLEAN CATCH / Unknown 05/11/2025 1:39 AM EDT 05/11/2025 1:39 AM EDT us Ulises VALIENTE-C URINE ORDERABLES Final Resul t [facility] [address] [place] [address], [facility] [phone] * Lactic acid (SJ) (05/09/2025 11:18 PM EDT) Lactic Acid Level (mmol/L) 1.0 0.5 - 2.2 mmol/L 05/09/2025 11:43 PM EDT [facility] Blood Venipuncture / Unknown 05/09/2025 11:18 PM EDT 05/09/2025 11:23 PM EDT Jyoti Montana PA-C LAB BLOOD ORDERABLES Final R esult Performing Organization Address City/[facility]/ZIP Co de Phone Number [facility] [address] [place] [address], [facility] [phone] * (ABNORMAL) Blood Culture Panel([employer]) (05/09/2025 10:40 PM EDT) CTX-M Not detected Not detected 05/10/2025 4:24 PM EDT [facility] IMP Not detected Not detected 05/10/2025 4:24 PM EDT [facility] KPC Not detected Not detected 05/10/2025 4:24 PM EDT [facility] MCR-1 Not detected Not detected 05/10/2025 4:24 PM EDT [facility] MEC A/C Non Applicable Not detected 05/10/2025 4:24 PM EDT [facility] MEC A/C and MREJ Non Applicable Not detected 05/10/2025 4:24 PM EDT [facility] NDM Not detected Not detected 05/10/2025 4:24 PM EDT [facility] [id number] Not detected Not Detected 05/10/2025 4:24 PM EDT [facility] VAN A/B Non Applicable Not detected 05/10/2025 4:24 PM EDT [facility] VIM Not detected Not detected 05/10/2025 4:24 PM EDT [facility] ENTEROCOCCUS FAECALIS Not detected Not detected 05/10/2025 4:24 PM EDT [facility] ENTEROCOCCUS FAECIUM Not detected Not detected 05/10/2025 4:24 PM EDT [facility] LISTERIA MONOCYTOGENES Not detected Not detected 05/10/2025 4:24 PM EDT [facility] STAPHYLOCOCCUS Not detected Not detected 05/10/2025 4:24 PM EDT [facility] STAPHYLOCOCCUS AUREUS Not detected Not detected 05/10/2025 4:24 PM EDT [facility] STAPHYLOCOCCUS EPIDERMIDIS Not detected Not detected 05/10/2025 4:24 PM EDT [facility] STAPHYLOCOCCUS LUGDENENSIS Not detected Not detected 05/10/2025 4:24 PM EDT [facility] STREPTOCOCCUS Not detected Not detected 05/10/2025 4:24 PM EDT [facility] STREPTOCOCCUS AGALACTIAE (GROUP B) Not detected Not detected 05/10/2025 4:24 PM EDT [facility] STREPTOCOCCUS PNEUMONIAE Not detected Not detected 05/10/2025 4:24 PM EDT [facility] STREPTOCOCCUS PYOGENES (GROUP A) Not detected Not detected 05/10/2025 4:24 PM EDT [facility] ACINETOBACTER CALCOACETICUS-MAGDY UNA COMPLEX Not detected Not detected 05/10/2025 4:24 PM EDT [facility] BACTEROIDES FRAGILIS Not detected Not detected 05/10/2025 4:24 PM EDT [facility] ENTEROBACTERIACEAE Detected(AA) Not detected 05/10/2025 4:24 PM EDT [facility] Comment:Enterobacterales rep resents a large order of gram negative bacteria, not a single organism ENTEROBACTER CLOACAE COMPLEX Not detected Not detected 05/10/2025 4:24 PM EDT [facility] ESCHERICHIA COLI Detected(AA) Not detected 05/10/2025 4:24 PM EDT [facility] KLEBSIELLA AEROGENES Not detected Not detected 05/10/2025 4:24 PM EDT [facility] KLEBSIELLA OXYTOCA Not detected Not detected 05/10/2025 4:24 PM EDT [facility] [facility] Not detected Not detected 05/10/2025 4:24 PM EDT [facility] PROTEUS Not detected Not detected 05/10/2025 4:24 PM EDT [facility] SALMONELLA SPECIES Not detected Not detected 05/10/2025 4:24 PM EDT [facility] SERRATIA MARCESCENS Not detected Not detected 05/10/2025 4:24 PM EDT [facility] HAEMOPHILUS INFLUENZAE Not detected Not detected 05/10/2025 4:24 PM EDT [facility] NEISSERIA MENINGITIDIS Not detected Not detected 05/10/2025 4:24 PM EDT [facility] PSEUDOMONAS AERUGINOSA Not detected Not detected 05/10/2025 4:24 PM EDT [facility] STENOTROPHOMONAS MALTOPHILIA Not detected Not detected 05/10/2025 4:24 PM EDT [facility] KELLY ALBICANS Not detected Not detected 05/10/2025 4:24 PM EDT [facility] KELLY AURIS Not detected Not detected 05/10/2025 4:24 PM EDT [facility] KELLY GLABRATA Not detected Not detected 05/10/2025 4:24 PM EDT [facility] KELLY KRUSEI Not detected Not detected 05/10/2025 4:24 PM EDT [facility] KELLY PARAPSILOSIS Not detected Not detected 05/10/2025 4:24 PM EDT [facility] KELLY TROPICALIS Not detected Not detected 05/10/2025 4:24 PM EDT [facility] CRYPTOCOCCUS NEOFORMANS/GATTII Not detected Not detected 05/10/2025 4:24 PM EDT [facility] Blood Venipuncture / Unknown 05/09/2025 10:40 PM EDT 05/09/2025 10:44 PM EDT [facility] - 05/10/2025 4:24 PM EDT NOTE: Antimicrobial resistance can occur via multiple mechanisms. A Not Detected result for antimicrobial resistance gene(s) does not indicate antimicrobial susceptibility. Subculturing is required for species identification and susceptibility testing of isolates. us Jyoti Montana PA-C MICROBIOLOGY - GENERAL ORDER KAJAL Final Result [facility] [address] [place] [address] * (ABNORMAL) Blood Culture (05/09/2025 10:40 PM EDT) Only the most recent of2 resultswithin the time period is included. Result Escherichia coli(A) 05/12/2025 10:03 AM EDT [facility] Gram Stain Result Aerobic bottle gram stain gram negative rods(AA) 05/12/2025 10:03 AM EDT [facility] Blood ENTIRE LEFT UPPER ARM / Unknown Venipuncture / Unknown 05/09/2025 10:40 PM EDT 05/09/2025 10:44 PM EDT Narrative [facility] - 05/12/2025 10:03 AM EDT Positive [...] Escherichia coli Trimethoprim + Sulfamethoxazole <=0.5/9.5: Susceptible us Jyoti Montana PA-C MICROBIOLOGY - GENERAL ORDER KAJAL Final Result [facility] [address] [phone] * COVID ANTIGEN (05/09/2025 9:26 PM EDT) SARS COVID ANTIGEN Negative Negative, Invalid 05/09/2025 9:57 PM EDT [facility] Nasal Swab (Nasal) 05/09/2025 9:26 PM EDT 05/09/2025 9:39 PM EDT Narrative [facility] - 05/09/2025 9:57 PM EDT [...] MICROBIOLOGY - GENERAL ORDER KAJAL Final Result [facility] [address] [phone] * (ABNORMAL) Lactic Acid with reflex (SJ) (05/09/2025 9:26 PM EDT) Lactic Acid Level (mmol/L) 2.2(HH) 0.5 - 2.2 mmol/L 05/09/2025 10:32 PM EDT [facility] Blood Venipuncture / Unknown 05/09/2025 9:26 PM EDT 05/09/2025 10:09 PM EDT Jyoti Montana PA-C LAB BLOOD ORDERABLES Final R esult [facility] [address] [phone] * XR chest 1 view portable / [...] Lisandro Zapata MD - 05/10/2025 Name: ELISSA Benjamin DONTE : 1945 CHEST SINGLE VIEW HISTORY: Chest [...] DIAGNOSTIC IMAGING ORDER KAJAL Final Result * High Sensitivity Troponin I (05/09/2025 9:09 PM EDT) Troponin I High Sensitivity (pg/mL) 6.2 <=14 pg/mL 05/09/2025 9:50 PM EDT [facility] Blood Venipuncture / Unknown 05/09/2025 9:09 PM EDT 05/09/2025 9:19 PM EDT Narrative [facility] - 05/09/2025 9:50 PM EDT Applicable to [facility] only. Effective December 02 the lab will begin using a new chemistry analyzer. HsTroponin methodology, reference ranges and critical values have changed. us Jyoti VALIENTE-C LAB BLOOD ORDERABLES Final R esult Performing Organization Address [facility] Co de Phone Number [facility] [address] [place] [address], [facility] [phone] * (ABNORMAL) PROBNP (05/09/2025 9:09 PM EDT) Pathologist [facility] ProBNP (pg/mL) 1,896(H) 16 - 956 pg/mL 05/09/2025 10:05 PM EDT [facility] Blood Venipuncture / Unknown 05/09/2025 9:09 PM EDT 05/09/2025 9:19 PM EDT Narrative [facility] - 05/09/2025 10:05 PM EDT As of January 29, 2025: NT-ProBNP is a new test on our [employer] Immunoassay analyzer. Please review new age and gender specific reference ranges. us Jyoti VALIENTE-C LAB BLOOD ORDERABLES Final R esult Performing Organization Address City/[facility]/ZIP Co de Phone Number [facility] [address] [place] [address], [facility] [phone] * (ABNORMAL) D-dimer (05/09/2025 9:09 PM EDT) D-Dimer, Quant 1.40(H) 0.19 - 0.58 MG/L FEU 05/09/2025 9:33 PM EDT [facility] Comment:Important: A D-Dimer result of less than 0.50 mg/L FEU indicates a very low probability of DVT or PE. Blood Venipuncture / Unknown 05/09/2025 9:09 PM EDT 05/09/2025 9:19 PM EDT Jyoti Shantell Rubén PA-C LAB BLOOD ORDERABLES Final R esult Performing Organization Address City/[facility]/ZIP Co de Phone Number [facility] [address] [phone] * TSH (05/09/2025 9:09 PM EDT) TSH 0.948 0.350 - 4.940 uIU/mL 05/09/2025 10:05 PM EDT [facility] Blood Venipuncture / Unknown 05/09/2025 9:09 PM EDT 05/09/2025 9:19 PM EDT Jyoti Shantell Rubén PA-C LAB BLOOD ORDERABLES Final R esult Performing Organization Address [facility] Co de Phone Number [facility] [address] [phone] * (ABNORMAL) Comprehensive metabolic panel (05/09/2025 9:09 PM EDT) Sodium 136 136 - 145 meq/L 05/09/2025 10:05 PM EDT [facility] Potassium 4.4 3.4 - 5.1 meq/L 05/09/2025 10:05 PM EDT [facility] Chloride 97(L) 98 - 112 meq/L 05/09/2025 10:05 PM EDT [facility] CO2 23 22 - 29 meq/L 05/09/2025 10:05 PM EDT [facility] Calcium 8.7 8.4 - 10.2 mg/dL 05/09/2025 10:05 PM EDT [facility] Glucose 99 82 - 115 mg/dL 05/09/2025 10:05 PM EDT [facility] BUN 63.3(H) 9.8 - 20.1 mg/dL 05/09/2025 10:05 PM [facility] Creatinine 2.48(H) 0.57 - 1.11 mg/dL 05/09/2025 10:05 PM [facility] BUN/Creatinine 26(H) 8 - 20 05/09/2025 10:05 PM [facility] eGFR (mL/min/1.73m2) 20(L) >=60 mL/min/1. 73m2 05/09/2025 10:05 PM [facility] Comment:ESTIMATED GFR IS NOT ACCURATE CREATININE CLEARANCE IN PREDICTING GLOMERULAR FILTRATION RATE. ESTIMATED GFR IS NOT APPLICABLE FOR DIALYSIS PATIENTS. Albumin 2.8(L) 3.5 - 5.0 g/dL 05/09/2025 10:05 PM [facility] Alkaline Phosphatase 161(H) 40 - 150 U/L 05/09/2025 10:05 PM [facility] ALT 81(H) <=34 U/L 05/09/2025 10:05 PM [facility] Comment: ALT2 reagent used for testing does not contain P5P supplementation and therefore may miss ALT elevations in patients with B6 deficiency. This population may be as high as 10% in the [place], with risk factors including malabsorption, drug interactions, and alcoholic hepatitis. AST 74(H) 11 - 34 U/L 05/09/2025 10:05 PM [facility] Comment: AST2 reagent used for testing does not contain P5P supplementation and therefore may miss AST elevations in patients with B6 deficiency. This population may be as high as 10% in the [place], with risk factors including malabsorption, drug interactions, and alcoholic hepatitis. Total Bilirubin 0.5 0.2 - 1.2 mg/dL 05/09/2025 10:05 PM [facility] Protein, Total 7.2 6.4 - 8.3 g/dL 05/09/2025 10:05 PM [facility] Globulin 4.4(H) 2.5 - 4.1 g/dL 05/09/2025 10:05 PM [facility] Anion Gap 20(H) 4 - 12 05/09/2025 10:05 PM EDT [facility] A/G Ratio 0.6(L) 0.7 - 1.9 05/09/2025 10:05 PM EDT [facility] Osmolality Calc 290.1 mOsm/kg 10:05 PM EDT [facility] Blood Venipuncture / Unknown 05/09/2025 9:09 PM EDT 05/09/2025 9:19 PM EDT us Jyoti Montana PA-C LAB BLOOD ORDERABLES Final R esult [facility] [address] [place] [id number] [phone] * EKG-SCANNED (05/09/2025) Only the most recent of2 resultswithin the time period is included. Narrative 05/09/2025 Ordered by an unspecified provider. us Default Scanning Provider SCAN ORDERS Final Result from Last [address] [place] [address] MEDICARE PART A B [facility] CLAIM[facility] Advance Directives For more information, please contact: [phone] * Full Code (Latest Code Status on File) Date Activated Date Inactivated Comments 05/10/2025 3:43 AM 05/13/2025 5:35 PM Care Teams Picker / Packer Relationship Specialty Start Date End Date Deo Byrne MD [facility] [place] [address] PCP - General Family Medicine 05/09/25 [place] [address] [place] [address] [place] [address] Cardiology 01/02/24
--- OUTSIDE RECORDS SUMMARY | 2025-06-23 09:55 | XMS_ITS | Referral Summary ---
Author Organization [email or web address] ([place], [place], [place], [place]) Address [address] [place] [address] Care Team Providers Care Access Tech Name Role Phone Deo Byrne MD Primary Care Provider [phone] Jacob Celeste MD Unavailable Encounters Date Type Department Care Team Description 06/12/2025 Telephone [facility] Cardiology [address] [place] [phone] Jacob Celeste MD Medication Management 06/11/2025 Travel 06/11/2025 11:45 AM EDT Office Visit [facility] Cardiology [address] [place] [phone] Jacob Celeste MD Shortness of breath (Primary Dx) 05/09/2025 8:41 PM EDT - 05/13/2025 4:35 PM EDT Hospital Encounter [place] [address] Inter[facility] 1 [place] [address] Xiang Cordova MD Elliott, Jayden, PA-C Brammell, Korey, DO Kredan, Tawfik, MD Han, John, MD Shortness of breath (Primary Dx); Sinus tachycardia; Hypotension, unspecified hypotension type; Positive D dimer; Abnormal kidney function; Elevated liver enzymes Discharge Disposition: Home or Self Care 05/09/2025 Travel from Last 3 Months Allergies No known active allergies Medications cholecalciferol [...] Noted Date Diagnosed Date Chest pain 05/10/2025 Social History Tobacco Use Types Packs/Day Years [...] your living situation today? I have [facility] 05/10/2025 Think about the [...] Do you speak a language other than [facility] [facility]? No 05/10/2025 Do you want help with [...] Description 08/11/2025 12:30 PM EST Office Visit [facility] Cardiology [address] [place], [place] [phone] Jacob Celeste MD [address] [facility] [address] [place] [address] Procedures Procedure Name Priority Date/Time Associated Diagnosis [...] of3 resultswithin the time period is included. Jacob Celeste MD ECG ORDERABLES Final Result * (ABNORMAL) CBC with automated diff (05/13/2025 3:17 AM EDT) Only the most recent of4 resultswithin the time period is included. WBC 4.7 4.0 - 10.0 K/ L 05/13/2025 3:58 AM EDT [facility] RBC 3.40(L) 3.93 - 5.22 M/ L 05/13/2025 3:58 AM EDT [facility] Hemoglobin 9.9(L) 11.2 - 15.7 GM/DL 05/13/2025 3:58 AM EDT [facility] Hematocrit 33.0(L) 34.1 - 44.9 % 05/13/2025 3:58 AM EDT [facility] MCV 97(H) 79 - 95 fL 05/13/2025 3:58 AM EDT [facility] MCH 29.1 25.6 - 32.2 pg 05/13/2025 3:58 AM EDT [facility] MCHC 30.0(L) 32.2 - 35.5 GM/DL 05/13/2025 3:58 AM EDT [facility] RDW 14.2 11.7 - 14.4 % 05/13/2025 3:58 AM EDT [facility] Platelets 183 140 - 375 K/CU MM 05/13/2025 3:58 AM EDT [facility] MPV 10.6 9.4 - 12.3 fL 05/13/2025 3:58 AM EDT [facility] % Neutros 47 34 - 71 % 05/13/2025 3:58 AM EDT [facility] % Lymphs 33 19 - 52 % 05/13/2025 3:58 AM EDT [facility] % Monos 15(H) 5 - 13 % 05/13/2025 3:58 AM EDT [facility] % Eos 4 1 - 6 % 05/13/2025 3:58 AM EDT [facility] % Baso 1 0 - 1 % 05/13/2025 3:58 AM EDT [facility] NRBC Absolute <0.01 0 - 0.012 K/ul 05/13/2025 3:58 AM EDT [facility] # Neutros 2.19 1.56 - 6.13 K/ L 05/13/2025 3:58 AM EDT [facility] # Lymphs 1.54 1.18 - 3.74 K/ L 05/13/2025 3:58 AM EDT [facility] # Monos 0.68 0.24 - 0.86 K/ L 05/13/2025 3:58 AM EDT [facility] # Eos 0.19 0.04 - 0.36 K/ L 05/13/2025 3:58 AM EDT [facility] # Baso 0.04 0.01 - 0.08 K/ L 05/13/2025 3:58 AM EDT [facility] Immature Granulocytes-Re lative 0.40 0.01 - 0.43 % 05/13/2025 3:58 AM EDT [facility] # IG <0.03 0.00 - 0.03 K/uL 05/13/2025 3:58 AM EDT [facility] Blood Venipuncture / Unknown 05/13/2025 3:17 AM EDT 05/13/2025 3:51 AM EDT Narrative [facility] - 05/13/2025 3:58 AM EDT [...] MD LAB BLOOD ORDERABLES Final Resul t [facility] [address] [phone] * (ABNORMAL) Basic Metabolic Panel (05/13/2025 3:17 AM EDT) Only the most recent of4 resultswithin the time period is included. Sodium 142 136 - 145 meq/L 05/13/2025 4:26 AM EDT [facility] Potassium 3.6 3.4 - 5.1 meq/L 05/13/2025 4:26 AM EDT [facility] CO2 29 22 - 29 meq/L 05/13/2025 4:26 AM EDT [facility] Chloride 103 98 - 112 meq/L 05/13/2025 4:26 AM EDT [facility] Glucose 88 82 - 115 mg/dL 05/13/2025 4:26 AM EDT [facility] BUN 37.5(H) 9.8 - 20.1 mg/dL 05/13/2025 4:26 AM EDT [facility] Creatinine 1.90(H) 0.57 - 1.11 mg/dL 05/13/2025 4:26 AM EDT [facility] BUN/Creatinine 20 8 - 20 05/13/2025 4:26 AM EDT [facility] Calcium 8.5 8.4 - 10.2 mg/dL 05/13/2025 4:26 AM EDT [facility] Anion Gap 14(H) 4 - 12 05/13/2025 4:26 AM EDT [facility] eGFR (mL/min/1.73m2) 27(L) >=60 mL/min/1.7 3m2 05/13/2025 4:26 AM EDT [facility] Comment:ESTIMATED GFR IS NOT ACCURATE CREATININE CLEARANCE IN PREDICTING GLOMERULAR FILTRATION RATE. ESTIMATED GFR IS NOT APPLICABLE FOR DIALYSIS PATIENTS. Osmolality Calc 291.4 mOsm/kg 4:26 AM EDT [facility] Blood Venipuncture / Unknown 05/13/2025 3:17 AM EDT 05/13/2025 3:53 AM EDT us Callum Blanton MD LAB BLOOD ORDERABLES Final Resul t [facility] [address] [phone] * Ultrasound renal limited (05/12/2025 2:09 PM EDT) Anatomical Region Laterality Modality Abdomen, Kidney Ultrasound 05/12/2025 3:48 PM EDT Impressions 05/12/2025 5:38 PM EDT 1. Renal cortical thinning increased echogenicity consistent with medical renal disease bilaterally. 2. No hydronephrosis. 3. Multiple bilateral renal cysts as above. No solid masses are seen. Images reviewed, interpreted, dictated and electronically signed by Pio Angel MD Voice mainstreaming facilitator technology ([employer]) is used for the dictation of this note and sound-alike words might be erroneously placed despite reviewing this note for accuracy. Errors in dictation may reflect use of voice recognition software and not all errors in mainstreaming facilitator may have been detected prior to signing. [...] electronically signed by Pio Angel MD Voice mainstreaming facilitator technology (Power Scribe) is used for the dictation of this note and sound-alike words might be erroneously placed despite reviewing this note for accuracy. Errors in dictation may reflect use of voice recognition software and not all errors in mainstreaming facilitator may have been detected prior to signing. Trey Cartwright MD [facility] US ORDERABLES Final Result * (ABNORMAL) Manual Differential (05/12/2025 5:57 AM EDT) Only the most recent of2 resultswithin the time period is included. Total Counted 100 05/12/2025 9:36 AM EDT [facility] % Neutros (manual) 70(H) 50 - 65 % 05/12/2025 9:36 AM EDT [facility] % Lymphs (manual) 11(L) 24 - 44 % 05/12/2025 9:36 AM EDT [facility] Comment:27% appear to be aty pical/reactive lymphs % Monos (manual) 14(H) 4 - 5 % 05/12/2025 9:36 AM EDT [facility] % Eos (manual) 5(H) 0 - 3 % 05/12/2025 9:36 AM EDT [facility] RBC Morphology abnormal(A) Normal 9:36 AM EDT [facility] Platelet Estimate Adequate Adequate 05/12/2025 9:36 AM EDT [facility] Hypochromia 1+ 05/12/2025 9:36 AM EDT [facility] ANC# 3.50 K/ L 05/12/2025 9:36 AM EDT [facility] Blood Venipuncture / Unknown 05/12/2025 5:57 AM EDT 05/12/2025 6:59 AM EDT us Martin Snyder MD LAB BLOOD ORDERABLES Final Resu lt Performing Organization Address City/[facility]/ZIP Co de Phone Number [facility] [address] [phone] * Magnesium (05/12/2025 5:57 AM EDT) Only the most recent of3 resultswithin the time period is included. Magnesium 1.9 1.6 - 2.6 mg/dL 05/12/2025 7:25 AM EDT [facility] Blood Venipuncture / Unknown 05/12/2025 5:57 AM EDT 05/12/2025 6:59 AM EDT Martin Snyder MD LAB BLOOD ORDERABLES Final Resu lt Performing Organization Address City/[facility]/ZIP Co de Phone Number [facility] [address] [phone] * CT ABDOMEN/PELVIS WITHOUT IV CONTRAST Standard [...] Name SHOAIB MONTEJO Age 79 Patient Number [id number] Gender Female Race Unknown Ethnicity Corporate ID [id number] Height 68 Date of 1945 Weight 225 Accession Number [id number] BSA 2.15 m^2 Room Number 415 BMI 34.21 kg/m^2 Referring BIPIN ZACARIAS Interpreting JUSTINA MEMBRENO DO Physician Physician Cattle Sorter MEGHAN RAMIREZ, RVT Procedure Type of Study: Veins: Venous [...] Name SHOAIB MONTEJO Age 79 Patient Number [id number] Gender Female Race Unknown Ethnicity Corporate ID [id number] Height 68 Date of 1945 Weight 225 Accession Number [id number] BSA 2.15 m^2 Room Number 415 BMI 34.21kg/m^2 Referring BIPIN ZACARIAS Interpreting JUSTINA BRUNER Physician Physician Cattle Sorter MEGHAN RAMIREZ T Procedure Type of Study: Veins: Venous [...] electronically signed by Pio Angel MD Voice mainstreaming facilitator technology (Power Scribe) is used for the dictation of this note and sound-alike words might be erroneously placed despite reviewing this note for accuracy. Errors in dictation may reflect use of voice recognition software and not all errors in mainstreaming facilitator may have been detected prior to signing. [...] electronically signed by Pio Angel MD Voice mainstreaming facilitator technology (Power Scribe) is used for the dictation of this note and sound-alike words might be erroneously placed despite reviewing this note for accuracy. Errors in dictation may reflect use of voice recognition software and not all errors in mainstreaming facilitator may have been detected prior to signing. [...] by Kun Rivera PA-C. Ulises Ruelas PA-C IMG [place] ORDERABLES Final Resu lt * ECHO COMPLETE (DOPPLER / COLOR) WO CONTRAST (05/11/2025 10:29 AM EDT) Anatomical Region Laterality Modality Heart Vascular Ultraso und 05/11/2025 9:52 AM EDT Narrative 05/11/2025 12:10 PM EDT TRANSTHORACIC ECHOCARDIOGRAPHY REPORT Demographics Patient Name: SHOAIB MONTEJO : 1945 Age: 79 year(s) Corporate ID Number: [id number] Gender Female Cattle Sorter: Angelica EGAN Height: 68 inches Referring Physician: ARACEIL TURNER Weight: 225 pounds Interpreting Physician: JUSTINA MEMBRENO DO BMI: 34.21 kg/m^2 Date of Service: 05/11/2025 Blood Pressure: 111/59 mmHg Room Number: 415 Type of Study: TTE procedure: ECHO COMPLETE (DOPPLER / COLOR) W OR WO CONTRAST. Patient Status: Routine IP Study Location: [facility] Quality: Adequate visualization History/Tech Notes: Indication: shortness [...] A-wave: 0.73 m/s E/A ratio: 1.02 Volume oeooqduwl07.2 ml Volume fzvebggh25.08 ml LVOT diameter: 2.05 cm Normal sized [...] 05/11/2025 TRANSTHORACIC ECHOCARDIOGRAPHY REPORT Demographics Patient Name: HSOAIB MONTEJO : 1945 Age: 79 year(s) Corporate ID Number: [id number] Gender Female Cattle Sorter: Angelica EGAN Height: 68 inches Referring Physician: ARACELI TURNER Weight: 225 pounds Interpreting Physician: JUSTINA MEMBRENO DO BMI: 34.21kg/m^2 Date of Service: 05/11/2025 Blood Pressure: 111/59 mmHg Room Number: 415 Type of Study: TTE procedure: ECHO COMPLETE (DOPPLER / COLOR) W OR WO CONTRAST. Patient Status: Routine IP Study Location: [facility] Quality: Adequate visualization History/Tech Notes: Indication: shortness [...] A-wave: 0.73 m/s E/A ratio: 1.02 Volume pcojiegrh73.2 ml Volume wyjkhxff52.08 ml LVOT diameter: 2.05 cm Normal sized [...] Hepatic function panel (05/11/2025 10:04 AM EDT) Pathologist [facility] Protein, Total 5.8(L) 6.4 - 8.3 g/dL 05/11/2025 11:26 AM EDT [facility] Albumin 2.1(L) 3.5 - 5.0 g/dL 05/11/2025 11:26 AM EDT [facility] Total Bilirubin 0.2 0.2 - 1.2 mg/dL 05/11/2025 11:26 AM EDT [facility] Bilirubin, Direct 0.1 0.0 - 0.5 mg/dL 05/11/2025 11:26 AM EDT [facility] Alkaline Phosphatase 113 40 - 150 U/L 05/11/2025 11:26 AM EDT [facility] Globulin 3.7 2.5 - 4.1 g/dL 05/11/2025 11:26 AM EDT [facility] A/G Ratio 0.6(L) 0.7 - 1.9 05/11/2025 11:26 AM EDT [facility] AST 27 11 - 34 U/L 05/11/2025 11:26 AM EDT [facility] Comment: AST2 reagent used for testing does not contain P5P supplementation and therefore may miss AST elevations in patients with B6 deficiency. This population may be as high as 10% in the [place], with risk factors including malabsorption, drug interactions, and alcoholic hepatitis. ALT 38(H) <=34 U/L 05/11/2025 11:26 AM EDT [facility] Comment: ALT2 reagent used for [...] ORDERABLES Final Resu lt Performing Organization Address City/State/[facility] Co de Phone Number [facility] [address] [phone] * (ABNORMAL) Urinalysis, Reflex Microscopic and Culture If Indicated (05/11/2025 1:39 AM EDT) Color, UA Colorless 05/11/2025 1:57 AM EDT [facility] Clarity, UA Clear Clear 05/11/2025 1:57 AM EDT [facility] Specific [place], UA 1.010 1.005 - 1.030 05/11/2025 1:57 AM EDT [facility] pH, UA 5.5(L) 6.0 - 8.0 05/11/2025 1:57 AM EDT [facility] Leukocytes, UA Negative Negative 05/11/2025 1:57 AM EDT [facility] Nitrite, UA Negative Negative 05/11/2025 1:57 AM EDT [facility] Protein, UA Negative Negative 05/11/2025 1:57 AM EDT [facility] Glucose, UA Normal Normal 05/11/2025 1:57 AM EDT [facility] Ketones, UA Negative Negative 05/11/2025 1:57 AM EDT [facility] Bilirubin, UA Negative Negative 05/11/2025 1:57 AM EDT [facility] Blood, UA Negative Negative 05/11/2025 1:57 AM EDT [facility] Urobilinogen, UA Normal Normal 05/11/2025 1:57 AM EDT [facility] Specimen Source Urine, Clean Catch 05/11/2025 1:57 AM EDT [facility] Urine URINE SPECIMEN COLLECTION, CLEAN CATCH / Unknown 05/11/2025 1:39 AM EDT 05/11/2025 1:39 AM EDT us Ulises Ruelas PA-C URINE ORDERABLES Final Resul t Performing Organization Address [facility] Co de Phone Number [facility] [address] [phone] * Lactic acid (SJ) (05/09/2025 11:18 PM EDT) Lactic Acid Level (mmol/L) 1.0 0.5 - 2.2 mmol/L 05/09/2025 11:43 PM EDT [facility] Blood Venipuncture / Unknown 05/09/2025 11:18 PM EDT 05/09/2025 11:23 PM EDT us Jyoti Montana PA-C LAB BLOOD ORDERABLES Final R esult Performing Organization Address City/[facility]/ZIP Co de Phone Number [facility] [address] [phone] * (ABNORMAL) Blood Culture Panel([employer]) (05/09/2025 10:40 PM EDT) CTX-M Not detected Not detected 05/10/2025 4:24 PM EDT [facility] IMP Not detected Not detected 05/10/2025 4:24 PM EDT [facility] KPC Not detected Not detected 05/10/2025 4:24 PM EDT [facility] MCR-1 Not detected Not detected 05/10/2025 4:24 PM EDT [facility] MEC A/C Non Applicable Not detected 05/10/2025 4:24 PM EDT [facility] MEC A/C and MREJ Non Applicable Not detected 05/10/2025 4:24 PM EDT [facility] NDM Not detected Not detected 05/10/2025 4:24 PM EDT [facility] [id number]-[id number] Not detected Not Detected 05/10/2025 4:24 PM EDT [facility] VAN A/B Non Applicable Not detected 05/10/2025 4:24 PM EDT [facility] VIM Not detected Not detected 05/10/2025 4:24 PM EDT [facility] ENTEROCOCCUS FAECALIS Not detected Not detected 05/10/2025 4:24 PM EDT [facility] ENTEROCOCCUS FAECIUM Not detected Not detected 05/10/2025 4:24 PM EDT [facility] LISTERIA MONOCYTOGENES Not detected Not detected 05/10/2025 4:24 PM EDT [facility] STAPHYLOCOCCUS Not detected Not detected 05/10/2025 4:24 PM EDT [facility] STAPHYLOCOCCUS AUREUS Not detected Not detected 05/10/2025 4:24 PM EDT [facility] STAPHYLOCOCCUS EPIDERMIDIS Not detected Not detected 05/10/2025 4:24 PM EDT [facility] STAPHYLOCOCCUS LUGDENENSIS Not detected Not detected 05/10/2025 4:24 PM EDT [facility] STREPTOCOCCUS Not detected Not detected 05/10/2025 4:24 PM EDT [facility] STREPTOCOCCUS AGALACTIAE (GROUP B) Not detected Not detected 05/10/2025 4:24 PM EDT [facility] STREPTOCOCCUS PNEUMONIAE Not detected Not detected 05/10/2025 4:24 PM EDT [facility] STREPTOCOCCUS PYOGENES (GROUP A) Not detected Not detected 05/10/2025 4:24 PM EDT [facility] ACINETOBACTER CALCOACETICUS-MAGDY UNA COMPLEX Not detected Not detected 05/10/2025 4:24 PM EDT [facility] BACTEROIDES FRAGILIS Not detected Not detected 05/10/2025 4:24 PM EDT [facility] ENTEROBACTERIACEAE Detected(AA) Not detected 05/10/2025 4:24 PM EDT [facility] Comment:Enterobacterales rep resents a large order of gram negative bacteria, not a single organism ENTEROBACTER CLOACAE COMPLEX Not detected Not detected 05/10/2025 4:24 PM EDT [facility] ESCHERICHIA COLI Detected(AA) Not detected 05/10/2025 4:24 PM EDT [facility] KLEBSIELLA AEROGENES Not detected Not detected 05/10/2025 4:24 PM EDT [facility] KLEBSIELLA OXYTOCA Not detected Not detected 05/10/2025 4:24 PM EDT [facility] KLEBSIELLA PNEUMONIAE GROUP Not detected Not detected 05/10/2025 4:24 PM EDT [facility] PROTEUS Not detected Not detected 05/10/2025 4:24 PM EDT [facility] SALMONELLA SPECIES Not detected Not detected 05/10/2025 4:24 PM EDT [facility] SERRATIA MARCESCENS Not detected Not detected 05/10/2025 4:24 PM EDT [facility] HAEMOPHILUS INFLUENZAE Not detected Not detected 05/10/2025 4:24 PM EDT [facility] NEISSERIA MENINGITIDIS Not detected Not detected 05/10/2025 4:24 PM EDT [facility] PSEUDOMONAS AERUGINOSA Not detected Not detected 05/10/2025 4:24 PM EDT [facility] STENOTROPHOMONAS MALTOPHILIA Not detected Not detected 05/10/2025 4:24 PM EDT [facility] KELLY ALBICANS Not detected Not detected 05/10/2025 4:24 PM EDT [facility] KELLY AURIS Not detected Not detected 05/10/2025 4:24 PM EDT [facility] KELLY GLABRATA Not detected Not detected 05/10/2025 4:24 PM EDT [facility] KELLY KRUSEI Not detected Not detected 05/10/2025 4:24 PM EDT [facility] KELLY PARAPSILOSIS Not detected Not detected 05/10/2025 4:24 PM EDT [facility] KELLY TROPICALIS Not detected Not detected 05/10/2025 4:24 PM EDT [facility] CRYPTOCOCCUS NEOFORMANS/GATTII Not detected Not detected 05/10/2025 4:24 PM EDT [facility] Blood Venipuncture / Unknown 05/09/2025 10:40 PM EDT 05/09/2025 10:44 PM EDT [facility] - 05/10/2025 4:24 PM EDT NOTE: Antimicrobial resistance can occur via multiple mechanisms. A Not Detected result for antimicrobial resistance gene(s) does not indicate antimicrobial susceptibility. Subculturing is required for species identification and susceptibility testing of isolates. Jyoti Montana PA-C MICROBIOLOGY - GENERAL ORDER KAJAL Final Result [facility] [address] [place] [address] * (ABNORMAL) Blood Culture (05/09/2025 10:40 PM EDT) Only the most recent of2 resultswithin the time period is included. Result Escherichia coli(A) 05/12/2025 10:03 AM EDT [facility] Gram Stain Result Aerobic bottle gram stain gram negative rods(AA) 05/12/2025 10:03 AM EDT [facility] Blood ENTIRE LEFT UPPER ARM / Unknown Venipuncture / Unknown 05/09/2025 10:40 PM EDT 05/09/2025 10:44 PM EDT [facility] - 05/12/2025 10:03 AM EDT [...] MICROBIOLOGY - GENERAL ORDER KAJAL Final Result [facility] [address] [phone] * COVID ANTIGEN (05/09/2025 9:26 PM EDT) SARS COVID ANTIGEN Negative Negative, Invalid 05/09/2025 9:57 PM EDT [facility] Nasal Swab (Nasal) 05/09/2025 9:26 PM EDT 05/09/2025 9:39 PM EDT Narrative [facility] - 05/09/2025 9:57 PM EDT [...] ORDER KAJAL Final Result Performing Organization Address City/[facility]/ZIP Co de Phone Number [facility] [address] [phone] * (ABNORMAL) Lactic Acid with reflex (SJ) (05/09/2025 9:26 PM EDT) Lactic Acid Level (mmol/L) 2.2(HH) 0.5 - 2.2 mmol/L 05/09/2025 10:32 PM EDT [facility] Blood Venipuncture / Unknown 05/09/2025 9:26 PM EDT 05/09/2025 10:09 PM EDT Jyoti Montana PA-C LAB BLOOD ORDERABLES Final R esult [facility] [address] [phone] * XR chest 1 view portable / [...] Sensitivity Troponin I (05/09/2025 9:09 PM EDT) [facility] Troponin I High Sensitivity (pg/mL) 6.2 <=14 pg/mL 05/09/2025 9:50 PM EDT [facility] Blood Venipuncture / Unknown 05/09/2025 9:09 PM EDT 05/09/2025 9:19 PM EDT Narrative [facility] - 05/09/2025 9:50 PM EDT Applicable to [facility] only. Effective December 02 the lab will begin using a new chemistry analyzer. HsTroponin methodology, reference ranges and critical values have changed. Jyoti Montana PA-C LAB BLOOD ORDERABLES Final R esult [facility] [address] [place] [address], [facility] [phone] * (ABNORMAL) PROBNP (05/09/2025 9:09 PM EDT) [facility] ProBNP (pg/mL) 1,896(H) 16 - 956 pg/mL 05/09/2025 10:05 PM EDT [facility] Blood Venipuncture / Unknown 05/09/2025 9:09 PM EDT 05/09/2025 9:19 PM EDT Narrative [facility] - 05/09/2025 10:05 PM EDT As of January 29, 2025: NT-ProBNP is a new test on our Kidzloop Alinity Immunoassay analyzer. Please review new age and gender specific reference ranges. Jyoti VALIENTE-C LAB BLOOD ORDERABLES Final R Secondbrainult [facility] [address] [phone] * (ABNORMAL) D-dimer (05/09/2025 9:09 PM EDT) [facility] D-Dimer, Quant 1.40(H) 0.19 - 0.58 MG/L FEU 05/09/2025 9:33 PM EDT [facility] Comment:Important: A D-Dimer result of less than 0.50 mg/L FEU indicates a very low probability of DVT or PE. Blood Venipuncture / Unknown 05/09/2025 9:09 PM EDT 05/09/2025 9:19 PM EDT Jyoti VALIENTE-C LAB BLOOD ORDERABLES Final R esult [facility] [address] [phone] * TSH (05/09/2025 9:09 PM EDT) [facility] TSH 0.948 0.350 - 4.940 uIU/mL 05/09/2025 10:05 PM EDT [facility] Blood Venipuncture / Unknown 05/09/2025 9:09 PM EDT 05/09/2025 9:19 PM EDT us Jyoti Montana PA-C LAB BLOOD ORDERABLES Final R esult [facility] [address] [place] [id number], [facility] [phone] * (ABNORMAL) Comprehensive metabolic panel (05/09/2025 9:09 PM EDT) Sodium 136 136 - 145 meq/L 05/09/2025 10:05 PM EDT [facility] Potassium 4.4 3.4 - 5.1 meq/L 05/09/2025 10:05 PM EDT [facility] Chloride 97(L) 98 - 112 meq/L 05/09/2025 10:05 PM T [facility] CO2 23 22 - 29 meq/L 05/09/2025 10:05 PM T [facility] Calcium 8.7 8.4 - 10.2 mg/dL 05/09/2025 10:05 PM T [facility] Glucose 99 82 - 115 mg/dL 05/09/2025 10:05 PM T [facility] BUN 63.3(H) 9.8 - 20.1 mg/dL 05/09/2025 10:05 PM T [facility] Creatinine 2.48(H) 0.57 - 1.11 mg/dL 05/09/2025 10:05 PM T [facility] BUN/Creatinine 26(H) 8 - 20 05/09/2025 10:05 PM [facility] eGFR (mL/min/1.73m2) 20(L) >=60 mL/min/1. 73m2 05/09/2025 10:05 PM [facility] Comment:ESTIMATED GFR IS NOT ACCURATE CREATININE CLEARANCE IN PREDICTING GLOMERULAR FILTRATION RATE. ESTIMATED GFR IS NOT APPLICABLE FOR DIALYSIS PATIENTS. Albumin 2.8(L) 3.5 - 5.0 g/dL 05/09/2025 10:05 PM EDT [facility] Alkaline Phosphatase 161(H) 40 - 150 U/L 05/09/2025 10:05 PM T [facility] ALT 81(H) <=34 U/L 05/09/2025 10:05 PM EDT [facility] Comment: ALT2 reagent used for testing does not contain P5P supplementation and therefore may miss ALT elevations in patients with B6 deficiency. This population may be as high as 10% in the [place], with risk factors including malabsorption, drug interactions, and alcoholic hepatitis. AST 74(H) 11 - 34 U/L 05/09/2025 10:05 PM EDT [facility] Comment: AST2 reagent used for testing does not contain P5P supplementation and therefore may miss AST elevations in patients with B6 deficiency. This population may be as high as 10% in the [place], with risk factors including malabsorption, drug interactions, and alcoholic hepatitis. Total Bilirubin 0.5 0.2 - 1.2 mg/dL 05/09/2025 10:05 PM EDT [facility] Protein, Total 7.2 6.4 - 8.3 g/dL 05/09/2025 10:05 PM EDT [facility] Globulin 4.4(H) 2.5 - 4.1 g/dL 05/09/2025 10:05 PM EDT [facility] Anion Gap 20(H) 4 - 12 05/09/2025 10:05 PM T [facility] A/G Ratio 0.6(L) 0.7 - 1.9 05/09/2025 10:05 PM EDT [facility] Osmolality Calc 290.1 mOsm/kg 10:05 PM EDT [facility] Blood Venipuncture / Unknown 05/09/2025 9:09 PM EDT 05/09/2025 9:19 PM EDT us Jyoti Montana PA-C LAB BLOOD ORDERABLES Final R esult [facility] [address] [place] [id number] [phone] * EKG-SCANNED (05/09/2025) Only the most recent of2 resultswithin the time period is included. Narrative 05/09/2025 Ordered by an unspecified provider. us Default Scanning Provider SCAN ORDERS Final Result from Last 3 Months Insurance [id number] (Home) [address] [facility] [place] [id number] [place] [address] [address] HEALTH CLAIMS Advance Directives For more information, please contact: [phone] * Full Code (Latest Code Status on File) Date Activated Date Inactivated Comments 05/10/2025 3:43 AM 05/13/2025 5:35 PM Care Teams Access Tech Relationship Specialty Start Date End Date Deo Byrne MD [address] [place] [address] PCP - General Family Medicine 05/09/25 Jacob Celeste MD [address] [facility] [address] [place] [address] Cardiology 01/02/24
--- OUTSIDE RECORDS SUMMARY | 2025-06-23 09:55 | XMS_ITS | Encounter Summary ---
Author Organization [employer] ([place], [place], [place] Address [address] [place] [address] Care Team Providers Care Lacing Presser Name Role Phone Deo Byrne MD Primary Care Provider [phone] Jacob Celeste MD Unavailable Reason for Visit * Reason Onset Date Comments Medication Management 06/12/2025 Encounter Details Date Type Department Care Team (Late st Contact Info) Description 06/12/2025 Telephone [facility] Cardiology [address] [place] [address] Jacob Celeste MD [address] [facility] [address] [place] [address] Medication Management Social History Tobacco Use Types Packs/Day Years [...] harm? Never 05/10/2025 How often does anyone, inclu ding family and friends, scream or curse at [...] Do you speak a language other than Maltese at [facility]? No 05/10/2025 Do you want [...] on file documented as of this encounter Miscellaneous Notes * Telephone Encounter - Rosemarie Michael CMA - 06/19/2025 2:41 PM EDT I spoke to her and discussed the medication. * Telephone Encounter - Tonja Morales - 06/12/2025 12:37 PM EDT Patient left to discuss medications also returning a call from yesterday she states Patient can be reached at [phone] documented in this encounter Plan of Treatment Upcoming Encounters Date Type Department Care Team (Late st Contact Info) Description 08/11/2025 12:30 PM EST Office Visit [facility] Cardiology [address] [place] [address] Jacob Celeste MD [address] [facility] [address] [place] [address] documented as of this encounter Visit Diagnoses Not on filedocumented in this encounter Care Teams Lacing Presser Relationship Specialty Start Date End Date Deo Byrne MD [facility] [place] [address] PCP - General Family Medicine 05/09/25 Jacob Celeste MD [address] [facility] [place] [address] Cardiology 01/02/24 documented as of this encounter
--- OUTSIDE RECORDS SUMMARY | 2025-06-23 09:58 | XMS_ITS | Clinical Summary ---
Author Organization Healthcare Address [address] [place] [address] Care Team Providers Care Shop Superintendent Name Role Phone Deo Byrne MD Primary Care Provider [phone] Allergies No known active allergies Medications levothyroxine (Synthroid, Levoxyl) 75 MCG tablet Take 1 tablet (75 mcg) by mouth 1 (one) time each day in the morning. 1 Active FLUoxetine (PROzac) 20 MG capsule Take 3 capsules (60 mg) by mouth 1 (one) time each day. 3 capsules once daily 7 Active LORazepam (Ativan) 0.5 MG tablet Take 1 tablet (0.5 mg) by mouth 1 (one) time if needed for anxiety. 1 Active metoprolol succinate XL (Toprol-XL) 50 MG 24 hr tablet Take 1.5 tablets (75 mg) by mouth 1 (one) time each day. 1 Active oxyCODONE (Roxicodone) 5 MG immediate release tablet Take 1 tablet (5 mg total) by mouth every 8 (eight) hours if needed for severe pain. 50 tablet 2 Active Additional Information Patient not taking.Reported on 04/01/2025 Vitamin D3 50 MCG (2000 UT) tablet take 1 tablet by mouth every day to improve vitamin D 3 Active furosemide (Lasix) 80 MG tablet Take 1 tablet (80 mg) by mouth 1 (one) time each day. 3 Active gabapentin (Neurontin) 600 MG tablet Take 1 tablet (600 mg) by mouth 3 (three) times a day. 3 Active potassium chloride CR (K-Tab) 20 MEQ ER tablet Take 1 tablet (20 mEq) by mouth 1 (one) time each day. 3 Active oxyCODONE-aceta minophen (Percocet) 7.5-325 MG tablet 4 Active methocarbamol (Robaxin) 500 MG tablet Take 1 tablet (500 mg) by mouth if needed for muscle spasms. Active semaglutide (Ozempic, 0.25 or 0.5 MG/DOSE,) 2 MG/1.5ML solution pen-injector inj. pen Inject 18.75 mL under the skin 1 time per week. Active Active Problems Problem Noted Date Diagnosed Date Anemia in stage 4 chronic kidney disease 023 Other hyperlipidemia 03/21/2023 Vitamin D deficiency 03/21/2023 Metabolic alkalosis 03/21/2023 Azotemia 03/21/2023 Obesity (BMI 35.0-39.9 without comorbidity) 01/09 Severe obesity (BMI 35.0-39.9) with comorbidity 01/30/2022 Patellar maltracking, left 01/30/2022 Overview (01/30/2022): Added automatically from request for surgery [id number] MARIOLA (obstructive sleep apnea) 03/22/2021 Dyspnea on exertion 03/22/2021 Hypothyroidism 03/22/2021 Chronic kidney disease-mineral and bone disorder 03/22/2021 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 Urge incontinence of urine 06/16/2018 Lumbar pseudoarthrosis 11/02/2017 Overview (04/20/2021): Added automatically from request for surgery [id number] Painful total knee replacement 04/09/2017 Loose left total knee arthroplasty Resolved Problems Problem Noted Date Diagnosed Date Resolved Date Painful knee 04/05/2021 04/07/2021 Knee pain 03/22/2021 04/07/2021 Painful total knee replacement 03/22/2021 04/07/2021 Encounters Date Type Department Care Team Description 05/18/2025 Telephone [facility] Nephrology, Bone & Mineral Metabolism [address], [address] [place] [address] Jovan Vizcaino MD HCN - Patient Message 04/01/2025 12:40 PM EDT Office Visit [facility] Nephrology, Bone & Mineral Metabolism [address], [address] [place] [address] Jovan Vizcaino MD CKD (chronic kidney disease) stage 4, GFR 15-29 ml/min ([facility]) (Primary Dx) 04/01/2025 Travel 03/23/2025 Telephone [facility] Nephrology, Bone & Mineral Metabolism [address], [address] [place] [address] Lavon Arias from Last 3 Months Immunizations Immunization Administration Dates Next Due Influenza, high-dose, quadrivalent 07/13/2021 Influenza, injectable, quadrivalent 07/22/2020 Pickie COVID-19 Vaccine (Purple Cap) 12 + 11/19/2020,10/29/2020 Pneumococcal Polysaccharide PPV23 07/22/2020 Family History Medical History Relation Name Comments Anesthesia problems Neg Hx Malig Hyperthermia Neg Hx Social History Tobacco Use Types Packs/Day Years Used Date Smoking Tobacco: Never Passive Smoke Exposure: Never Smokeless Tobacco: Never Alcohol Use Standard Drinks/Week Comments Yes 0 (1 standard drink = 0.6 oz pur e alcohol) social drinker PHQ-2 Answer Date Recorded Patient Health Questionnaire-2 Score 4 10/01/2024 PHQ-9 Answer Date Recorded Patient Health Questionnaire-9 Score 15 10/01/2024 PHQ-2A Answer Date Recorded Patient Health Questionnaire-2 Score 3 03/21/2023 Comments No Sex and Gender Information Value Date Recorded Sex Assigned at Not on file Legal Sex Female 8:46 PM EDT Gender Identity Not on file Sexual Orientation Not on file Last Filed Vital Signs Vital Sign Reading Time Taken Comments Blood Pressure 102/60 04/01/2025 12:36 PM EDT Pulse 70 04/01/2025 12:36 PM EDT Temperature 36.4 C (97.6 F) 04/01/2025 12:36 PM EDT Respiratory Rate 16 04/01/2025 12:36 PM EDT Oxygen Saturation 97% 04/01/2025 12:36 PM EDT Inhaled Oxygen Concentration - - Weight 102 kg (224 lb 6.9 oz) 04/01/2025 12:36 P M EDT Height 167.6 cm (5' 6 ) 04/01/2025 12:36 PM EDT per pt Body Mass Index 36.22 04/01/2025 12:36 PM EDT Plan of Treatment Upcoming Encounters Date Type Department Care Team (Late st Contact Info) Description 07/08/2025 2:00 PM EDT Office Visit [facility] Nephrology, Bone & Mineral Metabolism [address], [address] [place] [address] Jovan Vizcaino MD [address] [place] [address] Health Maintenance Due Date Last Done Comments [facility]-Bone Density Scan 1945 [facility]-Hepatitis C Screening 1945 [facility]-Medicare Annual Wellness (AWV) 1945 [facility]-/Child/Adol SDOH Screenings 1945 [facility]- SDOH Screenings 1965 [facility]-Adult SDOH Screenings 1965 [facility]-DTaP,Tdap,and Td Vaccines (1 - Tdap) 1966 [facility]-Zoster Vaccines (1 of 2) 1997 [id number] Vaccine (3 - Pfizer risk series) 12/17/2020 11/19/2020, 10/29/2020 [facility]-Pneumococcal Vaccine: 50+ Years (2 of 2 - PCV) 07/22/2021 07/22/2020 [facility]-RSV Vaccine: 60+ Years or (1 - 1-dose 75+ series) 2022 [facility]-Influenza Vaccine (#1) 2025 07/13/2021, [facility]-Depression Screening 10/01/2025 10/01/2024, 09/11 [facility]-Obesity Intervention Completed 025, 12/31/2024, 10/01/2024, Additional history exists HPV Vaccines Aged Out No longer eligi ble based on patient's age to complete this topic [facility]-HIB Vaccines Aged Out No longer e ligible based on patient's age to complete this topic [facility]-Hepatitis A Vaccines Aged Out No longer eligible based on patient's age to complete this topic [facility]-IPV Vaccines Aged Out No longer e ligible based on patient's age to complete this topic [facility]-Rotavirus Vaccines Aged Out No lo nger eligible based on patient's age to complete this topic Medical Devices Implanted Type Area Senior Product Marketing Manager Device Identifier Shelf Expiration Date Model / Serial / Lot Cement Palacos W/Gent - [id number] - [id number] Implanted:Qty: 2 on 04/05/2021 by Rito Munoz MD at [facility] Cement Left: Knee [employer]-[id number] 06/09/2023 [id number] / [id number] / Chg Insert Gnsii Con Sz3-4 11m - [id number] - [id number] Implanted:Qty: 1 on 04/05/2021 by Rito Munoz MD at [facility] Knee Left: Knee [employer]-[id number] 06/20/2029 [id number] / [id number] / Chg Wedge Legion Scw Lwdg S5 1 - [id number] - [id number] Implanted:Qty: 1 on 04/05/2021 by Rito Munoz MD at [facility] Knee Left: Knee [employer]-[id number] 04/21/2030 [id number] / [id number] / Chg Stem Lgn Pressfit 15mm X 1 - [id number] - [id number] Implanted:Qty: 1 on 04/05/2021 by Rito Muonz MD at [facility] Knee Left: Knee [employer]-[id number] 05/01/2030 [id number] / [id number] / Chg Wedge Legion Scw Lwdg S5 1 - [id number] - [id number] Implanted:Qty: 1 on 04/05/2021 by Rito Munoz MD at [facility] Knee Left: Knee [employer]-[id number] 04/21/2030 [id number] / [id number] / Chg Produce Runner Lgn Offset 6mm - [id number] - [id number] Implanted:Qty: 1 on 04/05/2021 by Rito Munoz MD at [facility] Knee Left: Knee [employer]-[id number] 02/27/2031 [id number] / [id number] / Chg Femoral Lgn Ox Constrained - [id number] - [id number] Implanted:Qty: 1 on 04/05/2021 by Rito Munoz MD at [facility] Knee Left: Knee [employer]-[id number] 08/07/2030 [id number] / [id number] / Chg Stem Lgn Pressfit 13mm X 1 - [id number] - [id number] Implanted:Qty: 1 on 04/05/2021 by Rito Munoz MD at [facility] Knee Left: Knee [employer]-[id number] 12/11/2030 [id number] / [id number] / Chg Wedge Scr Full Step 3-4 10 - [id number] - [id number] Implanted:Qty: 1 on 04/05/2021 by Rito Munoz MD at [facility] Knee Left: Knee [employer]-[id number] 06/12/2030 [id number] / [id number] / Chg Tibial Lgn Revia Base Sz 3 - [id number] - [id number] Implanted:Qty: 1 on 04/05/2021 by Rito Munoz MD at [facility] Knee Left: Knee [employer]-[id number] 07/10/2030 [id number] / [id number] / Medtronic Spinal Cord Stimulator-06/12/2022 Implanted:11/2021 by Fransisco Neri MD (Quantity not on file) Spinal Cord Stimulator Back Med[employer]onic [id number] / / Description:LEAD MODEL: 977C 2 I called [employer] device rep to obtain implant information 01/16/23 acr Chg Produce Runner Lgn Offset 6mm - [id number] - [id number] Implanted:Qty: 1 on 04/05/2021 by Rito Munoz MD at [facility] Left: Knee [employer]-[id number] 02/27/2031 [id number] / [id number] / Insurance MEDICARE [facility] Advance Directives * Full Code (Latest Code Status on File) Date Activated Date Inactivated Comments 04/25/2022 12:27 PM 04/26/2022 5:36 PM Question Answer Comments Patient has decision-making capacity? Yes Care Teams Shop Superintendent Relationship Specialty Start Date End Date Deo Byrne MD [address] [facility] [place] [address] PCP - General 04/25/22
--- OUTSIDE RECORDS SUMMARY | 2025-06-23 09:58 | XMS_ITS | Clinical Summary ---
Author Organization [facility] Address [address] [place] [id number] Care Team Providers Care Motors And Controls Tester Name Role Phone Deo Byrne MD Primary Care Provider [phone] Allergies Active Allergy Reactions Criticality Noted Date Comments Adhesive Tape Other (See Comments) High 06/06/2022 BLISTERS Medications hydrochlorothiaz shlomo (HYDRODIURIL) 25 MG tablet Take 1 tablet by mouth Take As Directed. Active LORazepam (ATIVAN) 0.5 MG tablet Take 1 tablet by mouth Every Night. Active FLUoxetine (PROzac) 20 MG capsule Take 3 capsules by mouth Daily. 0 8 Active levothyroxine (SYNTHROID, LEVOTHROID) 75 MCG tablet Take 1 tablet by mouth Daily. 3 8 Active oxyCODONE-acetam inophen (Percocet) 7.5-325 MG per tabletIndication s:Gait disturbance Take 1 tablet by mouth Every 8 (Eight) Hours As Needed for Moderate Pain. 20 tablet 2 Active Cholecalciferol (Vitamin D3) 50 MCG (1999 UT) tablet TAKE 1 tablet BY MOUTH DAILY to improve vitamin D 5 Active fluorouracil (EFUDEX) 5 % cream APPLY A SUFFICIENT AMOUNT TO COVER THE LESIONS ON THE LOWER LEGS AND ARMS BY TOPICAL ROUTE 2 TIMES PER DAY FOR 14 DAYS 5 Active furosemide (LASIX) 80 MG tablet Take 1 tablet (80 mg total) by mouth 2 (two) times daily. Active potassium chloride ER (K-TAB) 20 MEQ tablet controlled-relea se ER tablet take 1 tablet (20 meq total) by mouth daily. Active gabapentin (NEURONTIN) 600 MG tablet Take 1 tablet by mouth Daily. Active metoprolol succinate XL (TOPROL-XL) 50 MG 24 hr tablet Take 1 tablet by mouth Daily. 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 04/03/2022 Lumbar postlaminectomy syndrome 04/03/2022 Ligamentum flavum hypertrophy 04/03/2022 Obesity (BMI 30-39.9) 10/19/2021 S/P lumbar fusion 10/19/2021 Degeneration of lumbar or lumbosacral interverte bral disc 10/19/2021 Chronic bilateral low back pain without sciatica 10/19/2021 Lumbar pseudoarthrosis 11/02/2017 Overview (11/02/2017): Added automatically from request for surgery [id number] Family History Medical History Relation Name Comments Cancer Father Tapan Smith Relation Name Status Comments Father Tapan Smith Social History Tobacco Use Types Packs/Day Years Used Date Smoking Tobacco: Never Smokeless Tobacco: Never Tobacco Cessation:Counseling Given: Not Answered Alcohol Use Standard Drinks/Week Comments Yes 2 (1 standard drink = 0.6 oz pure alcohol) 2 mixed drinks on Sunday nights. PHQ-2 Answer Date Recorded Retired PHQ-9: Brief Depression Severity Measure Score 1 04/04/2022 PHQ-2 Answer Date Recorded Patient Health Questionnaire-9 Score 16 01/15/2025 Comments No Sex and Gender Information Value Date Recorded Sex Assigned at Female 01/14/2025 2:58 PM EDT Legal Sex Female 12:22 PM EDT Gender Identity Not on file Sexual Orientation Not on file Last Filed Vital Signs Vital Sign Reading Time Taken Comments Blood Pressure 132/80 06/28/2022 1:55 PM EDT Pulse 76 06/12/2022 6:17 PM EDT Temperature 36.4 C (97.5 F) 06/28/2022 1:55 PM EDT Respiratory Rate 16 06/12/2022 6:17 PM EDT Oxygen Saturation 93% 06/12/2022 5:45 PM EDT Inhaled Oxygen Concentration - - Weight 107 kg (236 lb) 02/10/2025 9:54 AM EDT Height 167.6 cm (5' 5.98 ) 02/10/2025 9:54 AM ED T Body Mass Index 38.11 02/10/2025 9:54 AM EDT Plan of Treatment Health Maintenance Due Date Last Done Comments DXA SCAN 1947 TDAP/TD VACCINES (1 - Tdap) 1966 COLOGUARD 1992 COLON CANCER SCREENING 5 YEA R SIGMOIDOSCOPY 1992 COLONOSCOPY [address] CANCER SCREENING 1992 CT COLONOGRAPHY 1992 FECAL OCCULT BLOOD TEST 1992 FIT Testing (1 year) 1992 Pneumococcal Vaccine 50+ (1 of 1 - PCV) 1997 ZOSTER VACCINE (1 of 2) 1997 ANNUAL WELLNESS VISIT 03/02/2017 HEPATITIS C SCREENING 03/02/2017 RSV Vaccine - Adults (1 - 1- dose 75+ series) 2022 INFLUENZA VACCINE 04/10/2025 07/13/2021, 07/22/2020 COVID-19 Vaccine ( season) 05/11/202508/2021, 10/29/2020 Medical Devices Implanted Type Area Residential Property Tax Appraiser Device Identifier Shelf Expiration Date Model / Serial / Lot Orthoblend Dbm [place] 10cc - [id number] - [id number] Implanted:Qty : 1 on 12/10/2017 by Fransisco Neri MD at [facility] Implant N/A: Spine Lumbar [employer] 05/01/2019 [id number] / [id number] / Zee Sepulveda Cnmas 7.5x40mm - [id number] Implanted:Qty : 2 on 12/10/2017 by Fransisco Neri MD at [facility] Implant N/A: Spine Lumbar [employer] [id number] / / Scrw Solera Cnmas 7.5x50mm - [id number] Implanted:Qty : 2 on 12/10/2017 by Fransisco Neri MD at [facility] Implant N/A: Spine Lumbar [employer] [id number] / / Conn Cls Lat Ti 5.5x6.51z01xb - [id number] Implanted:Qty : 1 on 12/10/2017 by Fransisco Neri MD at [facility] Implant N/A: Spine Lumbar [employer] [id number] / / Bryantw Hex Breakoff Ti 1/7igd52xl - [id number] Implanted:Qty : 4 on 12/10/2017 by Fransisco Neri MD at [facility] Implant N/A: Spine Lumbar [employer] [id number] / / Zee Ma Clsd Ti 7.5x70mm - [id number] Implanted:Qty : 2 on 12/10/2017 by Fransisco Neri MD at [facility] Implant N/A: Spine Lumbar [employer] [id number] / / Conn Cls Lat 5.5x6.72t20hw Md - [id number] Implanted:Qty : 1 on 12/10/2017 by Fransisco Neri MD at [facility] Implant N/A: Spine Lumbar [employer] [id number] / / Kt Grft Bone Inf Sm - [id number] Implanted:Qty : 1 on 12/10/2017 by Fransisco Neri MD at [facility] Implant N/A: Spine Lumbar [employer] 12/08/2018 [id number] / / [id number] Granules Osteocond Mstrgrft Ceram 5 - [id number] Implanted:Qty : 2 on 12/10/2017 by Fransisco Neri MD at [facility] Implant N/A: Spine Lumbar [employer] 08/10/2022 [id number] / / [id number] Plt Crslnk X10 Lp M/ Ti 5.5x58/80 - [id number] Implanted:Qty : 1 on 12/10/2017 by Fransisco Neri MD at [facility] Implant [employer] [id number] / / Scrw Solera Mas 8.5x35mm - [id number] Implanted:Qty : 1 on 12/10/2017 by Fransisco Neri MD at [facility] Implant N/A: Spine Lumbar [employer] [id number] / / Scrw Solera Mas 8.5x40mm - [id number] Implanted:Qty : 1 on 12/10/2017 by Fransisco Neri MD at [facility] Implant N/A: Spine Lumbar [employer] [id number] / / Will Cp4 Cvd Ti 5.5x80mm Ns - [id number] Implanted:Qty : 1 on 12/10/2017 by Fransisco Neri MD at [facility] Implant N/A: Spine Lumbar [employer] [id number] / / Will Solera Crv Ti 5.5cm 90mm - [id number] Implanted:Qty : 1 on 12/10/2017 by Fransisco Neri MD at [facility] Implant N/A: Spine Lumbar [employer] [id number] / / Scrw St Solera Brkoff Ti 5.5mm - [id number] Implanted:Qty : 6 on 12/10/2017 by Fransisco Neri MD at [facility] Implant N/A: Spine Lumbar [employer] [id number] / / Neurostm Hprfm Vanta/Scs Mri W/Adaptive/St im Nonrechg - [id number] Implanted:Qty : 1 on 06/12/2022 by Fransisco Neri MD at [facility] Implant N/A: Back [employer] 03/07/2024 [id number] / / [id number] Ld Stim Surescan Specify Mri 2x8 65cm - [id number] Implanted:Qty : 1 on 06/12/2022 by Fransisco Neri MD at [facility] Implant N/A: Back [employer] 04/18/2026 [id number] / / [id number] Kt Seal Hemos Abs Floseal Matrx Fast/Prep 10ml - [id number] Implanted:Qty : 1 on 06/12/2022 by Fransisco Neri MD at [facility] Implant N/A: Back [facility] 04/22/2024 [id number] / / [id number] Hemost Abs Surgifoam Sz100 8x12 10mm - [id number] Implanted:Qty : 1 on 06/12/2022 by Fransisco Neri MD at [facility] Implant N/A: Back [employer] 01/09/2026 [id number] / / [id number] Insurance [facility] OPTIONS MEDICARE A & B Advance Directives Documents on File Type Date Recorded Patient Churn Driller Helper Expl anation LIVING WILL - SCAN 12/11/2017 12:25 AM JANES NG WILL 07/09/2002 * Full Code (Latest Code Status on File) Date Activated Date Inactivated Comments 12/10/2017 8:41 PM 12/13/2017 7:12 PM Healthcare Agents on File Name Relationship Healthcare Agent Relationship Communication Anival Donte Spouse Health Care Surrogate Care Teams Motors And Controls Tester Relationship Specialty Start Date End Date Deo Byrne MD [address] [place] [address] [place] [address] PCP - General Family Medicine 10/19/21
--- OUTSIDE RECORDS SUMMARY | 2025-06-23 09:58 | XMS_ITS | Clinical Summary ---
Author Organization [facility] Address [address] [place] [address] Phone Care Team Providers Care Plug Stitcher Name Role Phone Nithya NOVOA, Ulisses Conde [ ] Conditions or Problems Problem Name Problem Code Onset Date Status Entry Date Provider Comment Standard Description Annotate E. Coli Sepsis A41.51 (ICD-10-CM) Active 05/15 Tiny To Sepsis due to Escherichia coli [E. 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 (I50.32/N18.4) I13.0 (ICD-10-CM) Active 05/15 Tiny To Hypertensive heart and chronic kidney disease with heart failure and stage 1 through stage 4 chronic kidney disease, or unspecified chronic kidney disease Medications Medication Instructions Start Date Stop Date Generic Name [facility] Provider ceftriaxone recon hugon Rocephin 2G IV [id number] [facility] ceftriaxone marie Barahona RN ceftriaxone recon soln Rocephin 2G IV [id number] [facility] ceftriaxone marie Barahona RN SACCHAROMYCES BOULARDII 250 MG CAPS Take 1 capsule (250 mg total) by mouth 2 (two) times daily for 10 days. saccharomyces boulardii [id number] QIE qieuser POTASSIUM CHLORIDE ER 20 MEQ CR-TABS Take 1 tablet (20 mEq total) by mouth daily. potassium chloride [id number] QIE qieuser OXYCODONE-ACETAM INOPHEN 7.5-325 MG TABS Take 1 tablet by mouth 2 (two) times daily Look-alike/So und-alike medication. Max Daily Amount: 2 tablets oxycodone-acetami nophen [id number] QIE qieuser OMEPRAZOLE 20 MG CPDR Take 1 capsule (20 mg total) by mouth daily. omeprazole [id number] QIE qieuser METOPROLOL SUCCINATE ER 50 MG [id number] Take 1&1/2 tablets (75 mg total) by mouth daily. metoprolol succinate [id number] QIE qieuser LORAZEPAM 0.5 MG TABS Take 1 tablet (0.5 mg total) by mouth every night as needed. lorazepam [id number] QIE qieuser LEVOTHYROXINE SODIUM 75 MCG TABS Take 1 tablet (75 mcg total) by mouth daily. levothyroxine [id number] QIE qieuser GABAPENTIN 600 MG TABS Take 1 tablet (600 mg total) by mouth 3 (three) times daily. gabapentin 61784891603 QIE qieuser FUROSEMIDE 80 MG TABS Take 1 tablet (80 mg total) by mouth 2 (two) times daily. furosemide [id number] QIE qieuser FLUOXETINE HCL (PMDD) 20 MG TABS Take 3 tablets (60 mg total) by mouth daily. fluoxetine [id number] QIE qieuser SODIUM FLUORIDE 1.1 % GEL Apply to teeth. fluoride (sodium) 82114686153 Q IE qieuser VITAMIN D3 50 MCG (2000 UT) TABS Take 1 tablet (2,000 Units total) by mouth daily. cholecalciferol (vitamin d3) 80579800434 QIE qieuser Medications Administered No information available. Allergies, Adverse Reactions, Alerts No information available. Results Date Name Value Unit Range Flag Description Clinical Lists Update: Prelo ad VAPE_USE Never Tobacco smok ing status Chart Maintenance PLATELETS 295 10*3/mm3 Platelets [#/volume] in Blood by Automated count HCT 36.5 % Hematocrit [V olume Fraction] of Blood by Automated count HGB 11.5 g/dL Hemoglobin [Mass/volume] in Blood RBC 3.75 10*6/mm3 Erythrocytes [#/volume] in Blood by Automated count WBC 5.5 10*3/mm3 Leukocytes [ #/volume] in Blood by Automated count BILI TOTAL 0.3 mg/dL Bilirubin. total [Mass/volume] in Serum or Plasma SGOT (AST) 20 U/L Aspartate aminotransferase [Enzymatic activity/volume] in Serum or Plasma SGPT (ALT) 17 U/L Alanine aminotransferase [Enzymatic activity/volume] in Serum or Plasma ALK PHOS 144 U/L Alkaline trish sphatase [Enzymatic activity/volume] in Blood CREATININE 2.3 mg/dL Creatinine [Mass/volume] in Serum or Plasma BUN 48 mg/dL Urea nitrogen [Mass/volume] in Serum or Plasma CALCIUM 8.7 mg/dL Calcium [Mole s/volume] in Serum or Plasma POTASSIUM 3.9 mmol/L Potassium [Moles/volume] in Serum or Plasma SODIUM 137 mmol/L Sodium [Moles /volume] in Serum or Plasma GLUCOSE SER 105 mg/dL Glucose [ Mass/volume] in Serum or Plasma Office Visit: Office Visit: rm 14 MEDS REVIEW Done Documenta tion of current medications (procedure) ORALTOBACUSE Never Tobacco smoking status SMOK STATUS Never smoker Toba it account manager smoking status Plan of Care Type Date Detail Pending order Continue IV anti biotics Pending order Weekly Labs (Con tinue) Pending order Continue IV anti biotics Procedures No information available. Vital Signs Date [...] Directives Directive Description Start Date POWER OF CURTAIN STITCHER LIVING WILL ON FILE
--- OUTSIDE RECORDS SUMMARY | 2025-06-23 09:58 | XMS_ITS | Encounter Summary ---
Author Organization Healthcare Address [address] [place] [address] Care Team Providers Care Drawing Operator Name Role Phone Deo Byrne MD Primary Care Provider [phone] Reason for Visit * Reason Onset Date Comments HCN - Patient Message 05/18/2025 Encounter Details Date Type Department Care Team ([facility] Contact Info) Description 05/18/2025 Telephone [facility] [address] [place] [address] Jovan Vizcaino MD [address] [place] [address] HCN - Patient Message Social History Tobacco Use Types Packs/Day Years [...] encounter Miscellaneous Notes * Telephone Encounter - Heather Jama - 05/19/2025 9:[address] Vizcaino pt may take an extra dose of lasix. * Telephone Encounter - Richard Scanlon - 05/18/2025 1:40 PM EDT Patient Phone Message Reason for Call: Pt is requesting a call back from the nurse to discuss whether, or not, Dr. Vizcaino is receiving reports from [facility], regarding her kidneys. Best contact number and optimal time of day to reach caller: [phone] Note: Please do not reply to this message. Follow-up communication and further actions as a result of this message need to be communicated with the patient directly, if the patient is not active onMyChart. If the patient is active on MyChart, they will receive notification of the communication/outcome via [employer]. documented in this encounter Plan of Treatment Upcoming Encounters Date Type Department Care Team (Late st Contact Info) Description 07/08/2025 2:00 PM EDT Office Visit [facility] Nephrology, Bone & Mineral Metabolism [address] [place] [address] Jovan Vizcaino MD [address] [place] [id number] documented as of this encounter Visit Diagnoses Not on filedocumented in this encounter Additional Health Concerns Assessment Noted Time PHQ-9 Depression Total Score: 15 025 1:56 PM EST A fall risk assessment has been complete d for the patient 04/01/2025 12:40 PM EDT A Body Mass Index follow-up plan has been documented for the patient 04/02/2025 1:25 PM EDT documented as of this encounter Care Teams Drawing Operator Relationship Specialty Start Date End Date Deo Byrne MD [place] [address] PCP - General 04/25/22 documented as of this encounter
--- NOTE | 2025-06-23 11:00 | CT_ITS ---
FINAL REPORT TECHNIQUE: Thin section axial images were obtained through the lumbar spine without contrast. Sagittal and coronal reconstruction images were obtained from the axial data. Exam was performed using dose reduction techniques. CLINICAL HISTORY: Neurogenic claudication, leg weakness hx of spinal cord stimulator and back fusions pt stated weakness in bilateral legs FINDINGS: There are postoperative changes from fusion of L4-S1 with surgical screws extending to the ilium bilaterally. There is no acute fracture or acute malalignment of the lumbar spine. Vertebral body height is preserved. There are multiple hypodense renal lesions which are incompletely evaluated. A spinal stimulator is in place. There is no paraspinal mass or fluid collection. L1-2: Unremarkable. L2-3: Broad-based disc osteophyte complex with moderate central canal stenosis and bilateral neuroforaminal narrowing. L3-4: Evaluation limited due to artifact from hardware. Central canal stenosis cannot be determined. There is moderate to severe bilateral neuroforaminal narrowing. L4-5: Changes of fusion with evaluation limited by artifact. L5-S1: Changes of fusion with evaluation limited by artifact. IMPRESSION: Postoperative changes and degenerative changes as above. Reviewed, Interpreted and Dictated by Vicki Maldonado MD Transcribed by Gillian Pryor Authenticated and [facility]
[2025-06-23 12:46] LABS: Vitamin B12 222 pg/mL (239-931)
[2025-06-24 14:26] LABS: Antinuclear Antibodies (ANA) Negative (Negative)
== END 2025-06-23 23:59 | disposition home or self-care (01) ==
PROVIDERS: PCP Family Medicine; Visit Provider Specialist
DX: M47.816 Spondylosis without myelopathy or radiculopathy, lumbar region (principal); I73.00 Raynaud's syndrome without gangrene; M19.90 Unspecified osteoarthritis, unspecified site; R53.1 Weakness; R29.898 Other symptoms and signs involving the musculoskeletal system; Z98.1 Arthrodesis status
CPT/HCPCS: 36415; 72131; 82607; 86038

== ENCOUNTER 2025-06-30 16:49 | Outpatient (CLI) | payer MEDICARE, SELFPAY ==
--- OUTSIDE RECORDS SUMMARY | 2025-05-09 20:41 | XMS_ITS | Encounter Summary ---
Author Organization [employer] ([place], [place], [place], [place]) Address [address] [place] [address] Care Team Providers Care Personnel Security Assistant Name Role Phone Deo Byrne MD Primary Care Provider [phone] Jacob Celeste MD Unavailable Reason for Visit * Reason Comments Chest Pain Shortness of Breath * Auth/Cert (Routine) Specialty Diagnoses / Procedures Referred By Contac t Referred To Contact Diagnoses Shortness of breath Sinus tachycardia Chest pain Elevated liver enzymes Positive D dimer Abnormal kidney function Hypotension, unspecified hypotension type [place] [address] [facility] [address] [place] [address] Phone: tel: fax: [place] [address] [facility] [address] [place] [address] Phone: tel: fax: Referral ID Status Reason Start Date Expiration Date Visits Re quested Visits Authorized [id number] 1 1 Encounter Details Date Type Department Care Team (Late st Contact Info) Description 05/09/2025 8:41 PM EDT - 05/13/2025 4:35 PM EDT Hospital Encounter [place] [address] [facility] [address] [place] [address] Xiang Cordova MD [address] [place] [address] Ulises Ruelas PA-C [address] [facility] [address] [place] [address] Kurtis Conteh DO [address] [id number] Martin Snyder MD [address] [id number] Callum Blanton MD [address] [id number] Shortness of breath (Primary Dx); Sinus tachycardia; [...] Do you speak a language other than Surinamese at [facility]? No 05/10/2025 Do you want help with [...] of diastolic heart failure who presents to [facility] in [place], [place] for further evaluation and management of [...] inpatient workup; she will f/u with her registered nurse midwife in a month CKD Hypokalemia -k was replaced Obesity hypothyroidism Studies Performed: Ultrasound renal limited [[id number]] Collected: 05/12/25 1548 Order Status: Completed Updated: 05/12/25 1053 Narrative: RENAL ULTRASOUND HISTORY: Abnormal CT with [...] electronically signed by Pio Angel MD Voice shearer operator technology (Exhibition A) is used for the dictation of this note and sound-alike words might be erroneously placed despite reviewing this note for accuracy. Errors in dictation may reflect use of voice recognition software and not all errors in shearer operator may have been detected prior to signing. US renal complete [[id number]] Order Status: Canceled CT ABDOMEN/PELVIS WITHOUT IV CONTRAST Standard Protocol [[id number]] Collected: 05/12/25524 Order Status: Completed Updated: 05/12/25535 [...] Bailey MD US DOPPLER VENOUS LEGS BILATERAL [[id number]] Collected: 05/11/25 1453 Order Status: Completed Updated: 05/12/25 1255 Narrative: Vascular Lower Extremities DVT Study Procedure Demographics Patient Name SHOAIB MONTEJO Age 79 Patient Number [id number] Gender Female Race Unknown Ethnicity Corporate ID [id number] Height 68 Date of 1945 Weight 225 Accession Number [id number] BSA 2.15 m^2 Room Number 415 BMI 34.21 kg/m^2 Referring BIPIN ZACARIAS Interpreting JUSTINA MEMBRENO DO Physician Physician Animal Damage Control Agent MEGHAN RAMIREZ RVT Procedure Type of Study: [...] supine position. Signature XR chest AP portable [[id number]] Collected: 05/11/251927 Order Status: Completed Updated: 05/11/251932 [...] reviewed, interpreted, dictated and electronically signed by Poi Angel MD Voice shearer operator technology (Power Scribe) is used for the dictation of this note and sound-alike words might be erroneously placed despite reviewing this note for accuracy. Errors in dictation may reflect use of voice recognition software and not all errors in shearer operator may have been detected prior to signing. NM lung perfusion scan [[id number]] Collected: 05/11/25 1502 Order Status: Completed Updated: [...] Kun Rivera PA-C. NM lung scan (V/Q) [[id number]] Order Status: Canceled CT chest for pulmonary embolus [[id number]] Order Status: Canceled XR chest 1 view portable / bedside [[id number]] Collected: 05/10/25816 Order Status: Completed Updated: 05/10/25903 [...] Procedure Component Value Units Date/Time Blood Culture [[id number]] (Abnormal) Collected: 05/09/252239 Order Status: Completed Specimen: Blood Updated: 05/12/25 1004 Result Escherichia coli Abnormal Comment: Refer to previous culture of - [id number] Gram Stain Result Aerobic bottle gram stain gram negative rods Panic Narrative: Positive Blood culture. Note cultures and clinical presentation before starting antibiotics Blood culture identification by PCR was performed on a previous accession. See accession: [id number] In 1 of 2 blood culture bottles drawn Blood Culture [[id number]] (Abnormal) Collected: 05/09/252239 Order Status: Completed Specimen: Blood Updated: 05/12/25 1003 Result Escherichia coli Abnormal Gram Stain Result Aerobic bottle gram stain gram negative rods Panic Narrative: Positive Blood culture. Note cultures and clinical presentation before starting antibiotics In 1 of 2 blood culture bottles drawn Blood Culture Panel(BioFire) [[id number]] (Abnormal) Collected: 05/09/252239 Order Status: Completed Specimen: [...] and susceptibility testing of isolates. COVID ANTIGEN [[id number]] (Normal) Collected: 05/09/252125 Order Status: Completed Specimen: [...] Your Medications These medications were sent to [facility] at [address] [facility] [address], [facility] [address] Saccharomyces boulardii 250 mg capsule Information about [...] MD Specialty: Family Medicine Relationship: PCP - [address] [address] Next Steps: Follow up in 1 week(s) Ulisses Barriga MD Specialty: Infectious Disease, Infectious Diseases [facility] [address] [facility] [address] Next Steps: Follow up in 5 day(s) Jacob Celeste MD Specialty: Cardiology, Interventional Cardiology 1401 [facility] [address] [place] [address] Next Steps: Follow up Time Spent: 40 minutes Electronically signed by Callum Blanton MD, 05/13/25, 10:26 AM EDT documented in this encounter Discharge Instructions * Attachments The following attachments cannot be sent through Care Everywhere. * Pleurodynia (Surinamese) * Sinus Tachycardia (Surinamese) documented in this encounter Medications at Time [...] members Agency Type Outpatient Therapies (PT, OT, CASSEROLE PREPARER, Infusion, Wounds) Outpatient Therapies (PT, OT, CASSEROLE PREPARER, infusion, Wounds) Name and Number [facility] infusion dept Transportation Provider family Date of ward service supervisor 05/13/25 Care Coordination Final Discharge Plan Final [...] Specialty: Family Medicine Relationship: PCP - General [address] [place] [phone] Next Steps: Go in 1 week(s) Instructions: PCP follow up 05/20/25 @2:00pm Ulisses Barriga MD Specialty: Infectious Disease, Infectious Diseases 1720 [facility] [address] [place] [address] Next Steps: Go in 5 day(s) Instructions: ID follow up Per the office they have spoke with you and given you your appt Jacob Celeste MD Specialty: Cardiology, Interventional Cardiology 1401 [facility] [address] [place] [address] Next Steps: Go in 1 month(s) Instructions: Cardiology follow up 06/11/25 @11:45am Trey Cartwright MD Specialty: Urology [address] [place] [address] Next Steps: Go in 1 month(s) Instructions: Urology follow up 06/10/25 @10:45am for bilateral renal cysts [address] [place] [address] p# [phone] Infusion dept- [phone] Next Steps: Go to Instructions: Appointment scheduled [...] Contact Name: Transportation Provider Phone: Date of ward service supervisor: (P) 05/13/25 Time of ward service supervisor: Fannie Molina RN * Fannie Molina RN - 05/13/2025 3:35 PM EDT Discharge Plan Progress Note CM received call from [employer]. [facility]- Appointment scheduled for 05/14/25-05/22/25. Arrive at 9:30 AM for registration. Appointment is at 10:00 AM on all days except 05/19/25- It will be at 1:00 PM with registration at 12:30 PM. Will have to go to ER on Weekend between 1333-3425. CM placed on follow up provider list. Cm updated nursing. Fannie Molina RN * Fannie Molina RN - 05/13/2025 2:39 PM EDT Discharge Plan Progress Note Cm received call from [facility] with infusion dept. Received referral. Will have [...] (Comment) (Outpt infusion clinic) Type of Home/Self Shelter with family care Does the patient have the ability to fill and receive their discharge medications? Yes Discharge Plan Discussed The discharge plan was discussed with patient. Discharge Plan Outcome Patient/family agency sales representative agrees with the discharge plan Discharge [...] infusion clinic) Mandated Reporting: (P) Not applicable PT/OT/CASSEROLE PREPARER Recommendations PT Recommendations: OT Recommendations: CASSEROLE PREPARER Recommendations: CM spoke to patient. Has a PCP and can afford meds. Independent with ADL's. Discussed need for IV Abx. Requests [facility] for IV Abx via PIV and labs. Choice letter given. Family at bedside. Requesting Copy of ID order.Cm instructed will need to obtain records [facility]. Confirmed with Rach Sigala RN. .Patient/family provided with [facility] approved choice list and Patient choice letter along with Qualitydata link to access Medicare.gov Care Compare website to review potential post-acute providers. Choice provided to patient/family, and patient preferences received and referral(s) submitted to requested providers. Referral(s) submitted to: referral to [facility] p# [phone] , f# [phone]. Aw acceptance and appointment time. Fannie Molina RN * Ulisses Barriga MD - 05/13/2025 9:06 AM EDT Images from the original note were not included. [facility] Patient Name: Elissa Kent [...] Procedure Component Value Units Date/Time Blood Culture [[id number]] (Abnormal) Collected: 05/09/252239 Order Status: Completed Specimen: Blood Updated: 05/12/25 1004 Result Escherichia coli Comment: Refer to previous culture of - [id number] Gram Stain Result Aerobic bottle gram stain gram negative rods Narrative: Positive Blood culture. Note cultures and clinical presentation before starting antibiotics Blood culture identification by PCR was performed on a previous accession. See accession: [id number] In 1 of 2 blood culture bottles drawn Blood Culture [[id number]] (Abnormal) (Susceptibility) Collected: 05/09/252239 Order Status: Completed Specimen: Blood Updated: 05/12/25 1003 Result Escherichia coli Gram Stain Result Aerobic bottle gram stain gram negative rods Narrative: Positive Blood culture. Note cultures and clinical presentation before starting antibiotics In 1 of 2 blood culture bottles drawn Blood Culture Panel(BioFire) [[id number]] (Abnormal) Collected: 05/09/252239 Order Status: Completed Specimen: [...] and susceptibility testing of isolates. COVID ANTIGEN [[id number]] (Normal) Collected: 05/09/252125 Order Status: Completed Specimen: Nasal Swab Updated: 05/09/252156 SARS COVID ANTIGEN Negative Narrative: The BD Veritor System for Rapid Detection of SARS-CoV-2 does not differentiate between SARS-CoV [id number].The BD Veritor System for Rapid Detection of [...] Component Value Units Date/Time Ultrasound renal limited [[id number]] Collected: 05/12/25 1548 Order Status: Completed Updated: [...] electronically signed by Pio Angel MD Voice shearer operator technology (Exhibition A) is used for the dictation of this note and sound-alike words might be erroneously placed despite reviewing this note for accuracy. Errors in dictation may reflect use of voice recognition software and not all errors in shearer operator may have been detected prior to signing. US DOPPLER VENOUS LEGS BILATERAL [[id number]] Collected: 05/11/25 1453 Order Status: Completed Updated: 05/12/25 1255 Narrative: Vascular Lower Extremities DVT Study Procedure Demographics Patient Name SHOAIB MONTEJO Age 79 Patient Number [id number] Gender Female Race Unknown Ethnicity Corporate ID [id number] Height 68 Date of 1945 Weight 225 Accession Number [id number] BSA 2.15 m^2 Room Number 415 BMI 34.21 kg/m^2 Referring BIPIN ZACARIAS Interpreting JUSTINA MEMBRENO DO Physician Physician Animal Damage Control Agent MEGHAN RAMIREZ RVT Procedure Type of Study: [...] CT ABDOMEN/PELVIS WITHOUT IV CONTRAST Standard Protocol [[id number]] Collected: 05/12/25524 Order Status: Completed Updated: 05/12/25535 [...] Trey Bailey MD XR chest AP portable [[id number]] Collected: 05/11/25 192 Order Status: Completed Updated: [...] electronically signed by Pio Angel MD Voice shearer operator technology (Power Incentive Logicibe) is used for the dictation of this note and sound-alike words might be erroneously placed despite reviewing this note for accuracy. Errors in dictation may reflect use of voice recognition software and not all errors in shearer operator may have been detected prior to signing. NM lung perfusion scan [[id number]] Collected: 05/11/25 1502 Order Status: Completed Updated: [...] needs or delays: Signed: Callum Blanton MD [facility] Hospitalist * Ulisses Barriga MD - 05/12/2025 10:35 AM EDT Images from the original note were not included. [facility] Patient Name: Elissa Kent [...] Procedure Component Value Units Date/Time Blood Culture [[id number]] (Abnormal) Collected: 05/09/25 2240 Order Status: Completed Specimen: Blood Updated: 05/12/25 1004 Result Escherichia coli Comment: Refer to previous culture of - [id number] Gram Stain Result Aerobic bottle gram stain gram negative rods Narrative: Positive Blood culture. Note cultures and clinical presentation before starting antibiotics Blood culture identification by PCR was performed on a previous accession. See accession: [id number] In 1 of 2 blood culture bottles drawn Blood Culture [[id number]] (Abnormal) (Susceptibility) Collected: 05/09/252239 Order Status: Completed Specimen: Blood Updated: 05/12/25 1003 Result Escherichia coli Gram Stain Result Aerobic bottle gram stain gram negative rods Narrative: Positive Blood culture. Note cultures and clinical presentation before starting antibiotics In 1 of 2 blood culture bottles drawn Blood Culture Panel(BioFire) [[id number]] (Abnormal) Collected: 05/09/252239 Order Status: Completed Specimen: [...] and susceptibility testing of isolates. COVID ANTIGEN [[id number]] (Normal) Collected: 05/09/252125 Order Status: Completed Specimen: Nasal Swab Updated: 05/09/252156 SARS COVID ANTIGEN Negative Narrative: The FileLife System for Rapid Detection of SARS-CoV-2 does not differentiate between SARS-CoV [id number].The Outsell Veritor System for Rapid Detection of SARS-CoV-2 [...] CT ABDOMEN/PELVIS WITHOUT IV CONTRAST Standard Protocol [[id number]] Collected: 05/12/25524 Order Status: Completed Updated: 05/12/25535 [...] Trey Bailey MD XR chest AP portable [[id number]] Collected: 05/11/25 192 Order Status: Completed Updated: [...] electronically signed by Pio Angel MD Voice shearer operator technology (PollitoInglese) is used for the dictation of this note and sound-alike words might be erroneously placed despite reviewing this note for accuracy. Errors in dictation may reflect use of voice recognition software and not all errors in shearer operator may have been detected prior to signing. US DOPPLER VENOUS LEGS BILATERAL [[id number]] Resulted: 05/11/25 1643 Order Status: Sent Updated: 05/11/25 1715 NM lung perfusion scan [[id number]] Collected: 05/11/25 1502 Order Status: Completed Updated: [...] XR chest 1 view portable / bedside [[id number]] Collected: 05/10/25 08 Order Status: Completed Updated: [...] 9:34 AM EDT CARDIOLOGY PROGRESS NOTE Name Elisas Kent, 1945, 79 y.o., female Primary Cardiology: Dr Celeste PCP: Deo Byrne MD Admit Date 05/09/2025 Patient Location [address] [place] [address] Subjective: No acute overnight events Inpatient Medications [...] of motion, Normal strength. Integumentary: Warm, Dry, Hauser. Neurologic: Alert, Oriented. Psychiatric: Cooperative, Appropriate mood [...] UA Colorless Clarity, UA Clear Clear Specific [place], UA 1.010 1.005 - 1.030 pH, UA [...] XR chest 1 view portable / bedside [[id number]] Collected: 05/10/25816 Order Status: Completed Updated: 05/10/25903 [...] MD Admit Date 05/09/2025 Patient Location [facility]415- Subjective: No acute overnight events [...] of motion, Normal strength. Integumentary: Warm, Dry, Hauser. Neurologic: Alert, Oriented. Psychiatric: Cooperative, Appropriate mood [...] of diastolic heart failure who presents to [facility] in [place], [place] for further evaluation and management of [...] file. Documented Allergies: No Known Allergies Documented TALENT RECRUITER Medications: (Not in a hospital admission) Review [...] R AXIS (MCT) 56 degrees T Wave [place] 140 degrees [place] Diagnosis Undetermined rhythm Possible Inferior infarct , [...] Procedure Component Value Units Date/Time Blood Culture [[id number]] Collected: 05/09/252239 Order Status: Resulted Specimen: Blood Updated: 05/09/252243 Blood Culture [[id number]] Collected: 05/09/252239 Order Status: Resulted Specimen: Blood Updated: 05/09/252243 COVID ANTIGEN [[id number]] (Normal) Collected: 05/09/252125 Order Status: Completed Specimen: Nasal Swab Updated: 05/09/252156 SARS COVID ANTIGEN Negative Narrative: The BD Veritor System for Rapid Detection of SARS-CoV-2 does not differentiate between SARS-CoV [id number].The BD Veritor System for Rapid Detection of [...] XR chest 1 view portable / bedside [[id number]] Resulted: 05/09/252118 Order Status: Sent Updated: 05/09/252119 [...] Ulises Ruelas PA-C 05/09/2025, 1:12 AM Voice shearer operator technology (Groopt) is used for dictation of this note and sound-alike words might be erroneously placed despite reviewing the note for accuracy. Errors in dictation mayreflect use of voice recognition software and not all errors in shearer operator may have been detected prior to signing. [...] Breath History of Present Illness: Briefly, Elissa Kent is a 79 y.o. female, admitted on: [...] capsule 20 mg 20 mg oral Daily Uliess Ruelas PA-C 20 mg at 05/12/25 0834 [...] Procedure Component Value Units Date/Time Blood Culture [[id number]] (Abnormal) Collected: 05/09/252239 Order Status: Completed Specimen: Blood Updated: 05/11/25 1042 Result Escherichia coli Gram Stain Result Aerobic bottle gram stain gram negative rods Narrative: Positive Blood culture. Note cultures and clinical presentation before starting antibiotics In 1 of 2 blood culture bottles drawn Blood Culture [[id number]] (Abnormal) Collected: 05/09/252239 Order Status: Completed Specimen: Blood Updated: 05/11/25 0638 Result Gram negative rods Gram Stain Result Aerobic bottle gram stain gram negative rods Narrative: Positive Blood culture. Note cultures and clinical presentation before starting antibiotics Blood culture identification by PCR was performed on a previous accession. See accession: [id number] In 1 of 2 blood culture bottles drawn Blood Culture Panel(WinsomeFirgiovanna) [[id number]] (Abnormal) Collected: 05/09/25 2240 Order Status: Completed [...] and susceptibility testing of isolates. COVID ANTIGEN [[id number]] (Normal) Collected: 05/09/252125 Order Status: Completed Specimen: Nasal Swab Updated: 05/09/252156 SARS COVID ANTIGEN Negative Narrative: The BD Veritor System for Rapid Detection of SARS-CoV-2 does not differentiate between SARS-CoV [id number].The BD Veritor System for Rapid Detection of [...] Value Units Date/Time XR chest AP portable [[id number]] Resulted: 05/11/25 1241 Order Status: Sent Updated: 05/11/25 1241 NM lung perfusion scan [[id number]] Resulted: 05/11/25 1235 Order Status: No result Updated: 05/11/25 1235 XR chest 1 view portable / bedside [[id number]] Collected: 05/10/25 0817 Order Status: Completed Updated: [...] EDTAssociated Order(s): FS_MODEL_IP IP CONSULT TO CARDIOLOGY [facility] - Consult Note Basic Information: Name Elissa Kent, 1945, 79 y.o., female [employer]: Jacob Celeste MD PCP: Deo Byrne MD Admit Date 05/09/2025 Patient Location [id number] Chief Complaint/Consult reason: Chest pressure and shortness of air History of Present Illness: Elissa Kent is an exceptionally pleasant 79-year-old female with a known history of heart failure with preserved ejection fraction, obesity, chronic kidney disease stage IV, hypertension, dyslipidemia, and no flow obstructive coronary disease per left heart catheterization 2022 presenting to [facility] for evaluation for chest discomfort and shortness [...] of motion, Normal strength. Integumentary: Warm, Dry, Hauser. Neurologic: Alert, Oriented. Psychiatric: Cooperative, Appropriate mood [...] chest pain. She denies any history of [place]. She states her shortness of breath is [...] R AXIS (MCT) 56 degrees T Wave [place] 140 degrees [place] Diagnosis Undetermined rhythm Possible Inferior infarct , age undetermined Abnormal ECG No previous ECGs available XR chest 1 view portable / bedside (Results Pending) ED Course as of 05/10/25 0024 Sat May 09, 20252100 Dr. Cordova: I saw the patient [id number]. I performed a substantive portion of the [...] consult on 05/11 by Ulisses Barriga MD CDS/Multilith Operator Signature: Aston Binghamliss Lee Mail:[email or web address] Date/Time: 05/15/2025 1:35 PM This is a permanent part of the Medical Record 2023 Pending sale to [facility] Reviewed/Updated: 03/2025 * Plan of Care [...] Yoselyn Nova RN Outcome: Progressing 05/12/20252254 by Yoseyln Nova RN Outcome: Progressing Goal: BMAT Level [...] Yoselyn Nova RN Outcome: Progressing 05/12/20252254 by Yoeslyn Nvoa RN Outcome: Progressing Goal: BMAT Level 3 [...] Description 08/11/2025 12:30 PM EST Office Visit [facility] Cardiology [address] [place] [address] Jacob Celeste MD 1401 [facility] [address] [place] [address] documented as of this encounter Procedures Procedure [...] with automated diff (05/13/2025 3:17 AM EDT) [facility] WBC 4.7 4.0 - 10.0 K/ L 05/13/2025 3:58 AM EDT [facility] RBC 3.40(L) 3.93 - 5.22 M/ L 05/13/2025 3:58 AM EDT [facility] Hemoglobin 9.9(L) 11.2 - 15.7 GM/DL 05/13/2025 3:58 AM EDT [facility] Hematocrit 33.0(L) 34.1 - 44.9 % 05/13/2025 3:58 AM EDT [facility] MCV 97(H) 79 - 95 fL 05/13/2025 3:58 AM EDT [facility] MCH 29.1 25.6 - 32.2 pg 05/13/2025 3:58 AM EDT [facility] MCHC 30.0(L) 32.2 - 35.5 GM/DL 05/13/2025 3:58 AM EDT [facility] RDW 14.2 11.7 - 14.4 % 05/13/2025 3:58 AM EDT [facility] Platelets 183 140 - 375 K/CU MM 05/13/2025 3:58 AM EDT [facility] MPV 10.6 9.4 - 12.3 fL 05/13/2025 3:58 AM EDT [facility] % Neutros 47 34 - 71 % 05/13/2025 3:58 AM EDT [facility] % Lymphs 33 19 - 52 % 05/13/2025 3:58 AM EDT [facility] % Monos 15(H) 5 - 13 % 05/13/2025 3:58 AM EDT [facility] % Eos 4 1 - 6 % 05/13/2025 3:58 AM EDT [facility] % Baso 1 0 - 1 % 05/13/2025 3:58 AM EDT [facility] NRBC Absolute <0.01 0 - 0.012 K/ul 05/13/2025 3:58 AM EDT [facility] # Neutros 2.19 1.56 - 6.13 K/ L 05/13/2025 3:58 AM EDT [facility] # Lymphs 1.54 1.18 - 3.74 K/ L 05/13/2025 3:58 AM EDT [facility] # Monos 0.68 0.24 - 0.86 K/ L 05/13/2025 3:58 AM EDT [facility] # Eos 0.19 0.04 - 0.36 K/ L 05/13/2025 3:58 AM EDT [facility] # Baso 0.04 0.01 - 0.08 K/ L 05/13/2025 3:58 AM EDT [facility] % Imm Grans 0.40 0.01 - 0.43 % 05/13/2025 3:58 AM EDT [facility] # IG <0.03 0.00 - 0.03 K/uL 05/13/2025 3:58 AM EDT [facility] Blood Venipuncture / Unknown 05/13/2025 3:17 AM EDT 05/13/2025 3:51 AM EDT Narrative [facility] - 05/13/2025 3:58 AM EDT When [...] MD LAB BLOOD ORDERABLES Final Resul t [facility] [address] [phone] * (ABNORMAL) Basic Metabolic Panel (05/13/2025 3:17 AM EDT) Sodium 142 136 - 145 meq/L 05/13/2025 4:26 AM EDT [facility] Potassium 3.6 3.4 - 5.1 meq/L 05/13/2025 4:26 AM EDT [facility] CO2 29 22 - 29 meq/L 05/13/2025 4[facility] Chloride 103 98 - 112 meq/L 05/13/2025 4:[facility] Glucose 88 82 - 115 mg/dL 05/13/2025 4:26 AM [facility] BUN 37.5(H) 9.8 - 20.1 mg/dL 05/13/2025 4:26 [facility] Creatinine 1.90(H) 0.57 - 1.11 mg/dL 05/13/2025 4:26 AM [facility] BUN/Creatinine 20 8 - 20 05/13/2025 4:26 AM T [facility] Calcium 8.5 8.4 - 10.2 mg/dL 05/13/2025 4:26 AM [facility] Anion Gap 14(H) 4 - 12 05/13/2025 4:26 AM [facility] eGFR (mL/min/1.73m2) 27(L) >=60 mL/min/1.7 3m2 05/13/2025 4:26 AM [facility] Comment:ESTIMATED GFR IS NOT ACCURATE CREATININE CLEARANCE IN PREDICTING GLOMERULAR FILTRATION RATE. ESTIMATED GFR IS NOT APPLICABLE FOR DIALYSIS PATIENTS. Osmolality Calc 291.4 mOsm/kg 4:26 AM EDT [facility] Blood Venipuncture / Unknown 05/13/2025 3:17 AM EDT 05/13/2025 3:53 AM EDT us Callum Blanton MD LAB BLOOD ORDERABLES Final Resul t [facility] [address] [phone] * Ultrasound renal limited (05/12/2025 2:09 PM EDT) Anatomical Region Laterality Modality Abdomen, Kidney Ultrasound 05/12/2025 3:48 PM EDT Impressions 05/12/2025 5:38 PM EDT 1. Renal cortical thinning increased echogenicity consistent with medical renal disease bilaterally. 2. No hydronephrosis. 3. Multiple bilateral renal cysts as above. No solid masses are seen. Images reviewed, interpreted, dictated and electronically signed by Pio Angel MD Voice shearer operator technology (PollitoInglese) is used for the dictation of this note and sound-alike words might be erroneously placed despite reviewing this note for accuracy. Errors in dictation may reflect use of voice recognition software and not all errors in shearer operator may have been detected prior to signing. [...] electronically signed by Pio Angel MD Voice shearer operator technology (Power Scribe) is used for the dictation of this note and sound-alike words might be erroneously placed despite reviewing this note for accuracy. Errors in dictation may reflect use of voice recognition software and not all errors in shearer operator may have been detected prior to signing. Trey Cartwright MD [facility] [place] ORDERABLES Final Result * (ABNORMAL) Manual Differential (05/12/2025 5:57 AM EDT) Total Counted 100 05/12/2025 9:36 AM EDT [facility] % Neutros (manual) 70(H) 50 - 65 % 05/12/2025 9:36 AM EDT [facility] % Lymphs (manual) 11(L) 24 - 44 % 05/12/2025 9:36 AM EDT [facility] Comment:27% appear to be aty pical/reactive lymphs % Monos (manual) 14(H) 4 - 5 % 05/12/2025 9:36 AM EDT [facility] % Eos (manual) 5(H) 0 - 3 % 05/12/2025 9:36 AM EDT [facility] RBC Morphology abnormal(A) Normal 9:36 AM EDT [facility] Platelet Estimate Adequate Adequate 05/12/2025 9:36 AM EDT [facility] Hypochromia 1+ 05/12/2025 9:36 AM EDT [facility] # Neutrophils (manual) 3.50 K/ L 05/12/2025 9:36 AM EDT [facility] Blood Venipuncture / Unknown 05/12/2025 5:57 AM EDT 05/12/2025 6:59 AM EDT Martin Snyder MD LAB BLOOD ORDERABLES Final Resu lt Performing Organization Address [facility]/ZIP Co de Phone Number [facility] [address] [phone] * Magnesium (05/12/2025 5:57 AM EDT) Magnesium 1.9 1.6 - 2.6 mg/dL 05/12/2025 7:25 AM EDT [facility] Blood Venipuncture / Unknown 05/12/2025 5:57 AM EDT 05/12/2025 6:59 AM EDT Martin Snyder MD LAB BLOOD ORDERABLES Final Resu lt [facility] [address] [phone] * (ABNORMAL) CBC with automated diff (05/12/2025 5:57 AM EDT) WBC 5.0 4.0 - 10.0 K/ L 05/12/2025 7:43 AM EDT [facility] RBC 3.20(L) 3.93 - 5.22 M/ L 05/12/2025 7:43 AM EDT [facility] Hemoglobin 9.5(L) 11.2 - 15.7 GM/DL 05/12/2025 7:43 AM EDT [facility] Hematocrit 30.8(L) 34.1 - 44.9 % 05/12/2025 7:43 AM EDT [facility] MCV 96(H) 79 - 95 fL 05/12/2025 7:43 AM EDT [facility] MCH 29.7 25.6 - 32.2 pg 05/12/2025 7:43 AM EDT [facility] MCHC 30.8(L) 32.2 - 35.5 GM/DL 05/12/2025 7:43 AM EDT [facility] RDW 14.2 11.7 - 14.4 % 05/12/2025 7:43 AM EDT [facility] Platelets 177 140 - 375 K/CU MM 05/12/2025 7:43 AM EDT [facility] MPV 11.2 9.4 - 12.3 fL 05/12/2025 7:43 AM EDT [facility] NRBC Absolute <0.01 0 - 0.012 K/ul 05/12/2025 7:43 AM EDT [facility] Blood Venipuncture / Unknown 05/12/2025 5:57 AM EDT 05/12/2025 6:59 AM EDT [facility] - 05/12/2025 7:43 AM EDT When [...] MD LAB BLOOD ORDERABLES Final Resu lt [facility] [address] [phone] * (ABNORMAL) Basic Metabolic Panel (05/12/2025 5:57 AM EDT) Sodium 142 136 - 145 meq/L 05/12/2025 7:25 AM EDT [facility] Potassium 3.2(L) 3.4 - 5.1 meq/L 05/12/2025 7:25 AM EDT [facility] CO2 28 22 - 29 meq/L 05/12/2025 7:25 AM [facility] Chloride 104 98 - 112 meq/L 05/12/2025 7:25 AM EDT [facility] Glucose 80(L) 82 - 115 mg/dL 05/12/2025 7:25 AM EDT [facility] BUN 42.0(H) 9.8 - 20.1 mg/dL 05/12/2025 7:25 AM [facility] Creatinine 1.80(H) 0.57 - 1.11 mg/dL 05/12/2025 7:25 AM [facility] BUN/Creatinine 23(H) 8 - 20 05/12/2025 7:25 AM EDT [facility] Calcium 8.2(L) 8.4 - 10.2 mg/dL 05/12/2025 7:25 AM [facility] Anion Gap 13(H) 4 - 12 05/12/2025 7:25 AM [facility] eGFR (mL/min/1.73m2) 29(L) >=60 mL/min/1.7 3m2 05/12/2025 7:25 AM [facility] Comment:ESTIMATED GFR IS NOT ACCURATE CREATININE CLEARANCE IN PREDICTING GLOMERULAR FILTRATION RATE. ESTIMATED GFR IS NOT APPLICABLE FOR DIALYSIS PATIENTS. Osmolality Calc 292.6 mOsm/kg 7:25 AM T [facility] Blood Venipuncture / Unknown 05/12/2025 5:57 AM EDT 05/12/2025 6:59 AM EDT us Martin Snyder MD LAB BLOOD ORDERABLES Final Resu lt [facility] [address] [phone] * CT ABDOMEN/PELVIS WITHOUT IV CONTRAST Standard [...] Extremities DVT Study Procedure Demographics Patient Name SHOAIB MONTEJO Age 79 Patient Number [id number] Gender Female Race Unknown Ethnicity Corporate ID [id number] Height 68 Date of 1945 Weight 225 Accession Number [id number] BSA 2.15 m^2 Room Number 415 BMI 34.21 kg/m^2 Referring BIPIN ZACARIAS Interpreting JUSTINA MEMBRENO DO Physician Physician Animal Damage Control Agent MEGHAN RAMIREZ, T Procedure Type of Study: [...] Extremities DVT Study Procedure Demographics Patient Name SHOAIB MONTEJO Age 79 Patient Number [id number] Gender Female Race Unknown Ethnicity Corporate ID [id number] Height 68 Date of 1945 Weight 225 Accession Number [id number] BSA 2.15 m^2 Room Number 415 BMI 34.21kg/m^2 Referring BIPIN ZACARIAS Interpreting JUSTINA BRUNER Physician Physician Animal Damage Control Agent MEGHAN RAMIREZ RVT Procedure Type of Study: [...] electronically signed by Pio Angel MD Voice shearer operator technology (Power Scribe) is used for the dictation of this note and sound-alike words might be erroneously placed despite reviewing this note for accuracy. Errors in dictation may reflect use of voice recognition software and not all errors in shearer operator may have been detected prior to signing. [...] electronically signed by Pio Angel MD Voice shearer operator technology (Power Scribe) is used for the dictation of this note and sound-alike words might be erroneously placed despite reviewing this note for accuracy. Errors in dictation may reflect use of voice recognition software and not all errors in shearer operator may have been detected prior to signing. [...] EDT TRANSTHORACIC ECHOCARDIOGRAPHY REPORT Demographics Patient Name: SHOAIB MONTEJO : 1945 Age: 79 year(s) Corporate ID Number: [id number] Gender Female Animal Damage Control Agent: Angelica EGAN Height: 68 inches Referring Physician: ARACELI TURNER Weight: 225 pounds Interpreting Physician: JUSTINA MEMBRENO DO BMI: 34.21 kg/m^2 Date of Service: 05/11/2025 Blood Pressure: 111/59 mmHg Room Number: 415 Type of Study: TTE procedure: ECHO COMPLETE (DOPPLER / COLOR) W OR WO CONTRAST. Patient Status: Routine IP Study Location: [facility] Quality: Adequate visualization History/Tech Notes: Indication: shortness [...] A-wave: 0.73 m/s E/A ratio: 1.02 Volume sjophlzhd59.2 ml Volume xzvbvyqj78.08 ml LVOT diameter: 2.05 cm Normal sized [...] 05/11/2025 TRANSTHORACIC ECHOCARDIOGRAPHY REPORT Demographics Patient Name: SHOAIB MONTEJO : 1945 Age: 79 year(s) Corporate ID Number: [id number] Gender Female Animal Damage Control Agent: Angelica EGAN Height: 68 inches Referring Physician: ARACELI TURNER Weight: 225 pounds Interpreting Physician: JUSTINA MEMBRENO DO BMI: 34.21kg/m^2 Date of Service: 05/11/2025 Blood Pressure: 111/59 mmHg Room Number: 415 Type of Study: TTE procedure: ECHO COMPLETE (DOPPLER / COLOR) W OR WO CONTRAST. Patient Status: Routine [facility] Quality: Adequate visualization History/Tech Notes: Indication: shortness [...] A-wave: 0.73 m/s E/A ratio: 1.02 Volume aipgyveut72.2 ml Volume plavaiow99.08 ml LVOT diameter: 2.05 cm Normal sized [...] visualized. Pericardium / Pleura No pericardial effusion. Araceli Turner APRN CV ECHO ORDERABLES Final R esult * (ABNORMAL) Manual Differential (05/11/2025 10:04 AM EDT) Total Counted 99 05/11/2025 1:59 PM EDT [facility] % Neutros (manual) 80(H) 50 - 65 % 05/11/2025 1:59 PM EDT [facility] % Bands (manual) 2 % 05/11/2025 1:59 PM EDT [facility] % Lymphs (manual) 11(L) 24 - 44 % 05/11/2025 1:59 PM EDT [facility] Comment:55% appear to be aty pical/reactive lymphs % Monos (manual) 6(H) 4 - 5 % 05/11/2025 1:59 PM EDT [facility] % Baso (manual) 1 0 - 1 % 1:59 PM EDT [facility] RBC Morphology abnormal(A) Normal 1:59 PM EDT [facility] Platelet Estimate Adequate Adequate 05/11/2025 1:59 PM EDT [facility] Hypochromia 1+ 05/11/2025 1:59 PM EDT [facility] # Neutrophils (manual) 4.34 K/ L 05/11/2025 1:59 PM EDT [facility] Blood Venipuncture / Unknown 05/11/2025 10:04 AM EDT 05/11/2025 10:58 AM EDT Martin Snyder MD LAB BLOOD ORDERABLES Final Resu lt Performing Organization Address City/[facility]/ZIP Co de Phone Number [facility] [address] [phone] * Magnesium (05/11/2025 10:04 AM EDT) Magnesium 1.8 1.6 - 2.6 mg/dL 05/11/2025 11:23 AM EDT [facility] Blood Venipuncture / Unknown 05/11/2025 10:04 AM EDT 05/11/2025 10:58 AM EDT Martin Snyder MD LAB BLOOD ORDERABLES Final Resu lt [facility] [address] [phone] * (ABNORMAL) Hepatic function panel (05/11/2025 10:04 AM EDT) Protein, Total 5.8(L) 6.4 - 8.3 g/dL 05/11/2025 11:26 AM EDT [facility] Albumin 2.1(L) 3.5 - 5.0 g/dL 05/11/2025 11:26 AM EDT [facility] Total Bilirubin 0.2 0.2 - 1.2 mg/dL 05/11/2025 11:26 AM EDT [facility] Bilirubin, Direct 0.1 0.0 - 0.5 mg/dL 05/11/2025 11:26 AM EDT [facility] Alkaline Phosphatase 113 40 - 150 U/L 05/11/2025 11:26 AM EDT [facility] Globulin 3.7 2.5 - 4.1 g/dL 05/11/2025 11:26 AM EDT [facility] A/G Ratio 0.6(L) 0.7 - 1.9 05/11/2025 11:26 AM EDT [facility] AST 27 11 - 34 U/L 05/11/2025 11:26 AM EDT [facility] Comment: AST2 reagent used for testing does not contain P5P supplementation and therefore may miss AST elevations in patients with B6 deficiency. This population may be as high as 10% in the [place], with risk factors including malabsorption, drug interactions, and alcoholic hepatitis. ALT 38(H) <=34 U/L 05/11/2025 11:26 AM EDT [facility] Comment: ALT2 reagent used for testing [...] MD LAB BLOOD ORDERABLES Final Resu lt [facility] [address] [phone] * (ABNORMAL) CBC with automated diff (05/11/2025 10:04 AM EDT) WBC 5.3 4.0 - 10.0 K/ L 05/11/2025 11:21 AM EDT [facility] RBC 3.36(L) 3.93 - 5.22 M/ L 05/11/2025 11:21 AM EDT [facility] Hemoglobin 9.8(L) 11.2 - 15.7 GM/DL 05/11/2025 11:21 AM EDT [facility] Hematocrit 32.5(L) 34.1 - 44.9 % 05/11/2025 11:21 AM EDT [facility] MCV 97(H) 79 - 95 fL 05/11/2025 11:21 AM EDT [facility] MCH 29.2 25.6 - 32.2 pg 05/11/2025 11:21 AM EDT [facility] MCHC 30.2(L) 32.2 - 35.5 GM/DL 05/11/2025 11:[facility] RDW 14.4 11.7 - 14.4 % 05/11/2025 11:21 AM EDT [facility] Platelets 164 140 - 375 K/CU MM 05/11/2025 11:21 AM [facility] MPV 11.3 9.4 - 12.3 fL 05/11/2025 11:21 AM [facility] NRBC Absolute <0.01 0 - 0.012 K/ul 05/11/2025 11:21 AM [facility] Blood Venipuncture / Unknown 05/11/2025 10:04 AM EDT 05/11/2025 10:58 AM EDT Narrative [facility] - 05/11/2025 11:21 AM EDT When [...] MD LAB BLOOD ORDERABLES Final Resu lt [facility] [address] [phone] * (ABNORMAL) Basic Metabolic Panel (05/11/2025 10:04 AM EDT) Sodium 140 136 - 145 meq/L 05/11/2025 11:23 AM EDT [facility] Potassium 3.0(L) 3.4 - 5.1 meq/L 05/11/2025 11:23 AM EDT [facility] CO2 27 22 - 29 meq/L 05/11/2025 11:23 AM EDT [facility] Chloride 103 98 - 112 meq/L 05/11/2025 11:23 AM EDT [facility] Glucose 95 82 - 115 mg/dL 05/11/2025 11:23 AM EDT [facility] BUN 45.3(H) 9.8 - 20.1 mg/dL 05/11/2025 11:23 AM EDT [facility] Creatinine 1.92(H) 0.57 - 1.11 mg/dL 05/11/2025 11:23 AM T [facility] BUN/Creatinine 24(H) 8 - 20 05/11/2025 11:23 AM EDT [facility] Calcium 8.4 8.4 - 10.2 mg/dL 05/11/2025 11:23 AM EDT [facility] Anion Gap 13(H) 4 - 12 05/11/2025 11:23 AM EDT [facility] eGFR (mL/min/1.73m2) 27(L) >=60 mL/min/1.7 3m2 05/11/2025 11:23 AM EDT [facility] Comment:ESTIMATED GFR IS NOT ACCURATE CREATININE CLEARANCE IN PREDICTING GLOMERULAR FILTRATION RATE. ESTIMATED GFR IS NOT APPLICABLE FOR DIALYSIS PATIENTS. Osmolality Calc 290.9 mOsm/kg 11:23 AM T [facility] Blood Venipuncture / Unknown 05/11/2025 10:04 AM EDT 05/11/2025 10:58 AM EDT us Martin Yamiledan MD LAB BLOOD ORDERABLES Final Resu lt [facility] [address] [phone] * (ABNORMAL) Urinalysis, Reflex Microscopic and Culture If Indicated (05/11/2025 1:39 AM EDT) Color, UA Colorless 05/11/2025 1:57 AM EDT [facility] Clarity, UA Clear Clear 05/11/2025 1:57 AM EDT [facility] Specific [place], UA 1.010 1.005 - 1.030 05/11/2025 1:57 AM EDT [facility] pH, UA 5.5(L) 6.0 - 8.0 05/11/2025 1:57 AM EDT [facility] Leukocytes, UA Negative Negative 05/11/2025 1:57 AM EDT [facility] Nitrite, UA Negative Negative 05/11/2025 1:57 AM EDT [facility] Protein, UA Negative Negative 05/11/2025 1:57 AM EDT [facility] Glucose, UA Normal Normal 05/11/2025 1:57 AM EDT [facility] Ketones, UA Negative Negative 05/11/2025 1:57 AM EDT [facility] Bilirubin, UA Negative Negative 05/11/2025 1:57 AM EDT [facility] Blood, UA Negative Negative 05/11/2025 1:57 AM EDT [facility] Urobilinogen, UA Normal Normal 05/11/2025 1:57 AM EDT [facility] Specimen Source Urine, Clean Catch 05/11/2025 1:57 AM EDT [facility] Urine URINE SPECIMEN COLLECTION, CLEAN CATCH / Unknown 05/11/2025 1:39 AM EDT 05/11/2025 1:39 AM EDT us Ulises Ruelas PA-C URINE ORDERABLES Final Resul t Performing Organization Address [facility]/ZIP Co de Phone Number [facility] [address] [place] [address], [facility] [phone] * (ABNORMAL) Basic Metabolic Panel (05/10/2025 6:26 AM EDT) Sodium 137 136 - 145 meq/L 05/10/2025 7:04 AM [facility] Potassium 3.5 3.4 - 5.1 meq/L 05/10/2025 7:04 AM [facility] CO2 25 22 - 29 meq/L 05/10/2025 7:04 AM [facility] Chloride 102 98 - 112 meq/L 05/10/2025 7:04 AM [facility] Glucose 104 82 - 115 mg/dL 05/10/2025 7:04 AM [facility] BUN 52.6(H) 9.8 - 20.1 mg/dL 05/10/2025 7:04 AM [facility] Creatinine 2.05(H) 0.57 - 1.11 mg/dL 05/10/2025 7:04 AM [facility] BUN/Creatinine 26(H) 8 - 20 05/10/2025 7:04 AM [facility] Calcium 8.3(L) 8.4 - 10.2 mg/dL 05/10/2025 7:04 AM [facility] Anion Gap 14(H) 4 - 12 05/10/2025 7:04 AM [facility] eGFR (mL/min/1.73m2) 25(L) >=60 mL/min/1.7 3m2 05/10/2025 7:04 AM [facility] Comment:ESTIMATED GFR IS NOT ACCURATE CREATININE CLEARANCE IN PREDICTING GLOMERULAR FILTRATION RATE. ESTIMATED GFR IS NOT APPLICABLE FOR DIALYSIS PATIENTS. Osmolality Calc 288.4 mOsm/kg 7:04 AM [facility] Blood Venipuncture / Unknown 05/10/2025 6:26 AM EDT 05/10/2025 6:35 AM EDT Ulises Ruelas PA-C LAB BLOOD ORDERABLES Final R esult [facility] [address] [phone] * ECG 12 lead (05/09/2025 11:45 PM EDT) [facility] VENTRICULAR RATE EKG/MIN 102 BPM GE MUSE ATRIAL RATE (MCT) 102 BPM GE MUSE QRS-INTERVAL (MSEC) 92 ms GE MUSE QT Interval 367 ms GE MUSE QTC Interval 478 ms GE MUSE R AXIS (MCT) 57 degrees GE MUSE T Wave [place] 57 degrees GE MUSE [place] Diagnosis Undetermined rhythm Nonspecific T wave abnormality Abnormal ECG When compared with ECG of 09-MAY-2025 20:47, Current undetermined rhythm precludes rhythm comparison, needs review Nonspecific T wave abnormality no longer evident in Inferior leads Confirmed by Gregory SANDERSON, JERAMIE ([id number]) on 05/10/2025 2:36:24 PM GE MUSE 05/09/2025 11:4 5 PM EDT 05/10/2025 2:36 PM EDT us Jyoti Montana PA-C ECG ORDERABLES Final Result Performing Organization Address [facility] de Phone Number GE MUSE * Lactic acid (SJ) (05/09/2025 11:18 PM EDT) [facility] Lactic Acid Level (mmol/L) 1.0 0.5 - 2.2 mmol/L 05/09/2025 11:43 PM EDT [facility] Blood Venipuncture / Unknown 05/09/2025 11:18 PM EDT 05/09/2025 11:23 PM EDT Jyoti Montana PA-C LAB BLOOD ORDERABLES Final R esult Performing Organization Address [facility] Co de Phone Number [facility] [address] [phone] * (ABNORMAL) Blood Culture Panel(BioFire) (05/09/2025 10:40 PM EDT) [facility] CTX-M Not detected Not detected 05/10/2025 4:24 PM EDT [facility] IMP Not detected Not detected 05/10/2025 4:24 PM EDT [facility] KPC Not detected Not detected 05/10/2025 4:24 PM EDT [facility] MCR-1 Not detected Not detected 05/10/2025 4:24 PM EDT [facility] MEC A/C Non Applicable Not detected 05/10/2025 4:24 PM EDT [facility] MEC A/C and MREJ Non Applicable Not detected 05/10/2025 4:24 PM EDT [facility] NDM Not detected Not detected 05/10/2025 4:24 PM EDT [facility] [id number] Not detected Not Detected 05/10/2025 4:24 PM EDT [facility] VAN A/B Non Applicable Not detected 05/10/2025 4:24 PM EDT [facility] VIM Not detected Not detected 05/10/2025 4:24 PM EDT [facility] ENTEROCOCCUS FAECALIS Not detected Not detected 05/10/2025 4:24 PM EDT [facility] ENTEROCOCCUS FAECIUM Not detected Not detected 05/10/2025 4:24 PM EDT [facility] LISTERIA MONOCYTOGENES Not detected Not detected 05/10/2025 4:24 PM EDT [facility] STAPHYLOCOCCUS Not detected Not detected 05/10/2025 4:24 PM EDT [facility] STAPHYLOCOCCUS AUREUS Not detected Not detected 05/10/2025 4:24 PM EDT [facility] STAPHYLOCOCCUS EPIDERMIDIS Not detected Not detected 05/10/2025 4:24 PM EDT [facility] STAPHYLOCOCCUS LUGDENENSIS Not detected Not detected 05/10/2025 4:24 PM EDT [facility] STREPTOCOCCUS Not detected Not detected 05/10/2025 4:24 PM EDT [facility] STREPTOCOCCUS AGALACTIAE (GROUP B) Not detected Not detected 05/10/2025 4:24 PM EDT [facility] STREPTOCOCCUS PNEUMONIAE Not detected Not detected 05/10/2025 4:24 PM EDT [facility] STREPTOCOCCUS PYOGENES (GROUP A) Not detected Not detected 05/10/2025 4:24 PM EDT [facility] ACINETOBACTER CALCOACETICUS-MAGDY UNA COMPLEX Not detected Not detected 05/10/2025 4:24 PM EDT [facility] BACTEROIDES FRAGILIS Not detected Not detected 05/10/2025 4:24 PM EDT [facility] ENTEROBACTERIACEAE Detected(AA) Not detected 05/10/2025 4:24 PM EDT [facility] Comment:Enterobacterales rep resents a large order of gram negative bacteria, not a single organism ENTEROBACTER CLOACAE COMPLEX Not detected Not detected 05/10/2025 4:24 PM EDT [facility] ESCHERICHIA COLI Detected(AA) Not detected 05/10/2025 4:24 PM EDT [facility] KLEBSIELLA AEROGENES Not detected Not detected 05/10/2025 4:24 PM EDT [facility] KLEBSIELLA OXYTOCA Not detected Not detected 05/10/2025 4:24 PM EDT [facility] KLEBSIELLA PNEUMONIAE GROUP Not detected Not detected 05/10/2025 4:24 PM EDT [facility] PROTEUS Not detected Not detected 05/10/2025 4:24 PM EDT [facility] SALMONELLA SPECIES Not detected Not detected 05/10/2025 4:24 PM EDT [facility] SERRATIA MARCESCENS Not detected Not detected 05/10/2025 4:24 PM EDT [facility] HAEMOPHILUS INFLUENZAE Not detected Not detected 05/10/2025 4:24 PM EDT [facility] NEISSERIA MENINGITIDIS Not detected Not detected 05/10/2025 4:24 PM EDT [facility] PSEUDOMONAS AERUGINOSA Not detected Not detected 05/10/2025 4:24 PM EDT [facility] STENOTROPHOMONAS MALTOPHILIA Not detected Not detected 05/10/2025 4:24 PM EDT [facility] KELLY ALBICANS Not detected Not detected 05/10/2025 4:24 PM EDT [facility] KELLY AURIS Not detected Not detected 05/10/2025 4:24 PM EDT [facility] KELLY GLABRATA Not detected Not detected 05/10/2025 4:24 PM EDT [facility] KELLY KRUSEI Not detected Not detected 05/10/2025 4:24 PM EDT [facility] KELLY PARAPSILOSIS Not detected Not detected 05/10/2025 4:24 PM EDT [facility] KELLY TROPICALIS Not detected Not detected 05/10/2025 4:24 PM EDT [facility] CRYPTOCOCCUS NEOFORMANS/GATTII Not detected Not detected 05/10/2025 4:24 PM EDT [facility] Blood Venipuncture / Unknown 05/09/2025 10:40 PM EDT 05/09/2025 10:44 PM EDT [facility] - 05/10/2025 4:24 PM EDT NOTE: Antimicrobial resistance can occur via multiple mechanisms. A Not Detected result for antimicrobial resistance gene(s) does not indicate antimicrobial susceptibility. Subculturing is required for species identification and susceptibility testing of isolates. us Jyoti Montana PA-C MICROBIOLOGY - GENERAL ORDER KAJAL Final Result [facility] [address] [phone] * (ABNORMAL) Blood Culture (05/09/2025 10:40 PM EDT) Result Escherichia coli(A) 05/12/2025 10:03 AM EDT [facility] Gram Stain Result Aerobic bottle gram stain gram negative rods(AA) 05/12/2025 10:03 AM EDT [facility] Blood ENTIRE LEFT UPPER ARM / Unknown Venipuncture / Unknown 05/09/2025 10:40 PM EDT 05/09/2025 10:44 PM EDT [facility] - 05/12/2025 10:03 AM EDT Positive [...] coli Trimethoprim + Sulfamethoxazole <=0.5/9.5: Susceptible Jyoti VALIENTE- MICROBIOLOGY - GENERAL ORDER KAJAL Final Result Performing Organization Address [facility] Co de Phone Number [facility] [address] [phone] * (ABNORMAL) Blood Culture (05/09/2025 10:40 PM EDT) Result Escherichia coli(A) 05/12/2025 10:04 AM EDT [facility] Comment:Refer to previous cu lture of - [id number] Gram Stain Result Aerobic bottle gram stain gram negative rods(AA) 05/12/2025 10:04 AM EDT [facility] Blood ENTIRE RIGHT UPPER ARM / Unknown Venipuncture / Unknown 05/09/2025 10:40 PM EDT 05/09/2025 10:44 PM EDT Narrative [facility] - 05/12/2025 10:04 AM EDT Positive Blood culture. Note cultures and clinical presentation before starting antibiotics Blood culture identification by PCR was performed on a previous accession. See accession: [id number] In 1 of 2 blood culture bottles drawn Jyoti VALIENTEHEXIO MICROBIOLOGY - GENERAL ORDER KAJAL Final Result Performing Organization Address [facility] Co de Phone Number [facility] [address] [phone] * COVID ANTIGEN (05/09/2025 9:26 PM EDT) SARS COVID ANTIGEN Negative Negative, Invalid 05/09/2025 9:57 PM EDT [facility] Nasal Swab (Nasal) 05/09/2025 9:26 PM EDT 05/09/2025 9:39 PM EDT Narrative [facility] - 05/09/2025 9:57 PM EDT The [...] MICROBIOLOGY - GENERAL ORDER KAJAL Final Result [facility] [address] [phone] * (ABNORMAL) Lactic Acid with reflex (SJ) (05/09/2025 9:26 PM EDT) Lactic Acid Level (mmol/L) 2.2(HH) 0.5 - 2.2 mmol/L 05/09/2025 10:32 PM EDT [facility] Blood Venipuncture / Unknown 05/09/2025 9:26 PM EDT 05/09/2025 10:09 PM EDT us Jyoti Montana PA-C LAB BLOOD ORDERABLES Final R esult [facility] [address] [place] [address], [facility] [phone] * XR chest 1 view portable / [...] 0.58 MG/L FEU 05/09/2025 9:33 PM EDT [facility] Comment:Important: A D-Dimer result of less than 0.50 mg/L FEU indicates a very low probability of DVT or PE. Blood Venipuncture / Unknown 05/09/2025 9:09 PM EDT 05/09/2025 9:19 PM EDT Jyoti Shantell Montana PA-C LAB BLOOD ORDERABLES Final R esult Performing Organization Address City/[facility] Co de Phone Number [facility] [address] [phone] * TSH (05/09/2025 9:09 PM EDT) Pathologist [facility] TSH 0.948 0.350 - 4.940 uIU/mL 05/09/2025 10:05 PM EDT [facility] Blood Venipuncture / Unknown 05/09/2025 9:09 PM EDT 05/09/2025 9:19 PM EDT Jyoti Montana PA-C LAB BLOOD ORDERABLES Final R esult Performing Organization Address [facility] de Phone Number [facility] [address] [phone] * High Sensitivity Troponin I (05/09/2025 9:09 PM EDT) Pathologist [facility] Troponin I High Sensitivity (pg/mL) 6.2 <=14 pg/mL 05/09/2025 9:50 PM EDT [facility] Blood Venipuncture / Unknown 05/09/2025 9:09 PM EDT 05/09/2025 9:19 PM EDT Narrative [facility] - 05/09/2025 9:50 PM EDT Applicable to [facility] only. Effective December 02 the lab will begin using a new chemistry analyzer. HsTroponin methodology, reference ranges and critical values have changed. Jyoti M Short PA-C LAB BLOOD ORDERABLES Final R esult [facility] [address] [phone] * (ABNORMAL) PROBNP (05/09/2025 9:09 PM EDT) Pathologist [facility] ProBNP (pg/mL) 1,896(H) 16 - 956 pg/mL 05/09/2025 10:05 PM EDT [facility] Blood Venipuncture / Unknown 05/09/2025 9:09 PM EDT 05/09/2025 9:19 PM EDT Narrative [facility] - 05/09/2025 10:05 PM EDT As of January 29, 2025: NT-ProBNP is a new test on our [employer] Immunoassay analyzer. Please review new age and gender specific reference ranges. us Jyoti VALIENTE-C LAB BLOOD ORDERABLES Final R esult Performing Organization Address [facility]/ZIP Co de Phone Number [facility] [address] [phone] * Magnesium (05/09/2025 9:09 PM EDT) [facility] Magnesium 1.9 1.6 - 2.6 mg/dL 05/09/2025 10:05 PM EDT [facility] Blood Venipuncture / Unknown 05/09/2025 9:09 PM EDT 05/09/2025 9:19 PM EDT us Jyoti VALIENTE-C LAB BLOOD ORDERABLES Final R esult Performing Organization Address City/[facility]/ZIP Co de Phone Number [facility] [address] [phone] * (ABNORMAL) Comprehensive metabolic panel (05/09/2025 9:09 PM EDT) [facility] Sodium 136 136 - 145 meq/L 05/09/2025 10:05 PM EDT [facility] Potassium 4.4 3.4 - 5.1 meq/L 05/09/2025 10:05 PM [facility] Chloride 97(L) 98 - 112 meq/L 05/09/2025 10:05 PM [facility] CO2 23 22 - 29 meq/L 05/09/2025 10:05 PM [facility] Calcium 8.7 8.4 - 10.2 mg/dL 05/09/2025 10:05 PM [facility] Glucose 99 82 - 115 mg/dL 05/09/2025 10:05 PM [facility] BUN 63.3(H) 9.8 - 20.1 mg/dL 05/09/2025 10:05 PM [facility] Creatinine 2.48(H) 0.57 - 1.11 mg/dL 05/09/2025 10:05 PM [facility] BUN/Creatinine 26(H) 8 - 20 05/09/2025 10:05 PM [facility] eGFR (mL/min/1.73m2) 20(L) >=60 mL/min/1. 73m2 05/09/2025 10:05 PM [facility] Comment:ESTIMATED GFR IS NOT ACCURATE CREATININE CLEARANCE IN PREDICTING GLOMERULAR FILTRATION RATE. ESTIMATED GFR IS NOT APPLICABLE FOR DIALYSIS PATIENTS. Albumin 2.8(L) 3.5 - 5.0 g/dL 05/09/2025 10:05 PM [facility] Alkaline Phosphatase 161(H) 40 - 150 U/L 05/09/2025 10:05 PM [facility] ALT 81(H) <=34 U/L 05/09/2025 10:05 PM [facility] Comment: ALT2 reagent used for testing does not contain P5P supplementation and therefore may miss ALT elevations in patients with B6 deficiency. This population may be as high as 10% in the [place], with risk factors including malabsorption, drug interactions, and alcoholic hepatitis. AST 74(H) 11 - 34 U/L 05/09/2025 10:05 PM [facility] Comment: AST2 reagent used for testing does not contain P5P supplementation and therefore may miss AST elevations in patients with B6 deficiency. This population may be as high as 10% in the [place], with risk factors including malabsorption, drug interactions, and alcoholic hepatitis. Total Bilirubin 0.5 0.2 - 1.2 mg/dL 05/09/2025 10:05 PM EDT [facility] Protein, Total 7.2 6.4 - 8.3 g/dL 05/09/2025 10:05 PM EDT [facility] Globulin 4.4(H) 2.5 - 4.1 g/dL 05/09/2025 10:05 PM EDT [facility] Anion Gap 20(H) 4 - 12 05/09/2025 10:05 PM EDT [facility] A/G Ratio 0.6(L) 0.7 - 1.9 05/09/2025 10:05 PM EDT [facility] Osmolality Calc 290.1 mOsm/kg 10:05 PM EDT [facility] Blood Venipuncture / Unknown 05/09/2025 9:09 PM EDT 05/09/2025 9:19 PM EDT us Jyoti Montana PA-C LAB BLOOD ORDERABLES Final R esult [facility] [address] [phone] * (ABNORMAL) CBC with Auto Diff (05/09/2025 9:09 PM EDT) WBC 7.6 4.0 - 10.0 K/ L 05/09/2025 9:30 PM EDT [facility] RBC 3.77(L) 3.93 - 5.22 M/ L 05/09/2025 9:30 PM EDT [facility] Hemoglobin 11.2 11.2 - 15.7 GM/DL 05/09/2025 9:30 PM EDT [facility] Hematocrit 36.5 34.1 - 44.9 % 05/09/2025 9:30 PM EDT [facility] MCV 97(H) 79 - 95 fL 05/09/2025 9:30 PM EDT [facility] MCH 29.7 25.6 - 32.2 pg 05/09/2025 9:30 PM EDT [facility] MCHC 30.7(L) 32.2 - 35.5 GM/DL 05/09/2025 9:30 PM EDT [facility] RDW 14.6(H) 11.7 - 14.4 % 05/09/2025 9:30 PM EDT [facility] Platelets 166 140 - 375 K/CU MM 05/09/2025 9:30 PM EDT [facility] MPV 10.9 9.4 - 12.3 fL 05/09/2025 9:30 PM EDT [facility] % Neutros 81(H) 34 - 71 % 05/09/2025 9:30 PM EDT [facility] % Lymphs 13(L) 19 - 52 % 05/09/2025 9:30 PM EDT [facility] % Monos 5 5 - 13 % 05/09/2025 9:30 PM EDT [facility] % Eos 1 1 - 6 % 05/09/2025 9:30 PM EDT [facility] % Baso 0 0 - 1 % 05/09/2025 9:30 PM EDT [facility] NRBC Absolute <0.01 0 - 0.012 K/ul 05/09/2025 9:30 PM EDT [facility] # Neutros 6.16(H) 1.56 - 6.13 K/ L 05/09/2025 9:30 PM EDT [facility] # Lymphs 1.02(L) 1.18 - 3.74 K/ L 05/09/2025 9:30 PM EDT [facility] # Monos 0.37 0.24 - 0.86 K/ L 05/09/2025 9:30 PM EDT [facility] # Eos 0.04 0.04 - 0.36 K/ L 05/09/2025 9:30 PM EDT [facility] # Baso <0.03 0.01 - 0.08 K/ L 05/09/2025 9:30 PM EDT [facility] % Imm Grans 0.40 0.01 - 0.43 % 05/09/2025 9:30 PM EDT [facility] # IG 0.03 0.00 - 0.03 K/uL 05/09/2025 9:30 PM EDT [facility] Blood Venipuncture / Unknown 05/09/2025 9:09 PM EDT 05/09/2025 9:19 PM EDT Narrative [facility] - 05/09/2025 9:30 PM EDT When [...] noted Atypical Lymph flag noted us Jyoti BELLOC LAB BLOOD ORDERABLES Final R esult Performing Organization Address [facility] Co de Phone Number [facility] [address] [phone] * ECG 12 lead (05/09/2025 8:47 PM EDT) VENTRICULAR RATE EKG/MIN 117 BPM GE MUSE ATRIAL RATE (MCT) 117 BPM GE MUSE QRS-INTERVAL (MSEC) 79 ms GE MUSE QT Interval 313 ms GE MUSE QTC Interval 437 ms GE MUSE R AXIS (MCT) 56 degrees GE MUSE T Wave [place] 140 degrees GE MUSE [place] Diagnosis Poor data quality, interpretation may be adversely affected Undetermined rhythm Possible Inferior infarct , age undetermined Abnormal ECG No previous ECGs available Confirmed by Mau Fuentes MD (2019) on 05/10/2025 1:00:32 PM GE MUSE 05/09/2025 8:47 PM EDT 05/10/2025 1:00 PM EDT us Jyoti BELLOC ECG ORDERABLES Final Result Performing Organization Address City/[facility]/ZIP Co de Phone Number [employer] MUSE * EKG-SCANNED (05/09/2025) Narrative 05/09/2025 Ordered [...] oral, First dose on 05/11/25 at 1130, Pharmacist to renally dose if [...] trace medication (including packaging) in the BLACK [place] bin. Given 05/12/2025 9:46 PM EDT 150 [...] oral, First dose on 05/10/25 at 0900 Given 05/13/2025 2:03 PM EDT 600 mg Given 05/13/2025 10:26 AM EDT 600 mg Given 05/12/2025 9:07 PM EDT 600 mg guaiFENesin (mucINEX) 12 hr tablet 600 mg 600 mg 2 times daily, oral, First dose on 05/11/25 at 0900, * DO NOT CRUSH THIS [...] mcg Daily (0600), oral, First dose on 05/10/25 at 0600, ADMINISTER ON AN EMPTY STOMACH [...] PRN, intravenous, severe pain (7-10), Starting on Sun05/10/25 at 0442, 3rd line analgesic. Give only [...] CRRT. 1541 (Given - Provider: Juwan Paige, RN)2117 (Given - Provider: David Browne RN) 0834 [...] waste bin. 2145 (Given - Provider: Yoselyn Nova, MATT) fLUoxetine (PROzac) capsule 20 mg 20 mg [...] Paige RN)211 (Given - Provider: David Browne, MATT) 0834 (Given - Provider: Juwan Paige RN)1457 [...] medication 1014 (Given - Provider: Juwan Paige RN)211 (Given - Provider: David Browne, MATT) 0834 (Given - Provider: Juwan Paige RN)2106 (Given - Provider: Yoselyn Nova RN) 1022 (Given - Provider: Brooke Nolen [...] Paige RN)1016 (IVPB Stopped - Provider: Juwan Paige, RN)1548 (IVPB Started - Provider: Juwan Paige [...] Paige RN) 1023 (Given - Provider: Brooke Nolen RN) pantoprazole (PROTONIX) EC tablet 40 mg [...] whole. 1540 (Given - Provider: Juwan Paige, RN)2116 (Given - Provider: David Browne, MATT) 0834 (Given - Provider: Juwan Paige, MATT)210 (Given - Provider: Yoselyn Nova, RN) 1023 [...] Elba Valdivia RN)1821 (Given - Provider: Juwan Paige, RN) 0830 (Given - Provider: Juwan Paige [...] Look-alike/Sound-alike medication 0129 (Given - Provider: Elba Valdviia RN)1535 (Given - Provider: Juwan Paige RN)2122 (Given - Provider: David Browne, MATT) 0324 (Given - Provider: David Browne RN) 1401 (Given - Provider: Brooke Nolen RN) [...] minutes. documented in this encounter Care Teams Personnel Security Assistant Relationship Specialty Start Date End Date Deo Byrne MD [address] [place] [phone] PCP - General Family Medicine 05/09/25 Jacob Celeste MD [address] [facility] [address] [place] [address] Cardiology 01/02/24 documented as of this encounter
--- OUTSIDE RECORDS SUMMARY | 2025-05-18 14:50 | XMS_ITS ---
Author Organization [facility] Address [address] [place] [address] Phone Care Team Providers Care Bicycle Rental Clerk Name Role Phone Nithya NOVOA, Ulisses Conde [phone] [ ] Conditions or Problems No information available. Medications No information available. Medications Administered No information available. Allergies, Adverse Reactions, Alerts No information available. Results Date Name Value Unit Range Flag Description Office Visit: Office Visit: 13 [facility] MEDS REVIEW Done Documenta tion of current medications (procedure) ORALTOBACUSE Never Tobacco smoking status SMOK STATUS Never smoker Toba senior financial accountant smoking status Plan of Care Type Date Detail Pending order Continue IV anti biotics Pending order Weekly Labs (Con tinue) Procedures No information available. Vital Signs Date Name Value Unit Description BMI (Body Mass Index) 35.99 kg/m2 Bod y Mass Index (Ratio) Body Temperature 97.4 [degF] temperat ure E&M BP Diastolic 82 mm[Hg] blood pressu re, diastolic BP Systolic 138 mm[Hg] blood pressur e, systolic Heart Rate 72 /min pulse rate Height 66 [in_us] height E&M Respiratory Rate 16 /min respirat ory rate E&M Weight Measured 223 [lb_av] weight E& M Weight Measured 223 [lb_av] weight E& M Immunizations No information available. Advance Directives Directive Description Start Date POWER OF WELL CONTROL INSTRUCTOR LIVING WILL ON FILE
--- OUTSIDE RECORDS SUMMARY | 2025-06-01 13:46 | XMS_ITS ---
Author Organization [facility] Address [address] [facility] [address] [place] [address] Phone Care Team Providers Care Electrical Systems Engineer Name Role Phone Nithya NOVOA, Ulisses Conde [phone] [ ] Conditions or Problems No information available. Medications No information available. Medications Administered No information available. Allergies, Adverse Reactions, Alerts No information available. Results Date Name Value Unit Range Flag Description Office Visit: Office Visit: 14 MEDS REVIEW Done Documenta tion of current medications (procedure) ORALTOBACUSE Never Tobacco smoking status SMOK STATUS Never smoker Toba account manager smoking status Plan of Care No information available. Procedures No information available. Vital Signs Date Name Value Unit Description BMI (Body Mass Index) 35.57 kg/m2 Bod y Mass Index (Ratio) Body Temperature 97.4 [degF] temperat ure E&M BP Diastolic 80 mm[Hg] blood pressu re, diastolic BP Systolic 152 mm[Hg] blood pressur e, systolic Heart Rate 68 /min pulse rate Height 66 [in_us] height E&M Respiratory Rate 16 /min respirat ory rate E&M Weight Measured 220.4 [lb_av] weight E& M Weight Measured 220.4 [lb_av] weight E& M Immunizations No information available. Advance Directives No information available.
--- OUTSIDE RECORDS SUMMARY | 2025-06-11 11:45 | XMS_ITS | Encounter Summary ---
Author Organization [employer] ([place], [place], [place], [place]) Address [address] [place] [address] Care Team Providers Care Fire Services Plumber Name Role Phone Deo Byrne MD Primary Care Provider [phone] Jacob Celeste MD Unavailable Reason for Visit * Reason Comments Shortness of Breath She states that she did well with the Semaglutide but was in the hospital for Ecoli infection and had to have IV antibiotics after and stopped the Semaglutide during the hospitalization. She states that she had chest pain while at the ER. She states having chronic shortness of breath. Encounter Details Date Type Department Care Team (Late st Contact Info) Description 06/11/2025 11:45 AM EDT Office Visit [facility] [address] [place] [phone] Jacob Celeste MD [address] [place] [address] [address] [place] [address] Shortness of breath (Primary Dx) Social History Tobacco Use Types Packs/Day Years [...] Date Record ed How often does anyone, inclu ding family and friends, physically hurt you? Never [...] Do you speak a language other than Anguillan at [facility]? No 05/10/2025 Do you want help with [...] Sign Reading Time Taken Comments Blood Pressure 128/80 06/11/2025 1:33 PM EDT Pulse 68 06/11/2025 1:33 PM EDT Temperature - - Respiratory Rate - - Oxygen Saturation - - Inhaled Oxygen Concentration - - Weight 99.3 kg (219 lb) 06/11/2025 1:33 PM EDT Height 167.6 cm (5' 6 ) 06/11/2025 1:33 PM EDT Body Mass Index 35.35 06/11/2025 1:33 PM EDT documented in this encounter Progress Notes * Jacob Celeste MD - 06/11/2025 11:45 AM EDT History Of Present Illness Patient is a 79 y.o. female presenting for a follow up with complaints of chest pain. She states that she did well with the Semaglutide but was in the hospital for Ecoli infection and had to have IV antibiotics after and stopped the Semaglutide during the hospitalization. She states that she had chest pain while at the ER. She states havingchronic shortness of breath. Past Medical History She has a past medical history of Angina of effort (HCC), CKD (chronic kidney disease), Diastolic heart failure (HCC), Edema, HTN (hypertension), and Hypokalemia. Surgical History She has a past surgical history that includes Replacement total knee and Lumbar nerve stimlator insertion. Social History She reports that she has never smoked. She has never used smokeless tobacco. She reports current alcohol use of about 2.0 - 3.0 standard drinks of alcohol per week. She reports that she does not use drugs. Family History No family history on file. Allergies Patient has no known allergies. Medications Subjective Current Outpatient Medications Medication Instructions cholecalciferol (vitamin D3) 2,000 Units, Daily fluoride, sodium, (PreviDent 5000 Booster Plus) 1.1 % pste Apply to teeth. FLUoxetine (PROZAC) 60 mg, Daily furosemide (LASIX) 80 mg, oral, 2 times daily gabapentin (NEURONTIN) 600 mg, 3 times daily levothyroxine (SYNTHROID) 75 mcg, Daily LORazepam (ATIVAN) 0.5 mg, Every Night PRN metoprolol succinate (TOPROL-XL) 50 MG 24 hr tablet Take 1&1/2 tablets (75 mg total) by mouth daily. omeprazole (PRILOSEC) 20 mg, Daily oxyCODONE-acetaminophen (PERCOCET) 7.5-325 mg per tablet 1 tablet, 2 times daily potassium chloride (KLOR-CON) 20 mEq CR tablet 20 mEq, oral, Daily Review of Systems Review of Systems All other systems reviewed and are negative. Last Recorded Vitals Blood pressure 128/80, pulse 68, height 1.676 m (5' 6 ), weight 99.3 kg (219 lb). Physical Exam Vitals and nursing note reviewed. Constitutional: Appearance: She is obese. Neck: Vascular: No carotid bruit. Cardiovascular: Rate and Rhythm: Regular rhythm. Heart sounds: No murmur heard. No gallop. Abdominal: General: Abdomen is flat. Bowel sounds are normal. Palpations: Abdomen is soft. Musculoskeletal: General: No swelling. Normal range of motion. Skin: General: Skin is warm. Neurological: Mental Status: She is alert. EKG: NSR, NSST changes Assessment & Plan Problem List Items Addressed This Visit None FC III dyspnea w/ recent HFpEF (LVEDP > 40, SBP 160) & previously progression to Stage IV CKD (Cr 2 worsening to 2.4; eGFR 19). Echo (03/02)- EF 60%, valves ok. Technetium pyrophosphate (03/02)-Normal cardiac and lung uptake no suggestive of ATTR cardiac amyloidosis. Hx of chronic right sidedHF. Normal cors by cath (12/31) HTN-Stage I Morbid obesity Stage IV CKD (CrCl 27; 05/13/25) Plan: Prescribe Semaglutide for HFpEF when cost appropriate. Continue Semaglutide 0.5 mg wkly x 4 wks (sample). Trial of Jardiance 10 mg daily Decrease lasix to 80 mg + as needed. BMP in 3 weeks. Medication cost discussed Pt instructed to eat 50% less, slower. GI side effects discussed. Continue other current CV meds. BP log twice daily at 8am/4pm. CHF education including 3 gram Na/2 liter fluid restriction, daily wt, flexible diuretics. Emphasize lifestyle wt loss. Discussed MARIOLA evaluation-Pt deferring Heart healthy lifestyle including regular tolerable exercise, optimize diet to achieve ideal body weight. Lipid panel evaluation with primary MD. RTC in 8 weeks + 5-7 lb wt loss. I, Dr. Jacob Celeste, personally performed the services described in this documentation, as scribed by Rosemarie Michael CMA in my presence, and it is both accurate and complete. documented in this encounter Miscellaneous Notes * Addendum Note - Ethan Marquez - 06/11/2025 11:45 AM EDTAddended by: ETHAN MARQUEZ on: 06/11/2025 02:01 PM Modules accepted: Orders * Addendum Note - Ethan Marquez - 06/11/2025 11:45 AM EDTAddended by: ETHAN MARQUEZ on: 06/11/2025 02:12 PM Modules accepted: Orders documented in this encounter Plan of Treatment Upcoming Encounters Date Type Department Care Team (Late st Contact Info) Description 08/11/2025 12:30 PM EST Office Visit [facility] [address] [place] [address] Jacob Celeste MD [address] [facility] [address] [place] [address] documented as of this encounter Procedures Procedure Name Priority Date/Time Associated Diagnosis Comments BASIC METABOLIC PANEL Routine 06/25/2025 2:24 PM EDT Shortness of breath FS_MODEL_IP_ECG 12-LEAD Routine 06/11/2025 1:41 PM EDT Shortness of breath documented in this encounter Results * (ABNORMAL) Basic Metabolic Panel (06/25/2025 2:24 PM EDT) [facility] Glucose, Serum 111(H) 70 - 99 mg/dL [facility] BUN 40(H) 8 - 27 mg/dL [facility] Creatinine, Serum 2.04(H) 0.57 - 1.00 mg/dL [facility] EGFR 25(L) >59 mL/min/1.7 3 [facility] BUN/Creatinine Ratio 20 12 - 28 [facility] Sodium, Serum 135 134 - 144 mmol/L [facility] Potassium, Serum 4.9 3.5 - 5.2 mmol/L [facility] Chloride, Serum 99 96 - 106 mmol/L [facility] Carbon Dioxide, Total 28 20 - 29 mmol/L [facility] Calcium, Serum 8.9 8.7 - 10.3 mg/dL [facility] Blood 06/25/2025 2:24 PM EDT 06/25/2025 Narrative [facility] - 06/25/2025 4:08 PM EDT Performed at: - [facility] [id number] Coding Technician: Angeli Diaz MD, Phone: [phone] us Jacob Celeste MD LAB BLOOD ORDERABLES Final Resul t [facility] * ECG 12 lead (06/11/2025 1:41 PM EDT) us Jacob Celeste MD ECG ORDERABLES Final Result documented in this encounter Visit Diagnoses Diagnosis Shortness of breath- Primary documented in this encounter Care Teams Fire Services Plumber Relationship Specialty Start Date End Date Deo Byrne MD [address] [place] [address] PCP - General Family Medicine 05/09/25 [place] [address] [place] [address] Cardiology 01/02/24 documented as of this encounter
--- OUTSIDE RECORDS SUMMARY | 2025-06-30 16:53 | XMS_ITS | Clinical Summary ---
Author Organization [employer] ([place], [place], [place], [place]) Address [address] [place] [address] Care Team Providers Care Lumber Grader Name Role Phone Deo Byrne MD Primary Care Provider [phone] Jacob Celeste MD Unavailable Allergies No known [...] Encounters Date Type Department Care Team Description 06/26/2025 Telephone [facility] Cardiology [address] [place] [phone] Rosemarie Michael CAR USHER Results 06/12/2025 Telephone [facility] Cardiology [address] [place] [phone] Jacob Celeste MD Medication Management 06/11/2025 11:45 AM EDT Office Visit [facility] Cardiology [address] [place] [phone] Jacob Celeste MD Shortness of breath (Primary Dx) 06/11/2025 Travel 05/09/2025 8:41 PM EDT - 05/13/2025 4:35 PM EDT Hospital Encounter [place] [address] Interventional Care Unit [address] [place] [phone] Xiang Cordova MD Elliott, Jayden, PA-C [place], [...] your living situation today? I have a [facility] place to live 05/10/2025 Think about [...] Do you speak a language other than Tuvaluan at ho ok? No 05/10/2025 Do you want help with [...] Description 08/11/2025 12:30 PM EST Office Visit [facility] Cardiology [address] [place] [phone] Jacob Cleeste MD [address] [facility] [address] [place] [address] Health Maintenance Due Date Last Done Comments DXA SCAN 1945 Depression Screening (12+) 1959 Hepatitis C Screening 1965 DTAP/TDAP/TD VACCINES (1 - Tdap) 1966 Shingles Vaccine (Zoster) (1 of 2) 1997 Medicare Initial AWV G0438 06/11/2013 Pneumococcal 50+ years (2 of 2 - PCV) 07/22/202108/2020 Respiratory Syncytial Virus (RSV) Adult or (1 - 1-dose 75+ series) 2022 Falls Risk Screening 09/10/2024 COVID-19 VACCINE (3 - season) 05/11/202508/2021, 10/29/2020 Influenza Vaccine (#1) 2025 07/13/2021, 2020 Tobacco Cessation Counseling and Screening (12+) 06/11/2026 06/11/2025 Procedures Procedure Name Priority Date/Time Associated Diagnosis Comments BASIC METABOLIC PANEL Routine 06/25/2025 2:24 PM EDT Shortness of breath [id number]_[id number] 12-LEAD Routine 06/11/20 1:41 PM EDT [...] 05/09/2025 from Last 3 Months Results * (ABNORMAL) Basic Metabolic Panel (06/25/2025 2:24 PM EDT) Only the most recent of5 resultswithin the time period is included. Pathologist [facility] Glucose, Serum 111(H) 70 - 99 mg/dL [...] - 06/25/2025 4:08 PM EDT Performed at: [facility] [id number] Fiscal Officer: Angeli Diaz MD, Phone: [phone] Jacob eCleste MD LAB BLOOD ORDERABLES Final Resul t [facility] * ECG 12 lead (06/11/2025 1:41 PM EDT) Only the most recent of3 resultswithin the time period is included. us Jacob Celeste MD ECG ORDERABLES Final Result * (ABNORMAL) CBC with automated diff (05/13/2025 3:17 AM EDT) Only the most recent of4 resultswithin the time period is included. [facility] WBC 4.7 4.0 - 10.0 K/ L 05/13/2025 3:58 AM EDT [facility] RBC 3.40(L) 3.93 - 5.22 M/ L 05/13/2025 3:58 AM EDT [facility] Hemoglobin 9.9(L) 11.2 - 15.7 GM/DL 05/13/2025 3:58 AM EDT [facility] Hematocrit 33.0(L) 34.1 - 44.9 % 05/13/2025 3:58 AM EDT [facility] MCV 97(H) 79 - 95 fL 05/13/2025 3:58 AM EDT [facility] MCH 29.1 25.6 - 32.2 pg 05/13/2025 3:58 AM EDT [facility] MCHC 30.0(L) 32.2 - 35.5 GM/DL 05/13/2025 3:58 AM EDT [facility] RDW 14.2 11.7 - 14.4 % 05/13/2025 3:58 AM EDT [facility] Platelets 183 140 - 375 K/CU MM 05/13/2025 3:58 AM EDT [facility] MPV 10.6 9.4 - 12.3 fL 05/13/2025 3:58 AM EDT [facility] % Neutros 47 34 - 71 % 05/13/2025 3:58 AM EDT [facility] % Lymphs 33 19 - 52 % 05/13/2025 3:58 AM EDT [facility] % Monos 15(H) 5 - 13 % 05/13/2025 3:58 AM EDT [facility] % Eos 4 1 - 6 % 05/13/2025 3:58 AM EDT [facility] % Baso 1 0 - 1 % 05/13/2025 3:58 AM EDT [facility] NRBC Absolute <0.01 0 - 0.012 K/ul 05/13/2025 3:58 AM EDT [facility] # Neutros 2.19 1.56 - 6.13 K/ L 05/13/2025 3:58 AM EDT [facility] # Lymphs 1.54 1.18 - 3.74 K/ L 05/13/2025 3:58 AM EDT [facility] # Monos 0.68 0.24 - 0.86 K/ L 05/13/2025 3:58 AM EDT [facility] # Eos 0.19 0.04 - 0.36 K/ L 05/13/2025 3:58 AM EDT [facility] # Baso 0.04 0.01 - 0.08 K/ L 05/13/2025 3:58 AM EDT [facility] % Imm Grans 0.40 0.01 - 0.43 % 05/13/2025 3:58 AM EDT [facility] # IG <0.03 0.00 - 0.03 K/uL 05/13/2025 3:58 AM EDT [facility] Blood Venipuncture / Unknown 05/13/2025 3:17 AM EDT 05/13/2025 3:51 AM EDT Narrative [facility] - 05/13/2025 3:58 AM [...] MD LAB BLOOD ORDERABLES Final Resul t [facility] [address] [phone] * Ultrasound renal limited (05/12/2025 2:09 PM EDT) Anatomical Region Laterality Modality Abdomen, Kidney Ultrasound 05/12/2025 3:48 PM EDT Impressions 05/12/2025 5:38 PM EDT 1. Renal cortical thinning increased echogenicity consistent with medical renal disease bilaterally. 2. No hydronephrosis. 3. Multiple bilateral renal cysts as above. No solid masses are seen. Images reviewed, interpreted, dictated and electronically signed by Pio Angel MD Voice lesson instructor technology (Power Scribe) is used for the dictation of this note and sound-alike words might be erroneously placed despite reviewing this note for accuracy. Errors in dictation may reflect use of voice recognition software and not all errors in lesson instructor may have been detected prior to signing. [...] electronically signed by Pio Angel MD Voice lesson instructor technology (Power Scribe) is used for the dictation of this note and sound-alike words might be erroneously placed despite reviewing this note for accuracy. Errors in dictation may reflect use of voice recognition software and not all errors in lesson instructor may have been detected prior to signing. Trey Cartwright MD IMG US ORDERABLES Final Result * (ABNORMAL) Manual Differential (05/12/2025 5:57 AM EDT) Only the most recent of2 resultswithin the time period is included. Total Counted 100 05/12/2025 9:36 AM EDT [facility] % Neutros (manual) 70(H) 50 - 65 % 05/12/2025 9:36 AM EDT [facility] % Lymphs (manual) 11(L) 24 - 44 % 05/12/2025 9:36 AM EDT [facility] Comment:27% appear to be aty pical/reactive lymphs % Monos (manual) 14(H) 4 - 5 % 05/12/2025 9:36 AM EDT [facility] % Eos (manual) 5(H) 0 - 3 % 05/12/2025 9:36 AM EDT [facility] RBC Morphology abnormal(A) Normal 9:36 AM EDT [facility] Platelet Estimate Adequate Adequate 05/12/2025 9:36 AM EDT [facility] Hypochromia 1+ 05/12/2025 9:36 AM EDT [facility] # Neutrophils (manual) 3.50 K/ L 05/12/2025 9:36 AM EDT [facility] Blood Venipuncture / Unknown 05/12/2025 5:57 AM EDT 05/12/2025 6:59 AM EDT us Martin Snyder MD LAB BLOOD ORDERABLES Final Resu lt [facility] [address] [phone] * Magnesium (05/12/2025 5:57 AM EDT) Only the most recent of3 resultswithin the time period is included. Magnesium 1.9 1.6 - 2.6 mg/dL 05/12/2025 7:25 AM EDT [facility] Blood Venipuncture / Unknown 05/12/2025 5:57 AM EDT 05/12/2025 6:59 AM EDT us Martin Snyder MD LAB BLOOD ORDERABLES Final Resu lt [facility] [address] [place] [address], [facility] [phone] * CT ABDOMEN/PELVIS WITHOUT IV CONTRAST Standard [...] Images reviewed, interpreted, and dictated by Trey Bailye MD Narrative 05/12/2025 5:[address] [...] Name DONTE MONTEJO Age 79 Patient Number [id number] Gender Female Race Unknown Ethnicity Corporate ID [id number] Height 68 Date of 1945 Weight 225 Accession Number [id number] BSA 2.15 m^2 Room Number 415 BMI 34.21 kg/m^2 Referring BIPIN ZACARIAS Interpreting JUSTINA MEMBRENO DO Physician Physician Animal Services Officer MEGHAN RAMIREZ, FRANNYT Procedure Type of Study: [...] Name DONTE MONTEJO Age 79 Patient Number [id number] Gender Female Race Unknown Ethnicity Corporate ID [id number] Height 68 Date of 1945 Weight 225 Accession Number [id number] BSA 2.15 m^2 Room Number 415 BMI 34.21kg/m^2 Referring BIPIN ZACARIAS Interpreting JUSTINA BRUNER Physician Physician Animal Services Officer MEGHAN RAMIREZ, [facility] Procedure Type of Study: Veins: Venous Duplex, [...] to augmentation in the supine position. Signature us Ulises Ruelas PA-C CV VASCULAR ORDERABLES Final Result * XR chest AP portable (05/11/2025 2:16 PM EDT) Anatomical Region Laterality Modality Chest X-Ray 05/11/2025 7:28 PM EDT Impressions 05/11/2025 7:31 PM EDT Underinflation with no acute cardiopulmonary process. Images reviewed, interpreted, dictated and electronically signed by Pio Angel MD Voice lesson instructor technology (Power [employer]) is used for the dictation of this note and sound-alike words might be erroneously placed despite reviewing this note for accuracy. Errors in dictation may reflect use of voice recognition software and not all errors in lesson instructor may have been detected prior to signing. [...] electronically signed by Pio Angel MD Voice lesson instructor technology (Power Scribe) is used for the dictation of this note and sound-alike words might be erroneously placed despite reviewing this note for accuracy. Errors in dictation may reflect use of voice recognition software and not all errors in lesson instructor may have been detected prior to signing. Pio Angel MD [facility] DIAGNOSTIC IMAGING ORDERABL ES Final Result * [...] by Kun Rivera PA-C. Ulises Ruelas PA-C [facility] NM ORDERABLES Final Resu lt * ECHO COMPLETE (DOPPLER / COLOR) WO CONTRAST (05/11/2025 10:29 AM EDT) Anatomical Region Laterality Modality Heart Vascular Ultraso und 05/11/2025 9:52 AM EDT Narrative 05/11/2025 12:10 PM EDT TRANSTHORACIC ECHOCARDIOGRAPHY REPORT Demographics Patient Name: DONTE MONTEJO : 1945 Age: 79 year(s) Corporate ID Number: [id number] Gender Female Animal Services Officer: Angelica EGAN Height: 68 inches Referring Physician: ARACELI TURNER Weight: 225 pounds Interpreting Physician: JUSTINA MEMBRENO DO BMI: 34.21 kg/m^2 Date of Service: 05/11/2025 Blood Pressure: 111/59 mmHg Room Number: 415 Type of Study: TTE procedure: ECHO COMPLETE (DOPPLER / COLOR) W OR WO CONTRAST. Patient Status: Routine IP Study Location: [facility] Quality: Adequate visualization History/Tech Notes: Indication: [...] E/A ratio: 1.02 Volume .2 ml Volume [id number] ml LVOT diameter: 2.05 cm Normal sized [...] 1945 Age: 79 year(s) Corporate ID Number: [id number] Gender Female Animal Services Officer: Angelica EGAN Height: 68 inches Referring Physician: [...] A-wave: 0.73 m/s E/A ratio: 1.02 Volume [id number] ml Volume .08 ml LVOT diameter: 2.05 [...] function panel (05/11/2025 10:04 AM EDT) Pathologist [facility] Protein, Total 5.8(L) 6.4 - 8.3 g/dL 05/11/2025 11:26 AM EDT [facility] Albumin 2.1(L) 3.5 - 5.0 g/dL 05/11/2025 11:26 AM T [facility] Total Bilirubin 0.2 0.2 - 1.2 mg/dL 05/11/2025 11:26 AM T [facility] Bilirubin, Direct 0.1 0.0 - 0.5 mg/dL 05/11/2025 11:26 AM EDT [facility] Alkaline Phosphatase 113 40 - 150 U/L 05/11/2025 11:26 AM EDT [facility] Globulin 3.7 2.5 - 4.1 g/dL 05/11/2025 11:26 AM [facility] A/G Ratio 0.6(L) 0.7 - 1.9 05/11/2025 11:26 AM [facility] AST 27 11 - 34 U/L 05/11/2025 11:26 AM EDT [facility] Comment: AST2 reagent used for testing does not contain P5P supplementation and therefore may miss AST elevations in patients with B6 deficiency. This population may be as high as 10% in the [place], with risk factors including malabsorption, drug interactions, and alcoholic hepatitis. ALT 38(H) <=34 U/L 05/11/2025 11:26 AM T [facility] Comment: ALT2 reagent used [...] MD LAB BLOOD ORDERABLES Final Resu lt [facility] [address] [phone] * (ABNORMAL) Urinalysis, Reflex Microscopic and Culture If Indicated (05/11/2025 1:39 AM EDT) Color, UA Colorless 05/11/2025 1:57 AM EDT [facility] Clarity, UA Clear Clear 05/11/2025 1:57 AM EDT [facility] Specific [place], UA 1.010 1.005 - 1.030 05/11/2025 1:57 AM EDT [facility] pH, UA 5.5(L) 6.0 - 8.0 05/11/2025 1:57 AM EDT [facility] Leukocytes, UA Negative Negative 05/11/2025 1:57 AM EDT [facility] Nitrite, UA Negative Negative 05/11/2025 1:57 AM EDT [facility] Protein, UA Negative Negative 05/11/2025 1:57 AM EDT [facility] Glucose, UA Normal Normal 05/11/2025 1:57 AM EDT [facility] Ketones, UA Negative Negative 05/11/2025 1:57 AM EDT [facility] Bilirubin, UA Negative Negative 05/11/2025 1:57 AM EDT [facility] Blood, UA Negative Negative 05/11/2025 1:57 AM EDT [facility] Urobilinogen, UA Normal Normal 05/11/2025 1:57 AM EDT [facility] Specimen Source Urine, Clean Catch 05/11/2025 1:57 AM EDT [facility] Urine URINE SPECIMEN COLLECTION, CLEAN CATCH / Unknown 05/11/2025 1:39 AM EDT 05/11/2025 1:39 AM EDT us Ulises Ruelas PA-C URINE ORDERABLES Final Resul t [facility] [address] [phone] * Lactic acid (SJ) (05/09/2025 11:18 PM EDT) Lactic Acid Level (mmol/L) 1.0 0.5 - 2.2 mmol/L 05/09/2025 11:43 PM EDT [facility] Blood Venipuncture / Unknown 05/09/2025 11:18 PM EDT 05/09/2025 11:23 PM EDT us Jyoti Montana PA-C LAB BLOOD ORDERABLES Final R esult [facility] [address] [phone] * (ABNORMAL) Blood Culture Panel(BioFire) (05/09/2025 10:40 PM EDT) CTX-M Not detected Not detected 05/10/2025 4:24 PM EDT [facility] IMP Not detected Not detected 05/10/2025 4:24 PM EDT [facility] KPC Not detected Not detected 05/10/2025 4:24 PM EDT [facility] MCR-1 Not detected Not detected 05/10/2025 4:24 PM EDT [facility] MEC A/C Non Applicable Not detected 05/10/2025 4:24 PM EDT [facility] MEC A/C and MREJ Non Applicable Not detected 05/10/2025 4:24 PM EDT [facility] NDM Not detected Not detected 05/10/2025 4:24 PM EDT [facility] [id number] Not detected Not Detected 05/10/2025 4:24 PM EDT [facility] VAN A/B Non Applicable Not detected 05/10/2025 4:24 PM EDT [facility] VIM Not detected Not detected 05/10/2025 4:24 PM EDT [facility] ENTEROCOCCUS FAECALIS Not detected Not detected 05/10/2025 4:24 PM EDT [facility] ENTEROCOCCUS FAECIUM Not detected Not detected 05/10/2025 4:24 PM EDT [facility] LISTERIA MONOCYTOGENES Not detected Not detected 05/10/2025 4:24 PM EDT [facility] STAPHYLOCOCCUS Not detected Not detected 05/10/2025 4:24 PM EDT [facility] STAPHYLOCOCCUS AUREUS Not detected Not detected 05/10/2025 4:24 PM EDT [facility] STAPHYLOCOCCUS EPIDERMIDIS Not detected Not detected 05/10/2025 4:24 PM EDT [facility] STAPHYLOCOCCUS LUGDENENSIS Not detected Not detected 05/10/2025 4:24 PM EDT [facility] STREPTOCOCCUS Not detected Not detected 05/10/2025 4:24 PM EDT [facility] STREPTOCOCCUS AGALACTIAE (GROUP B) Not detected Not detected 05/10/2025 4:24 PM EDT [facility] STREPTOCOCCUS PNEUMONIAE Not detected Not detected 05/10/2025 4:24 PM EDT [facility] STREPTOCOCCUS PYOGENES (GROUP A) Not detected Not detected 05/10/2025 4:24 PM EDT [facility] ACINETOBACTER CALCOACETICUS-MAGDY UNA COMPLEX Not detected Not detected 05/10/2025 4:24 PM EDT [facility] BACTEROIDES FRAGILIS Not detected Not detected 05/10/2025 4:24 PM EDT [facility] ENTEROBACTERIACEAE Detected(AA) Not detected 05/10/2025 4:24 PM EDT [facility] Comment:Enterobacterales rep resents a large order of gram negative bacteria, not a single organism ENTEROBACTER CLOACAE COMPLEX Not detected Not detected 05/10/2025 4:24 PM EDT [facility] ESCHERICHIA COLI Detected(AA) Not detected 05/10/2025 4:24 PM EDT [facility] KLEBSIELLA AEROGENES Not detected Not detected 05/10/2025 4:24 PM EDT [facility] KLEBSIELLA OXYTOCA Not detected Not detected 05/10/2025 4:24 PM EDT [facility] KLEBSIELLA PNEUMONIAE GROUP Not detected Not detected 05/10/2025 4:24 PM EDT [facility] PROTEUS Not detected Not detected 05/10/2025 4:24 PM EDT [facility] SALMONELLA SPECIES Not detected Not detected 05/10/2025 4:24 PM EDT [facility] SERRATIA MARCESCENS Not detected Not detected 05/10/2025 4:24 PM EDT [facility] HAEMOPHILUS INFLUENZAE Not detected Not detected 05/10/2025 4:24 PM EDT [facility] NEISSERIA MENINGITIDIS Not detected Not detected 05/10/2025 4:24 PM EDT [facility] PSEUDOMONAS AERUGINOSA Not detected Not detected 05/10/2025 4:24 PM EDT [facility] STENOTROPHOMONAS MALTOPHILIA Not detected Not detected 05/10/2025 4:24 PM EDT [facility] KELLY ALBICANS Not detected Not detected 05/10/2025 4:24 PM EDT [facility] KELLY AURIS Not detected Not detected 05/10/2025 4:24 PM EDT [facility] KELLY GLABRATA Not detected Not detected 05/10/2025 4:24 PM EDT [facility] KELLY KRUSEI Not detected Not detected 05/10/2025 4:24 PM EDT [facility] KELLY PARAPSILOSIS Not detected Not detected 05/10/2025 4:24 PM EDT [facility] KELLY TROPICALIS Not detected Not detected 05/10/2025 4:24 PM EDT [facility] CRYPTOCOCCUS NEOFORMANS/GATTII Not detected Not detected 05/10/2025 4:24 PM EDT [facility] Blood Venipuncture / Unknown 05/09/2025 10:40 PM EDT 05/09/2025 10:44 PM EDT Narrative [facility] - 05/10/2025 4:24 PM EDT NOTE: Antimicrobial resistance can occur via multiple mechanisms. A Not Detected result for antimicrobial resistance gene(s) does not indicate antimicrobial susceptibility. Subculturing is required for species identification and susceptibility testing of isolates. Jyoti Montana PA-C MICROBIOLOGY - GENERAL ORDER KAJAL Final Result [facility] [address] [phone] * (ABNORMAL) Blood Culture (05/09/2025 10:40 PM EDT) Only the most recent of2 resultswithin the time period is included. Result Escherichia coli(A) 05/12/2025 10:03 AM EDT [facility] Gram Stain Result Aerobic bottle gram stain gram negative rods(AA) 05/12/2025 10:03 AM EDT [facility] Blood ENTIRE LEFT UPPER ARM / Unknown Venipuncture / Unknown 05/09/2025 10:40 PM EDT 05/09/2025 10:44 PM EDT Narrative [facility] - 05/12/2025 10:03 AM EDT Positive [...] coli Trimethoprim + Sulfamethoxazole <=0.5/9.5: Susceptible Jyoti Montana PA-C MICROBIOLOGY - GENERAL ORDER KAJAL Final Result [facility] [address] [phone] * COVID ANTIGEN (05/09/2025 9:26 PM EDT) SARS COVID ANTIGEN Negative Negative, Invalid 05/09/2025 9:57 PM EDT [facility] Nasal Swab (Nasal) 05/09/2025 9:26 PM EDT 05/09/2025 9:39 PM EDT Narrative [facility] - 05/09/2025 9:57 PM [...] ORDER KAJAL Final Result Performing Organization Address [facility] Co de Phone Number [facility] [address] [phone] * (ABNORMAL) Lactic Acid with reflex (SJ) (05/09/2025 9:26 PM EDT) Lactic Acid Level (mmol/L) 2.2(HH) 0.5 - 2.2 mmol/L 05/09/2025 10:32 PM EDT [facility] Blood Venipuncture / Unknown 05/09/2025 9:26 PM EDT 05/09/2025 10:09 PM EDT Jyoti Montana PA-C LAB BLOOD ORDERABLES Final R esult Performing Organization Address [facility] Co de Phone Number [facility] [address] [phone] * XR chest 1 view portable / [...] Lisandro Zapata MD us Jyoti Montana PA-C [facility] DIAGNOSTIC IMAGING ORDER KAJAL Final Result * High Sensitivity Troponin I (05/09/2025 9:09 PM EDT) Troponin I High Sensitivity (pg/mL) 6.2 <=14 pg/mL 05/09/2025 9:50 PM EDT [facility] Blood Venipuncture / Unknown 05/09/2025 9:09 PM EDT 05/09/2025 9:19 PM EDT Narrative [facility] - 05/09/2025 9:50 PM EDT Applicable to [facility] only. Effective December 02 the lab will begin using a new chemistry analyzer. HsTroponin methodology, reference ranges and critical values have changed. Jyoti VALIENTE-C LAB BLOOD ORDERABLES Final R esult Performing Organization Address City/[facility]/ZIP Co de Phone Number [facility] [address] [place] [address], [facility] [phone] * (ABNORMAL) PROBNP (05/09/2025 9:09 PM EDT) Pathologist [facility] ProBNP (pg/mL) 1,896(H) 16 - 956 pg/mL 05/09/2025 10:05 PM EDT [facility] Blood Venipuncture / Unknown 05/09/2025 9:09 PM EDT 05/09/2025 9:19 PM EDT Narrative [facility] - 05/09/2025 10:05 PM EDT As of January 29, 2025: NT-ProBNP is a new test on our [employer] Immunoassay analyzer. Please review new age and gender specific reference ranges. us Jyoti VALIENTE-C LAB BLOOD ORDERABLES Final R esult Performing Organization Address [facility] Co de Phone Number [facility] [address] [place] [address], [facility] [phone] * (ABNORMAL) D-dimer (05/09/2025 9:09 PM EDT) Pathologist [facility] D-Dimer, Quant 1.40(H) 0.19 - 0.58 MG/L FEU 05/09/2025 9:33 PM EDT [facility] Comment:Important: A D-Dimer result of less than 0.50 mg/L FEU indicates a very low probability of DVT or PE. Blood Venipuncture / Unknown 05/09/2025 9:09 PM EDT 05/09/2025 9:19 PM EDT Jyoti Montana PA-C LAB BLOOD ORDERABLES Final R esult Performing Organization Address City/[facility]/ZIP Co de Phone Number [facility] [address] [phone] * TSH (05/09/2025 9:09 PM EDT) TSH 0.948 0.350 - 4.940 uIU/mL 05/09/2025 10:05 PM EDT [facility] Blood Venipuncture / Unknown 05/09/2025 9:09 PM EDT 05/09/2025 9:19 PM EDT us Jyoti Mnotana PA-C LAB BLOOD ORDERABLES Final R esult [facility] [address] [phone] * (ABNORMAL) Comprehensive metabolic panel (05/09/2025 9:09 PM EDT) Pathologist [facility] Sodium 136 136 - 145 meq/L 05/09/2025 10:05 PM EDT [facility] Potassium 4.4 3.4 - 5.1 meq/L 05/09/2025 10:05 PM EDT [facility] Chloride 97(L) 98 - 112 meq/L 05/09/2025 10:05 PM EDT [facility] CO2 23 22 - 29 meq/L 05/09/2025 10:05 PM EDT [facility] Calcium 8.7 8.4 - 10.2 mg/dL 05/09/2025 10:05 PM EDT [facility] Glucose 99 82 - 115 mg/dL 05/09/2025 10:05 PM EDT [facility] BUN 63.3(H) 9.8 - 20.1 mg/dL 05/09/2025 10:05 PM EDT [facility] Creatinine 2.48(H) 0.57 - 1.11 mg/dL 05/09/2025 10:05 PM EDT [facility] BUN/Creatinine 26(H) 8 - 20 05/09/2025 10:05 PM EDT [facility] eGFR (mL/min/1.73m2) 20(L) >=60 mL/min/1. 73m2 05/09/2025 10:05 PM [facility] Comment:ESTIMATED GFR IS NOT ACCURATE CREATININE CLEARANCE IN PREDICTING GLOMERULAR FILTRATION RATE. ESTIMATED GFR IS NOT APPLICABLE FOR DIALYSIS PATIENTS. Albumin 2.8(L) 3.5 - 5.0 g/dL 05/09/2025 10:05 PM [facility] Alkaline Phosphatase 161(H) 40 - 150 U/L 05/09/2025 10:05 PM [facility] ALT 81(H) <=34 U/L 05/09/2025 10:05 PM [facility] Comment: ALT2 reagent used for testing does not contain P5P supplementation and therefore may miss ALT elevations in patients with B6 deficiency. This population may be as high as 10% in the [place], with risk factors including malabsorption, drug interactions, and alcoholic hepatitis. AST 74(H) 11 - 34 U/L 05/09/2025 10:05 PM [facility] Comment: AST2 reagent used for testing does not contain P5P supplementation and therefore may miss AST elevations in patients with B6 deficiency. This population may be as high as 10% in the [place], with risk factors including malabsorption, drug interactions, and alcoholic hepatitis. Total Bilirubin 0.5 0.2 - 1.2 mg/dL 05/09/2025 10:05 PM [facility] Protein, Total 7.2 6.4 - 8.3 g/dL 05/09/2025 10:05 PM [facility] Globulin 4.4(H) 2.5 - 4.1 g/dL 05/09/2025 10:05 PM [facility] Anion Gap 20(H) 4 - 12 05/09/2025 10:05 PM [facility] A/G Ratio 0.6(L) 0.7 - 1.9 05/09/2025 10:05 PM [facility] Osmolality Calc 290.1 mOsm/kg 10:05 PM [facility] Blood Venipuncture / Unknown 05/09/2025 9:09 PM EDT 05/09/2025 9:19 PM EDT us Jyoti Montana PA-C LAB BLOOD ORDERABLES Final R esult [facility] [address] [place] [address], [facility] [phone] * EKG-SCANNED (05/09/2025) Only the most recent of2 resultswithin the time period is included. Narrative 05/09/2025 Ordered by an unspecified provider. us Default Scanning Provider SCAN ORDERS Final Result from Last 3 Months Insurance * Guarantor: Elissa Kent Account Type Relation to Patient Date of Phone Billing Address Personal/Family Self 1945 [id number] (Home) [address] [place] [address] [place] [address] MEDICARE PART A B HEALTH CLAIMS Advance Directives For more information, please contact: [phone] * Full Code (Latest Code Status on File) Date Activated Date Inactivated Comments 05/10/2025 3:43 AM 05/13/2025 5:35 PM Care Teams Lumber Grader Relationship Specialty Start Date End Date Deo Byrne MD [facility] [place] [address] PCP - General Family Medicine 05/09/25 Jacob Celeste MD [address] [place] [address] Cardiology 01/02/24
--- OUTSIDE RECORDS SUMMARY | 2025-06-30 16:53 | XMS_ITS | Encounter Summary ---
Author Organization [employer] ([place], [place], [place], [place]) Address [address] [place] [address] Care Team Providers Care Horse Show Manager Name Role Phone Deo Byrne MD Primary Care Provider [phone] Jacob Celeste MD Unavailable Reason for Visit * Reason Onset Date Comments Medication Management 06/12/2025 Encounter Details Date Type Department Care Team (Late st Contact Info) Description 06/12/2025 Telephone [facility] Cardiology [address] [place] [address] Jacob Celeste MD [address] [facility] [address] [place] [address] Medication Management Social History Tobacco Use Types [...] Do you speak a language other than [place] at [facility]? No 05/10/2025 Do you want help with [...] she states Patient can be reached at [phone] documented in this encounter Plan of Treatment Upcoming Encounters Date Type Department Care Team (Late st Contact Info) Description 08/11/2025 12:30 PM EST Office Visit [facility] Cardiology [address] [place] [address] Jacob Celeste MD [address] [facility] [address] [place] [address] documented as of this encounter Visit Diagnoses Not on filedocumented in this encounter Care Teams Horse Show Manager Relationship Specialty Start Date End Date Deo Byrne MD [facility] [place] [address] PCP - General Family Medicine 05/09/25 Jacob Celeste MD [address] [facility] [address] Cardiology 01/02/24 documented as of this encounter
--- OUTSIDE RECORDS SUMMARY | 2025-06-30 16:53 | XMS_ITS | Referral Summary ---
Author Organization [employer] ([place], [place], [place], [place]) Address [address] [place] [address] Care Team Providers Care Floating Labor Gang Supervisor Name Role Phone Deo Byrne MD Primary Care Provider [phone] Jacob Celeste MD Unavailable Encounters Date Type Department Care Team Description 06/26/[address] [facility] [address] [place] [phone] Rosemarie Michael, [facility] Results 06/12/[address] [facility] [address] [place] [phone] Jacob Celeste MD Medication Management 06/11/2025 Travel 06/11/2025 11:45 AM EDT Office Visit [facility] [address] [place] [phone] Jacob Celeste MD Shortness of breath (Primary Dx) 05/09/2025 8:41 PM EDT - 05/13/2025 4:35 PM EDT Hospital Encounter [place] [address] [facility] [address] [place] [address] Xiang Cordova MD Elliott, Jayden, [...] 2 (two) times daily. 180 tablet 2 01/06/11/20 25 Discontinu ed(Reorder ) Active Problems Problem [...] your living situation today? I have a [facility] place to live 05/10/2025 Think about [...] Do you speak a language other than [place] at ho ma? No 05/10/2025 Do you want help with [...] Description 08/11/2025 12:30 PM EST Office Visit [facility] [address] [place] [address] Jacob Celeste MD [address] [facility] [address] [place] [address] Procedures Procedure Name Priority Date/Time Associated Diagnosis [...] of5 resultswithin the time period is included. Glucose, Serum 111(H) 70 - 99 mg/dL [...] - 06/25/2025 4:08 PM EDT Performed at: 01 - [facility] [address] [id number] Proposal Manager: Angeli Diaz MD, Phone: [phone] Jacob Celeste MD LAB BLOOD ORDERABLES Final [...] 10.0 K/ L 05/13/2025 3:58 AM EDT [facility] RBC 3.40(L) 3.93 - 5.22 M/ L 05/13/2025 3:58 AM EDT [facility] Hemoglobin 9.9(L) 11.2 - 15.7 GM/DL 05/13/2025 3:58 AM EDT [facility] Hematocrit 33.0(L) 34.1 - 44.9 % 05/13/2025 3:58 AM EDT [facility] MCV 97(H) 79 - 95 fL 05/13/2025 3:58 AM EDT [facility] MCH 29.1 25.6 - 32.2 pg 05/13/2025 3:58 AM EDT [facility] MCHC 30.0(L) 32.2 - 35.5 GM/DL 05/13/2025 3:58 AM EDT [facility] RDW 14.2 11.7 - 14.4 % 05/13/2025 3:58 AM EDT [facility] Platelets 183 140 - 375 K/CU MM 05/13/2025 3:58 AM EDT [facility] MPV 10.6 9.4 - 12.3 fL 05/13/2025 3:58 AM EDT [facility] % Neutros 47 34 - 71 % 05/13/2025 3:58 AM EDT [facility] % Lymphs 33 19 - 52 % 05/13/2025 3:58 AM EDT [facility] % Monos 15(H) 5 - 13 % 05/13/2025 3:58 AM EDT [facility] % Eos 4 1 - 6 % 05/13/2025 3:58 AM EDT [facility] % Baso 1 0 - 1 % 05/13/2025 3:58 AM EDT [facility] NRBC Absolute <0.01 0 - 0.012 K/ul 05/13/2025 3:58 AM EDT [facility] # Neutros 2.19 1.56 - 6.13 K/ L 05/13/2025 3:58 AM EDT [facility] # Lymphs 1.54 1.18 - 3.74 K/ L 05/13/2025 3:58 AM EDT [facility] # Monos 0.68 0.24 - 0.86 K/ L 05/13/2025 3:58 AM EDT [facility] # Eos 0.19 0.04 - 0.36 K/ L 05/13/2025 3:58 AM EDT [facility] # Baso 0.04 0.01 - 0.08 K/ L 05/13/2025 3:58 AM EDT [facility] % Imm Grans 0.40 0.01 - 0.43 % 05/13/2025 3:58 AM EDT [facility] # IG <0.03 0.00 - 0.03 K/uL 05/13/2025 3:58 AM EDT [facility] Blood Venipuncture / Unknown 05/13/2025 3:17 AM EDT 05/13/2025 3:51 AM EDT [facility] - 05/13/2025 3:58 AM EDT When [...] MD LAB BLOOD ORDERABLES Final Resul t [facility] [address] [place] [address], [facility] [phone] * Ultrasound renal limited (05/12/2025 2:09 PM EDT) Anatomical Region Laterality Modality Abdomen, Kidney Ultrasound 05/12/2025 3:48 PM EDT Impressions 05/12/2025 5:38 PM EDT 1. Renal cortical thinning increased echogenicity consistent with medical renal disease bilaterally. 2. No hydronephrosis. 3. Multiple bilateral renal cysts as above. No solid masses are seen. Images reviewed, interpreted, dictated and electronically signed by Pio Angel MD Voice pick up and delivery driver technology (Connectbrighte) is used for the dictation of this note and sound-alike words might be erroneously placed despite reviewing this note for accuracy. Errors in dictation may reflect use of voice recognition software and not all errors in pick up and delivery driver may have been detected prior to signing. [...] electronically signed by Pio Angel MD Voice pick up and delivery driver technology (PNMsoftibe) is used for the dictation of this note and sound-alike words might be erroneously placed despite reviewing this note for accuracy. Errors in dictation may reflect use of voice recognition software and not all errors in pick up and delivery driver may have been detected prior to signing. Trey Cartwright MD [facility] [place] ORDERABLES Final Result * (ABNORMAL) Manual Differential (05/12/2025 5:57 AM EDT) Only the most recent of2 resultswithin the time period is included. Total Counted 100 05/12/2025 9:36 AM EDT [facility] % Neutros (manual) 70(H) 50 - 65 % 05/12/2025 9:36 AM EDT [facility] % Lymphs (manual) 11(L) 24 - 44 % 05/12/2025 9:36 AM EDT [facility] Comment:27% appear to be aty pical/reactive lymphs % Monos (manual) 14(H) 4 - 5 % 05/12/2025 9:36 AM EDT [facility] % Eos (manual) 5(H) 0 - 3 % 05/12/2025 9:36 AM EDT [facility] RBC Morphology abnormal(A) Normal 9:36 AM EDT [facility] Platelet Estimate Adequate Adequate 05/12/2025 9:36 AM EDT [facility] Hypochromia 1+ 05/12/2025 9:36 AM EDT [facility] # Neutrophils (manual) 3.50 K/ L 05/12/2025 9:36 AM EDT [facility] Blood Venipuncture / Unknown 05/12/2025 5:57 AM EDT 05/12/2025 6:59 AM EDT Martin Snyder MD LAB BLOOD ORDERABLES Final Resu lt Performing Organization Address [facility] Co de Phone Number [facility] [address] [phone] * Magnesium (05/12/2025 5:57 AM EDT) Only the most recent of3 resultswithin the time period is included. Magnesium 1.9 1.6 - 2.6 mg/dL 05/12/2025 7:25 AM EDT [facility] Blood Venipuncture / Unknown 05/12/2025 5:57 AM EDT 05/12/2025 6:59 AM EDT Martin Snyder MD LAB BLOOD ORDERABLES Final Resu lt Performing Organization Address [facility] Co de Phone Number [facility] [address] [phone] * CT ABDOMEN/PELVIS WITHOUT IV CONTRAST Standard [...] Name DONTE MONTEJO Age 79 Patient Number [id number] Gender Female Race Unknown Ethnicity Corporate ID [id number] Height 68 Date of 1945 Weight 225 Accession Number [id number] BSA 2.15 m^2 Room Number 415 BMI 34.21 kg/m^2 Referring BIPIN ZACARIAS Interpreting JUSTINA MEMBRENO DO Physician Physician Dividing Machine Operator Helper MEGHAN RAMIREZ, RVT Procedure Type of Study: [...] Name DONTE MONTEJO Age 79 Patient Number [id number] Gender Female Race Unknown Ethnicity Corporate ID [id number] Height 68 Date of 1945 Weight 225 Accession Number [id number] BSA 2.15 m^2 Room Number 415 BMI 34.21kg/m^2 Referring BIPIN BRUNER Physician Physician Dividing Machine Operator Helper MEGHAN RAMIREZ, RVT Procedure Type of Study: [...] electronically signed by Pio Angel MD Voice pick up and delivery driver technology (Power Scribe) is used for the dictation of this note and sound-alike words might be erroneously placed despite reviewing this note for accuracy. Errors in dictation may reflect use of voice recognition software and not all errors in pick up and delivery driver may have been detected prior to signing. [...] electronically signed by Pio Angel MD Voice pick up and delivery driver technology (Power Scribe) is used for the dictation of this note and sound-alike words might be erroneously placed despite reviewing this note for accuracy. Errors in dictation may reflect use of voice recognition software and not all errors in pick up and delivery driver may have been detected prior to signing. [...] 1945 Age: 79 year(s) Corporate ID Number: [id number] Gender Female Dividing Machine Operator Helper: Angelica EGAN Height: 68 inches Referring Physician: ARACELI TURNER Weight: 225 pounds Interpreting Physician: JUSTINA MEMBRENO DO BMI: 34.21 kg/m^2 Date of Service: 05/11/2025 Blood Pressure: 111/59 mmHg Room Number: 415 Type of Study: TTE procedure: ECHO COMPLETE (DOPPLER / COLOR) W OR WO CONTRAST. Patient Status: Routine IP [facility] History/Tech Notes: Indication: shortness [...] A-wave: 0.73 m/s E/A ratio: 1.02 Volume jirrtvbyw19.2 ml Volume pnvjaxoy73.08 ml LVOT diameter: 2.05 cm Normal sized [...] 1945 Age: 79 year(s) Corporate ID Number: [id number] Gender Female Dividing Machine Operator Helper: Angelica EGAN Height: 68 inches Referring Physician: [...] A-wave: 0.73 m/s E/A ratio: 1.02 Volume bhjsfcemz80.2 ml Volume uaxppypt52.08 ml LVOT diameter: 2.05 cm Normal sized [...] 6.4 - 8.3 g/dL 05/11/2025 11:26 AM [facility] Albumin 2.1(L) 3.5 - 5.0 g/dL 05/11/2025 11:26 AM [facility] Total Bilirubin 0.2 0.2 - 1.2 mg/dL 05/11/2025 11:26 AM T [facility] Bilirubin, Direct 0.1 0.0 - 0.5 mg/dL 05/11/2025 11:26 AM [facility] Alkaline Phosphatase 113 40 - 150 U/L 05/11/2025 11:26 AM [facility] Globulin 3.7 2.5 - 4.1 g/dL 05/11/2025 11:26 AM [facility] A/G Ratio 0.6(L) 0.7 - 1.9 05/11/2025 11:26 AM [facility] AST 27 11 - 34 U/L 05/11/2025 11:26 AM EDT [facility] Comment: AST2 reagent used for testing does not contain P5P supplementation and therefore may miss AST elevations in patients with B6 deficiency. This population may be as high as 10% in the [place], with risk factors including malabsorption, drug interactions, and alcoholic hepatitis. ALT 38(H) <=34 U/L 05/11/2025 11:26 AM EDT [facility] Comment: ALT2 reagent used [...] MD LAB BLOOD ORDERABLES Final Resu lt [facility] [address] [phone] * (ABNORMAL) Urinalysis, Reflex Microscopic and Culture If Indicated (05/11/2025 1:39 AM EDT) Color, UA Colorless 05/11/2025 1:57 AM EDT [facility] Clarity, UA Clear Clear 05/11/2025 1:57 AM EDT [facility] Specific [place], UA 1.010 1.005 - 1.030 05/11/2025 1:57 AM EDT [facility] pH, UA 5.5(L) 6.0 - 8.0 05/11/2025 1:57 AM EDT [facility] Leukocytes, UA Negative Negative 05/11/2025 1:57 AM EDT [facility] Nitrite, UA Negative Negative 05/11/2025 1:57 AM EDT [facility] Protein, UA Negative Negative 05/11/2025 1:57 AM EDT [facility] Glucose, UA Normal Normal 05/11/2025 1:57 AM EDT [facility] Ketones, UA Negative Negative 05/11/2025 1:57 AM EDT [facility] Bilirubin, UA Negative Negative 05/11/2025 1:57 AM EDT [facility] Blood, UA Negative Negative 05/11/2025 1:57 AM EDT [facility] Urobilinogen, UA Normal Normal 05/11/2025 1:57 AM EDT [facility] Specimen Source Urine, Clean Catch 05/11/2025 1:57 AM EDT [facility] Urine URINE SPECIMEN COLLECTION, CLEAN CATCH / Unknown 05/11/2025 1:39 AM EDT 05/11/2025 1:39 AM EDT Ulises VALIENTE-C URINE ORDERABLES Final Resul t Performing Organization Address [facility] Co de Phone Number [facility] [address] [phone] * Lactic acid (SJ) (05/09/2025 11:18 PM EDT) [facility] Lactic Acid Level (mmol/L) 1.0 0.5 - 2.2 mmol/L 05/09/2025 11:43 PM EDT [facility] Blood Venipuncture / Unknown 05/09/2025 11:18 PM EDT 05/09/2025 11:23 PM EDT us Jyoti Montana PA-C LAB BLOOD ORDERABLES Final R esult [facility] [address] [phone] * (ABNORMAL) Blood Culture Panel(BioFire) (05/09/2025 10:40 PM EDT) Pathologist [facility] CTX-M Not detected Not detected 05/10/2025 4:24 PM EDT [facility] IMP Not detected Not detected 05/10/2025 4:24 PM EDT [facility] KPC Not detected Not detected 05/10/2025 4:24 PM EDT [facility] MCR-1 Not detected Not detected 05/10/2025 4:24 PM EDT [facility] MEC A/C Non Applicable Not detected 05/10/2025 4:24 PM EDT [facility] MEC A/C and MREJ Non Applicable Not detected 05/10/2025 4:24 PM EDT [facility] NDM Not detected Not detected 05/10/2025 4:24 PM EDT [facility] [id number] Not detected Not Detected 05/10/2025 4:24 PM EDT [facility] VAN A/B Non Applicable Not detected 05/10/2025 4:24 PM EDT [facility] VIM Not detected Not detected 05/10/2025 4:24 PM EDT [facility] ENTEROCOCCUS FAECALIS Not detected Not detected 05/10/2025 4:24 PM EDT [facility] ENTEROCOCCUS FAECIUM Not detected Not detected 05/10/2025 4:24 PM EDT [facility] LISTERIA MONOCYTOGENES Not detected Not detected 05/10/2025 4:24 PM EDT [facility] STAPHYLOCOCCUS Not detected Not detected 05/10/2025 4:24 PM EDT [facility] STAPHYLOCOCCUS AUREUS Not detected Not detected 05/10/2025 4:24 PM EDT [facility] STAPHYLOCOCCUS EPIDERMIDIS Not detected Not detected 05/10/2025 4:24 PM EDT [facility] STAPHYLOCOCCUS LUGDENENSIS Not detected Not detected 05/10/2025 4:24 PM EDT [facility] STREPTOCOCCUS Not detected Not detected 05/10/2025 4:24 PM EDT [facility] STREPTOCOCCUS AGALACTIAE (GROUP B) Not detected Not detected 05/10/2025 4:24 PM EDT [facility] STREPTOCOCCUS PNEUMONIAE Not detected Not detected 05/10/2025 4:24 PM EDT [facility] STREPTOCOCCUS PYOGENES (GROUP A) Not detected Not detected 05/10/2025 4:24 PM EDT [facility] ACINETOBACTER CALCOACETICUS-MAGDY UNA COMPLEX Not detected Not detected 05/10/2025 4:24 PM EDT [facility] BACTEROIDES FRAGILIS Not detected Not detected 05/10/2025 4:24 PM EDT [facility] ENTEROBACTERIACEAE Detected(AA) Not detected 05/10/2025 4:24 PM EDT [facility] Comment:Enterobacterales rep resents a large order of gram negative bacteria, not a single organism ENTEROBACTER CLOACAE COMPLEX Not detected Not detected 05/10/2025 4:24 PM EDT [facility] ESCHERICHIA COLI Detected(AA) Not detected 05/10/2025 4:24 PM EDT [facility] KLEBSIELLA AEROGENES Not detected Not detected 05/10/2025 4:24 PM EDT [facility] KLEBSIELLA OXYTOCA Not detected Not detected 05/10/2025 4:24 PM EDT [facility] KLEBSIELLA PNEUMONIAE GROUP Not detected Not detected 05/10/2025 4:24 PM EDT [facility] PROTEUS Not detected Not detected 05/10/2025 4:24 PM EDT [facility] SALMONELLA SPECIES Not detected Not detected 05/10/2025 4:24 PM EDT [facility] SERRATIA MARCESCENS Not detected Not detected 05/10/2025 4:24 PM EDT [facility] HAEMOPHILUS INFLUENZAE Not detected Not detected 05/10/2025 4:24 PM EDT [facility] NEISSERIA MENINGITIDIS Not detected Not detected 05/10/2025 4:24 PM EDT [facility] PSEUDOMONAS AERUGINOSA Not detected Not detected 05/10/2025 4:24 PM EDT [facility] STENOTROPHOMONAS MALTOPHILIA Not detected Not detected 05/10/2025 4:24 PM EDT [facility] KELLY ALBICANS Not detected Not detected 05/10/2025 4:24 PM EDT [facility] KELLY AURIS Not detected Not detected 05/10/2025 4:24 PM EDT [facility] KELLY GLABRATA Not detected Not detected 05/10/2025 4:24 PM EDT [facility] KELLY KRUSEI Not detected Not detected 05/10/2025 4:24 PM EDT [facility] KELLY PARAPSILOSIS Not detected Not detected 05/10/2025 4:24 PM EDT [facility] KELLY TROPICALIS Not detected Not detected 05/10/2025 4:24 PM EDT [facility] CRYPTOCOCCUS NEOFORMANS/GATTII Not detected Not detected 05/10/2025 4:24 PM EDT [facility] Blood Venipuncture / Unknown 05/09/2025 10:40 PM EDT 05/09/2025 10:44 PM EDT Narrative [facility] - 05/10/2025 4:24 PM EDT NOTE: Antimicrobial resistance can occur via multiple mechanisms. A Not Detected result for antimicrobial resistance gene(s) does not indicate antimicrobial susceptibility. Subculturing is required for species identification and susceptibility testing of isolates. us Jyoti Montana PA-C MICROBIOLOGY - GENERAL ORDER KAJAL Final Result [facility] [address] [phone] * (ABNORMAL) Blood Culture (05/09/2025 10:40 PM EDT) Only the most recent of2 resultswithin the time period is included. Result Escherichia coli(A) 05/12/2025 10:03 AM EDT [facility] Gram Stain Result Aerobic bottle gram stain gram negative rods(AA) 05/12/2025 10:03 AM EDT [facility] Blood ENTIRE LEFT UPPER ARM / Unknown Venipuncture / Unknown 05/09/2025 10:40 PM EDT 05/09/2025 10:44 PM EDT Narrative [facility] - 05/12/2025 10:03 AM [...] MICROBIOLOGY - GENERAL ORDER KAJAL Final Result [facility] [address] [phone] * COVID ANTIGEN (05/09/2025 9:26 PM EDT) Pathologist [facility] SARS COVID ANTIGEN Negative Negative, Invalid 05/09/2025 9:57 PM EDT [facility] Nasal Swab (Nasal) 05/09/2025 9:26 PM EDT 05/09/2025 9:39 PM EDT Narrative [facility] - 05/09/2025 9:57 PM [...] a high likelihood of SARS-CoV-2 infection. Jyoti VALIENTE-C MICROBIOLOGY - GENERAL ORDER KAJAL Final Result Performing Organization Address [facility] Co de Phone Number [facility] [address] [phone] * (ABNORMAL) Lactic Acid with reflex (SJ) (05/09/2025 9:26 PM EDT) Lactic Acid Level (mmol/L) 2.2(HH) 0.5 - 2.2 mmol/L 05/09/2025 10:32 PM EDT [facility] Blood Venipuncture / Unknown 05/09/2025 9:26 PM EDT 05/09/2025 10:09 PM EDT Jyoti VALIENTE-C LAB BLOOD ORDERABLES Final R esult Performing Organization Address [facility] Co de Phone Number [facility] [address] [phone] * XR chest 1 view portable / [...] spine. Procedure Note Lisandro Zapata MD - 08/31/2025 Name: ELISSA KENT : 1945 CHEST SINGLE [...] interpreted, and dictated by Lisandro Zapata MD Jyoti Montana PA-C IMG DIAGNOSTIC IMAGING ORDER KAJAL Final Result * High Sensitivity Troponin I (05/09/2025 9:09 PM EDT) [facility] Troponin I High Sensitivity (pg/mL) 6.2 <=14 pg/mL 05/09/2025 9:50 PM EDT [facility] Blood Venipuncture / Unknown 05/09/2025 9:09 PM EDT 05/09/2025 9:19 PM EDT [facility] - 05/09/2025 9:50 PM EDT Applicable to [facility] only. Effective December 02 the lab will begin using a new chemistry analyzer. HsTroponin methodology, reference ranges and critical values have changed. Jyoti Montana PA-C LAB BLOOD ORDERABLES Final R esult [facility] [address] [phone] * (ABNORMAL) PROBNP (05/09/2025 9:09 PM EDT) ProBNP (pg/mL) 1,896(H) 16 - 956 pg/mL 05/09/2025 10:05 PM EDT [facility] Blood Venipuncture / Unknown 05/09/2025 9:09 PM EDT 05/09/2025 9:19 PM EDT [facility] - 05/09/2025 10:05 PM EDT As of January 29, 2025: NT-ProBNP is a new test on our ComparaOnlinenity Immunoassay analyzer. Please review new age and gender specific reference ranges. Jyoti Shantell Rubén PA-C LAB BLOOD ORDERABLES Final R esult Performing Organization Address [facility] Co de Phone Number [facility] [address] [phone] * (ABNORMAL) D-dimer (05/09/2025 9:09 PM EDT) Pathologist [facility] D-Dimer, Quant 1.40(H) 0.19 - 0.58 MG/L FEU 05/09/2025 9:33 PM EDT [facility] Comment:Important: A D-Dimer result of less than 0.50 mg/L FEU indicates a very low probability of DVT or PE. Blood Venipuncture / Unknown 05/09/2025 9:09 PM EDT 05/09/2025 9:19 PM EDT Jyoti Shantell Rubén VALIENTE-C LAB BLOOD ORDERABLES Final R esult Performing Organization Address [facility] Co de Phone Number [facility] [address] [phone] * TSH (05/09/2025 9:09 PM EDT) [facility] TSH 0.948 0.350 - 4.940 uIU/mL 05/09/2025 10:05 PM EDT [facility] Blood Venipuncture / Unknown 05/09/2025 9:09 PM EDT 05/09/2025 9:19 PM EDT Jyoti Stinson Rubén PA-C LAB BLOOD ORDERABLES Final R esult Performing Organization Address City/[facility]/ZIP Co de Phone Number [facility] [address] [phone] * (ABNORMAL) Comprehensive metabolic panel (05/09/2025 9:09 PM EDT) Pathologist [facility] Sodium 136 136 - 145 meq/L 05/09/2025 10:05 PM [facility] Potassium 4.4 3.4 - 5.1 meq/L 05/09/2025 10:05 PM [facility] Chloride 97(L) 98 - 112 meq/L 05/09/2025 10:05 PM [facility] CO2 23 22 - 29 meq/L 05/09/2025 10:05 PM [facility] Calcium 8.7 8.4 - 10.2 mg/dL 05/09/2025 10:05 PM [facility] Glucose 99 82 - 115 mg/dL 05/09/2025 10:05 PM [facility] BUN 63.3(H) 9.8 - 20.1 mg/dL 05/09/2025 10:05 PM [facility] Creatinine 2.48(H) 0.57 - 1.11 mg/dL 05/09/2025 10:05 PM [facility] BUN/Creatinine 26(H) 8 - 20 05/09/2025 10:05 PM [facility] eGFR (mL/min/1.73m2) 20(L) >=60 mL/min/1. 73m2 05/09/2025 10:05 PM [facility] Comment:ESTIMATED GFR IS NOT ACCURATE CREATININE CLEARANCE IN PREDICTING GLOMERULAR FILTRATION RATE. ESTIMATED GFR IS NOT APPLICABLE FOR DIALYSIS PATIENTS. Albumin 2.8(L) 3.5 - 5.0 g/dL 05/09/2025 10:05 PM [facility] Alkaline Phosphatase 161(H) 40 - 150 U/L 05/09/2025 10:05 PM [facility] ALT 81(H) <=34 U/L 05/09/2025 10:05 PM [facility] Comment: ALT2 reagent used for testing does not contain P5P supplementation and therefore may miss ALT elevations in patients with B6 deficiency. This population may be as high as 10% in the [place], with risk factors including malabsorption, drug interactions, and alcoholic hepatitis. AST 74(H) 11 - 34 U/L 05/09/2025 10:05 PM [facility] Comment: AST2 reagent used for testing does not contain P5P supplementation and therefore may miss AST elevations in patients with B6 deficiency. This population may be as high as 10% in the [place], with risk factors including malabsorption, drug interactions, and alcoholic hepatitis. Total Bilirubin 0.5 0.2 - 1.2 mg/dL 05/09/2025 10:05 PM EDT [facility] Protein, Total 7.2 6.4 - 8.3 g/dL 05/09/2025 10:05 PM EDT [facility] Globulin 4.4(H) 2.5 - 4.1 g/dL 05/09/2025 10:05 PM EDT [facility] Anion Gap 20(H) 4 - 12 05/09/2025 10:05 PM EDT [facility] A/G Ratio 0.6(L) 0.7 - 1.9 05/09/2025 10:05 PM EDT [facility] Osmolality Calc 290.1 mOsm/kg 10:05 PM EDT [facility] Blood Venipuncture / Unknown 05/09/2025 9:09 PM EDT 05/09/2025 9:19 PM EDT us Jyoti Montana PA-C LAB BLOOD ORDERABLES Final R esult [facility] [address] [place] [address], [facility] [phone] * EKG-SCANNED (05/09/2025) Only the most recent of2 resultswithin the time period is included. Narrative 05/09/2025 Ordered by an unspecified provider. us Default Scanning Provider SCAN ORDERS Final Result from Last [address], [place] [id number] MEDICARE PART A B [facility] AARP HEALTH CLAIMS Advance Directives For more information, please contact: [phone] * Full Code (Latest Code Status on File) Date Activated Date Inactivated Comments 05/10/2025 3:43 AM 05/13/2025 5:35 PM Care Teams Floating Labor Gang Supervisor Relationship Specialty Start Date End Date Deo Byrne MD [facility] [place] [address] PCP - General Family Medicine 05/09/25 [place] [address] [place] [address] [place] [address] Cardiology 01/02/24
--- OUTSIDE RECORDS SUMMARY | 2025-06-30 16:53 | XMS_ITS | Encounter Summary ---
Author Organization [employer] ([place], [place], [place], [place]) Address [address] [place] [address] Care Team Providers Care Gm Name Role Phone Deo Byrne MD Primary Care Provider [phone] Jacob Celeste MD Unavailable Encounter Details Date [...] Do you speak a language other than Tristanian at [facility]? No 05/10/2025 Do you want [...] Description 08/11/2025 12:30 PM EST Office Visit [facility] Cardiology [address] [place] [address] [place] [address] [place] [address] documented as of this encounter Visit Diagnoses Not on filedocumented in this encounter Care Teams Gm Relationship Specialty Start Date End Date Deo Byrne MD [address] [place] [address] PCP - General Family Medicine 05/09/25 [place] [address] [place] [address] Cardiology 01/02/24 documented as of this encounter
--- OUTSIDE RECORDS SUMMARY | 2025-06-30 16:53 | XMS_ITS | Encounter Summary ---
Author Organization [employer] ([place], [place], [place], [place]) Address [address] [place] [address] Care Team Providers Care Farm Marketer Name Role Phone Deo Byrne MD Primary Care Provider [phone] Jacob Celeste MD Unavailable Encounter Details Date [...] Do you speak a language other than Ethiopian at [facility]? No 05/10/2025 Do you want help with [...] Description 08/11/2025 12:30 PM EST Office Visit [facility] Cardiology [address] [place] [address] [place] [address] [place] [address] documented as of this encounter Visit Diagnoses Not on filedocumented in this encounter Care Teams Farm Marketer Relationship Specialty Start Date End Date Deo Byrne MD [address] [place] [address] PCP - General Family Medicine 05/09/25 [place] [address] [place] [address] Cardiology 01/02/24 documented as of this encounter
--- OUTSIDE RECORDS SUMMARY | 2025-06-30 16:55 | XMS_ITS | Clinical Summary ---
Author Organization [facility] Address [address] [place] [id number] Care Team Providers Care Voice Instructor Name Role Phone Deo Byrne MD Primary Care Provider [phone] Allergies Active Allergy Reactions Criticality Noted Date [...] (11/02/2017): Added automatically from request for surgery [id number] Family History Medical History Relation Name Comments [...] WELLNESS VISIT 03/02/2017 HEPATITIS C SCREENING 03/02/2017 COVID-19 Vaccine (3 - Pfizer risk series) 12/17/2020 11/19/2020, 10/29/2020 RSV Vaccine - Adults (1 - 1- dose 75+ series) 2022 INFLUENZA VACCINE 04/10/2025 07/13/2021, 07/22/2020 Medical Devices Implanted Type Area Master Steam Yacht Device Identifier Shelf Expiration Date Model / Serial / Lot Orthoblend Dbm Chaya 10cc - [id number] - [id number] Implanted:Qty : 1 on 12/10/2017 by Fransisco Neri MD at [facility] Implant N/A: Spine Lumbar [employer] 05/01/2019 [id number] / [id number] / Zee Rondons 7.5x40mm - [id number] Implanted:Qty : 2 on 12/10/2017 by Fransisco Neri MD at [facility] Implant N/A: Spine Lumbar [employer] [id number] / / Scrw Solera Cnmas 7.5x50mm - [id number] Implanted:Qty : 2 on 12/10/2017 by Fransisco Neri MD at [facility] Implant N/A: Spine Lumbar [employer] [id number] / / Conn Cls Lat Ti 5.5x6.37n02pc - [id number] Implanted:Qty : 1 on 12/10/2017 by Fransisco Neri MD at [facility] Implant N/A: Spine Lumbar [employer] [id number] / / Scrw Hex Breakoff Ti 1/3pce74fi - [id number] Implanted:Qty : 4 on 12/10/2017 by Fransisco Neri MD at [facility] Implant N/A: Spine Lumbar [employer] [id number] / / Scrw Ma Clsd Ti 7.5x70mm - [id number] Implanted:Qty : 2 on 12/10/2017 by Fransisco Neri MD at [facility] Implant N/A: Spine Lumbar [employer] [id number] / / Conn Cls Lat 5.5x6.04z05dt Md - [id number] Implanted:Qty : 1 on 12/10/2017 by Fransisco Neri MD at [facility] Implant N/A: Spine Lumbar [employer] [id number] / / Kt Grft Bone Inf Sm - [id number] Implanted:Qty : 1 on 12/10/2017 by Fransisco Neri MD at [facility] Implant N/A: Spine Lumbar [employer] 12/08/2018 [id number] / / [id number] Granules Osteocond Mstrgrft Ceram 5 - [id number] Implanted:Qty : 2 on 12/10/2017 by Fransisco Neri MD at [facility] Implant N/A: Spine Lumbar [employer] 08/10/2022 [id number] / / [id number] Plt Crslnk X10 Lp M/ Ti 5.5x58/80 - [id number] Implanted:Qty : 1 on 12/10/2017 by Fransisco Neri MD at [facility] Implant [employer] [id number] / / Scrw Solera Mas 8.5x35mm - [id number] Implanted:Qty : 1 on 12/10/2017 by Fransisco Neri MD at [facility] Implant N/A: Spine Lumbar [employer] [id number] / / Scrw Solera Mas 8.5x40mm - [id number] Implanted:Qty : 1 on 12/10/2017 by Fransisco Neri MD at [facility] Implant N/A: Spine Lumbar [employer] [id number] / / Will Cp4 Cvd Ti 5.5x80mm Ns - [id number] Implanted:Qty : 1 on 12/10/2017 by Fransisco Neri MD at [facility] Implant N/A: Spine Lumbar [employer] [id number] / / Will Solera Crv Ti 5.5cm 90mm - [id number] Implanted:Qty : 1 on 12/10/2017 by Fransisco Neri MD at [facility] Implant N/A: Spine Lumbar [employer] [id number] / / Scrw St Solera Brkoff Ti 5.5mm - [id number] Implanted:Qty : 6 on 12/10/2017 by Fransisco Neri MD at [facility] Implant N/A: Spine Lumbar [employer] [id number] / / Neurostm Hprfm Vanta/Scs Mri W/Adaptive/St im Nonrechg - [id number] Implanted:Qty : 1 on 06/12/2022 by Fransisco Neri MD at [facility] Implant N/A: Back [employer] 03/07/2024 [id number] / / [id number] Ld Stim Surescan Specify Mri 2x8 65cm - [id number] Implanted:Qty : 1 on 06/12/2022 by Fransisco Neri MD at [facility] Implant N/A: Back [employer] 04/18/2026 [id number] / / [id number] Kt Seal Hemos Abs Floseal Matrx Fast/Prep 10ml - [id number] Implanted:Qty : 1 on 06/12/2022 by Fransisco Neri MD at [facility] Implant N/A: Back [facility] 04/22/2024 [id number] / / [id number] Hemost Abs Surgifoam Sz100 8x12 10mm - [id number] Implanted:Qty : 1 on 06/12/2022 by Fransisco Neri MD at [facility] Implant N/A: Back [employer] 01/09/2026 [id number] / / [id number] Insurance [facility] OPTIONS MEDICARE A & B Advance Directives Documents on File Type Date Recorded Patient Rn Manager Expl anation LIVING WILL - SCAN 12/11/2017 12:25 AM JANES NG WILL 07/09/2002 * Full Code (Latest Code Status on File) Date Activated Date Inactivated Comments 12/10/2017 8:41 PM 12/13/2017 7:12 PM Healthcare Agents on File Name Relationship Healthcare Agent Relationship Communication Anival Donte Spouse Health Care Surrogate Care Teams Voice Instructor Relationship Specialty Start Date End Date Deo Byrne MD [address] [place] [address] PCP - General Family Medicine 10/19/21
--- OUTSIDE RECORDS SUMMARY | 2025-06-30 16:55 | XMS_ITS | Encounter Summary ---
Author Organization Healthcare Address [address] [place] [address] Care Team Providers Care Refrigeration Lead Name Role Phone Deo Byrne MD Primary Care Provider [phone] Encounter Details Date Type Department Care Team ([facility] st Contact Info) Description 2025 Telephone [facility] [address], [address] [place] [address] Jovan Vizcaino MD [address] [place] [address] Social History Tobacco Use Types Packs/Day Years [...] encounter Miscellaneous Notes * Telephone Encounter - Stacie Zepeda - 2025 1:23 PM EDT Paperwork/Documentation Request Patient Name: Elissa Flako Kent Type: Needs the Dexa order [facility] Due Date: unknown date Send To: F# [phone] Best contact number: [phone] (home) Optimal time of day to reach caller: ANYTIME Additional comments/information from caller: None Note: Please do not reply to this message. Follow-up communication and further actions as a result of this message need to be communicated with the patient directly, if the patient is not active onMyChart. If the patient is active on MyChart, they will receive notification of the communication/outcome via [employer]. documented in this encounter Plan of Treatment Upcoming Encounters Date Type Department Care Team ([facility] st Contact Info) Description 07/08/2025 2:00 PM EDT Office Visit [facility] Nephrology, Bone & Mineral Metabolism [address], [address] [place] [address] Jovan Vizcaino MD [address] [place] [address] documented as of this encounter Visit [...] documented as of this encounter Care Teams Refrigeration Lead Relationship Specialty Start Date End Date Deo Byrne MD [address] [place] [address] PCP - General 04/25/22 documented as of this encounter
--- OUTSIDE RECORDS SUMMARY | 2025-06-30 16:55 | XMS_ITS | Clinical Summary ---
Author Organization [facility] Address [address] [place] [address] Phone Care Team Providers Care Director Call Center Sales Name Role Phone Nithya NOVOA, Ulisses Conde [ ] Conditions or Problems Problem Name Problem Code Onset Date Status Entry Date Provider Comment Standard Description Annotate E. Coli Sepsis A41.51 (ICD-10-CM) Active 05/15 Tiny To Sepsis due to Escherichia coli [E. coli] Elevation of levels of liver transaminase levels [id number] (SNOMED CT) Active 05/15 Tiny To Elevated [...] Instructions Start Date Stop Date Generic Name [facility] Provider ceftriaxone recon hugon Rocephin 2G IV [id number] [facility] ceftriaxone marie Barahona RN ceftriaxone recon soln Rocephin 2G IV [id number] [facility] ceftriaxone marie Barahona RN SACCHAROMYCES BOULARDII 250 MG CAPS Take 1 capsule (250 mg total) by mouth 2 (two) times daily for 10 days. saccharomyces boulardii [id number] QIE qieuser POTASSIUM CHLORIDE ER 20 MEQ CR-TABS Take 1 tablet (20 mEq total) by mouth daily. potassium chloride [id number] QIE qieuser OXYCODONE-ACETAM INOPHEN 7.5-325 MG TABS Take 1 tablet by mouth 2 (two) times daily Look-alike/So und-alike medication. Max Daily Amount: 2 tablets oxycodone-acetami nophen 82863341720 QIE qieuser OMEPRAZOLE 20 MG CPDR Take 1 capsule (20 mg total) by mouth daily. omeprazole [id number] QIE qieuser METOPROLOL SUCCINATE ER 50 MG [id number] Take 1&1/2 tablets (75 mg total) by mouth daily. metoprolol succinate 06207025114 QIE qieuser LORAZEPAM 0.5 MG TABS Take 1 tablet (0.5 mg total) by mouth every night as needed. lorazepam 14781041187 QIE qieuser LEVOTHYROXINE SODIUM 75 MCG TABS Take 1 tablet (75 mcg total) by mouth daily. levothyroxine 52825979653 QIE qieuser GABAPENTIN 600 MG TABS Take 1 tablet (600 mg total) by mouth 3 (three) times daily. gabapentin 58672352882 QIE qieuser FUROSEMIDE 80 MG TABS Take 1 tablet (80 mg total) by mouth 2 (two) times daily. furosemide 01884489746 QIE qieuser FLUOXETINE HCL (PMDD) 20 MG TABS Take 3 tablets (60 mg total) by mouth daily. fluoxetine 08038954686 QIE qieuser SODIUM FLUORIDE 1.1 % GEL Apply to teeth. fluoride (sodium) 55760394798 Q IE qieuser VITAMIN D3 50 MCG (2000 UT) TABS Take 1 tablet (2,000 Units total) by mouth daily. cholecalciferol (vitamin d3) 07151553858 QIE qieuser Medications Administered No information available. [...] smoking status SMOK STATUS Never smoker Toba accounts payable bookkeeper smoking status Plan of Care Type Date [...] Directives Directive Description Start Date POWER OF FIELD EDUCATION COORDINATOR LIVING WILL ON FILE
--- OUTSIDE RECORDS SUMMARY | 2025-06-30 16:56 | XMS_ITS | Encounter Summary ---
Author Organization Healthcare Address [address] [place] [address] Care Team Providers Care Bill Sorter Name Role Phone Deo Byrne MD Primary Care Provider [phone] Reason for Visit * Reason Onset Date Comments HCN - Patient Message 05/18/2025 Encounter Details Date Type Department Care Team ([facility] Contact Info) Description 05/18/2025 Telephone [facility] Min[facility] Met[facility] [address], [address] [place] [address] Jovan Vizcaino MD [address] [facility] [address] [place] [address] HCN - Patient Message Social [...] not, 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 Best contact number and optimal time of day to reach caller: [phone] Note: Please do not reply to this message. Follow-up communication and further actions as a result of this message need to be communicated with the patient directly, if the patient is not active onMyChart. If the patient is active on MyChart, they will receive notification of the communication/outcome via [employer]. documented in this encounter Plan of Treatment Upcoming Encounters Date Type Department Care Team (Late st Contact Info) Description 07/08/2025 2:00 PM EDT Office Visit [facility] Nephrology, Bone & Mineral Metabolism [address], [address] [place] [address] Jovan Vizcaino MD [address] [facility] [address] [place] [address] documented as of this encounter Visit [...] documented as of this encounter Care Teams Bill Sorter Relationship Specialty Start Date End Date Deo Byrne MD [facility] [place] [address] PCP - General 04/25/22 documented as of this encounter
--- OUTSIDE RECORDS SUMMARY | 2025-06-30 16:56 | XMS_ITS | Encounter Summary ---
Author Organization [employer] ([place], [place], [place], [place]) Address [address] [place] [address] Care Team Providers Care Automobile Body Customizer Name Role Phone Deo Byrne MD Primary Care Provider [phone] Jacob Celeste MD Unavailable Reason for Visit * Reason Onset Date Comments Results 06/26/2025 Encounter Details Date Type Department Care Team (Late st Contact Info) Description 06/26/2025 Telephone [facility] Cardiology [address] [place] [address] Rosemarie Michael [facility] Results Social History Tobacco Use Types Packs/Day Years Used Date Smoking Tobacco: Never Smokeless Tobacco: Never Alcohol Use Standard Drinks/Week Comments Yes 2 (1 standard drink = 0.6 oz pur e alcohol) Utilities Answer Date Recorded In the past 12 months, has t he [facility], gas, oil, or water company threatened to shut off services in your home? No 05/10/2025 Interpersonal Safety Answer Date Record ed How often does anyone, mook ding family and friends, physically hurt you? Never 05/10/2025 How often does anyone, mook ding family and friends, insult or talk down to you? Never 05/10/2025 How often does anyone, mook small family and friends, threaten you with harm? Never 05/10/2025 How often does anyone, tuckeru geovanny family and friends, scream or curse at [...] Do you speak a language other than Nigerian at [facility]? No 05/10/2025 Do you [...] Telephone Encounter - Rosemarie Michael CMA - 06/26/2025 9:56 AM EDT I spoke to the patient and informed her of the results. * Telephone Encounter - Rosemarie Michael CMA - 06/26/2025 9:56 AM EDT ----- Message from Jacob Celeste sent at 06/26/2025 12:41 AM EDT ----- BMP stable ----- Message ----- From: Ailin Lee Incoming [facility] Sent: 06/25/2025 4:08 PM EDT To: Jacob Celeste MD documented in this encounter Plan of Treatment Upcoming Encounters Date Type Department Care Team (Late st Contact Info) Description 08/11/2025 12:30 PM EST Office Visit [facility] Cardiology [address] [place] [address] Jacob Celeste MD [address] [facility] [address] [place] [address] documented as of this encounter Visit Diagnoses Not on filedocumented in this encounter Care Teams Automobile Body Customizer Relationship Specialty Start Date End Date Deo Byrne MD [facility] [place] [address] PCP - General Family Medicine 05/09/25 Jacob Celeste MD [address] [place] [address] Cardiology 01/02/24 documented as of this encounter
--- OUTSIDE RECORDS SUMMARY | 2025-06-30 16:56 | XMS_ITS | Clinical Summary ---
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 Urge incontinence of urine 06/16/2018 Lumbar pseudoarthrosis 11/02/2017 Overview (04/20/2021): Added automatically from request for surgery [id number] Painful total knee replacement 04/09/2017 Loose left total knee arthroplasty Resolved Problems Problem Noted Date Diagnosed Date Resolved Date Painful knee 04/05/2021 04/07/2021 Knee pain 03/22/2021 04/07/2021 Painful total knee replacement 03/22/2021 04/07/2021 Encounters Date Type Department Care Team Description 2025 Telephone [facility] [address] , [address] [place] [address] Jovan Vizcaino MD 05/18/2025 Telephone [facility] [address], [address] [place] [address] Jovan Vizcaino MD HCN - Patient Message 04/01/2025 12:40 PM EDT Office Visit [facility] [address], [address] [place] [address] Jovan Vizcaino MD CKD (chronic kidney disease) stage 4, GFR 15-29 ml/min ([facility]) (Primary Dx) 04/01/2025 Travel from Last 3 Months Immunizations Immunization Administration Dates Next Due Influenza, high-dose, quadrivalent 07/13/2021 Influenza, injectable, quadrivalent 07/22/2020 infibond COVID-19 Vaccine (Purple Cap) 12 + 11/19/2020,10/29/2020 [...] Description 07/08/2025 2:00 PM EDT Office Visit [facility] [place] [address], [address] [place] [address] Jovan Vizcaino MD [address] [place] [address] Health Maintenance Due Date Last Done Comments [facility]-Bone Density Scan 1947 [facility]-Hepatitis C Screening 1945 [facility]-Medicare Annual Wellness (AWV) 1945 [facility]-Infant/Child/Adol SDOH Screenings 1947 [facility]- SDOH Screenings 1965 [facility]-Adult SDOH Screenings 1965 [facility]-DTaP,Tdap,and Td Vaccines (1 - Tdap) 1966 [facility]-Zoster Vaccines (1 of 2) 1997 [facility]-WEHBP-37 Vaccine (3 - Pfizer risk series) 12/17/2020 [...] this topic Medical Devices Implanted Type Area Fretted Instruments Inspector Device Identifier Shelf Expiration Date Model / Serial / Lot Cement Palacos W/Gent - [id number] - [id number] Implanted:Qty: 2 on 04/05/2021 by Rito Munoz MD at [facility] Cement Left: Knee [employer]-[id number] 06/09/2023 [id number] / [id number] / Chg Insert Gnsii Con Sz3-4 11m - [id number] - [id number] Implanted:Qty: 1 on 04/05/2021 by Rito Munoz MD at [facility] Knee Left: Knee [employer]-[id number] 06/20/2029 [id number] / [id number] / Chg Wedge Legion Scw Lwdg S5 1 - [id number] - [id number] Implanted:Qty: 1 on 04/05/2021 by Rito Munoz MD at [facility] Knee Left: Knee [employer]-[id number] 04/21/2030 [id number] / [id number] / Chg Stem Lgn Pressfit 15mm X 1 - [id number] - [id number] Implanted:Qty: 1 on 04/05/2021 by Rito Munoz MD at [facility] Knee Left: Knee [employer]-[id number] 05/01/2030 [id number] / [id number] / Chg Wedge Legion Scw Lwdg S5 1 - [id number] - [id number] Implanted:Qty: 1 on 04/05/2021 by Rito Munoz MD at [facility] Knee Left: Knee [employer]-[id number] 04/21/2030 [id number] / [id number] / Chg Host/Hostess Ground Lgn Offset 6mm - [id number] - [id number] Implanted:Qty: 1 on 04/05/2021 by Rito Munoz MD at [facility] Knee Left: Knee [employer]-[id number] 02/27/2031 [id number] / [id number] / Chg Femoral Lgn Ox Constrained - [id number] - [id number] Implanted:Qty: 1 on 04/05/2021 by Rito Munoz MD at [facility] Knee Left: Knee [employer]-[id number] 08/07/2030 [id number] / [id number] / Chg Stem Lgn Pressfit 13mm X 1 - [id number] - [id number] Implanted:Qty: 1 on 04/05/2021 by Rito Munoz MD at [facility] Knee Left: Knee [employer]-[id number] 12/11/2030 [id number] / [id number] / Chg Wedge Scr Full Step 3-4 10 - [id number] - [id number] Implanted:Qty: 1 on 04/05/2021 by Rito Munoz MD at [facility] Knee Left: Knee [employer]-[id number] 06/12/2030 [id number] / [id number] / Chg Tibial Lgn Revia Base Sz 3 - [id number] - [id number] Implanted:Qty: 1 on 04/05/2021 by Rito Munoz MD at [facility] Knee Left: Knee [employer]-[id number] 07/10/2030 [id number] / [id number] / Medtronic Spinal Cord Stimulator-06/12/2022 Implanted:11/2021 by Fransisco Neri MD (Quantity not on file) Spinal Cord Stimulator Back Medtronic [id number] / / Description:LEAD MODEL: 977C 2 I called [employer] device rep to obtain implant information 01/16/23 acr Chg Host/Hostess Ground Lgn Offset 6mm - [id number] - [id number] Implanted:Qty: 1 on 04/05/2021 by Rito Munoz MD at [facility] Left: Knee [employer]-[id number] 02/27/2031 [id number] / [id number] / Insurance MEDICARE [facility] Advance Directives * Full Code (Latest Code Status on File) Date Activated Date Inactivated Comments 04/25/2022 12:27 PM 04/26/2022 5:36 PM Question Answer Comments Patient has decision-making capacity? Yes Care Teams Refinery Technician Relationship Specialty Start Date End Date Deo Byrne MD [address] [place] [address] PCP - General 04/25/22
== END 2025-06-30 23:59 | disposition home or self-care (01) ==
LOC: LAB 16:50
PROVIDERS: PCP Family Medicine; Visit Provider Specialist
DX: E53.8 Deficiency of other specified B group vitamins (principal)
CPT/HCPCS: 36415; 83516; 86340